=== PATIENT | female | born 1950 | race Caucasian/White ===

== ENCOUNTER → 2020-04-04 16:21 | Outpatient (CLI) | payer MEDICARE, SELFPAY | PROVIDERS: Visit Provider Physician Assistant | DX: R30.9 Painful micturition, unspecified (principal); R35.8 Other polyuria | CPT/HCPCS: 87086 ==

== ENCOUNTER → 2021-04-01 17:53 | Outpatient (CLI) | payer MEDICARE, SELFPAY ==
--- NOTE | 2021-04-01 17:55 | DI.MRI.S_ITS ---
PROCEDURE: MR THORACIC SPINE WO CON INDICATIONS: Thoracic myelopathy TECHNIQUE: Noncontrast sagittal T1 spine echo and T2 fast spin echo, sagittal STIR, axial T1 and T2 fast spin echo through the thoracic spine. COMPARISON: None. FINDINGS: Image quality: Excellent. Alignment and Curvature: There is normal bony alignment. No spondylolisthesis. Bone Marrow: Bony fusion at T1-2 level is seen. There is no marrow edema. Chronic appearing mild anterior wedge compression deformity at T12 level is seen with 10% loss of T12 vertebral body height anteriorly. No acute compression fracture . No suspicious intraosseous lesion. Degenerative endplate changes and loss of disc height are noted at T8-9, T9-10, T10-11 and T11-12 levels. Spinal Cord: Mild left paracentral disc bulge at T3-4 level is seen with mild central canal stenosis. Mild central disc bulge at T5-6, and T6-7 levels are seen with mild central canal stenosis. Mild broad-based disc bulge at T8-9 level is seen with mild effacement of thecal sac anteriorly. There is broad-based disc bulge at T9-10 level causing [id number] central canal stenosis and suggestion of mild bilateral neural foraminal narrowing. Left paracentral disc herniation and extrusion at T10-11 level is seen with extruded disc extending along left posterior aspect of T10 vertebral body causing moderate to severe central canal stenosis and left-sided neural foraminal narrowing. Significant compression of thoracic spinal cord at this level is also noted. Mild broad-based disc bulge is also seen at T11-12 and T12-L1 levels causing mild central canal stenosis. mild T2 hyperintense signal within thoracic spinal cord at T10-11 level is seen concerning for of myelomalacia. Paraspinous Soft Tissues: No paravertebral masses. Miscellaneous: On axial images, central canal and foramina appear widely patent at all scanned levels. IMPRESSION: 1. Large left paracentral disc herniation and extrusion at T10-11 level with extruded disc extending along left posterior aspect of T10 causing moderate to severe central canal stenosis and focal compression of thoracic spinal cord at this level. Mildly increased thoracic spinal cord signal at T10-11 level suggestive of myelomalacia. 2. Chronic appearing mild anterior wedge compression deformity at T12 level. No acute compression fracture or spondylolisthesis in thoracic spine. 3. Degenerative endplate changes are noted involving multiple thoracic spine vertebral bodies as described above causing mild central canal stenosis without additional area of cord compression or myelomalacia. Dictated by: Pedro Templeton M.D. on 04/01/2021 at 19:20 Approved by: Pedro Templeton M.D. on 04/01/2021 at 19:27
--- NOTE | 2021-04-01 17:55 | DI.CT.S_ITS ---
PROCEDURE: CT LUMBAR SPINE WO CON INDICATIONS: Thoracic myelopathy TECHNIQUE: Noncontrast 3 mm thick sections acquired from the T12 level to the sacrum. Sagittal and coronal reformats were constructed. For radiation dose reduction, the following was used: automated exposure control. COMPARISON: [facility], RG, XR L-SPINE 2-3V, 09/28/2020, 13:15. FINDINGS: Image quality: Excellent. Bones: Patient is status post extensive transpedicular fusion of lumbar spine from L1 through S1 levels. There is minimal retrolisthesis at L1-2 level and grade 1 anterolisthesis at L4-5 level. No acute vertebral body compression fractures. Degenerative endplate changes and loss of disc height throughout visualized lower thoracic and lumbar spine is seen. No suspicious lytic or blastic bony lesions. Chronic appearing mild anterior wedge compression deformity at T12 level is seen. T12-L1: Broad-based disc bulge and bilateral facet arthrosis is seen with mild central canal stenosis, no significant neural foraminal narrowing. L1-L2: There is prior right laminectomy. Bilateral facet arthrosis is seen. No significant canal stenosis or neural foraminal narrowing is seen. L2-L3: There is prior posterior decompression. Bilateral facet arthrosis is noted. Suggestion of broad-based disc bulge is seen. No significant central canal stenosis. Left-sided neural foraminal narrowing is likely present. L3-L4: There is prior posterior decompression. Bilateral facet arthrosis is noted. Mild broad-based disc bulge is seen. No significant central canal stenosis. Mild bilateral neural foraminal narrowing is noted. L4-L5: There is posterior decompression. Broad-based dorsal disc osteophyte complex formation is noted and bilateral facet arthrosis. There is no significant central canal stenosis. [id number] bilateral neural foraminal narrowing is seen. L5-S1: Mild diffuse disc bulge and bilateral facet arthrosis is seen with mild central canal stenosis and mild bilateral neural foraminal narrowing. Soft tissues: No retroperitoneal masses or hematomas. Visualized aorta is normal in caliber. IMPRESSION: 1. Post fusion changes in lumbar spine from L1 through S1 levels. Stable minimal spondylolisthesis at L1-2 and L4-5 levels as above. No acute compression fracture. No gross hardware loosening or failure. 2. Degenerative endplate changes, broad-based disc bulge and bilateral facet arthrosis throughout lumbar spine as described in detail above. 3. No gross paraspinous soft tissue abnormalities. Dictated by: Pedro Templeton M.D. on 04/01/2021 at 18:35 Approved by: Pedro Templeton M.D. on 04/01/2021 at 18:45
== END ==
PROVIDERS: PCP Internal Medicine; Referring Provider Physical Medicine & Rehabilitation; Visit Provider Physical Medicine & Rehabilitation
DX: S22.080A Wedge compression fracture of T11-T12 vertebra, initial encounter for closed fracture (principal); M47.14 Other spondylosis with myelopathy, thoracic region; M51.04 Intervertebral disc disorders with myelopathy, thoracic region; M48.04 Spinal stenosis, thoracic region; Z98.1 Arthrodesis status
CPT/HCPCS: 72131; 72146

== ENCOUNTER → 2021-04-12 10:59 | Outpatient (CLI) | payer MEDICARE, SELFPAY ==
[2021-04-12 14:04] LABS: COVID19 -Nasal RAPID Negative (Negative)
== END ==
PROVIDERS: PCP Internal Medicine; Referring Provider Physical Medicine & Rehabilitation; Visit Provider Physical Medicine & Rehabilitation
DX: Z20.822 Contact with and (suspected) exposure to COVID-19 (principal)
CPT/HCPCS: 87635; C9803

== ENCOUNTER 2021-04-13 08:33 | Outpatient (CLI) | payer MEDICARE, SELFPAY ==
[2021-04-13] VITALS (10 sets, daily range): BP systolic 124–201; BP diastolic 60–95; PULSE 74–95; RESP 10–20; TEMP 36.4; O2SAT 97–100
--- NOTE | 2021-04-13 08:36 | DI.RAD.S_ITS ---
PROCEDURE: PAIN C/T INTERLAMINAR INJECT INDICATIONS: SPINAL STENOSIS COMPARISON: None. FINDINGS: Fluoroscopic spot filming was performed to verify placement of spinal needles at the interlaminar space at the T10-T11 level(s), as labeled on the films. Appropriate location(s) of the needle tip(s) was confirmed by injection of iodinated contrast. IMPRESSION: Access needle in the T10-T11 interlaminar space for translaminar epidural steroid injection Dictated by: Alana Dougherty MD, PhD on 04/13/2021 at 11:55 Approved by: Alana Dougherty MD, PhD on 04/13/2021 at 11:55
[2021-04-13] MEDS: DEXAMETHASONE 10 MG/ML VIAL 30 MG INJ (09:45)
[2021-04-13] MEDS: BUPIVACAINE 0.25% (PF) VIAL 2 ML INJ (09:45)
[2021-04-13] MEDS: IOPAMIDOL 15 ML VIAL 3 ML INJ (09:45)
[2021-04-13] MEDS: fentaNYL 250 MCG/5 ML INJ (09:48)
[2021-04-13] MEDS: MIDAZOLAM 5 MG/5 ML VIAL IV (09:48)
--- NOTE | 2021-04-13 09:57 | PM.PROC.IR.1 ---
Date/Time/Diagnoses Date of procedure: 04/13/21 Time of procedure: 09:57 Pre-procedure diagnosis: Thoracic stenosis with HNP Post-procedure diagnosis: same Procedure Notes Procedure: Fluoroscopic guided, contrast controlled T10/11 translaminar epidural steroid injection with conscious sedation. Indications: Annabella is referred by Dr.s' Man and Delano for treatment of thoracic DDD/DJD with radiculopathy Physician: Kevin Garcia Total Fluoroscopy time (seconds): 14 Total sedation minutes: 16 Complications: none Procedure in detail & Post-procedure care: DESCRIPTION OF PROCEDURE Fluoroscopic guided, contrast controlled T10/11 translaminar epidural steroid injection with conscious sedation. Following review of allergy review potential side effects and complications, including, but not necessarily limited to, infection, allergic reaction, local tissue breakdown, temporary as well as permanent nerve injury, stroke, paralysis and possible , the patient indicated that they understood and agreed to proceed. An informed consent document was signed by the patient, witnessed by the nurse, and placed in the patient's chart. Additionally other treatment options including modalities, medications and physical therapy were reviewed with the patient. After review of previous anaesthesic history and IV conscious sedation the patient was deemed safe to proceed with today's procedure with IV conscious sedation as ASA class II designation. Safety time-out was performed to confirm patient ID, procedure to be performed and site of procedure. IV sedation was accomplished with a combination of 3mg of Versed and 100mcg of Fentanyl administered by the RN after DO order, titrated to patient comfort during the course of the procedure while the patient remained responsive to all verbal commands In the prone position, following sterile prep and drape of the thoracic region the T10/11 translaminar space was identified fluoroscopically. The skin was anesthetized via 25 gauge 1.5inch needle with 1% lidocaine solution. At this point a 22gauge epidural needle was atraumatically introduced and advanced under fluoroscopic guidance into the region of the T10/11 translaminar space depth was confirmed on lateral view. Radiographic data, including multiple fluoroscopic views of the thoracic spine, reveals spinal needle at the T10/11 translaminar space. Lateral views then showed the placement of the needle in the epidural space. Subsequent view show contrast material flowing superiorly and inferiorly in the epidural space. No vascular or intrathecal uptake is observed. At this point using loss of resistance technique with saline and the epidural space was entered. This was confirmed followed negative aspiration and injection of approximately 1.5cc of Isovue 200 showed excellent epidural flow without vascular or intrathecal uptake. At this point, 1cc of 1% lidocaine solution was admitted as a test dose and the patient was observed for an appropriate period of time without signs or symptoms of complications, including abdominal pain, shortness of breath, bilateral upper and lower extremity weakness, nausea and vomiting, prior to steroid injection. Subsequently, 3cc or 30mg of dexamethasone was then injected without incident. The patient tolerated the procedure well without signs of complications and subsequently was transferred to the recovery room for further monitoring. The patient was then transferred to the recovery area with their observed for an appropriate time after the injection. Patient reported a VAS score of 7 prior to the procedure and post-procedure VAS of 2.
== END 2021-04-13 10:25 | disposition home or self-care (01) ==
LOC: RAD 08:35
PROVIDERS: PCP Internal Medicine; Referring Provider Physical Medicine & Rehabilitation; Visit Provider Physical Medicine & Rehabilitation
DX: M51.14 Intervertebral disc disorders with radiculopathy, thoracic region (principal); M48.04 Spinal stenosis, thoracic region
CPT/HCPCS: 62321; 99152; J1100; J2250; J3010

== ENCOUNTER 2021-04-20 11:39 | Inpatient (IN) | payer MEDICARE, SELFPAY ==
[2021-04-20] VITALS (37 sets, daily range): BP systolic 131–213; BP diastolic 66–96; PULSE 75–102; RESP 12–28; TEMP 36.6–36.7; O2SAT 88–97; BMI 31.7
--- NOTE | 2021-04-20 12:10 | DI.MRI.S_ITS ---
PROCEDURE: MR THORACIC SPINE WO/W CON INDICATIONS: t10-T11 disc with recent injection, can't walk, urinary inco TECHNIQUE: Noncontrast sagittal T1 spin echo and T2 fast spin echo, sagittal STIR, axial T1 and T2 fast spin echo through the thoracic spine. After the administration of contrast, axial and sagittal T1 spin echo with fat saturation through the thoracic spine. COMPARISON: [facility], RG, XR T-SPINE 2-3V, 09/28/2020, 13:15. [facility], CT, CT LUMBAR SPINE WO CON, 04/01/2021, 18:06. FINDINGS: Partially visualized cervical thoracic fusion hardware. Partially visualized lumbosacral fusion hardware. Wedging of the T12 vertebral body again noted. At T10-T11, there is complete loss of intervertebral disc height with [id number] endplate contact and associated discogenic endplate edema and degenerative endplate osteophytic ridging. There is also diffuse disc bulge with a superimposed large disc extrusion which causes severe spinal canal stenosis. Extruded disc material extends approximately 1.6 centimeters above the level of the disc space. On series 13, image 17, the axial dimensions of the extruded disc material measure approximately 0.9 centimeters x 1.2 centimeters. Increased T2 signal of the cord at this level suggests compressive myelopathy. No significant spinal canal stenosis in the thoracic spine otherwise. N no thoracic cord signal abnormality otherwise. Thoracic prevertebral and paraspinous soft tissues are within normal limits. IMPRESSION: Severe spinal canal stenosis at T10-T11 due to a large disc extrusion. 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 Dictated by: Cresencio Talbot M.D. on 04/20/2021 at 16:08 Approved by: Cresencio Talbot M.D. on 04/20/2021 at 16:13
--- NOTE | 2021-04-20 12:10 | DI.MRI.S_ITS ---
PROCEDURE: MR LUMBAR SPINE WO/W CON INDICATIONS: post epidural with urinary incontinence and weakness TECHNIQUE: Noncontrast sagittal T1 spin echo and T2 fast echo, sagittal STIR, axial T1 and T2 fast spin echo through the lumbar spine. In cases with scoliosis, additional coronal T2 fast spin echo may be performed. COMPARISON: None. FINDINGS: There are postsurgical changes L1-S1 posterior fixation and wide laminectomies in the lower lumbar spine. There is a T2 hyperintense fluid collection in the laminectomy defects which likely represents a seroma and produces no mass effect on the subjacent thecal sac. Fatty atrophy of the paraspinous musculature. Otherwise unremarkable prevertebral and paraspinous soft tissues. No abnormal enhancement in the regional soft tissues or within the epidural space. Anterolisthesis of L5 on S1 measuring 5 millimeters. Wedging of the T12 vertebral body appears chronic. Otherwise normal vertebral body height. No suspicious focal marrow signal abnormality. T12-L1: No spinal canal or neural foraminal stenosis. L1-L2: No spinal canal stenosis. Mild bilateral neural foraminal narrowing. L2-L3: Wide decompression of the spinal canal. Mild bilateral neural foraminal narrowing. L3-L4: No spinal canal stenosis. Mild bilateral neural foraminal narrowing. L4-L5: Pseudo bulge related to the anterolisthesis of L4 on L5 flattens the ventral thecal sac without significant mass effect upon the traversing L5 nerve roots. Mild bilateral neural foraminal narrowing. L5-S1: No spinal canal stenosis. Moderate bilateral neural foraminal narrowing with mild flattening of the exiting L5 nerve roots. IMPRESSION: Postsurgical changes of L1-S1 posterior fixation and lower lumbar spine wide bilateral laminectomies. No spine significant spinal canal or neural foraminal stenosis except for moderate neural foraminal narrowing at L5-S1. Correlate for any corresponding L5 radicular symptoms. Dictated by: Cresencio Talbot M.D. on 04/20/2021 at 15:58 Approved by: Cresencio Talbot M.D. on 04/20/2021 at 16:08
[2021-04-20 13:14] LABS: Add Manual Diff / Slide Review NO; Basophils Absolute Auto 100 /uL (0-100); Basophils Percent Auto 0.8 % (0-2); Eosinophils Absolute Auto 0 /uL (0-450); Hematocrit 41.1 % (36-46); Hemoglobin 13.9 g/dL (12.0-16.0); Lymphocytes Absolute Auto 900 /uL (1100-4500); Lymphocytes Percent Auto 10.7 % (25-40); Mean Corpuscular HGB Conc 33.8 % (30-36); Mean Corpuscular Hemoglobin 31.9 PG (26-34); Mean Corpuscular Volume 94.3 fL (80-100); Monocytes Absolute Auto 100 /uL (0-900); Monocytes Percent Auto 0.9 % (3-14); Neutrophils Absolute Auto 7500 /uL (1500-7000); Neutrophils Percent Auto 87.6 % (50-75); Platelet Count 67 X10^3/uL (150-400); Red Blood Cell Count 4.35 X10^6/uL (4.0-5.2); White Blood Cell Count 8.5 X10^3/uL (4.5-11.0)
--- NOTE | 2021-04-20 13:15 | ED_ITS ---
HPI - Weakness <Christine Alarcon, DO - Last Filed: 04/21/21 06:59> General Chief complaint: Weakness Stated complaint: LEG WEAKNESS UNABLE TO HOLD PEEING AND BOWELS Time Seen by Provider: 04/20/21 11:52 Source: patient Mode of arrival: Wheelchair History of Present Illness HPI Narrative: 70-year-old female who has chronic ongoing back pain. She had an MRI April 01 upper thoracic spine found to have a T10-11 disc herniation for. She had an epidural injection for pain control on 04/13/2021. She said initially this feeling in her leg started coming back however is she has gotten actually weaker. She used to be able to lift her legs 6 in or so to get up the stairs however she is no longer able to do that. 3 times in the last 5 days she has had nocturnal incontinence. She says she has wheezed previously been able to get up and use the restroom however now she is unable to. She cannot tell when she has to go. She can not tell when she has to have a bowel movement but can not stop it or old. She has to wear depends which is new for her. She really has a bad neuropathy pain in the bottoms her feet which seems to be chronic. She denies any fever or chills. She has had multiple back surgeries in the past cervical fusion and lumbar fusion. Related Data Home Medications Medication Instructions Recorded Confirmed pravastatin 80 mg tablet 80 mg PO BEDTIME 04/04/20 04/21/21 ascorbic acid (vitamin C) 1,000 mg 1 g PO DAILY tab 03/31/21 04/21/21 tablet aspirin 81 mg tablet,delayed 81 mg PO DAILY 03/31/21 04/21/21 release (Adult Aspirin Regimen) baclofen 10 mg tablet 10 mg PO BEDTIME 03/31/21 04/21/21 baclofen 5 mg tablet 5 mg PO TID 03/31/21 04/21/21 calcitonin (salmon) 200 1 spray INTRANASAL (ALT) DAILY 03/31/21 04/21/21 unit/actuation nasal spray cholecalciferol (vitamin D3) 250 250 mcg PO DAILY 03/31/21 04/21/21 mcg (10,000 unit) capsule coenzyme Q10 200 mg/gram oral mg PO 03/31/21 03/31/21 powder (H2Q CoQ10) fexofenadine 180 mg tablet 180 mg PO DAILY 03/31/21 04/21/21 ([facility]) fluticasone propionate 50 1 spray INTRANASAL DAILY 03/31/21 04/21/21 mcg/actuation nasal spray,suspension glucosamine-chondroitin 250 mg-200 2 tab PO QPC 03/31/21 04/21/21 mg tablet (Osteo Bi-Flex) glutamic [id number]-[id number] tab PO 03/31/21 03/31/21 tablet glycosaminoglycans,mixed 80 cap PO 03/31/21 03/31/21 mg-ascorbic acid 15 mg capsule (SynovX Metabolic) multivitamin 1 tab PO DAILY 03/31/21 04/21/21 omega-3 fatty acids 1,250 mg 2,500 mg PO DAILY 03/31/21 04/21/21 capsule prednisone 20 mg tablet 40 mg PO DAILY 03/31/21 04/21/21 strontium gluconate-vitamins tab PO 03/31/21 03/31/21 [id number] acid 680 mg-30 mg tablet tramadol 50 mg tablet 50 mg PO BID PRN tab 03/31/21 04/21/21 Previous Rx's Medication Instructions Recorded diazepam 10 mg tablet (Valium) 10 mg PO ONCE #10 tab MDD 3 tabs 03/31/21 gabapentin 300 mg capsule 300 mg PO .COMPLEX #90 cap 03/31/21 Allergies Allergy/AdvReac Type Severity Reaction Status Date / Time cefazolin [From [facility]] Allergy Intermediate Hives Verified 04/20/21 11:53 Review of Systems <Christine Alarcon, - Last Filed: 04/21/21 06:59> Review of Systems Narrative: GENERAL: Denies chills, fatigue, malaise, fever, sweats, travel HEENT: Denies sinus pain, ear pain, sore throat, difficulty swallowing, neck pain RESPIRATORY: Denies dyspnea, cough, wheezing, hemoptysis, sputum. CARDIOVASCULAR: Denies chest pain, palpitations, orthopnea, edema GASTROINTESTINAL: Denies nausea, vomiting, abdominal pain, diarrhea, constipation, melena. :+ urinary incontinence, see HPI MUSCULOSKELETAL: Denies weakness, joint pain, or bony pain SKIN: No rash, no erythema, no pruritus NEUROLOGIC: See HPI PSYCHIATRIC: No concerning psychosocial issues. 12 point review of systems is negative except for those stated above and HPI Patient History <Christine Alarcon DO - Last Filed: 04/21/21 06:59> Medical History HNP (herniated nucleus pulposus), thoracic T12 compression fracture Thoracic myelopathy UTI (urinary tract infection) Surgical History H/O eye surgery H/O shoulder surgery H/O thumb surgery H/O: knee surgery History of back surgery History of fusion of cervical spine History of lumbar fusion Family History Father Congestive heart failure Osteoarthritis Mother Osteoarthritis Pneumonia Sister Heart disease Grandmother Cancer Congestive heart failure Social History household members: none Smoking Status: Never smoker Smoking Status: Never smoker alcohol intake frequency: holidays/special occasions only Substance Use Type: does not use Exam <Christine Alarcon DO - Last Filed: 04/21/21 06:59> Initial Vital Signs Initial Vital Signs: Vital Signs Temperature 98.0 F 04/20/21 11:48 Pulse Rate 99 H 04/20/21 11:48 Respiratory Rate 17 04/20/21 11:48 Blood Pressure 213/96 H 04/20/21 11:48 Pulse Oximetry 95 04/20/21 11:48 GENERAL: Well-appearing, well-nourished and in no acute distress. HEENT: Head atraumatic,EOMI, pupils reactive, face symmetric, moist mucous membranes CARDIOVASCULAR: Regular rate and rhythm without murmurs, rubs or gallops. RESPIRATORY: Breath sounds equal bilaterally, no wheezes rales or rhonchi. ABDOMEN: Soft, nontender. Normoactive bowel sounds all 4 quadrants. No guarding or rebound. BACK: No vertebral tenderness no steps RECTAL: Strong rectal tone EXTREMITIES: Normal range of motion, no clubbing or edema. Neurovascularly intact NEUROLOGICAL: Alert and oriented x4. Decreased sensation in saddle area bilat eral lower extremity weakness hyper reflexia from bottoms of feet. Hyper reflexive patella no clonus present SKIN: Warm, dry, no laceration, no petechiae, no rashes or lesions. <Otoniel [place], DO - Last Filed: 04/21/21 03:18> Initial Vital Signs Initial Vital Signs: Vital Signs Temperature 98.0 F 04/20/21 11:48 Pulse Rate 99 H 04/20/21 11:48 Respiratory Rate 17 04/20/21 11:48 Blood Pressure 213/96 H 04/20/21 11:48 Pulse Oximetry 95 04/20/21 11:48 Course <Christine Alarcon DO - Last Filed: 04/21/21 06:59> Orders Ordered: Acetaminophen (Acetaminophen 325 Mg Tablet) 650 mg PO Q6HR PRN PRN Reason: Fever/Mild Pain (1-3) Baclofen (Baclofen 10 Mg Tablet) 10 mg PO BEDTIME [facility] Last Admin: 04/20/21 23:41 Dose: 10 mg Documented by: [email or web address] Baclofen (Baclofen 10 Mg Tablet) 5 mg PO 1000,1400 [facility] Dexamethasone (Dexamethasone 10 Mg/Ml Vial) 6 mg IV Q6H [facility] Last Admin: 04/21/21 03:59 Dose: 6 mg Documented by: [email or web address] Docusate Sodium (Docusate 100 Mg Capsule) 100 mg PO BID [facility] Last Admin: 04/20/21 23:41 Dose: 100 mg Documented by: [email or web address] Gabapentin (Gabapentin 300 Mg Capsule) 300 mg PO TID [facility] Last Admin: 04/20/21 23:41 Dose: 300 mg Documented by: [email or web address] Sodium Chloride (Normal Saline 0.9%) 1,000 mls @ 100 mls/hr IV CONT CELE Stop: 04/21/21 08:00 Last Admin: 04/20/21 23:41 Dose: 100 mls/hr Documented by: [email or web address] Metoclopramide HCl (Metoclopramide 10 Mg/2 Ml Inj) 10 mg IV Q6HR PRN PRN Reason: Nausea And Vomiting Morphine Sulfate (Morphine 2 Mg/Ml Inj) 2 mg IV Q4H PRN PRN Reason: Breakthrough pain only (8-10) Naloxone HCl (Naloxone 0.4 Mg/Ml Vial) 0.1 mg IV Q2MIN PRN PRN Reason: Opiate Reversal Naloxone HCl (Naloxone 0.4 Mg/Ml Vial) 0.2 mg IV Q2MIN PRN PRN Reason: Opiate Reversal Ondansetron HCl (Ondansetron 4 Mg/2 Ml Inj) 4 mg IV Q4HR PRN PRN Reason: Nausea And Vomiting Pantoprazole Sodium (Pantoprazole Dr 20 Mg Tablet) 20 mg PO 0600 [facility] Last Admin: 04/21/21 05:52 Dose: 20 mg Documented by: CTR.IVET Pravastatin Sodium (Pravastatin 20 Mg Tablet) 80 mg PO BEDTIME [facility] Sennosides (Sennosides 8.6 Mg Tablet) 17.2 mg PO BEDTIME [facility] Last Admin: 04/20/21 23:42 Dose: 17.2 mg Documented by: [email or web address] Tramadol HCl (Tramadol 50 Mg Tablet) 100 mg PO Q4H PRN PRN Reason: Pain, Severe (7-10) Stop: 04/23/21 22:07 Tramadol HCl (Tramadol 50 Mg Tablet) 50 mg PO BID PRN PRN Reason: pain Discontinued Medications Acetaminophen (Acetaminophen 325 Mg Tablet) 975 mg PO NOW ONE Stop: 04/20/21 14:01 Last Admin: 04/20/21 14:16 Dose: 975 mg Documented by: JONATHAN Dexamethasone (Dexamethasone 4 Mg/Ml Vial) 4 mg IV NOW ONE Stop: 04/20/21 20:51 Last Admin: 04/20/21 21:17 Dose: 4 mg Documented by: CRISS Methylprednisolone 2,520 mg/ (Sodium Chloride) 270.16 mls @ 270.16 mls/hr IV NOW ONE Stop: 04/20/21 17:06 Last Admin: 04/20/21 21:17 Dose: Not Given Documented by: CRISS Lorazepam (Lorazepam 2 Mg/Ml Inj) 1 mg IV NOW ONE Stop: 04/20/21 13:12 Last Admin: 04/20/21 14:17 Dose: 1 mg Documented by: JONATHAN Morphine Sulfate (Morphine 2 Mg/Ml Inj) 2 mg IV NOW ONE Stop: 04/20/21 12:13 Last Admin: 04/20/21 13:25 Dose: 2 mg Documented by: KEZIA Morphine Sulfate (Morphine 2 Mg/Ml Inj) 2 mg IV NOW ONE Stop: 04/20/21 18:04 Last Admin: 04/20/21 18:17 Dose: 2 mg Documented by: JONATHAN Morphine Sulfate (Morphine 2 Mg/Ml Inj) 2 mg IV NOW ONE Stop: 04/20/21 21:46 Last Admin: 04/20/21 21:53 Dose: 2 mg Documented by: DAVID Ondansetron HCl (Ondansetron 4 Mg/2 Ml Inj) 4 mg IV NOW ONE Stop: 04/20/21 12:13 Last Admin: 04/20/21 13:25 Dose: 4 mg Documented by: KEZIA Vital Signs Vital signs: Vital Signs - 8 hr 04/20/21 19:30 04/20/21 20:00 04/20/21 20:30 Pulse Rate 80 78 78 Respiratory Rate 19 14 18 Blood Pressure 156/85 H 161/88 H Pulse Oximetry 94 92 94 04/20/21 20:31 04/20/21 21:00 Pulse Rate 80 76 Respiratory Rate 22 12 Blood Pressure 149/74 H 157/87 H Pulse Oximetry 95 94 <Otoniel Whittington DO - Last Filed: 04/21/21 03:18> Orders Ordered: Acetaminophen (Acetaminophen 325 Mg Tablet) 650 mg PO Q6HR PRN PRN Reason: Fever/Mild Pain (1-3) Baclofen (Baclofen 10 Mg Tablet) 10 mg PO BEDTIME [facility] Last Admin: 04/20/21 23:41 Dose: 10 mg Documented by: [email or web address] Baclofen (Baclofen 10 Mg Tablet) 5 mg PO 1000,1400 [facility] Dexamethasone (Dexamethasone 10 Mg/Ml Vial) 6 mg IV Q6H [facility] Last Admin: 04/21/21 03:59 Dose: 6 mg Documented by: [email or web address] Docusate Sodium (Docusate 100 Mg Capsule) 100 mg PO BID [facility] Last Admin: 04/20/21 23:41 Dose: 100 mg Documented by: [email or web address] Gabapentin (Gabapentin 300 Mg Capsule) 300 mg PO TID [facility] Last Admin: 04/20/21 23:41 Dose: 300 mg Documented by: [email or web address] Sodium Chloride (Normal Saline 0.9%) 1,000 mls @ 100 mls/hr IV CONT [facility] Stop: 04/21/21 08:00 Last Admin: 04/20/21 23:41 Dose: 100 mls/hr Documented by: [email or web address] Metoclopramide HCl (Metoclopramide 10 Mg/2 Ml Inj) 10 mg IV Q6HR PRN PRN Reason: Nausea And Vomiting Morphine Sulfate (Morphine 2 Mg/Ml Inj) 2 mg IV Q4H PRN PRN Reason: Breakthrough pain only (8-10) Naloxone HCl (Naloxone 0.4 Mg/Ml Vial) 0.1 mg IV Q2MIN PRN PRN Reason: Opiate Reversal Naloxone HCl (Naloxone 0.4 Mg/Ml Vial) 0.2 mg IV Q2MIN PRN PRN Reason: Opiate Reversal Ondansetron HCl (Ondansetron 4 Mg/2 Ml Inj) 4 mg IV Q4HR PRN PRN Reason: Nausea And Vomiting Pantoprazole Sodium (Pantoprazole Dr 20 Mg Tablet) 20 mg PO 0600 [facility] Last Admin: 04/21/21 05:52 Dose: 20 mg Documented by: CTR.IVET Pravastatin Sodium (Pravastatin 20 Mg Tablet) 80 mg PO BEDTIME [facility] Sennosides (Sennosides 8.6 Mg Tablet) 17.2 mg PO BEDTIME [facility] Last Admin: 04/20/21 23:42 Dose: 17.2 mg Documented by: [email or web address] Tramadol HCl (Tramadol 50 Mg Tablet) 100 mg PO Q4H PRN PRN Reason: Pain, Severe (7-10) Stop: 04/23/21 22:07 Tramadol HCl (Tramadol 50 Mg Tablet) 50 mg PO BID PRN PRN Reason: pain Discontinued Medications Acetaminophen (Acetaminophen 325 Mg Tablet) 975 mg PO NOW ONE Stop: 04/20/21 14:01 Last Admin: 04/20/21 14:16 Dose: 975 mg Documented by: JONATHAN Dexamethasone (Dexamethasone 4 Mg/Ml Vial) 4 mg IV NOW ONE Stop: 04/20/21 20:51 Last Admin: 04/20/21 21:17 Dose: 4 mg Documented by: CRISS Methylprednisolone 2,520 mg/ (Sodium Chloride) 270.16 mls @ 270.16 mls/hr IV NOW ONE Stop: 04/20/21 17:06 Last Admin: 04/20/21 21:17 Dose: Not Given Documented by: CRISS Lorazepam (Lorazepam 2 Mg/Ml Inj) 1 mg IV NOW ONE Stop: 04/20/21 13:12 Last Admin: 04/20/21 14:17 Dose: 1 mg Documented by: JONATHAN Morphine Sulfate (Morphine 2 Mg/Ml Inj) 2 mg IV NOW ONE Stop: 04/20/21 12:13 Last Admin: 04/20/21 13:25 Dose: 2 mg Documented by: KEZIA Morphine Sulfate (Morphine 2 Mg/Ml Inj) 2 mg IV NOW ONE Stop: 04/20/21 18:04 Last Admin: 04/20/21 18:17 Dose: 2 mg Documented by: JONATHAN Morphine Sulfate (Morphine 2 Mg/Ml Inj) 2 mg IV NOW ONE Stop: 04/20/21 21:46 Last Admin: 04/20/21 21:53 Dose: 2 mg Documented by: DAVID Ondansetron HCl (Ondansetron 4 Mg/2 Ml Inj) 4 mg IV NOW ONE Stop: 04/20/21 12:13 Last Admin: 04/20/21 13:25 Dose: 4 mg Documented by: KEZIA Consultations Consultation #1: [id number] - [facility] Spine Surgeon (Nahun) has called back. After reviewing the case he recommends Decadron 10mg q6 Vital Signs Vital signs: Vital Signs - 8 hr 04/20/21 19:30 04/20/21 20:00 04/20/21 20:30 Pulse Rate 80 78 78 Respiratory Rate 19 14 18 Blood Pressure 156/85 H 161/88 H Pulse Oximetry 94 92 94 04/20/21 20:31 04/20/21 21:00 Pulse Rate 80 76 Respiratory Rate 22 12 Blood Pressure 149/74 H 157/87 H Pulse Oximetry 95 94 MDM - Weakness <Christine Alarcon DO - Last Filed: 04/21/21 06:59> Lab Data Result diagrams: 04/21/21 04:16 04/21/21 04:16 Labs: Lab Results 04/20/21 04/20/21 04/20/21 Range/Units 12:48 13:05 13:05 WBC 8.5 (4.5-11.0) X10^3/uL RBC 4.35 (4.0-5.2) X10^6/uL Hgb 13.9 (12.0-16.0) g/dL Hct 41.1 (36-46) % MCV 94.3 (80-100) fL MCH 31.9 (26-34) PG MCHC 33.8 (30-36) % RDW 13.0 (11.6-14.8) % Plt Count 67 L (150-400) X10^3/uL Neut % (Auto) 87.6 H (50-75) % Lymph % (Auto) 10.7 L (25-40) % Kemper % (Auto) 0.9 L (3-14) % Eos % (Auto) 0.0 L (2-4) % Baso % (Auto) 0.8 (0-2) % Neut # (Auto) 7500 H (4055-9444) /uL Lymph # (Auto) 900 L (0778-1259) /uL Kemper # (Auto) 100 (0-900) /uL Eos # (Auto) 0 (0-450) /uL Baso # (Auto) 100 (0-100) /uL Sodium 134 L (137-145) mmol/L Potassium 4.2 (3.4-5.1) mmol/L Chloride 100 (98-107) mmol/L Carbon Dioxide 29 (22-32) mmol/L BUN 25 H (7-17) mg/dL Creatinine 0.74 (0.52-1.04) mg/dL Estimated GFR > 60.0 (>60) mL/min BUN/Creatinine Ratio 33.8 H (6-22) Glucose 358 H (80-110) mg/dL Calcium 9.6 (8.4-10.2) mg/dL Total Bilirubin 0.7 (0.2-1.3) mg/dL AST 27 (14-36) IU/L ALT 24 (<35) IU/L Alkaline Phosphatase 102 (38-126) U/L Total Protein 7.1 (6.3-8.2) g/dL Albumin 4.2 (3.5-5.0) g/dL Globulin 2.9 (1.7-4.1) g/dL Albumin/Globulin Ratio 1.4 (1.0-2.8) Urine Color Yellow Urine Appearance Clear Urine pH 7.0 (4.5-8.0) Ur Specific [place] 1.015 (1.000-1.035) Urine Protein Negative (Negative) Urine Glucose (UA) 2+ H (Negative) g/dL Urine Ketones 1+ H (NEGATIVE) Urine Occult Blood Trace-intact (Negative) Urine Nitrate Negative (Negative) Urine Bilirubin Negative (NEGATIVE) Urine Urobilinogen 0.2 (0.2) E.U./dL Ur Leukocyte Esterase Negative (NEGATIVE) Urine RBC 0-1/hpf (0-5/HPF) Urine WBC None seen (0-5/HPF) Ur Squamous Epith Cells 0-1 /hpf (0-5/HPF) Urine Bacteria None seen (None) Ur Culture Indicated? Cult not indicated Point of Care Testing Glucose POC 275 Urine Dip Bedside Urine Glucose 1000 mg/dl Bedside Urine Bilirubin - Negative Bedside Urine Ketone +/- 5 Urine Specific [place] 1.015 Bedside Urine Occult Blood +/- Bedside Urine pH 7.0 Bedside Urine Protein - Negative Bedside Urine Urobilinogen 0.2 Bedside Urine Nitrite - Negative Bedside Urine Leukocytes - Negative Esterase Imaging Data MR Thoracic: Radiologist Impression: PROCEDURE:? MR THORACIC SPINE WO/W CON ? INDICATIONS:? t10-T11 disc with recent injection, can't walk, urinary inco ? TECHNIQUE:? Noncontrast sagittal T1 spin echo and T2 fast spin echo, sagittal STIR, axial T1 and T2 fast spin echo through the thoracic spine.? After the administration of contrast, axial and sagittal T1 spin echo with fat saturation through the thoracic spine.? ? COMPARISON:? [facility], RG, XR T-SPINE 2-3V, 09/28/2020, 13:15.? [facility], CT, CT LUMBAR SPINE WO CON, 04/01/2021, 18:06. ? FINDINGS:? ? Partially visualized cervical thoracic fusion hardware.? Partially visualized lumbosacral fusion hardware. ? Wedging of the T12 vertebral body again noted. ? At T10-T11, there is complete loss of intervertebral disc height with bone-on- bone endplate contact and associated discogenic endplate edema and degenerative endplate osteophytic ridging.? There is also diffuse disc bulge with a superimposed large disc extrusion which causes severe spinal canal stenosis.? Extruded disc material extends approximately 1.6 centimeters above the level of the disc space.? On series 13, image 17, the axial dimensions of the extruded disc material measure approximately 0.9 centimeters x 1.2 centimeters.? Increased T2 signal of the cord at this level suggests compressive myelopathy. ? No significant spinal canal stenosis in the thoracic spine otherwise.? N no thoracic cord signal abnormality otherwise.? Thoracic prevertebral and paraspinous soft tissues are within normal limits. ? IMPRESSION:? ? Severe spinal canal stenosis at T10-T11 due to a large disc extrusion.? 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 ? ? Dictated by: Cresencio Talbot M.D. on 04/20/2021 at 16:08? MR Lumbar: Radiologist Impression: PROCEDURE:? MR LUMBAR SPINE WO/W CON ? INDICATIONS:? post epidural with urinary incontinence and weakness ? TECHNIQUE:? Noncontrast sagittal T1 spin echo and T2 fast echo, sagittal STIR, axial T1 and T2 fast spin echo through the lumbar spine.? In cases with scoliosis, additional coronal T2 fast spin echo may be performed.? ? COMPARISON:? None. ? FINDINGS:? There are postsurgical changes L1-S1 posterior fixation and wide laminectomies in the lower lumbar spine.? There is a T2 hyperintense fluid collection in the laminectomy defects which likely represents a seroma and produces no mass effect on the subjacent thecal sac.? Fatty atrophy of the paraspinous musculature.? Otherwise unremarkable prevertebral and paraspinous soft tissues.? No abnormal enhancement in the regional soft tissues or within the epidural space. ? Anterolisthesis of L5 on S1 measuring 5 millimeters.? Wedging of the T12 vertebral body appears chronic.? Otherwise normal vertebral body height.? No suspicious focal marrow signal abnormality.? ? T12-L1:? No spinal canal or neural foraminal stenosis. ? L1-L2:? No spinal canal stenosis.? Mild bilateral neural foraminal narrowing. ? L2-L3:? Wide decompression of the spinal canal.? Mild bilateral neural foraminal narrowing. ? L3-L4:? No spinal canal stenosis.? Mild bilateral neural foraminal narrowing. ? L4-L5:? Pseudo bulge related to the anterolisthesis of L4 on L5 flattens the ventral thecal sac without significant mass effect upon the traversing L5 nerve roots.? Mild bilateral neural foraminal narrowing. ? L5-S1:? No spinal canal stenosis.? Moderate bilateral neural foraminal narrowing with mild flattening of the exiting L5 nerve roots. ? ? IMPRESSION: ? ? Postsurgical changes of L1-S1 posterior fixation and lower lumbar spine wide bilateral laminectomies. ? No spine significant spinal canal or neural foraminal stenosis except for moderate neural foraminal narrowing at L5-S1.? Correlate for any corresponding L5 radicular symptoms. ? Dictated by: Cresencio Talbot M.D. on 04/20/2021 at 15:58 ? ? MDM Narrative Medical decision making narrative: Patient has new neurologic symptoms of urinary incontinence and lower extremity weakness with known T10-T11 disc protrusion. MRI confirms cord edema. 1649-Dr. Templeton spine has been updated on patient's symptoms test results at this time under mowing steroid protocol for traumatic spinal injury of Solu-Medrol 30 milligrams/kilogram over 15 minutes and then infusion of 5.4 milligrams/kilogram per hour for the next 23 hours Unfortunately we do not have enpugh Solu-Medrol to make this happen. Dr. Man made aware of this. Waiting for call from [facility] spinal surgeon for recom mendations. Decadron may be an alternative. hospitalist has been updated patient's symptoms test results does accept but waiting to hear about steroid recommendations from her review in [facility]. signed out to Dr. Whittington 2099 -patient received in sign-out from Dr. Alarcon. I have reviewed the clinical course up until this point. We still not heard back from [facility] spine. I have contacted Dr. Man who recommends Decadron 4 mg q.6 hours. <Otoniel Whittington, - Last Filed: 04/21/21 03:18> Lab Data Labs: Lab Results 04/20/21 04/20/21 04/20/21 Range/Units 12:48 13:05 13:05 WBC 8.5 (4.5-11.0) X10^3/uL RBC 4.35 (4.0-5.2) X10^6/uL Hgb 13.9 (12.0-16.0) g/dL Hct 41.1 (36-46) % MCV 94.3 (80-100) fL MCH 31.9 (26-34) PG MCHC 33.8 (30-36) % RDW 13.0 (11.6-14.8) % Plt Count 67 L (150-400) X10^3/uL Neut % (Auto) 87.6 H (50-75) % Lymph % (Auto) 10.7 L (25-40) % Kemper % (Auto) 0.9 L (3-14) % Eos % (Auto) 0.0 L (2-4) % Baso % (Auto) 0.8 (0-2) % Neut # (Auto) 7500 H (2681-5779) /uL Lymph # (Auto) 900 L (9152-4623) /uL Kemper # (Auto) 100 (0-900) /uL Eos # (Auto) 0 (0-450) /uL Baso # (Auto) 100 (0-100) /uL Sodium 134 L (137-145) mmol/L Potassium 4.2 (3.4-5.1) mmol/L Chloride 100 (98-107) mmol/L Carbon Dioxide 29 (22-32) mmol/L BUN 25 H (7-17) mg/dL Creatinine 0.74 (0.52-1.04) mg/dL Estimated GFR > 60.0 (>60) mL/min BUN/Creatinine Ratio 33.8 H (6-22) Glucose 358 H (80-110) mg/dL Calcium 9.6 (8.4-10.2) mg/dL Total Bilirubin 0.7 (0.2-1.3) mg/dL AST 27 (14-36) IU/L ALT 24 (<35) IU/L Alkaline Phosphatase 102 (38-126) U/L Total Protein 7.1 (6.3-8.2) g/dL Albumin 4.2 (3.5-5.0) g/dL Globulin 2.9 (1.7-4.1) g/dL Albumin/Globulin Ratio 1.4 (1.0-2.8) Urine Color Yellow Urine Appearance Clear Urine pH 7.0 (4.5-8.0) Ur Specific [place] 1.015 (1.000-1.035) Urine Protein Negative (Negative) Urine Glucose (UA) 2+ H (Negative) g/dL Urine Ketones 1+ H (NEGATIVE) Urine Occult Blood Trace-intact (Negative) Urine Nitrate Negative (Negative) Urine Bilirubin Negative (NEGATIVE) Urine Urobilinogen 0.2 (0.2) E.U./dL Ur Leukocyte Esterase Negative (NEGATIVE) Urine RBC 0-1/hpf (0-5/HPF) Urine WBC None seen (0-5/HPF) Ur Squamous Epith Cells 0-1 /hpf (0-5/HPF) Urine Bacteria None seen (None) Ur Culture Indicated? Cult not indicated Point of Care Testing Glucose POC 275 Urine Dip Bedside Urine Glucose 1000 mg/dl Bedside Urine Bilirubin - Negative Bedside Urine Ketone +/- 5 Urine Specific [place] 1.015 Bedside Urine Occult Blood +/- Bedside Urine pH 7.0 Bedside Urine Protein - Negative Bedside Urine Urobilinogen 0.2 Bedside Urine Nitrite - Negative Bedside Urine Leukocytes - Negative Esterase MDM Narrative Medical decision making narrative: Patient has new neurologic symptoms of urinary incontinence and lower extremity weakness with known T10-T11 disc protrusion. MRI confirms cord edema. 1649-Dr. Templeton spine has been updated on patient's symptoms test results at this time under mowing steroid protocol for traumatic spinal injury of Solu-Medrol 30 milligrams/kilogram over 15 minutes and then infusion of 5.4 milligrams/kilogram per hour for the next 23 hours Unfortunately we do not have and Solu-Medrol to make this happen. Dr. Vergara made aware of this. Waiting for call from [facility] spinal surgeon for recommendations. Decadron may be an alternative. 2100 -patient received in sign-out from Dr. Alarcon. I have reviewed the clinical course up until this point. We still not heard back from [facility] spine. I have contacted Dr. Man who recommends Decadron 4 mg q.6 hours. <Otoniel Whittington, DO - Last Filed: 04/21/21 03:18> Critical Care Time Critical Care Time: Yes Total Critical Care Time: 45 Attestation: The high probability of a clinically significant, sudden or life threatening deterioration of the [MSK/Neuro] system(s) required my full and direct attention, intervention and personal management. The aggregate critical care time was [45] minutes. This time is in addition to time spent performing reported procedures but includes the following: [x] Data Review and interpretation [x] Patient assessment and monitoring of vital signs [x] Documentation [x] Medication orders and management Discharge Plan Departure Patient Disposition: Admitted As Inpatient Clinical Impression: Intervertebral disc disorders with radiculopathy, thoracic region Admit Date/Time: 04/20/21 21:15 Admit Provider: Eun Bunch
[2021-04-20] MEDS: MORPHINE 2 MG/ML INJ IV ×3 (13:25→21:53)
[2021-04-20] MEDS: ONDANSETRON 4 MG/2 ML INJ IV (13:25)
[2021-04-20 13:52] LABS: Appearance Urine UA CLEAR; Bilirubin Urine UA NEGATIVE (NEGATIVE); Color Urine UA YELLOW; Glucose Urine UA 2+ g/dL (Negative); Ketones Urine UA 1+ (NEGATIVE); Leukocyte Esterase Urine UA NEGATIVE (NEGATIVE); Nitrite Urine UA NEGATIVE (Negative); Occult Blood Urine UA TRACE-INTACT (Negative); Protein Urine UA NEGATIVE (Negative); Specific Gravity Urine UA 1.015 (1.000-1.035); Urobilinogen Urine UA 0.2 E.U./dL (0.2)
[2021-04-20 14:00] LABS: Alanine Aminotransferase 24 IU/L (<35); Albumin 4.2 g/dL (3.5-5.0); Albumin Globulin Ratio 1.4 (1.0-2.8); Alkaline Phosphatase 102 U/L (38-126); Aspartate Aminotransferase 27 IU/L (14-36); BUN Creatinine Ratio 33.8 (6-22); Bilirubin Total 0.7 mg/dL (0.2-1.3); Blood Urea Nitrogen 25 mg/dL (7-17); Calcium 9.6 mg/dL (8.4-10.2); Carbon Dioxide 29 mmol/L (22-32); Chloride 100 mmol/L (98-107); Estimated Glomerular Filt Rate > 60.0 mL/min (>60); Globulin 2.9 g/dL (1.7-4.1); Glucose 358 mg/dL (80-110); HEMOLYSIS 20 (0-50); Potassium 4.2 mmol/L (3.4-5.1); Sodium 134 mmol/L (137-145); Total Protein 7.1 g/dL (6.3-8.2)
[2021-04-20] MEDS: ACETAMINOPHEN 325 MG TABLET 975 MG PO (14:16)
[2021-04-20] MEDS: LORazepam 2 MG/ML INJ 1 MG IV (14:17)
[2021-04-20 14:21] LABS: Bacteria Urine None Seen; Culture Indicated Urine Cult Not Indicated; RBC Urine 0-1/HPF (0-5/HPF); Squamous Epithelial Cell Urine 0-1 /HPF (0-5/HPF); WBC Urine None Seen (0-5/HPF)
[2021-04-20] MEDS: LORazepam 2 MG/ML INJ (14:54)
--- NOTE | 2021-04-20 15:55 | PC.NURSE ---
pt states her back is hurting again from laying during the MRI. pt wants to lie flat, she requested water, i told her i'd like for her to sit up a bit for water that she is slurring her words and i'm concerned about that, she stated its because her mouth is dry. i explained i'll let the dr know about her pain and maybe after she is more comfortable she can sit up to drink water. I did offer her an oral swab, she said she'd wait for water.
[2021-04-20] MEDS: DEXAMETHASONE 4 MG/ML VIAL IV (21:17)
[2021-04-20 22:51] LABS: Add Manual Diff / Slide Review NO; Basophils Absolute Auto 100 /uL (0-100); Basophils Percent Auto 1.3 % (0-2); Eosinophils Absolute Auto 0 /uL (0-450); Eosinophils Percent Auto 0.3 % (2-4); Hemoglobin 13.4 g/dL (12.0-16.0); Lymphocytes Absolute Auto 2300 /uL (1100-4500); Lymphocytes Percent Auto 21.5 % (25-40); Mean Corpuscular HGB Conc 33.4 % (30-36); Mean Corpuscular Hemoglobin 31.5 PG (26-34); Mean Corpuscular Volume 94.3 fL (80-100); Monocytes Absolute Auto 300 /uL (0-900); Monocytes Percent Auto 2.9 % (3-14); Neutrophils Absolute Auto 8100 /uL (1500-7000); Platelet Count 207 X10^3/uL (150-400); Red Blood Cell Count 4.24 X10^6/uL (4.0-5.2); White Blood Cell Count 10.9 X10^3/uL (4.5-11.0)
[2021-04-20 22:57] LABS: Magnesium 1.8 mg/dL (1.6-2.3)
[2021-04-20] MEDS: GABAPENTIN 300 MG CAPSULE PO (23:41)
[2021-04-20] MEDS: SODIUM CHLORIDE 0.9% 1,000 ML 100 ML IV (23:41)
[2021-04-20] MEDS: DOCUSATE 100 MG CAPSULE PO (23:41)
[2021-04-20] MEDS: BACLOFEN 10 MG TABLET PO (23:41)
[2021-04-20] MEDS: SENNOSIDES 8.6 MG TABLET 17.2 MG PO (23:42)
[2021-04-21] VITALS (14 sets, daily range): BP systolic 143–169; BP diastolic 74–86; PULSE 68–93; RESP 14–22; TEMP 36.1–37.3; O2SAT 91–96
--- NOTE | 2021-04-21 01:57 | P.TELICUCN_ITS ---
History of Present Illness Consult details Chief complaint: LEG WEAKNESS UNABLE TO HOLD PEEING AND BOWELS :: This patient was seen in the Intensive Care Unit via real time interactive two- way audiovisual telecommunication. Narrative: 70 y.o. admitted to ICU for neuro checks. She had T10/11 epidural steroid injection on 04/13. Today she presented with bilateral leg weakness and stool/fecal incontinence. MRI of spine showed severe spinal canal stenosis @ T10-11 with a cord signal suggestive of compression. She received Decadron 4 mg IV x 1 and has been started on 6 mg IV q6H. Of note SBPs have been in 180s-200s. [facility] Medical History HNP (herniated nucleus pulposus), thoracic T12 compression fracture Thoracic myelopathy UTI (urinary tract infection) Surgical History H/O eye surgery H/O shoulder surgery H/O thumb surgery H/O: knee surgery History of back surgery History of fusion of cervical spine History of lumbar fusion Family History Father Congestive heart failure Osteoarthritis Mother Osteoarthritis Pneumonia Sister Heart disease Grandmother Cancer Congestive heart failure Social History household members: none Smoking Status: Never smoker Current Medications Current Medications Medications: Home Medications pravastatin 80 mg tablet 80 mg PO BEDTIME 04/04/20 [History Confirmed 03/31/21] ascorbic acid (vitamin C) 1,000 mg tablet 1 g PO DAILY tab 03/31/21 [History Confirmed 03/31/21] aspirin 81 mg tablet,delayed release (Adult Aspirin Regimen) 81 mg PO DAILY 03/31/21 [History Confirmed 03/31/21] baclofen 10 mg tablet 10 mg PO BEDTIME 03/31/21 [History Confirmed 03/31/21] baclofen 5 mg tablet 5 mg PO TID 03/31/21 [History Confirmed 03/31/21] calcitonin (salmon) 200 unit/actuation nasal spray 1 spray INTRANASAL (ALT) DAILY 03/31/21 [History Confirmed 03/31/21] cholecalciferol (vitamin D3) 250 mcg (10,000 unit) capsule 250 mcg PO DAILY 03/31/21 [History Confirmed 03/31/21] coenzyme Q10 200 mg/gram oral powder (H2Q CoQ10) mg PO 03/31/21 [History Conf irmed 03/31/21] diazepam 10 mg tablet (Valium) 10 mg PO ONCE #10 tab MDD 3 tabs 03/31/21 [Rx Confirmed 03/31/21] fexofenadine 180 mg tablet (Tiara Allergy) 180 mg PO DAILY 03/31/21 [History Confirmed 03/31/21] fluticasone propionate 50 mcg/actuation nasal spray,suspension 1 spray INTRANASAL DAILY 03/31/21 [History Confirmed 03/31/21] gabapentin 300 mg capsule 300 mg PO .COMPLEX #90 cap 03/31/21 [Rx Confirmed 03/31/21] glucosamine-chondroitin 250 mg-200 mg tablet (Osteo Bi-Flex) 2 tab PO QPC [History Confirmed 03/31/21] glutamic lyuo-sfjfhx-lzcgyveic tablet tab PO 03/31/21 [History Confirmed 03/31/21] glycosaminoglycans,mixed 80 mg-ascorbic acid 15 mg capsule (SynovX Metabolic) cap PO 03/31/21 [History Confirmed 03/31/21] multivitamin 1 tab PO DAILY 03/31/21 [History Confirmed 03/31/21] omega-3 fatty acids 1,250 mg capsule 2,500 mg PO DAILY 03/31/21 [History Confirmed 03/31/21] prednisone 20 mg tablet 40 mg PO DAILY 03/31/21 [History Confirmed 03/31/21] strontium gluconate-vitamins P0-I40-zetle acid 680 mg-30 mg tablet tab PO 03/31/21 [History Confirmed 03/31/21] tramadol 50 mg tablet 50 mg PO BID PRN tab 03/31/21 [History Confirmed 03/31/21] Visit Medications (administered) Generic Name Dose Route Start Last Admin Trade Name Freq PRN Reason Stop Dose Admin Baclofen 10 mg 04/20/21 22:30 04/20/21 23:41 Baclofen 10 Mg Tablet PO 10 mg BEDTIME CELE Administration Docusate Sodium 100 mg 04/20/21 22:15 04/20/21 23:41 Docusate 100 Mg Capsule PO 100 mg BID CELE Administration Gabapentin 300 mg 04/20/21 22:30 04/20/21 23:41 Gabapentin 300 Mg Capsule PO 300 mg TID CELE Administration Sodium Chloride 1,000 mls @ 100 mls/hr 04/20/21 22:15 04/20/21 23:41 Normal Saline 0.9% IV 04/21/21 08:00 100 mls/hr CONT CELE Administration Sennosides 17.2 mg 04/20/21 22:15 04/20/21 23:42 Sennosides 8.6 Mg Tablet PO 17.2 mg BEDTIME CELE Administration Review of Systems Review of Systems Narrative: Not performed as sleeping on camera activation Exam Vital Signs (past 8 hours): - 04/20/21 18:00 04/20/21 18:30 04/20/21 19:00 Temperature Pulse Rate 85 87 86 Respiratory Rate 12 18 Blood Pressure 149/82 H 162/89 H 169/90 H Pulse Oximetry 95 96 97 04/20/21 19:30 04/20/21 20:00 04/20/21 20:30 Temperature Pulse Rate 80 78 78 Respiratory Rate 19 14 18 Blood Pressure 156/85 H 161/88 H Pulse Oximetry 94 92 94 04/20/21 20:31 04/20/21 21:00 04/20/21 21:30 Temperature Pulse Rate 80 76 81 Respiratory Rate 22 12 20 Blood Pressure 149/74 H 157/87 H 169/93 H Pulse Oximetry 95 94 96 04/20/21 22:08 04/20/21 22:17 04/20/21 22:34 Temperature 97.9 F Pulse Rate 96 H 86 Respiratory Rate 16 19 Blood Pressure 182/87 H Pulse Oximetry 96 96 04/20/21 23:00 04/20/21 23:30 04/21/21 00:00 Temperature Pulse Rate 96 H 97 H 82 Respiratory Rate 21 28 H 22 Blood Pressure Pulse Oximetry 04/21/21 00:30 04/21/21 01:00 04/21/21 01:30 Temperature Pulse Rate 91 H 77 78 Respiratory Rate 14 14 14 Blood Pressure Pulse Oximetry Oxygen Delivery Method Room Air Oxygen Flow Rate 0 Const General: comfortable Resp Effort & Inspection: normal respiratory effort Objective Labs Result Diagrams: 04/20/21 22:35 04/20/21 13:05 Labs: Laboratory Results - last 24 hr 04/20/21 04/20/21 04/20/21 12:48 13:05 13:05 WBC 8.5 RBC 4.35 Hgb 13.9 Hct 41.1 MCV 94.3 MCH 31.9 MCHC 33.8 RDW 13.0 Plt Count 67 L Neut % (Auto) 87.6 H Lymph % (Auto) 10.7 L [place] % (Auto) 0.9 L Eos % (Auto) 0.0 L Baso % (Auto) 0.8 Neut # (Auto) 7500 H Lymph # (Auto) 900 L [place] # (Auto) 100 Eos # (Auto) 0 Baso # (Auto) 100 Sodium 134 L Potassium 4.2 Chloride 100 Carbon Dioxide 29 BUN 25 H Creatinine 0.74 Estimated GFR > 60.0 BUN/Creatinine Ratio 33.8 H Glucose 358 H Calcium 9.6 Magnesium Total Bilirubin 0.7 AST 27 ALT 24 Alkaline Phosphatase 102 Total Protein 7.1 Albumin 4.2 Globulin 2.9 Albumin/Globulin Ratio 1.4 Urine Color Yellow Urine Appearance Clear Urine pH 7.0 Ur Specific [place] 1.015 Urine Protein Negative Urine Glucose (UA) 2+ H Urine Ketones 1+ H Urine Occult Blood Trace-intact Urine Nitrate Negative Urine Bilirubin Negative Urine Urobilinogen 0.2 Ur Leukocyte Esterase Negative Urine RBC 0-1/hpf Urine WBC None seen Ur Squamous Epith Cells 0-1 /hpf Urine Bacteria None seen Ur Culture Indicated? Cult not indicated 04/20/21 04/20/21 22:35 22:35 WBC 10.9 RBC 4.24 Hgb 13.4 Hct 40.0 MCV 94.3 MCH 31.5 MCHC 33.4 RDW 13.0 Plt Count 207 Neut % (Auto) 74.0 Lymph % (Auto) 21.5 L [place] % (Auto) 2.9 L Eos % (Auto) 0.3 L Baso % (Auto) 1.3 Neut # (Auto) 8100 H Lymph # (Auto) 2300 [place] # (Auto) 300 Eos # (Auto) 0 Baso # (Auto) 100 Sodium Potassium Chloride Carbon Dioxide BUN Creatinine Estimated GFR BUN/Creatinine Ratio Glucose Calcium Magnesium 1.8 Total Bilirubin AST ALT Alkaline Phosphatase Total Protein Albumin Globulin Albumin/Globulin Ratio Urine Color Urine Appearance Urine pH Ur Specific [place] Urine Protein Urine Glucose (UA) Urine Ketones Urine Occult Blood Urine Nitrate Urine Bilirubin Urine Urobilinogen Ur Leukocyte Esterase Urine RBC Urine WBC Ur Squamous Epith Cells Urine Bacteria Ur Culture Indicated? Assessment & Plan Assessment and plan (1) Myelopathy concurrent with and due to spinal stenosis of thoracic region: Status: Acute Plan: -Continue neuro checks, dexamethasone as per bedside team. Neurosurgery is involved. (2) Hypertension: Status: Acute Plan: -Would not aggressively treat in order to preserve spinal perfusion
[2021-04-21] MEDS: DEXAMETHASONE 10 MG/ML VIAL 6 MG IV (03:59)
[2021-04-21 04:46] LABS: INR 1.1 (0.9-1.3); Prothrombin Time 12.1 SECONDS (10.1-12.7)
--- NOTE | 2021-04-21 04:46 | PC.NURSE ---
BLOOD GLUCOSE: 291. NOTIFIED JYOTI DELGADO WHO ORDERED TO MONITOR FOR NOW GIVEN THAT THE PATIENT IS NPO AND HAS A POSSIBLE PENDING SURGERY. WILL RECHECK BLOOD GLUCOSE ON DAY SHIFT.
[2021-04-21 04:47] LABS: Add Manual Diff / Slide Review NO; Basophils Absolute Auto 0 /uL (0-100); Basophils Percent Auto 0.2 % (0-2); Eosinophils Absolute Auto 0 /uL (0-450); Eosinophils Percent Auto 0.1 % (2-4); Hematocrit 40.1 % (36-46); Hemoglobin 13.5 g/dL (12.0-16.0); Lymphocytes Absolute Auto 1300 /uL (1100-4500); Mean Corpuscular HGB Conc 33.7 % (30-36); Mean Corpuscular Hemoglobin 31.7 PG (26-34); Mean Corpuscular Volume 94.1 fL (80-100); Monocytes Absolute Auto 300 /uL (0-900); Monocytes Percent Auto 3.3 % (3-14); Neutrophils Absolute Auto 7400 /uL (1500-7000); Neutrophils Percent Auto 82.4 % (50-75); Platelet Count 208 X10^3/uL (150-400); Red Blood Cell Count 4.26 X10^6/uL (4.0-5.2); White Blood Cell Count 8.9 X10^3/uL (4.5-11.0)
[2021-04-21 04:49] LABS: PTT Partial Thromboplastin Tim 27 SECONDS (26.4-36.2)
[2021-04-21 04:55] LABS: Alanine Aminotransferase 21 IU/L (<35); Albumin 3.8 g/dL (3.5-5.0); Albumin Globulin Ratio 1.3 (1.0-2.8); Alkaline Phosphatase 87 U/L (38-126); Aspartate Aminotransferase 20 IU/L (14-36); BUN Creatinine Ratio 28.6 (6-22); Bilirubin Total 0.5 mg/dL (0.2-1.3); Blood Urea Nitrogen 22 mg/dL (7-17); Calcium 9.3 mg/dL (8.4-10.2); Carbon Dioxide 30 mmol/L (22-32); Chloride 103 mmol/L (98-107); Estimated Glomerular Filt Rate > 60.0 mL/min (>60); Globulin 2.9 g/dL (1.7-4.1); Glucose 292 mg/dL (80-110); HEMOLYSIS < 15 (0-50); Potassium 4.5 mmol/L (3.4-5.1); Sodium 134 mmol/L (137-145); Total Protein 6.7 g/dL (6.3-8.2)
[2021-04-21] MEDS: PANTOPRAZOLE DR 20 MG TABLET PO (05:52)
--- NOTE | 2021-04-21 06:45 | PM.HP.1 ---
History of Present Illness History of Present Illness Date Patient Seen: 04/20/21 Time Patient Seen: 22:25 Chief complaint: LEG WEAKNESS UNABLE TO HOLD PEEING AND BOWELS Narrative: Annabella Alvarez is a 68-year-old female with a medical history of severe spinal canal stenosis L4 -S1 and thoracic stenosis, history of lumbar fusion, thoracic myelopathy, T12 compression fracture, thrombocytopenia moderate, chronic ongoing back pain, hyperlipidemia, hyponatremia mild, and obesity who presented to the ED following increasing symptoms bowel and bladder incontinence. She had an MRI April 01 upper thoracic spine found to have a T10-11 disc herniation for.? She had an epidural injection for pain control on 04/13/2021.? She said initially this feeling in her leg started coming back however is she has gotten actually weaker.? She used to be able to lift her legs 6 in or so to get up the stairs however she is no longer able to do that.? 3 times in the last 5 days she has had nocturnal incontinence.? She says she has wheezed previously been able to get up and use the restroom however now she is unable to.? She cannot tell when she has to go.? She can not tell when she has to have a bowel movement but can not stop it or old.? She has to wear depends which is new for her.? She really has a bad neuropathy pain in the bottoms her feet which seems to be chronic.? She denies any fever, chills, chest pain, shortness of breath, body aches, changes in vision, headache, abdominal pain, nausea. She is having some mild tingling and tightness in her low back. Patient was asked to come to the hospital by Dr. Templeton orthopedics he then requested that the patient be placed on 6 mg of Decadron q.6 hours with repeat CBC an A1c and a BUN in the a.m.. Patient's vitals upon admit are stable temp 98?, be he was slightly elevated at 160 9/90, HR 86, RR 18, O2 saturation 97% on room air. Initial platelet count of 67, repeated the lab to confirm and patient's repeat platelets 208. Patient's sodium 134, BUN 25, glucose through the, UA is negative no culture is completed. Patient admitted for severe spinal canal stenosis of the thoracic region specifically noting L5-S1, with thoracic myelopathy. Patient History Medical History HNP (herniated nucleus pulposus), thoracic T12 compression fracture Thoracic myelopathy UTI (urinary tract infection) Surgical History H/O eye surgery H/O shoulder surgery H/O thumb surgery H/O: knee surgery History of back surgery History of fusion of cervical spine History of lumbar fusion Family & Social History Family History Father Congestive heart failure Osteoarthritis Mother Osteoarthritis Pneumonia Sister Heart disease Grandmother Cancer Congestive heart failure Social History: household members none Prior Living Arrangements Apartment/Condo Safety & Behavioral: Feels Safe in Current Yes Environment Been Physically Hurt or No Threatened By a Person Suicidal Ideation Description None Suicide Plan Description No Plan Tobacco & Substance use: Smoking Status Never smoker alcohol intake frequency holiday/special occasion Substance Use Type does not use Meds Home Medications and Allergies Home Medications Medication Instructions Recorded Confirmed Type pravastatin 80 mg tablet 80 mg PO BEDTIME 04/04/20 04/21/21 History ascorbic acid (vitamin C) 1,000 mg 1 g PO DAILY tab 03/31/21 04/21/21 History tablet aspirin 81 mg tablet,delayed 81 mg PO DAILY 03/31/21 04/21/21 History release (Adult Aspirin Regimen) baclofen 10 mg tablet 10 mg PO BEDTIME 03/31/21 04/21/21 History baclofen 5 mg tablet 5 mg PO TID 03/31/21 04/21/21 History calcitonin (salmon) 200 1 spray INTRANASAL (ALT) DAILY 03/31/21 04/21/21 History unit/actuation nasal spray cholecalciferol (vitamin D3) 250 250 mcg PO DAILY 03/31/21 04/21/21 History mcg (10,000 unit) capsule coenzyme Q10 200 mg/gram oral mg PO 03/31/21 03/31/21 History powder (H2Q CoQ10) diazepam 10 mg tablet (Valium) 10 mg PO ONCE #10 tab MDD 3 tabs 03/31/21 04/21/21 Rx fexofenadine 180 mg tablet 180 mg PO DAILY 03/31/21 04/21/21 History (Tiara Allergy) fluticasone propionate 50 1 spray INTRANASAL DAILY 03/31/21 04/21/21 History mcg/actuation nasal spray,suspension gabapentin 300 mg capsule 300 mg PO .COMPLEX #90 cap 03/31/21 04/21/21 Rx glucosamine-chondroitin 250 mg-200 2 tab PO QPC 03/31/21 04/21/21 History mg tablet (Osteo Bi-Flex) glutamic auak-mpqeyn-escnadfhe tab PO 03/31/21 03/31/21 History tablet glycosaminoglycans,mixed 80 cap PO 03/31/21 03/31/21 History mg-ascorbic acid 15 mg capsule (SynovX Metabolic) multivitamin 1 tab PO DAILY 03/31/21 04/21/21 History omega-3 fatty acids 1,250 mg 2,500 mg PO DAILY 03/31/21 04/21/21 History capsule prednisone 20 mg tablet 40 mg PO DAILY 03/31/21 04/21/21 History strontium gluconate-vitamins tab PO 03/31/21 03/31/21 History B1-E87-uszat acid 680 mg-30 mg tablet tramadol 50 mg tablet 50 mg PO BID PRN tab 03/31/21 04/21/21 History Allergies Allergy/AdvReac Type Severity Reaction Status Date / Time cefazolin [From Anc] Allergy Intermediate Hives Verified 04/20/21 11:53 Review of Systems Review of Systems Narrative: All 12 point systems reviewed with the patient and are negative except otherwise documented. Exam Vital Signs (past 8 hours): - 04/20/21 23:00 04/20/21 23:30 04/21/21 00:00 Temperature Pulse Rate 96 H 97 H 82 Respiratory Rate 21 28 H 22 Blood Pressure Pulse Oximetry 04/21/21 00:30 04/21/21 01:00 04/21/21 01:30 Temperature Pulse Rate 91 H 77 78 Respiratory Rate 14 14 14 Blood Pressure Pulse Oximetry 04/21/21 04:33 04/21/21 06:00 Temperature 97.3 F L Pulse Rate 93 H Respiratory Rate 18 Blood Pressure 152/74 H Pulse Oximetry 95 96 Oxygen Delivery Method Room Air Oxygen Flow Rate 0 Narrative Exam Narrative: GENERAL: Well-appearing, well-nourished and in no acute distress. HEENT: Head atraumatic,EOMI, pupils reactive, face symmetric, moist mucous membranes CARDIOVASCULAR: Regular rate and rhythm without murmurs, rubs or gallops. RESPIRATORY: Breath sounds equal bilaterally, no wheezes rales or rhonchi. ABDOMEN: Soft, nontender.? Normoactive bowel sounds all 4 quadrants.? No guarding or rebound. BACK:? No vertebral tenderness no steps RECTAL:? Strong rectal tone EXTREMITIES: Normal range of motion, no clubbing or edema.? Neurovascularly intact NEUROLOGICAL: Alert and oriented x4.? Decreased sensation in saddle area bilateral lower extremity weakness hyper reflexia from bottoms of feet.? Hyper reflexive patella no clonus present SKIN: Warm, dry, no laceration, no petechiae, no rashes or lesions. Objective Labs Result Diagrams: 04/21/21 04:16 04/21/21 04:16 Labs: Laboratory Results - last 24 hr 04/20/21 04/20/21 04/20/21 12:48 13:05 13:05 WBC 8.5 RBC 4.35 Hgb 13.9 Hct 41.1 MCV 94.3 MCH 31.9 MCHC 33.8 RDW 13.0 Plt Count 67 L Neut % (Auto) 87.6 H Lymph % (Auto) 10.7 L [place] % (Auto) 0.9 L Eos % (Auto) 0.0 L Baso % (Auto) 0.8 Neut # (Auto) 7500 H Lymph # (Auto) 900 L [place] # (Auto) 100 Eos # (Auto) 0 Baso # (Auto) 100 PT INR APTT Sodium 134 L Potassium 4.2 Chloride 100 Carbon Dioxide 29 BUN 25 H Creatinine 0.74 Estimated GFR > 60.0 BUN/Creatinine Ratio 33.8 H Glucose 358 H Calcium 9.6 Magnesium Total Bilirubin 0.7 AST 27 ALT 24 Alkaline Phosphatase 102 Total Protein 7.1 Albumin 4.2 Globulin 2.9 Albumin/Globulin Ratio 1.4 Urine Color Yellow Urine Appearance Clear Urine pH 7.0 Ur Specific [place] 1.015 Urine Protein Negative Urine Glucose (UA) 2+ H Urine Ketones 1+ H Urine Occult Blood Trace-intact Urine Nitrate Negative Urine Bilirubin Negative Urine Urobilinogen 0.2 Ur Leukocyte Esterase Negative Urine RBC 0-1/hpf Urine WBC None seen Ur Squamous Epith Cells 0-1 /hpf Urine Bacteria None seen Ur Culture Indicated? Cult not indicated 04/20/21 04/20/21 04/21/21 22:35 22:35 04:16 WBC 10.9 8.9 RBC 4.24 4.26 Hgb 13.4 13.5 Hct 40.0 40.1 MCV 94.3 94.1 MCH 31.5 31.7 MCHC 33.4 33.7 RDW 13.0 13.0 Plt Count 207 208 Neut % (Auto) 74.0 82.4 H Lymph % (Auto) 21.5 L 14.0 L [place] % (Auto) 2.9 L 3.3 Eos % (Auto) 0.3 L 0.1 L Baso % (Auto) 1.3 0.2 Neut # (Auto) 8100 H 7400 H Lymph # (Auto) 2300 1300 [place] # (Auto) 300 300 Eos # (Auto) 0 0 Baso # (Auto) 100 0 PT INR APTT Sodium Potassium Chloride Carbon Dioxide BUN Creatinine Estimated GFR BUN/Creatinine Ratio Glucose Calcium Magnesium 1.8 Total Bilirubin AST ALT Alkaline Phosphatase Total Protein Albumin Globulin Albumin/Globulin Ratio Urine Color Urine Appearance Urine pH Ur Specific [place] Urine Protein Urine Glucose (UA) Urine Ketones Urine Occult Blood Urine Nitrate Urine Bilirubin Urine Urobilinogen Ur Leukocyte Esterase Urine RBC Urine WBC Ur Squamous Epith Cells Urine Bacteria Ur Culture Indicated? 04/21/21 04/21/21 04:16 04:16 WBC RBC Hgb Hct MCV MCH MCHC RDW Plt Count Neut % (Auto) Lymph % (Auto) [place] % (Auto) Eos % (Auto) Baso % (Auto) Neut # (Auto) Lymph # (Auto) [place] # (Auto) Eos # (Auto) Baso # (Auto) PT 12.1 INR 1.1 APTT 27 Sodium 134 L Potassium 4.5 Chloride 103 Carbon Dioxide 30 BUN 22 H Creatinine 0.77 Estimated GFR > 60.0 BUN/Creatinine Ratio 28.6 H Glucose 292 H Calcium 9.3 Magnesium Total Bilirubin 0.5 AST 20 ALT 21 Alkaline Phosphatase 87 Total Protein 6.7 Albumin 3.8 Globulin 2.9 Albumin/Globulin Ratio 1.3 Urine Color Urine Appearance Urine pH Ur Specific [place] Urine Protein Urine Glucose (UA) Urine Ketones Urine Occult Blood Urine Nitrate Urine Bilirubin Urine Urobilinogen Ur Leukocyte Esterase Urine RBC Urine WBC Ur Squamous Epith Cells Urine Bacteria Ur Culture Indicated? Assessment & Plan Assessment & Plan narrative: Annabella Alvarez is a 70-year-old female who has been having progressive lower extremity weakness and decreased loss in sensation who developed worsening bowel and bladder weakness within the last 24 hours she was advised to come in by Dr. Templeton orthopedics. Patient admitted for severe spinal canal stenosis specifically in the thoracic region from L5-S1, thoracic myelopathy, T12 fracture. 1. Severe spinal canal stenosis of the thoracic L5-S1, with corresponding thoracic myelopathy and T12 compression fracture, acute, present on admission -patient to take q.6 mg Decadron q.6 hours -repeat CBC in a.m., A1c, fall precautions, up with assist only -NS at 100 overnight -antiemetics and pain control -Consult for Dr. Templeton orthopedics place -NPO at midnight, may continue patient's baclofen tramadol and gabapentin after evaluation by Dr. Templeton 2. Hyperlipidemia, chronic, present on admission -continue pravastatin 3.Obesity as evidence by BMI of 31.8, acute on chronic, present on admission -referral for dietary evaluation 4. Mild hyponatremia, acute, present on admission -patient to receive NS at 100 overnight -reassess electrolytes in the a.m. Code status: Limited code do not intubate Surrogate decision maker: David Alvarez NANETTE PCR: Negative DVT/VTE prophylaxis: Lovenox held at this time due to possible pending surgery, SCDs only Disposition: Patient admitted to the ICU may be downgraded in the morning, expected length of stay greater than 2 midnights I have utilized all available immediate resources to obtain, update, or review the patient's current medications. I confirmed that the patient's advanced care plan is present, Code status is documented and/or surrogate decision maker is listed in the patient's medical record. Time Spent With Patient Critical Care time: I spent a total of [] minutes of critical care time on this patient's care today; this time is exclusive of procedural time. Scores GCS Nemo coma scale eye opening: Spontaneous Nemo coma scale verbal response: Orientated Nemo coma scale motor response: Obey commands Nemo coma scale total score: 15 Quality VTE Deep Vein Thrombosis/Pulmonary Embolism Present on Admission: No
--- NOTE | 2021-04-21 07:57 | P.CONS_ITS ---
History of Present Illness Consult details Date Patient Seen: 04/21/21 Time Patient Seen: 07:57 Chief complaint: LEG WEAKNESS, urinary and fecal incontinence Requesting provider: Christine Alarcon Narrative: Pt known to Dr Man. She has a history of lumbar and cervical fusions and revisions starting in 2008 with surgeons in [place], with the most recent surgery being a revision cervical fusion in 2018. She has chronic back and lower extremity pain. On the evening of 2020, she fell and had weakness in her legs; she was treated with steroids, and the weakness resolved, but she had persistent neuropathic pain in her lower legs and feet, about 3- 6/10. She was still able to lift her legs to get up the 3 steps into her house. She has been seen by Dr Man and Dr Kevin Garcia for her back and leg pain, and states that between them they ordered extensive imaging of her cervical, lumbar, and thoracic spine. This culminated with Dr Garcia's recommendation to try a TLESI at T10-11, performed on 04/13/2021. She reports that for the first 24 hours following the injection, she felt fine. However, since that time, she has had progressive pain and weakness in her legs. Her pain increased to 6-7/10 and remained at that level constantly. She is unable to pick her legs up more than about 2 inches and can no longer navigate her stairs. She has had 3 episodes of urinary incontinence and started wearing adult diapers at night. She states she has no sensation of her urinary or anal sphincters when she voids. Meds Home Medications and Allergies Home Medications Medication Instructions Recorded Confirmed Type pravastatin 80 mg tablet 80 mg PO BEDTIME 04/04/20 04/21/21 History ascorbic acid (vitamin C) 1,000 mg 1 g PO DAILY tab 03/31/21 04/21/21 History tablet aspirin 81 mg tablet,delayed 81 mg PO DAILY 03/31/21 04/21/21 History release (Adult Aspirin Regimen) baclofen 10 mg tablet 10 mg PO BEDTIME 03/31/21 04/21/21 History baclofen 5 mg tablet 5 mg PO TID 03/31/21 04/21/21 History calcitonin (salmon) 200 1 spray INTRANASAL (ALT) DAILY 03/31/21 04/21/21 History unit/actuation nasal spray cholecalciferol (vitamin D3) 250 250 mcg PO DAILY 03/31/21 04/21/21 History mcg (10,000 unit) capsule coenzyme Q10 200 mg/gram oral mg PO 03/31/21 03/31/21 History powder (H2Q CoQ10) diazepam 10 mg tablet (Valium) 10 mg PO ONCE #10 tab MDD 3 tabs 03/31/21 04/21/21 Rx fexofenadine 180 mg tablet 180 mg PO DAILY 03/31/21 04/21/21 History ([place]ara Allergy) fluticasone propionate 50 1 spray INTRANASAL DAILY 03/31/21 04/21/21 History mcg/actuation nasal spray,suspension gabapentin 300 mg capsule 300 mg PO .COMPLEX #90 cap 03/31/21 04/21/21 Rx glucosamine-chondroitin 250 mg-200 2 tab PO QPC 03/31/21 04/21/21 History mg tablet (Osteo Bi-Flex) glutamic ifax-bdktmi-csrvmlbsu tab PO 03/31/21 03/31/21 History tablet glycosaminoglycans,mixed 80 cap PO 03/31/21 03/31/21 History mg-ascorbic acid 15 mg capsule (SynovX Metabolic) multivitamin 1 tab PO DAILY 03/31/21 04/21/21 History omega-3 fatty acids 1,250 mg 2,500 mg PO DAILY 03/31/21 04/21/21 History capsule prednisone 20 mg tablet 40 mg PO DAILY 03/31/21 04/21/21 History strontium gluconate-vitamins tab PO 03/31/21 03/31/21 History [id number]-spjyy acid 680 mg-30 mg tablet tramadol 50 mg tablet 50 mg PO BID PRN tab 03/31/21 04/21/21 History Allergies Allergy/AdvReac Type Severity Reaction Status Date / Time cefazolin [From [facility]] Allergy Intermediate Hives Verified 04/20/21 11:53 Review of Systems Review of Systems ROS: Yes All systems reviewed with the patient and are negative except as otherwise documented Exam Vital Signs (past 8 hours): - 04/21/21 00:00 04/21/21 00:30 04/21/21 01:00 Temperature Pulse Rate 82 91 H 77 Respiratory Rate 22 14 14 Blood Pressure Pulse Oximetry 04/21/21 01:30 04/21/21 04:33 04/21/21 06:00 Temperature 97.3 F L Pulse Rate 78 93 H Respiratory Rate 14 18 Blood Pressure 152/74 H Pulse Oximetry 95 96 Oxygen Delivery Method Room Air Oxygen Flow Rate 0 Narrative Exam Narrative: Sleepy, but easilty arousable. 5/5 strength in DF, PF, EHL. 4/5 in hip flexors, quadriceps, and hamstrings. Sensation to light touch intact throughout BLE, but she states feeling is cold and tingling. Objective Labs Result Diagrams: 04/21/21 04:16 04/21/21 04:16 Labs: Laboratory Results - last 24 hr 04/20/21 04/20/21 04/20/21 12:48 13:05 13:05 WBC 8.5 RBC 4.35 Hgb 13.9 Hct 41.1 MCV 94.3 MCH 31.9 MCHC 33.8 RDW 13.0 Plt Count 67 L Neut % (Auto) 87.6 H Lymph % (Auto) 10.7 L [place] % (Auto) 0.9 L Eos % (Auto) 0.0 L Baso % (Auto) 0.8 Neut # (Auto) 7500 H Lymph # (Auto) 900 L [place] # (Auto) 100 Eos # (Auto) 0 Baso # (Auto) 100 PT INR APTT Sodium 134 L Potassium 4.2 Chloride 100 Carbon Dioxide 29 BUN 25 H Creatinine 0.74 Estimated GFR > 60.0 BUN/Creatinine Ratio 33.8 H Glucose 358 H Calcium 9.6 Magnesium Total Bilirubin 0.7 AST 27 ALT 24 Alkaline Phosphatase 102 Total Protein 7.1 Albumin 4.2 Globulin 2.9 Albumin/Globulin Ratio 1.4 Urine Color Yellow Urine Appearance Clear Urine pH 7.0 Ur Specific [place] 1.015 Urine Protein Negative Urine Glucose (UA) 2+ H Urine Ketones 1+ H Urine Occult Blood Trace-intact Urine Nitrate Negative Urine Bilirubin Negative Urine Urobilinogen 0.2 Ur Leukocyte Esterase Negative Urine RBC 0-1/hpf Urine WBC None seen Ur Squamous Epith Cells 0-1 /hpf Urine Bacteria None seen Ur Culture Indicated? Cult not indicated 04/20/21 04/20/21 04/21/21 22:35 22:35 04:16 WBC 10.9 8.9 RBC 4.24 4.26 Hgb 13.4 13.5 Hct 40.0 40.1 MCV 94.3 94.1 MCH 31.5 31.7 MCHC 33.4 33.7 RDW 13.0 13.0 Plt Count 207 208 Neut % (Auto) 74.0 82.4 H Lymph % (Auto) 21.5 L 14.0 L [place] % (Auto) 2.9 L 3.3 Eos % (Auto) 0.3 L 0.1 L Baso % (Auto) 1.3 0.2 Neut # (Auto) 8100 H 7400 H Lymph # (Auto) 2300 1300 [place] # (Auto) 300 300 Eos # (Auto) 0 0 Baso # (Auto) 100 0 PT INR APTT Sodium Potassium Chloride Carbon Dioxide BUN Creatinine Estimated GFR BUN/Creatinine Ratio Glucose Calcium Magnesium 1.8 Total Bilirubin AST ALT Alkaline Phosphatase Total Protein Albumin Globulin Albumin/Globulin Ratio Urine Color Urine Appearance Urine pH Ur Specific [place] Urine Protein Urine Glucose (UA) Urine Ketones Urine Occult Blood Urine Nitrate Urine Bilirubin Urine Urobilinogen Ur Leukocyte Esterase Urine RBC Urine WBC Ur Squamous Epith Cells Urine Bacteria Ur Culture Indicated? 04/21/21 04/21/21 04:16 04:16 WBC RBC Hgb Hct MCV MCH MCHC RDW Plt Count Neut % (Auto) Lymph % (Auto) [place] % (Auto) Eos % (Auto) Baso % (Auto) Neut # (Auto) Lymph # (Auto) [place] # (Auto) Eos # (Auto) Baso # (Auto) PT 12.1 INR 1.1 APTT 27 Sodium 134 L Potassium 4.5 Chloride 103 Carbon Dioxide 30 BUN 22 H Creatinine 0.77 Estimated GFR > 60.0 BUN/Creatinine Ratio 28.6 H Glucose 292 H Calcium 9.3 Magnesium Total Bilirubin 0.5 AST 20 ALT 21 Alkaline Phosphatase 87 Total Protein 6.7 Albumin 3.8 Globulin 2.9 Albumin/Globulin Ratio 1.3 Urine Color Urine Appearance Urine pH Ur Specific [place] Urine Protein Urine Glucose (UA) Urine Ketones Urine Occult Blood Urine Nitrate Urine Bilirubin Urine Urobilinogen Ur Leukocyte Esterase Urine RBC Urine WBC Ur Squamous Epith Cells Urine Bacteria Ur Culture Indicated? ON LICENSE OF [facility] Medical History HNP (herniated nucleus pulposus), thoracic T12 compression fracture Thoracic myelopathy UTI (urinary tract infection) Surgical History H/O eye surgery H/O shoulder surgery H/O thumb surgery H/O: knee surgery History of back surgery History of fusion of cervical spine History of lumbar fusion Family History Father Congestive heart failure Osteoarthritis Mother Osteoarthritis Pneumonia Sister Heart disease Grandmother Cancer Congestive heart failure Social History household members: none Tobacco & Substance Use Smoking Status: Never smoker Assessment & Plan Assessment and plan (1) HNP (herniated nucleus pulposus), thoracic: Status: Acute (2) Myelopathy concurrent with and due to spinal stenosis of thoracic region: Status: Acute (3) Thoracic myelopathy: Status: Acute (4) Intervertebral disc disorders with radiculopathy, thoracic region: Status: Acute Plan 1) T10-T11 laminectomy and fusion on 04/23/2021. Can eat today, NPO beginning at midnight on morning of surgery. 2) Multimodal pain control. 3) Decadron 10 mg q 6 hrs. Time Spent With Patient Critical Care time: I spent a total of [] minutes of critical care time on this patient's care today; this time is exclusive of procedural time.
[2021-04-21] MEDS: DEXAMETHASONE 10 MG/ML VIAL IV ×3 (08:43→20:05)
[2021-04-21] MEDS: DOCUSATE 100 MG CAPSULE PO (08:43)
[2021-04-21] MEDS: GABAPENTIN 300 MG CAPSULE PO ×3 (08:43→20:05)
[2021-04-21] MEDS: ACETAMINOPHEN 325 MG TABLET 650 MG PO ×3 (08:43→23:48)
[2021-04-21] MEDS: TRAMADOL 50 MG TABLET PO ×3 (08:48→23:49)
[2021-04-21] MEDS: BACLOFEN 10 MG TABLET 5 MG PO (10:02)
[2021-04-21 10:14] LABS: COVID19 - ADMIT (NP swab/PCR) Negative (Negative)
--- NOTE | 2021-04-21 12:11 | P.PN_ITS ---
Subjective Subjective Date Patient Seen: 04/21/21 Time Patient Seen: 12:11 Interval history: 70 y/o female with known spinal canal stenosis and a new Herniated Thoracic t- 10, 11 HNP, admitted for urinary/fecal incontinence and progressive back pain following a TSESI. The patient reports her pain is well controlled currently. She is scheduled for definitive surgery on April 23, 2021 Exam Vital Signs (past 8 hours): - 04/21/21 04:33 04/21/21 06:00 04/21/21 08:00 Temperature 97.3 F L 97.5 F L Pulse Rate 93 H 83 Respiratory Rate 18 22 Blood Pressure 152/74 H 162/81 H Pulse Oximetry 95 96 94 04/21/21 11:21 Temperature Pulse Rate Respiratory Rate Blood Pressure Pulse Oximetry 95 Oxygen Delivery Method Room Air Oxygen Flow Rate 0 Narrative Exam Narrative: Pleasant female lying in bed in no acute distress Resp Other: Lungs: clear to auscultation Cardio Other: RRR nl Sl S2 GI Other: Abd; soft/ non tender/ non distended Extrem Other: no edema Objective Labs Result Diagrams: 04/21/21 04:16 04/21/21 04:16 Labs: Laboratory Results - last 24 hr 04/20/21 04/20/21 04/20/21 12:48 13:05 13:05 WBC 8.5 RBC 4.35 Hgb 13.9 Hct 41.1 MCV 94.3 MCH 31.9 MCHC 33.8 RDW 13.0 Plt Count 67 L Neut % (Auto) 87.6 H Lymph % (Auto) 10.7 L [place] % (Auto) 0.9 L Eos % (Auto) 0.0 L Baso % (Auto) 0.8 Neut # (Auto) 7500 H Lymph # (Auto) 900 L [place] # (Auto) 100 Eos # (Auto) 0 Baso # (Auto) 100 PT INR APTT Sodium 134 L Potassium 4.2 Chloride 100 Carbon Dioxide 29 BUN 25 H Creatinine 0.74 Estimated GFR > 60.0 BUN/Creatinine Ratio 33.8 H Glucose 358 H Calcium 9.6 Magnesium Total Bilirubin 0.7 AST 27 ALT 24 Alkaline Phosphatase 102 Total Protein 7.1 Albumin 4.2 Globulin 2.9 Albumin/Globulin Ratio 1.4 Urine Color Yellow Urine Appearance Clear Urine pH 7.0 Ur Specific [place] 1.015 Urine Protein Negative Urine Glucose (UA) 2+ H Urine Ketones 1+ H Urine Occult Blood Trace-intact Urine Nitrate Negative Urine Bilirubin Negative Urine Urobilinogen 0.2 Ur Leukocyte Esterase Negative Urine RBC 0-1/hpf Urine WBC None seen Ur Squamous Epith Cells 0-1 /hpf Urine Bacteria None seen Ur Culture Indicated? Cult not indicated SARS-CoV-2 (PCR) 04/20/21 04/20/21 04/21/21 22:35 22:35 04:16 WBC 10.9 8.9 RBC 4.24 4.26 Hgb 13.4 13.5 Hct 40.0 40.1 MCV 94.3 94.1 MCH 31.5 31.7 MCHC 33.4 33.7 RDW 13.0 13.0 Plt Count 207 208 Neut % (Auto) 74.0 82.4 H Lymph % (Auto) 21.5 L 14.0 L [place] % (Auto) 2.9 L 3.3 Eos % (Auto) 0.3 L 0.1 L Baso % (Auto) 1.3 0.2 Neut # (Auto) 8100 H 7400 H Lymph # (Auto) 2300 1300 [place] # (Auto) 300 300 Eos # (Auto) 0 0 Baso # (Auto) 100 0 PT INR APTT Sodium Potassium Chloride Carbon Dioxide BUN Creatinine Estimated GFR BUN/Creatinine Ratio Glucose Calcium Magnesium 1.8 Total Bilirubin AST ALT Alkaline Phosphatase Total Protein Albumin Globulin Albumin/Globulin Ratio Urine Color Urine Appearance Urine pH Ur Specific [place] Urine Protein Urine Glucose (UA) Urine Ketones Urine Occult Blood Urine Nitrate Urine Bilirubin Urine Urobilinogen Ur Leukocyte Esterase Urine RBC Urine WBC Ur Squamous Epith Cells Urine Bacteria Ur Culture Indicated? SARS-CoV-2 (PCR) 04/21/21 04/21/21 04/21/21 04:16 04:16 07:18 WBC RBC Hgb Hct MCV MCH MCHC RDW Plt Count Neut % (Auto) Lymph % (Auto) [place] % (Auto) Eos % (Auto) Baso % (Auto) Neut # (Auto) Lymph # (Auto) [place] # (Auto) Eos # (Auto) Baso # (Auto) PT 12.1 INR 1.1 APTT 27 Sodium 134 L Potassium 4.5 Chloride 103 Carbon Dioxide 30 BUN 22 H Creatinine 0.77 Estimated GFR > 60.0 BUN/Creatinine Ratio 28.6 H Glucose 292 H Calcium 9.3 Magnesium Total Bilirubin 0.5 AST 20 ALT 21 Alkaline Phosphatase 87 Total Protein 6.7 Albumin 3.8 Globulin 2.9 Albumin/Globulin Ratio 1.3 Urine Color Urine Appearance Urine pH Ur Specific [place] Urine Protein Urine Glucose (UA) Urine Ketones Urine Occult Blood Urine Nitrate Urine Bilirubin Urine Urobilinogen Ur Leukocyte Esterase Urine RBC Urine WBC Ur Squamous Epith Cells Urine Bacteria Ur Culture Indicated? SARS-CoV-2 (PCR) Negative [facility] Medical History HNP (herniated nucleus pulposus), thoracic T12 compression fracture Thoracic myelopathy UTI (urinary tract infection) Surgical History H/O eye surgery H/O shoulder surgery H/O thumb surgery H/O: knee surgery History of back surgery History of fusion of cervical spine History of lumbar fusion Family History Father Congestive heart failure Osteoarthritis Mother Osteoarthritis Pneumonia Sister Heart disease Grandmother Cancer Congestive heart failure Social History household members: none Smoking Status: Never smoker Assessment & Plan Assessment & Plan narrative: Annabella Alvarez is a 70-year-old female who has been having progressive lower extremity weakness and decreased loss in sensation who developed worsening bowel and bladder weakness within the last 24 hours she was advised to come in by Dr. Templeton orthopedics.? Patient admitted for severe spinal canal stenosis specifically in the thoracic region from L5-S1, thoracic myelopathy, T12 fracture. 1. Severe spinal canal stenosis of the thoracic L5-S1, with corresponding thoracic myelopathy and T12 compression fracture, acute, present on admission -patient to take q.6 mg Decadron q.6 hours -repeat CBC in a.m., A1c, fall precautions, up with assist only -NS at 100 overnight -antiemetics and pain control -Consult for Dr. Templeton orthopedics place -decadron increased to 10 mg q6 per surgery -Surgery planned for April 23 -Patient can have regular diet, needs to be NPO after midnight tomorrow. - may continue patient's baclofen tramadol and gabapentin after evaluation by Dr. Templeton 2. Hyperlipidemia, chronic, present on admission -continue pravastatin 3.Obesity as evidence by BMI of 31.8, acute on chronic, present on admission -referral for dietary evaluation 4. Mild hyponatremia, acute, present on admission -patient to receive NS at 100 overnight -reassess electrolytes in the a.m. Code status:? Limited code do not intubate Surrogate decision maker:? David Alvarez Time Spent With Patient Critical Care time: I spent a total of [] minutes of critical care time on this patient's care today; this time is exclusive of procedural time. Quality VTE Deep Vein Thrombosis/Pulmonary Embolism Present on Admission: No
[2021-04-21] MEDS: INSULIN LISPRO 100 UNIT/ML 3ML VIAL SUBCUT ×3 (12:24→20:06)
--- NOTE | 2021-04-21 14:01 | PM.CN ---
History of Present Illness Consult details Chief complaint: LEG WEAKNESS, urinary and fecal incontinence Narrative: Ms. Alvarez is here for acute onset severe back pain, urinary incontinence, bilateral leg progressive weakness and burning pain s/p lumbar epidural injection on 04/13. Prior to injection patient had bilateral leg pain and weakness after standing for prolonged period of time. Patient since then saw Dr. Garcia and was instructed by Dr. Garcia to undergo lumbar steroid injection. After patient received her injection on 04/13, patient's became severe on 04/16, she lost control of her bladder and bowel and started wearing Depends due to combination of severe pain and incontinence. She presented to ER on 04/20 due to her incontinence, worsening leg weakness, bilaterl feet burning pain and was admitted to inpatient hospital. Meds Home Medications and Allergies Home Medications Medication Instructions Recorded Confirmed Type pravastatin 80 mg tablet 80 mg PO BEDTIME 04/04/20 04/21/21 History ascorbic acid (vitamin C) 1,000 mg 1 g PO DAILY tab 03/31/21 04/21/21 History tablet aspirin 81 mg tablet,delayed 81 mg PO DAILY 03/31/21 04/21/21 History release (Adult Aspirin Regimen) baclofen 10 mg tablet 10 mg PO BEDTIME 03/31/21 04/21/21 History baclofen 5 mg tablet 5 mg PO TID 03/31/21 04/21/21 History calcitonin (salmon) 200 1 spray INTRANASAL (ALT) DAILY 03/31/21 04/21/21 History unit/actuation nasal spray cholecalciferol (vitamin D3) 250 250 mcg PO DAILY 03/31/21 04/21/21 History mcg (10,000 unit) capsule coenzyme Q10 200 mg/gram oral mg PO 03/31/21 03/31/21 History powder (H2Q CoQ10) diazepam 10 mg tablet (Valium) 10 mg PO ONCE #10 tab MDD 3 tabs 03/31/21 04/21/21 Rx fexofenadine 180 mg tablet 180 mg PO DAILY 03/31/21 04/21/21 History ([place] Allergy) fluticasone propionate 50 1 spray INTRANASAL DAILY 03/31/21 04/21/21 History mcg/actuation nasal spray,suspension gabapentin 300 mg capsule 300 mg PO .COMPLEX #90 cap 03/31/21 04/21/21 Rx glucosamine-chondroitin 250 mg-200 2 tab PO QPC 03/31/21 04/21/21 History mg tablet (Osteo Bi-Flex) glutamic bepz-deiesd-hncdlzhpn tab PO 03/31/21 03/31/21 History tablet glycosaminoglycans,mixed 80 cap PO 03/31/21 03/31/21 History mg-ascorbic acid 15 mg capsule (SynovX Metabolic) multivitamin 1 tab PO DAILY 03/31/21 04/21/21 History omega-3 fatty acids 1,250 mg 2,500 mg PO DAILY 03/31/21 04/21/21 History capsule prednisone 20 mg tablet 40 mg PO DAILY 03/31/21 04/21/21 History strontium gluconate-vitamins tab PO 03/31/21 03/31/21 History E0-W48-soolk acid 680 mg-30 mg tablet tramadol 50 mg tablet 50 mg PO BID PRN tab 03/31/21 04/21/21 History Allergies Allergy/AdvReac Type Severity Reaction Status Date / Time cefazolin [From [facility]] Allergy Intermediate Hives Verified 04/20/21 11:53 Exam Vital Signs (past 8 hours): - 04/21/21 08:00 04/21/21 11:21 04/21/21 12:00 Temperature 97.5 F L 98.8 F Pulse Rate 83 80 Respiratory Rate 22 21 Blood Pressure 162/81 H 163/74 H Pulse Oximetry 94 95 96 Oxygen Delivery Method Room Air Oxygen Flow Rate 0 Neuro Other: Bilateral 4 beat clous in BLE, 3+ DTR in bilateral patella, 4+/5 motor strength in gastroc and TA, 4/5 in quadriceps, decreased sensibility BLE in multiple dermatome, hypersensate in BLE. Objective Labs Result Diagrams: 04/21/21 04:16 04/21/21 04:16 Labs: Laboratory Results - last 24 hr 04/20/21 04/20/21 04/20/21 12:48 22:35 22:35 WBC 10.9 RBC 4.24 Hgb 13.4 Hct 40.0 MCV 94.3 MCH 31.5 MCHC 33.4 RDW 13.0 Plt Count 207 Neut % (Auto) 74.0 Lymph % (Auto) 21.5 L [place] % (Auto) 2.9 L Eos % (Auto) 0.3 L Baso % (Auto) 1.3 Neut # (Auto) 8100 H Lymph # (Auto) 2300 [place] # (Auto) 300 Eos # (Auto) 0 Baso # (Auto) 100 PT INR APTT Sodium Potassium Chloride Carbon Dioxide BUN Creatinine Estimated GFR BUN/Creatinine Ratio Glucose Calcium Magnesium 1.8 Total Bilirubin AST ALT Alkaline Phosphatase Total Protein Albumin Globulin Albumin/Globulin Ratio Urine RBC 0-1/hpf Urine WBC None seen Ur Squamous Epith Cells 0-1 /hpf Urine Bacteria None seen Ur Culture Indicated? Cult not indicated SARS-CoV-2 (PCR) 04/21/21 04/21/21 04/21/21 04:16 04:16 04:16 WBC 8.9 RBC 4.26 Hgb 13.5 Hct 40.1 MCV 94.1 MCH 31.7 MCHC 33.7 RDW 13.0 Plt Count 208 Neut % (Auto) 82.4 H Lymph % (Auto) 14.0 L [place] % (Auto) 3.3 Eos % (Auto) 0.1 L Baso % (Auto) 0.2 Neut # (Auto) 7400 H Lymph # (Auto) 1300 [place] # (Auto) 300 Eos # (Auto) 0 Baso # (Auto) 0 PT 12.1 INR 1.1 APTT 27 Sodium 134 L Potassium 4.5 Chloride 103 Carbon Dioxide 30 BUN 22 H Creatinine 0.77 Estimated GFR > 60.0 BUN/Creatinine Ratio 28.6 H Glucose 292 H Calcium 9.3 Magnesium Total Bilirubin 0.5 AST 20 ALT 21 Alkaline Phosphatase 87 Total Protein 6.7 Albumin 3.8 Globulin 2.9 Albumin/Globulin Ratio 1.3 Urine RBC Urine WBC Ur Squamous Epith Cells Urine Bacteria Ur Culture Indicated? SARS-CoV-2 (PCR) 04/21/21 07:18 WBC RBC Hgb Hct MCV MCH MCHC RDW Plt Count Neut % (Auto) Lymph % (Auto) [place] % (Auto) Eos % (Auto) Baso % (Auto) Neut # (Auto) Lymph # (Auto) [place] # (Auto) Eos # (Auto) Baso # (Auto) PT INR APTT Sodium Potassium Chloride Carbon Dioxide BUN Creatinine Estimated GFR BUN/Creatinine Ratio Glucose Calcium Magnesium Total Bilirubin AST ALT Alkaline Phosphatase Total Protein Albumin Globulin Albumin/Globulin Ratio Urine RBC Urine WBC Ur Squamous Epith Cells Urine Bacteria Ur Culture Indicated? SARS-CoV-2 (PCR) Negative [facility] Medical History HNP (herniated nucleus pulposus), thoracic T12 compression fracture Thoracic myelopathy UTI (urinary tract infection) Surgical History H/O eye surgery H/O shoulder surgery H/O thumb surgery H/O: knee surgery History of back surgery History of fusion of cervical spine History of lumbar fusion Family History Father Congestive heart failure Osteoarthritis Mother Osteoarthritis Pneumonia Sister Heart disease Grandmother Cancer Congestive heart failure Social History household members: none Tobacco & Substance Use Smoking Status: Never smoker Assessment & Plan Assessment & Plan narrative: Patient has T10-11 disc herniation and severe spinal stenosis with spinal cord compromise. Patient had moderate pain and leg weakness after standing for prolonged period of time until 04/13 after receiving epidural steroid injection. Patient had acute worsening of her symptoms and developed urinary and partial bowel incontinence 3 days post injection. She has spinal cord edema and myelopathy. Patient is receiving steroids for her myelopathy and close monitoring of her neurologic status. I discussed with patient surgical plan detail again. I discussed with her the timing of her planned surgery. Since patient is stable since admission and is ambulatory and is able to void (unable to stop her stream per patient report), I will plan her surgery timing as urgent on this Monday. I would like her spinal cord edema have a chance to subside from steroids being administered since admission. It has been shown to improve surgical outcome after decompression surgery in the presence of cord edema. Risks for surgery was discussed, which includes but limited to bleeding, infection, nerve/dura/lung/blood vessel injury, need for additional procedure, paralysis, worsening/permanent bowel/bladder incontinence, even . Pt understands and would like to proceed with surgery. I scheduled her for T10-11 laminectomy and fusion with interbody cage placement for this Sunday 04/23. Time Spent With Patient Critical Care time: I spent a total of [] minutes of critical care time on this patient's care today; this time is exclusive of procedural time.
--- NOTE | 2021-04-21 15:26 | CM.DANOTE ---
Patient is a 70 yo female who was admitted on 04/20/21 for Leg Swelling, unable to hold bowels. Pt has [facility] and [employer] for insurance and her PCP is Marianna Wick. EMR was reviewed. Per , pt with hx of severe spinal stenosis and hx of lumbar surg and had planned Ortho Surg with Dr. Man for this Monday. Per Ortho , pt to start on steroids today to increase her success with surgery and to continue with plan of surgery Monday this week 04/23/21. SW met bedside with pt and explained role and she confirms she lives in [place] alone but has local supportive son/DPOA Mauro and his family nearby. Pt states she moved from [place] about 2 years ago to be closer to family but remains fiercely independent and drives and takes care of her own ADL's. Pt denies any hx of SNF but used HH in [place]. 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 Pt states that she plans to establish outpt PT with [facility] which is about 5 min from her house but she is not sure how quickly she could get her first appointment and therefore would be open to HH in the interim. Plan: SW to follow closely after surgery on Monday and then PT/OT eval to determine if home plan with family assist is safe and r/o HH vs outpt PT. BERNICE Funes Discharge Planning/Care Management CM Discharge Assessment Start: 04/21/21 15:24 Freq: Status: Active Protocol: Document 04/21/21 15:24 BF (Rec: 04/21/21 15:26 [id number]) Discharge Planning Assessment Assigned Band Reamer Machine Operator BERNICE Engle DPOA/Assigned Designee Name son Mauro Contact Information [phone] Advance Directives? No Advance Directives on File No History Provided By Patient,Medical Record Has Patient been admitted in last 30 No days? Prior Living Arrangements Apartment/Condo Household Members none Type of transporation used prior to Drives own vehicle admit Independent with ADL's Yes Is patient alert and oriented? Yes Caregiver for Another No Patient/Family Preference Home with Home Health,OP PT Therapy Comment HH vs outpt PT Barriers to Discharge No Discharge Plan Home Community Services Physical Therapy Transportation Arrangement Son likely to transport home at d/c if safe for home Additional Comment Pending PT eval after surg Fri to determine HH vs outpt PT Whiteboard Updated in Patient Room with Yes name and ext. # of Band Reamer Machine Operator Review Status In Process Please Provide Date Initial DC 04/21/21 Assessment Was Performed Next Review Type Continued Stay Review
[2021-04-21] MEDS: BACLOFEN 10 MG TABLET PO (20:05)
[2021-04-21] MEDS: PRAVASTATIN 20 MG TABLET 80 MG PO (20:06)
[2021-04-21] MEDS: DOCUSATE 100 MG CAPSULE 200 MG PO (20:08)
[2021-04-22] VITALS (14 sets, daily range): BP systolic 130–154; BP diastolic 67–81; PULSE 69–77; RESP 16–20; TEMP 36.1–36.6; O2SAT 93–97
--- NOTE | 2021-04-22 | PC.NURSE ---
2300: assumed care of patient. a/o x 4, voices needs. SBA/1pa ADL and transfer assistance. uses FWW for mobility. ambulated into bathroom w/ slow steady gait. reports neuropathy and sciatic pain on R side, 6/10 w/ movement, 2-3 at rest. PRN apap and tramadol given whole w/ sips of water; w/ good effect. prefers not to use MS or oxycodone. skin sweaty and pale. new gown applied, linens refreshed. ice water given. offered ice pack for BTP, she declined at this time. VS are stable, call light w/in reach.
[2021-04-22] MEDS: DEXAMETHASONE 10 MG/ML VIAL IV ×4 (03:37→20:50)
[2021-04-22 05:25] LABS: Add Manual Diff / Slide Review NO; Basophils Absolute Auto 0 /uL (0-100); Basophils Percent Auto 0.1 % (0-2); Eosinophils Absolute Auto 0 /uL (0-450); Hematocrit 40.8 % (36-46); Hemoglobin 13.6 g/dL (12.0-16.0); Lymphocytes Absolute Auto 1100 /uL (1100-4500); Lymphocytes Percent Auto 8.3 % (25-40); Mean Corpuscular HGB Conc 33.2 % (30-36); Mean Corpuscular Hemoglobin 31.3 PG (26-34); Mean Corpuscular Volume 94.2 fL (80-100); Monocytes Absolute Auto 300 /uL (0-900); Monocytes Percent Auto 2.6 % (3-14); Neutrophils Absolute Auto 11500 /uL (1500-7000); Platelet Count 221 X10^3/uL (150-400); Red Blood Cell Count 4.33 X10^6/uL (4.0-5.2); Red Cell Distribution Width 12.8 % (11.6-14.8); White Blood Cell Count 12.9 X10^3/uL (4.5-11.0)
[2021-04-22 05:38] LABS: BUN Creatinine Ratio 39.7 (6-22); Blood Urea Nitrogen 27 mg/dL (7-17); Calcium 9.8 mg/dL (8.4-10.2); Carbon Dioxide 26 mmol/L (22-32); Chloride 103 mmol/L (98-107); Estimated Glomerular Filt Rate > 60.0 mL/min (>60); Glucose 297 mg/dL (80-110); HEMOLYSIS < 15 (0-50); Potassium 4.1 mmol/L (3.4-5.1); Sodium 134 mmol/L (137-145)
[2021-04-22] MEDS: PANTOPRAZOLE DR 20 MG TABLET PO (06:21)
[2021-04-22] MEDS: INSULIN LISPRO 100 UNIT/ML 3ML VIAL SUBCUT ×4 (08:31→20:51)
[2021-04-22] MEDS: GABAPENTIN 300 MG CAPSULE PO ×3 (08:34→20:50)
[2021-04-22] MEDS: DOCUSATE 100 MG CAPSULE 200 MG PO ×2 (08:34→20:50)
--- NOTE | 2021-04-22 09:09 | P.PN_ITS ---
Subjective Subjective Date Patient Seen: 04/22/21 Time Patient Seen: 09:09 Interval history: Sitting up in bed comfortably, eating breakfast. Reports no change in pain in lower extremities since admission and starting steroids, but does feel that she is ambulating with less difficulty. No questions regarding planned surgery. Exam Vital Signs (past 8 hours): - 04/22/21 02:00 04/22/21 03:47 04/22/21 06:00 Temperature 97.6 F Pulse Rate 69 Respiratory Rate 18 Blood Pressure 154/81 H Pulse Oximetry 96 93 95 04/22/21 08:00 Temperature 96.9 F L Pulse Rate 73 Respiratory Rate 16 Blood Pressure 139/77 Pulse Oximetry 94 Oxygen Delivery Method Room Air Oxygen Flow Rate 0 Narrative Exam Narrative: 5/5 strength in hip flexors, quadriceps, hamstrings, DF, PF, EHL. Sensation to light touch intact but altered throughout BLE. Calves soft, compressible, nontender and without palpable cords or masses. Const General: cooperative, healthy appearing and comfortable Orientation: alert, awake and oriented x3 Objective Labs Result Diagrams: 04/22/21 04:46 04/22/21 04:46 Labs: Laboratory Results - last 24 hr 04/21/21 04/22/21 04/22/21 07:18 04:46 04:46 WBC 12.9 H RBC 4.33 Hgb 13.6 Hct 40.8 MCV 94.2 MCH 31.3 MCHC 33.2 RDW 12.8 Plt Count 221 Neut % (Auto) 89.0 H Lymph % (Auto) 8.3 L Lumpkin % (Auto) 2.6 L Eos % (Auto) 0.0 L Baso % (Auto) 0.1 Neut # (Auto) 18320 H Lymph # (Auto) 1100 [place]kin # (Auto) 300 Eos # (Auto) 0 Baso # (Auto) 0 Sodium 134 L Potassium 4.1 Chloride 103 Carbon Dioxide 26 BUN 27 H Creatinine 0.68 Estimated GFR > 60.0 BUN/Creatinine Ratio 39.7 H Glucose 297 H Calcium 9.8 SARS-CoV-2 (PCR) Negative [facility] Medical History HNP (herniated nucleus pulposus), thoracic T12 compression fracture Thoracic myelopathy UTI (urinary tract infection) Surgical History H/O eye surgery H/O shoulder surgery H/O thumb surgery H/O: knee surgery History of back surgery History of fusion of cervical spine History of lumbar fusion Family History Father Congestive heart failure Osteoarthritis Mother Osteoarthritis Pneumonia Sister Heart disease Grandmother Cancer Congestive heart failure Social History household members: none Smoking Status: Never smoker Assessment & Plan Assessment and plan (1) Myelopathy concurrent with and due to spinal stenosis of thoracic region: Status: Acute (2) Intervertebral disc disorders with radiculopathy, thoracic region: Status: Acute (3) Thoracic myelopathy: Status: Acute (4) HNP (herniated nucleus pulposus), thoracic: Status: Acute Plan T10-T11 laminectomy with posterior fusion and possible interbody fusion tomorrow. NPO after midnight tomorrow morning. Time Spent With Patient Critical Care time: I spent a total of [] minutes of critical care time on this patient's care today; this time is exclusive of procedural time. Quality VTE Deep Vein Thrombosis/Pulmonary Embolism Present on Admission: No
[2021-04-22] MEDS: BACLOFEN 10 MG TABLET 5 MG PO (10:10)
[2021-04-22 12:22] LABS: Glucose 460 mg/dL (80-110)
--- NOTE | 2021-04-22 15:53 | P.PN_ITS ---
Subjective Subjective Date Patient Seen: 04/22/21 Time Patient Seen: 12:30 Interval history: 70 y/o female with known spinal canal stenosis and a new Herniated Thoracic t- 10, 11 HNP, admitted for urinary/fecal incontinence and progressive back pain.? The patient reports her pain is well controlled currently. She is scheduled for definitive surgery on April 23, 2021. Her symptoms are improving with decadron and her legs are moving a bit more today. Blood sugars are high today, working on control with insulin today. Likely due to steroid therapy. Exam Vital Signs (past 8 hours): - 04/22/21 08:00 04/22/21 10:00 04/22/21 11:28 Temperature 96.9 F L Pulse Rate 73 Respiratory Rate 16 Blood Pressure 139/77 Pulse Oximetry 94 95 97 04/22/21 12:00 04/22/21 14:00 Temperature 97.8 F Pulse Rate 77 Respiratory Rate 20 Blood Pressure 147/67 H Pulse Oximetry 95 95 Oxygen Delivery Method Room Air Oxygen Flow Rate 0 Narrative Exam Narrative: Exam Narrative: Pleasant female lying in bed in no acute distress Resp clear to auscultation bilaterally. Cardio RRR nl Sl S2 GI Abd; soft/ non tender/ non distended Extrem no edema, able to lift legs slightly off the bed today. remains weak. Objective Labs Result Diagrams: 04/22/21 04:46 04/22/21 12:00 Labs: Laboratory Results - last 24 hr 04/22/21 04/22/21 04/22/21 04:46 04:46 12:00 WBC 12.9 H RBC 4.33 Hgb 13.6 Hct 40.8 MCV 94.2 MCH 31.3 MCHC 33.2 RDW 12.8 Plt Count 221 Neut % (Auto) 89.0 H Lymph % (Auto) 8.3 L Manati % (Auto) 2.6 L Eos % (Auto) 0.0 L Baso % (Auto) 0.1 Neut # (Auto) 49945 H Lymph # (Auto) 1100 [place] # (Auto) 300 Eos # (Auto) 0 Baso # (Auto) 0 Sodium 134 L Potassium 4.1 Chloride 103 Carbon Dioxide 26 BUN 27 H Creatinine 0.68 Estimated GFR > 60.0 BUN/Creatinine Ratio 39.7 H Glucose 297 H 460 H D Calcium 9.8 PFSH Medical History HNP (herniated nucleus pulposus), thoracic T12 compression fracture Thoracic myelopathy UTI (urinary tract infection) Surgical History H/O eye surgery H/O shoulder surgery H/O thumb surgery H/O: knee surgery History of back surgery History of fusion of cervical spine History of lumbar fusion Family History Father Congestive heart failure Osteoarthritis Mother Osteoarthritis Pneumonia Sister Heart disease Grandmother Cancer Congestive heart failure Social History household members: none Smoking Status: Never smoker Assessment & Plan Assessment & Plan narrative: Annabella Alvarez is a 70-year-old female who has been having progressive lower extremity weakness and decreased loss in sensation who developed worsening bowel and bladder weakness within the last 24 hours she was advised to come in by Dr. Templeton orthopedics.? Patient admitted for severe spinal canal stenosis specifically in the thoracic region from L5-S1, thoracic myelopathy, T12 fracture. 1. Severe spinal canal stenosis of the thoracic L5-S1, with corresponding thora cic myelopathy and T12 compression fracture, acute, present on admission -patient to take 10 mg Decadron q.6 hours -NPO tonight for definitive surgery tomorrow. -Consult for Dr. Templeton orthopedics place - may continue patient's baclofen tramadol and gabapentin after evaluation by Dr. Templeton 2. Hyperlipidemia, chronic, present on admission -continue pravastatin 3.Obesity as evidence by BMI of 31.8, acute on chronic, present on admission -referral for dietary evaluation 4. Mild hyponatremia, acute, present on admission -improved with NS infusion overnight. Code status:? Limited code do not intubate Surrogate decision maker:? Son Oneil Alvarez Time Spent With Patient Critical Care time: I spent a total of [] minutes of critical care time on this patient's care today; this time is exclusive of procedural time. Quality VTE Deep Vein Thrombosis/Pulmonary Embolism Present on Admission: No
[2021-04-22] MEDS: SODIUM CHLORIDE 0.9% FLUSH 10 ML IV (20:51)
[2021-04-22] MEDS: PRAVASTATIN 20 MG TABLET 80 MG PO (20:51)
[2021-04-22] MEDS: INSULIN GLARGINE 100 UNIT/ML 3ML PEN 10 UNIT SUBCUT (20:51)
[2021-04-22] MEDS: diazePAM 5 MG TABLET PO (21:58)
[2021-04-23] VITALS (26 sets, daily range): BP systolic 128–173; BP diastolic 70–96; PULSE 65–124; RESP 12–22; TEMP 36.1–36.8; O2SAT 93–99; BMI 31.8
[2021-04-23] MEDS: DEXAMETHASONE 10 MG/ML VIAL IV ×3 (01:57→20:47)
[2021-04-23] MEDS: TRAMADOL 50 MG TABLET PO (02:33)
[2021-04-23 05:21] LABS: Add Manual Diff / Slide Review NO; Basophils Absolute Auto 0 /uL (0-100); Basophils Percent Auto 0.1 % (0-2); Eosinophils Absolute Auto 0 /uL (0-450); Hematocrit 38.9 % (36-46); Lymphocytes Absolute Auto 1200 /uL (1100-4500); Lymphocytes Percent Auto 8.5 % (25-40); Mean Corpuscular HGB Conc 33.5 % (30-36); Mean Corpuscular Hemoglobin 31.5 PG (26-34); Mean Corpuscular Volume 94.2 fL (80-100); Monocytes Absolute Auto 400 /uL (0-900); Monocytes Percent Auto 2.5 % (3-14); Neutrophils Absolute Auto 12500 /uL (1500-7000); Neutrophils Percent Auto 88.9 % (50-75); Platelet Count 200 X10^3/uL (150-400); Red Blood Cell Count 4.13 X10^6/uL (4.0-5.2); Red Cell Distribution Width 13.1 % (11.6-14.8); White Blood Cell Count 14.1 X10^3/uL (4.5-11.0)
[2021-04-23 05:27] LABS: BUN Creatinine Ratio 40.6 (6-22); Blood Urea Nitrogen 28 mg/dL (7-17); Calcium 9.7 mg/dL (8.4-10.2); Carbon Dioxide 29 mmol/L (22-32); Chloride 105 mmol/L (98-107); Estimated Glomerular Filt Rate > 60.0 mL/min (>60); Glucose 253 mg/dL (80-110); HEMOLYSIS < 15 (0-50); Potassium 4.1 mmol/L (3.4-5.1); Sodium 135 mmol/L (137-145)
--- NOTE | 2021-04-23 07:22 | PM.PN.1 ---
Subjective Subjective Date Patient Seen: 04/23/21 Time Patient Seen: 07:25 Interval history: 70 y/o female with known spinal canal stenosis and a new Herniated Thoracic t-10, 11 HNP, admitted for urinary/fecal incontinence and progressive back pain.? The patient reports her pain is well controlled currently. She is scheduled for definitive surgery today. Her symptoms are improving with decadron and her legs are moving a bit more today again today. Still having difficulty with control of bowel movements but can feel now when they come. Finally had a bowel movement yesterday. Blood sugars are high again but better than yesterday, working on control with insulin today. Likely due to steroid therapy. Exam Vital Signs (past 8 hours): - 04/23/21 02:00 04/23/21 02:18 04/23/21 06:00 Temperature 98.1 F Pulse Rate 65 Respiratory Rate 14 Blood Pressure 145/78 H Pulse Oximetry 96 96 96 Oxygen Delivery Method Room Air Oxygen Flow Rate 0 Narrative Exam Narrative: Pleasant female lying in bed in no acute distress Resp clear to auscultation bilaterally. Cardio RRR nl Sl S2 GI Abd; soft/ non tender/ non distended Extrem no edema, able to lift legs slightly off the bed today. remains weak. Objective Labs Result Diagrams: 04/23/21 04:40 04/23/21 04:40 Labs: Laboratory Results - last 24 hr 04/22/21 04/23/21 04/23/21 12:00 04:40 04:40 WBC 14.1 H RBC 4.13 Hgb 13.0 Hct 38.9 MCV 94.2 MCH 31.5 MCHC 33.5 RDW 13.1 Plt Count 200 Neut % (Auto) 88.9 H Lymph % (Auto) 8.5 L Parker % (Auto) 2.5 L Eos % (Auto) 0.0 L Baso % (Auto) 0.1 Neut # (Auto) 85048 H Lymph # (Auto) 1200 Parker # (Auto) 400 Eos # (Auto) 0 Baso # (Auto) 0 Sodium 135 L Potassium 4.1 Chloride 105 Carbon Dioxide 29 BUN 28 H Creatinine 0.69 Estimated GFR > 60.0 BUN/Creatinine Ratio 40.6 H Glucose 460 H D 253 H D Calcium 9.7 PFSH Medical History HNP (herniated nucleus pulposus), thoracic T12 compression fracture Thoracic myelopathy UTI (urinary tract infection) Surgical History H/O eye surgery H/O shoulder surgery H/O thumb surgery H/O: knee surgery History of back surgery History of fusion of cervical spine History of lumbar fusion Family History Father Congestive heart failure Osteoarthritis Mother Osteoarthritis Pneumonia Sister Heart disease Grandmother Cancer Congestive heart failure Social History household members: none Smoking Status: Never smoker Assessment & Plan Assessment & Plan narrative: Annabella Alvarez is a 70-year-old female who has been having progressive lower extremity weakness and decreased loss in sensation who developed worsening bowel and bladder weakness within the last 24 hours she was advised to come in by Dr. Templeton orthopedics.? Patient admitted for severe spinal canal stenosis specifically in the thoracic region from L5-S1, thoracic myelopathy, T12 fracture. 1. Severe spinal canal stenosis of the thoracic L5-S1, with corresponding thoracic myelopathy and T12 compression fracture, acute, present on admission -patient to take 10 mg Decadron q.6 hours -Surgery planned for today. Patient appears medically optimized. -orthopedic surgery following. - may continue patient's baclofen tramadol and gabapentin after evaluation by Dr. Templeton 2. Hyperlipidemia, chronic, present on admission -continue pravastatin 3.Obesity as evidence by BMI of 31.8, acute on chronic, present on admission -referral for dietary evaluation 4. Mild hyponatremia, acute, present on admission -improved with NS infusion overnight. 5. Steroid induced hyperglycemia - started lantus 10 units 3/10 evening only given NPO status today. Continue sliding scale. Increase to 20 units tonight if patient needs continued steroids or consider cessation to avoid hypoglycemia if no need for steroids after surgery. - A1c ordered 6. Leukocytosis - no evidence of infection, likely related to steroid therapy. Continue to follow. Code status:? Limited code do not intubate Surrogate decision maker:? David Alvarez Time Spent With Patient Critical Care time: I spent a total of [] minutes of critical care time on this patient's care today; this time is exclusive of procedural time. Quality VTE Deep Vein Thrombosis/Pulmonary Embolism Present on Admission: No
[2021-04-23 07:59] LABS: Hemoglobin A1C% w Est Avg Glu 9.5 % (4.0-6.0)
[2021-04-23] MEDS: GABAPENTIN 300 MG CAPSULE PO ×2 (08:31→20:48)
[2021-04-23] MEDS: DOCUSATE 100 MG CAPSULE 200 MG PO (08:31)
[2021-04-23] MEDS: INSULIN LISPRO 100 UNIT/ML 3ML VIAL SUBCUT ×2 (08:32→20:48)
[2021-04-23] MEDS: SODIUM CHLORIDE 0.9% FLUSH 10 ML IV (08:33)
[2021-04-23] MEDS: LACTATED RINGERS 1,000 ML 42 ML IV (11:43)
--- NOTE | 2021-04-23 12:35 | PM.PREOP ---
Pre-operative Note COVID-19 COVID-19 status: Negative Result date/Date tested (Pos, Neg/Pending): 04/21/21 Criteria for continued procedure: Expected advancement of disease process, Possibility delay results in more complex future surgery or treatment, Increased loss of function, Continuing or worsening of significant or severe pain, Deterioration of the patient's condition or overall health and Delay expected to result in less-positive ultimate med/surg outcome Interval Note History & Physical reviewed/Exam performed by Physician: Yes Changes to H&P: No
--- NOTE | 2021-04-23 13:18 | SUR.OPER ---
Prone on spine table, head in foam head support, padded chest and pelvic supports, gel pad at knees, lower legs supported by pillows; nipples, genitalia and toes free of pressure, arms secured on foam padded arm boards at <90 degrees abduction. Tape over blanket at thigh secured to table.
[2021-04-23] MEDS: CLINDAMYCIN 900 MG/50 ML PIGGYBACK 50 MG IV ×2 (13:35→21:49)
[2021-04-23] MEDS: BUPIVACAINE LIPOSOME 266 MG/20 ML VIAL INJ (14:12)
[2021-04-23] MEDS: BUPIVACAINE 0.25% (PF) 30 ML, EPINEPHrine 0.15 MG INJ (14:13)
--- NOTE | 2021-04-23 15:24 | DIET.CONS ---
Dietary Consultation Note Admission Date: 04/20/2021 21:15 Assessment: 70 y/o F c known spinal canal stenosis and new herniated thoracic, admitted for incontinence and progressive back pain. Consulted for BMI of 31.8. Pt currently out of her room for surgery and not available for assessment. Would certainly benefit from OP MNT. Elevated hgA1c of 9.5%. Elevated BG in the 200-300s today. Receiving glargine 10 u HS and SSI lispro 5-8u. Might benefit from higher glargine dose if FBG continue above 180 mg/dL for better BG mgmgnt and healing. No home DM meds. Seems to be new diagnosis. Per EMR has been on prednisone. Per staff description she may be in precontemplation about her Dm diagnosis. Ht: 162.56 cm Wt: 84.3 kg BMI: 31.7 Last BM: 04/22/21 (04/23/21 11:37) MNA: 13 Juanjo Score: 20 Diet: 04/23/21 00:01 NPO Diet Diet Modifications: NPO Type: NPO after Midnight Nutrition Percent Meal Consumed 100% 04/22/21 08:45 Percent Meal Consumed 100% 04/21/21 18:33 Labs: RBC 4.13 X10^6/uL (4.0-5.2) 04/23/21 04:40 Hgb 13.0 g/dL (12.0-16.0) 04/23/21 04:40 Hct 38.9 % (36-46) 04/23/21 04:40 Creatinine 0.69 mg/dL (0.52-1.04) 04/23/21 04:40 Hemoglobin A1c 9.5 % (4.0-6.0) H 04/23/21 04:40 Nutrition Diagnosis: Altered nutrition related lab likely r/t prednisone and other contributing factors TBD at assessment aeb home med list and HgA1c of 9.5% Interventions: Rec BG values of 140-180 mg/dL Monitoring/Evaluations: RD will try again later today if appropriate given post-op Electronically Signed by: Magaly Anderson 04/23/21 15:24 Clinical Dietitian [address] [id number]
--- NOTE | 2021-04-23 16:19 | DI.RAD.S_ITS ---
PROCEDURE: XR THORACIC SPINE 2V INDICATIONS: T10-T11 LAMINECTOMY WITH FUSION TECHNIQUE: 2 fluoroscopic images of the thoracic spine. COMPARISON: [facility], RG, XR T-SPINE 2-3V, 09/28/2020, 13:15. FINDINGS: Two fluoroscopic images of the thoracic spine demonstrate posterior element hardware at T10-11. IMPRESSION: Fluoroscopic images demonstrating posterior element hardware as detailed above. Dictated by: Reynaldo Dowd M.D. on 04/23/2021 at 16:37 Approved by: Reynaldo Dowd M.D. on 04/23/2021 at 16:39
--- NOTE | 2021-04-23 16:24 | PM.OP.1 ---
Operative Date/Time/Diagnoses Date of procedure: 04/23/21 Time of procedure: 13:15 Pre-op diagnosis: 1. T10-11 spinal stenosis with myelopathy 2. T10-11 disc herniation with spinal cord impingement. Post-op diagnosis: same Procedure & Clinicians Procedure: 1. T10-11 decompressive laminectomy with total facetecomy 2. T10-11 posterolateral fusion 3. T10-11 posterior non-segemental instrumentation 4. Utilization of microsurgical technique and operating microscope Same procedure as scheduled: Yes Indications: Ms. Alvarez is here for scheduled thoracic decompression due to acute worsening of her myelopathy after a recent epidural injection. She lost control of her bowel and bladder as well as partial control of her legs 2 days after a thoracic spine injection. Patient was admitted through the emergency room and placed on steroids while closely monitored for her neurologic status. After informed consent was obtained, patient was scheduled urgently for T10-11 decompression and fusion. Surgeon: Vince Man Plant Operations Vice President: Ninoska Rose Click Yes if Unassisted: No Operative Notes Closure Type: primary Specimen(s): none sent Prosthetic devices, grafts, tissues, transplants, or devices: Globus revolve screws Applied: catheter Estimated Blood Loss (mL): 5 Blood products transfused: none Procedure in detail: Patient was seen in the preoperative area. Risks and benefits of the surgery was discussed with the patient. Informed consent was obtained from the patient and placed in the chart. Surgical site was marked. Patient was taken to the operative room. General anesthesia was administered. Prophylactic antibiotic was given to the patient less than 30 min before the incision was made. Patient was placed into a prone position on the Juan Carlos table. Patient's back was then prepped and draped in the sterile fashion. Time-out was performed at this time. Using AP and lateral C-arm imaging the interval between T10 to T11 was identified and marked on patient's back. A 2 inch incision 2 in from midline was made on the left side first. The fascia was incised in line with skin incision. Globus MARS retractors was placed inside the incision and docked onto the T10 lamina. Using microsurgical technique and operating microscope, a T10 laminectomy and T10-11 facetectomy was performed using a Kerrison rongeur. The disc space at T10-11 was identified. Patient was found to have severe spinal cord compression from extruded disc material along with hypertrophy ligamentum flavum. Total facetectomy and laminectomy was performed in order to properly decompress the epidural space and also exposed the large disc herniation anterior to the spinal cord. A partial diskectomy was performed while protecting the spinal cord using micro curette pituitary. Many small fragments of bone along with endplate and disc material was found to be inset epidural space from the ruptured disc at T10-11 level. All loose disc fragment bone and other material that is compromising the epidural space was removed carefully using a micropituitary. The local bone from the laminectomy and facetectomy was saved for local bone grafting. At this time a mirror image incision was made on the right side. The fascia was incised in line with the skin incision. Globus MARS retractor was inserted and docked onto the T10-11 posterolateral gutter. Using the power drill, posterior-lateral decortication was performed at T10-11 level until bleeding cortical bone was identified. The local bone from the laminectomy and facetectomy was saved for local bone grafting.The bone grafting material was placed into the T10-11 posterior lateral gutter he order to accomplish posterolateral fusion at the T10-11 level. Using the double C-arm technique, pedicle screws were placed into the T10 and T11 pedicles bilaterally. This was done by placing the Jamshidi needle into the pedicles, then placing the guidewires over the Jamshidi needle, and finally placing the cannulated screws over the guidewires bilaterally. After the pedicle screws were placed, 2 titanium rods was locked into the heads of the pedicle screws using locking caps and torque limiting screwdriver. After all the hardware was placed, and confirmed with AP and lateral C-arm imaging, the wound was then irrigated with sterile normal saline and packed with Ray-Naveed gauze for 3 min to accomplish hemostasis. After the gauze was removed the deep fascia was closed with #1 Vicryl suture. The subcutaneous layer was closed with 2-0 Vicryl. The skin was closed with skin shabbir. Patient tolerated the procedure well. There were no complications. 40 mg Depo-Medrol was placed into the epidural space after the instrumentation was completed. Neuro monitoring was used throughout the entire procedure. Patient's neurological status improved visibly arm monitoring equipment by the end of the procedure after decompression and stabilization was completed. Complications: none Post-operative Condition: stable Disposition: PACU Plan for aftercare: Admit to inpatient hospital
--- NOTE | 2021-04-23 16:35 | SUR.PHASEI ---
Received to PACU after general anesthesia. Airway patent, self maintained. Report from NASH Haider and Dr Cabezas.
[2021-04-23] MEDS: HYDROMORPHONE 2 MG INJ IV ×6 (16:42→17:36)
[2021-04-23] MEDS: fentaNYL 250 MCG/5 ML INJ IV ×5 (16:43→17:10)
[2021-04-23] MEDS: OXYCODONE IR 5 MG TABLET PO (16:52)
[2021-04-23] MEDS: INSULIN REGULAR 100 UNIT/ML 3 ML VIAL 8 UNIT SUBCUT (17:04)
--- NOTE | 2021-04-23 17:39 | SUR.PHASEI ---
Pt handed off to Niya CAO
--- NOTE | 2021-04-23 18:16 | SUR.PHASEI ---
1800 - Patient taken back to 226 in bed by nursing staff. Report given to receiving Angelika Sousa, including recent blood glucose of 320.
[2021-04-23] MEDS: SODIUM CHLORIDE 0.9% 1,000 ML 100 ML IV (18:27)
--- NOTE | 2021-04-23 18:39 | PC.NURSE ---
Rec'd pt from PACU to rm 226 ~ 1800. VSS. Back dsg is CDI. Pt reports improvement in ble neuropathy but reports pain 9/10 to back, mainly right lower back. Provided ice pack. Pt is tolerating ice chips, water, and crackers. Offered dinner to which she declines at this time. Henderson draining to gravity. VSS. BG 320 per HOUSEKEEPING ATTENDANT report. Called to Dr. Balbuena. Reported BG 320 and that pt rec'd 8 units regular insulin in PACU. Dr. Balbuena instructs to hold any add'l correctional at this time and recheck HS.
[2021-04-23] MEDS: DOCUSATE 100 MG CAPSULE PO (20:47)
[2021-04-23] MEDS: OXYCODONE IR 10 MG TABLET PO (20:48)
[2021-04-23] MEDS: SENNOSIDES 8.6 MG TABLET 17.2 MG PO (20:48)
[2021-04-23] MEDS: INSULIN GLARGINE 100 UNIT/ML 3ML PEN 20 UNIT SUBCUT (20:49)
[2021-04-23] MEDS: hydrOXYzine pamoate 25 MG CAPSULE PO (22:55)
[2021-04-24] VITALS (9 sets, daily range): BP systolic 125–151; BP diastolic 60–74; PULSE 76–88; RESP 16–19; TEMP 36.6–36.8; O2SAT 95–98
[2021-04-24] MEDS: OXYCODONE IR 10 MG TABLET PO ×6 (01:18→21:53)
[2021-04-24] MEDS: SODIUM CHLORIDE 0.9% 1,000 ML 100 ML IV (03:58)
[2021-04-24] MEDS: CLINDAMYCIN 900 MG/50 ML PIGGYBACK 50 MG IV (05:46)
[2021-04-24] MEDS: INSULIN LISPRO 100 UNIT/ML 3ML VIAL SUBCUT ×4 (08:40→23:07)
[2021-04-24] MEDS: ASCORBIC ACID 500 MG TABLET 1000 MG PO (08:42)
[2021-04-24] MEDS: FISH OIL 1,000 MG CAPSULE 2000 MG PO (08:42)
[2021-04-24] MEDS: MULTIVITAMIN 1 TABLET 1 TAB PO (08:42)
[2021-04-24] MEDS: DEXAMETHASONE 10 MG/ML VIAL IV ×2 (08:42→21:51)
[2021-04-24] MEDS: GABAPENTIN 300 MG CAPSULE PO ×3 (08:42→21:51)
--- NOTE | 2021-04-24 09:14 | P.PN_ITS ---
Subjective Subjective Date Patient Seen: 04/24/21 Time Patient Seen: 09:14 Interval history: I feel much better than I thought I would! Numb, tingling pain in BLE has decreased to mild cramping. Has not been OOB since surgery, would like to have Henderson removed. C/o new numb, tingling pain across groin area. Exam Vital Signs (past 8 hours): - 04/24/21 04:26 04/24/21 08:00 Temperature 98.1 F 98 F Pulse Rate 80 88 Respiratory Rate 18 16 Blood Pressure 151/74 H 131/60 Pulse Oximetry 98 96 Oxygen Delivery Method Room Air Oxygen Flow Rate 0 Narrative Exam Narrative: 5/5 strength and sensation to touch intact throughout BLE. Dressing to midback CDI. Calves soft, compressible, nontender and without palpable cords or masses. Const General: cooperative and healthy appearing Orientation: alert, awake and oriented x3 Objective Labs Result Diagrams: 04/23/21 04:40 04/23/21 04:40 [facility] Medical History HNP (herniated nucleus pulposus), thoracic T12 compression fracture Thoracic myelopathy UTI (urinary tract infection) Surgical History H/O eye surgery H/O shoulder surgery H/O thumb surgery H/O: knee surgery History of back surgery History of fusion of cervical spine History of lumbar fusion Family History Father Congestive heart failure Osteoarthritis Mother Osteoarthritis Pneumonia Sister Heart disease Grandmother Cancer Congestive heart failure Social History household members: none Smoking Status: Never smoker Assessment & Plan Post-op Postoperative Procedures: Procedures Operation Date: 04/23/21 12:15 Actual Procedure Side Surgeon p T10-11 Laminectomy Vince Man MD Postoperative day: 1 Postoperative status narrative: Doing well. Postoperative plan narrative: 1) Decadron 10 mg decreased to BID postoperatively; will discuss further tapering w/ Dr Man. 2) Takes gabapentin 100 mg TID at home, on 300 mg TID now. Will decrease if good pain control continues through today. 3) Mobilize w/ PT. 4) Hopeful d/c home within next 1-2 days. Quality VTE Deep Vein Thrombosis/Pulmonary Embolism Present on Admission: No
--- NOTE | 2021-04-24 10:05 | OT.IP.EVAL ---
Current Diagnoses Myelopathy in diseases classified elsewhere (04/20/21) Essential (primary) hypertension (04/20/21) Other spondylosis with myelopathy, thoracic region (04/20/21) Spinal stenosis, thoracic region (04/20/21) Intervertebral disc disorders with radiculopathy, thoracic region (04/20/21) Other intervertebral disc displacement, thoracic region (04/20/21) Surgery Performed Operation Date: 04/23/21 12:15 Actual Procedures p T10-11 Laminectomy - Vince Man MD Past Medical History (Last Reviewed 04/21/21 @ 14:03 by Vince Man MD) H/O eye surgery H/O shoulder surgery H/O thumb surgery H/O: knee surgery History of back surgery History of fusion of cervical spine History of lumbar fusion HNP (herniated nucleus pulposus), thoracic T12 compression fracture Thoracic myelopathy UTI (urinary tract infection) Surgical History (Last Reviewed 04/21/21 @ 14:03 by Vince Man MD) H/O eye surgery H/O shoulder surgery H/O thumb surgery H/O: knee surgery History of back surgery History of fusion of cervical spine History of lumbar fusion Occupational Therapy Inpatient Evaluation/Re-Eval M1 PT/OT-IP Prior Functional Status Start: 04/24/21 09:48 Freq: NEEDED Status: Active Protocol: Document 04/24/21 09:48 [facility] (Rec: 04/24/21 10:02 [facility] [id number]) Medical Review Prior Functional Status Medical History Reviewed Yes Communication Independent Mobility and Gait Pt states since her fall has been using the FWW to walk and only able to stand for a minute at a time due to her pain. Activities of Daily Living and IADL's Increased time for all ADL needs Prior Functional Level (Other details) Pt's family lives close by and a friend, Yasmin to stay with her 1-2 weeks to assist with her needs. Social History Household Members none Living Arrangements Apartment/Condo Number of Floors (Floors) One Floor Number of Stairs To Enter/Railing? 2 steps and right rail to enter Home Environment High Toilet,Walk in Shower Home Equipment Front Wheel Walker,Four Wheel Walker,Quad Cane,Shower Seat without Backrest,Hand Held Shower,Lot Porter Additional Social History Comment Pt has a hurry cane, adjustable bed and usually gets out of bed with the head of the bed up. 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 M2 OT-IP Current Condition Start: 04/24/21 09:48 Freq: Status: Active Protocol: Document 04/24/21 09:48 [facility] (Rec: 04/24/21 10:02 [facility] [id number]) Occupational Therapy Current Condition Current Condition Evaluation Date 04/24/21 Treatment Diagnosis S/p T10-11 Laminectomy and fusion Diagnosis Onset Date 04/20/21 Post Operative Precautions Lumbar Precautions Log Roll,No Twisting,Limit Bending,Lifting Restriction of 10 lbs,Gait Belt above Incisional Area M3 OT- IP Subjective and Pain Start: 04/24/21 09:48 Freq: Status: Active Protocol: Document 04/24/21 09:48 [facility] (Rec: 04/24/21 10:02 [facility] [id number]) OT- Subjective Occupational Therapy Visit Type Type Initial Evaluation Visit Start Time 09:10 Visit Stop Time 09:48 Total Visit Minutes 38 Occupational Therapy Visit Comments Patient Comments Pt agreed to get up. Patient/Caregiver Goals To go home. OT Pain Assessment Pain When Pain Assessed At Rest Pain Present Pain Present Pain Reported Location Back Intensity 7 Scale Used Numeric (0 - 10) M4 OT- IP ADL's Start: 04/24/21 09:48 Freq: Status: Active Protocol: Document 04/24/21 09:48 [facility] (Rec: 04/24/21 10:02 [facility] [id number]) OT VEU-Difu-Diwvjms Comments OT Self-Feeding Comments NOt at meal time. OT ADL-Grooming Comments OT Grooming Comments Not performed as pt too tired. OT ADL-Dressing General Eval Lower Body Dressing Ability Maximum Assistance Areas Needing Assistance Shoes Comments OT Dressing Comments Assist to help get slipper on her feet and over her heels. OT ADL-Toileting Comments OT Toileting Comments Henderson in place. Pt states uses Depends at home. Spoke of use of wet wipes and toilet paper aid to assist with hygiene needs. OT ADL-Bathing Comments OT Bathing Comments Not performed M5 OT- IP IADL's Start: 04/24/21 09:48 Freq: Status: Active Protocol: Document 04/24/21 09:48 [facility] (Rec: 04/24/21 10:02 [facility] [id number]) OT-Instrumental Activities of Daily Living Home Safety Awareness Awareness of Need for Assistance at Home Good Awareness Home Safety Comments Pt a bit drowsy and states has not slept well for the past 5 days. At this time would be beneficial for pt to have assist with all needs. M6 OT- IP Functional Cognition Start: 04/24/21 09:48 Freq: Status: Active Protocol: Document 04/24/21 09:48 [facility] (Rec: 04/24/21 10:02 [facility] [id number]) Cognitive Factors Limiting Selfcare Function Cognitive Ability Level of Alertness Alert,Drowsy Patient Orientation Name,Age,Birthday,Month,Date, Year,Day of Week,Place, Situation Attention Span Ability Capable of Focused Attention, Capable of Sustained Attention Ability to Follow Commands Able to Follow One Step Commands with Increased Time, Able to Follow One Step Commands with Repetition Safety Awareness Decreased Recall of Precautions Cognitive Comments Cognitive Assessment Comments Pt initially not wanting to do log rolling to get out of bed and wanting to just get up with the HOB up as she does at home. Pt needing reminders to state her back precautions, vc to push up on the bed to stand to FWW. OT- Vision and Hearing OT- Hearing Assessment OT- Hearing Assessment WFL OT- Vision Assessment Visual Acuity Glasses All The Time M7 OT- IP Mobility and Balance Start: 04/24/21 09:48 Freq: Status: Active Protocol: Document 04/24/21 09:48 [facility] (Rec: 04/24/21 10:02 [facility] [id number]) OT- Bed Mobility Assessment Supine to Sit Supine to Sit Assist Maximum Assistance,Head of Bed Elevated,Bedrails Sit to Supine Sit to Supine Assist Moderate Assistance,1 Person Assistance Scooting Scooting to Edge of Bed Maximum Assistance OT-Transfer Assessment Sit to and From Stand Sit to and from Stand Maximum Assistance Comments Mobility Comments Pt with HOB up MAXA to get her legs and trunk to the edge of the bed and also heavy use of green pad to assist. Pt MAX X 1 for log rolling back to bed. MAX X 1 to stand. Pt needing MAX A to help for balance as left leg silvio and vc to strong use of arms on the FWW when taking a few side steps to the head of the bed. Pt too tired and wanting to get back to into the bed. No issues with BP during transitions. OT- Balance Assessment Sitting Balance and Reactions Static Sitting Balance Ability Good Dynamic Sitting Balance Ability Fair Standing Balance and Reactions Static Standing Balance Ability Poor Dynamic Standing Balance Ability Poor M8 OT- IP Objective Assessments Start: 04/24/21 09:48 Freq: Status: Active Protocol: Document 04/24/21 09:48 [facility] (Rec: 04/24/21 10:02 [facility] [id number]) OT-Muscle Tone Assessment Muscle Tone WNL Yes M9 OT- IP Assessment and Plan Start: 04/24/21 09:48 Freq: Status: Active Protocol: Document 04/24/21 09:48 [facility] (Rec: 04/24/21 10:02 [facility] [id number]) OT Summary Assessment and Plan Potential Rehabilitation Potential Good Analytic Complexity at Evaluation Low Summary OT Impairments Pain,Balance,Functional Cognition,Functional Mobility, Grooming,Dressing,Toileting, Bathing,Toilet Transfers, Shower Transfers,Activity Tolerance Progress Towards Goals Slow Progress due to Pain,Slow Progress due to Activity Tolerance Assessment Summary Pt low complexity and main barriers are pain, steps , and now needing extensive assist for all needs. Pending progress and caregiver training, pt hopes to go home versus at this time would need SNF. Goals Grooming Goal Independent Dressing Goal Independent Toileting Goal Independent Bathing Goal Independent Toilet Transfer Goal Independent Shower Transfer Goal Independent Patient/Caregiver Education Goal Demonstrate Post-Op Precautions,Caregiver Independent Assisting Patient Days to Meet Goals 20 Frequency of Treatment Frequency Of Treatment Once a Day Treatment Plan OT Treatment Plan ADL Training,Functional Cognition Training,Functional Mobility,Patient/Family Education,Discharge Planning Discharge Recommendations OT Discharge Recommendations SNF rehab, Home with 24/ Assist Available,Home Health, ,Home vs SNF Transportation Needs at Discharge Private Vehicle,Wheelchair/ Cabulance
[2021-04-24] MEDS: DOCUSATE 100 MG CAPSULE 200 MG PO ×2 (10:07→21:51)
[2021-04-24] MEDS: TRAMADOL 50 MG TABLET PO ×2 (10:11→22:38)
--- NOTE | 2021-04-24 13:51 | PT.IIE ---
Current Diagnoses Myelopathy in diseases classified elsewhere (04/20/21) Essential (primary) hypertension (04/20/21) Other spondylosis with myelopathy, thoracic region (04/20/21) Spinal stenosis, thoracic region (04/20/21) Intervertebral disc disorders with radiculopathy, thoracic region (04/20/21) Other intervertebral disc displacement, thoracic region (04/20/21) Surgery Performed Operation Date: 04/23/21 12:15 Actual Procedures p T10-11 Laminectomy - Vince Man MD Medical History (Last Reviewed 04/21/21 @ 14:03 by Vince Man MD) HNP (herniated nucleus pulposus), thoracic T12 compression fracture Thoracic myelopathy UTI (urinary tract infection) Physical Therapy Inpatient Evaluation/Re-Eval M1 PT/OT-IP Prior Functional Status Start: 04/24/21 09:48 Freq: NEEDED Status: Active Protocol: Document 04/24/21 13:03 [facility] (Rec: 04/24/21 13:50 [facility] [id number]) Medical Review Prior Functional Status Medical History Reviewed Yes Communication Independent Mobility and Gait Pt states since her fall has been using the FWW to walk and only able to stand for a minute at a time due to her pain. Activities of Daily Living and IADL's Increased time for all ADL needs Prior Functional Level (Other details) Pt's family lives close by and a friend, Yasmin to stay with her 1-2 weeks to assist with her needs. Social History Household Members none Living Arrangements Apartment/Condo Number of Floors (Floors) One Floor Number of Stairs To Enter/Railing? 2 steps and right rail to enter Home Environment High Toilet,Walk in Shower Home Equipment Front Wheel Walker,Four Wheel Walker,Quad Cane,Shower Seat without Backrest,Hand Held Shower,Feather Maker Additional Social History Comment Pt has a hurry cane, adjustable bed and usually gets out of bed with the head of the bed up. 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 M2 PT-IP Current Condition Start: 04/24/21 12:48 Freq: NEEDED Status: Active Protocol: Document 04/24/21 13:03 [facility] (Rec: 04/24/21 13:50 [facility] [id number]) Physical Therapy Current Condition Current Condition Evaluation Date 04/24/21 Treatment Diagnosis s/p T10-11 lami w/total facectomy, PL fusion & nonsegmental instrumentation Onset Date 04/23/21 M3 PT-IP Subjective Start: 04/24/21 12:48 Freq: NEEDED Status: Active Protocol: Document 04/24/21 13:03 [facility] (Rec: 04/24/21 13:50 [facility] [id number]) Subjective Physical Therapy Visit Type Type Initial Evaluation Visit Start Time 13:05 Visit Stop Time 13:35 Total Visit Minutes 30 Number of SOLID WASTE DISPOSAL MANAGER Visits 0 Physical Therapy Visit Comments Patient Comments Pt agreeable to get up Therapy Pain Assessment Pain When Pain Assessed During Mobility M4 PT-IP Mobility and Gait Start: 04/24/21 12:48 Freq: NEEDED Status: Active Protocol: Document 04/24/21 13:03 [facility] (Rec: 04/24/21 13:50 [facility] [id number]) PT-Bed Mobility Assessment Rolling Type of Rolling Log Rolling,Roll to Right Level of Assist Minimal Assistance Supine to Sit Supine to Sit Moderate Assistance,Bedrails Scooting Scooting to Edge of Bed Contact Guard Assistance PT-Transfer Assessment Sit to and From Stand Sit to and from Stand Minimal Assistance,Use of Upper Extremities Equipment Transfer Assistive Device Bed Rail,Front Wheeled Walker Orthotic/Prosthetic Devices or Brace: No Comments Mobility Comments supine to sit with log roll technique with pt using rail and cueing and min A for roll and mod A to get to seated. CGA to scoot to EOB and sit tostand min A to FWW. Pt felt more stable on her knees this PM than w/OT this AM. She was able to able w/CGA and FWW and slow gait around bed 10ft. Pt sat in chair w/mIn A and cues . Pt left with call light in reach. Gait Assessment Gait Gait Assistance Required: Contact Guard Assist Distance (Feet) 10 Able to Maintain Weight Bearing Status Yes During Gait Assistive Devices Assistive Device Gait Belt,Front Wheeled Walker Orthotic/Prosthetic Devices or Brace: No Gait Deviations General Gait Pattern Antalgic,Decreased Stride Length,Decreased Feet Clearance Factors Limiting Gait Function Factors Limiting Gait Function Decreased Activity Tolerance, Decreased Strength,Poor Balance Stair Climbing Assessment Comments Stair Climbing Comments n/t PT-Balance Assessment Sitting Balance and Reactions Static Sitting Balance Ability Fair Dynamic Sitting Balance Ability Fair Standing Balance and Reactions Static Standing Balance Ability Fair Dynamic Standing Balance Ability Poor Device Used FWW M5 PT-IP Objective Assessments Start: 04/24/21 12:48 Freq: NEEDED Status: Active Protocol: Document 04/24/21 13:03 [facility] (Rec: 04/24/21 13:50 [facility] [id number]) Orientation Orientation/Cognition Level of Alertness Alert Language Function Ability No Deficits Noted Safety Awareness Understands Safety Issues Memory Description No Deficits Noted Strength Lower Extremity Strength Assessment Bilaterally Impaired Hip 3/5 Knee 3/5 M6 PT-IP Treatment Start: 04/24/21 12:48 Freq: NEEDED Status: Active Protocol: Document 04/24/21 13:03 [facility] (Rec: 04/24/21 13:50 [facility] [id number]) Physical Therapy Treatment Education Education Provided Precautions,Post-Op Packet, Safety M7 PT-IP Assessment and Plan Start: 04/24/21 12:48 Freq: NEEDED Status: Active Protocol: Document 04/24/21 13:03 [facility] (Rec: 04/24/21 13:50 [facility] [id number]) PT Summary Assessment and Plan Potential Rehabilitation Potential Good Status of Condition at Evaluation Evolving Summary Impairments Pain,ROM,Strength,Balance,Bed Mobility,Transfers,Gait, Activity Tolerance Assessment Summary Pt presents 1 day s/p T10-11 laminectomy and fusion with BLE weakness likley d/t inflammation noted in spinal canal in MRI prior to surgery. She had better mobility this PM w/PT eval vs OT eval this AM and was able to bear weight well in LEs w/o leaning to side and did not have any LE buckling. She was able to walk around bed this afternoon with very slow gait. She was encouraged to have her friend that is going to stay with her plan for 2 weeks to make sure she has enough assist. Pt would bneeift form cont PT for balance, gait, LE and core stability and improving functional mobility to be able to return home. Goals Bed Mobility Goal Standby Assistance Transfer Goal Standby Assistance Gait Goal Standby Assistance,Front Wheel Walker Gait Distance 150ft Other Goals up/down 2stairs w/R rail SBA Days to Meet Goals 6 Frequency of Treatment Frequency Of Treatment Twice a Day Treatment Plan Physical Therapy Treatment Plan Bed Mobility Training,Transfer Training,Gait Training, Therapeutic Exercise,Balance Retraining,Post Op Education, Discharge Planning,Hot or Cold Pack,Neuromuscular Re-ed, Manual Therapy Precautions Lumbar Precautions Log Roll,No Twisting,Limit Bending,Lifting Restriction of 10 lbs,Gait Belt above Incisional Area Weight Bearing Status Weight Bearing Status Weight Bear as Tolerated Recommendations To Nursing Amount of Assist Needed 1 Person Assist Discharge Recommendations PT Discharge Recommendations Home with 24/7 Assist Available,Home Health, Outpatient PT Other Discharge Recommendations determine OP vs HH Transportation Needs at Discharge Private Vehicle
--- NOTE | 2021-04-24 14:36 | PC.NURSE ---
kaur removed. pt ambulated to bs. 1pa-fww. cms+. pp++. drsng intact. +
--- NOTE | 2021-04-24 17:17 | PM.PN.1 ---
Subjective Subjective Date Patient Seen: 04/24/21 Interval history: She is seen today to follow-up her thoracic spine surgery and her chemical diabetes. 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 She has been treating her pre diabetes with a vegan diet for many years, reporting normal A1cs below 6, but the A1c is now 9.6 which she attributes, probably correctly, to high-dose steroids to treat her spinal condition for the last 3 months. She says she has been on 40 mg of prednisone daily. Her blood sugars were in the 200s and 300s recently. She has just had a T10-12 fusion. Her blood pressure is 151/74. She also has a Henderson catheter. She is in too much pain and says she is too weak to sit up for my exam. Exam Vital Signs (past 8 hours): - 04/24/21 09:39 04/24/21 12:00 Temperature 97.8 F Pulse Rate 78 Respiratory Rate 17 Blood Pressure 130/61 Pulse Oximetry 96 98 Oxygen Delivery Method Room Air Oxygen Flow Rate 0 Narrative Exam Narrative: Alert and oriented. No apparent distress. Well spoken. Heart is regular rate and rhythm without murmur Lungs are clear to auscultation bilaterally Henderson catheter present Extremities have no ankle edema Neurologic exam: She says she has intact sensation on my testing of her feet. The bilateral lower extremity strength is 3/5. The deep tendon reflexes are symmetrically suppressed in the lower extremities. Objective Labs Result Diagrams: 04/23/21 04:40 04/23/21 04:40 [facility] Medical History HNP (herniated nucleus pulposus), thoracic T12 compression fracture Thoracic myelopathy UTI (urinary tract infection) Surgical History H/O eye surgery H/O shoulder surgery H/O thumb surgery H/O: knee surgery History of back surgery History of fusion of cervical spine History of lumbar fusion Family History Father Congestive heart failure Osteoarthritis Mother Osteoarthritis Pneumonia Sister Heart disease Grandmother Cancer Congestive heart failure Social History household members: none Smoking Status: Never smoker Assessment & Plan Assessment & Plan narrative: Annabella Alvarez is a 70-year-old female who has been having progressive lower extremity weakness and decreased loss in sensation who developed worsening bowel and bladder weakness within the last 24 hours and so she was advised to come in by Dr. Templeton orthopedics.? Patient admitted for severe spinal canal stenosis specifically in the thoracic region from L5-S1, thoracic myelopathy, T12 fracture. 1. Severe spinal canal stenosis of the thoracic L5-S1, with corresponding thoracic myelopathy and T12 compression fracture, acute, present on admission -Decadron 10 mg b.i.d. -spinal fusion/decompression lower thoracic spine T10, T11 on 04/23 Dr. Man -orthopedic surgery following and discharge expected in 1-2 days -continue baclofen, tramadol and gabapentin. 2. Hyperlipidemia, chronic, present on admission -continue pravastatin 3.Obesity as evidence by BMI of 31.8, acute on chronic, present on admission -referral for dietary evaluation 4. Mild hyponatremia, acute, present on admission -improved with NS infusion overnight. 5. Steroid induced hyperglycemia ?- started lantus 10 units 04/22 evening only given NPO status today. Continue sliding scale. Increased to 20 units and then 40 units due to continued lack of control with high dose Decadron. ?- A1c 9.5 6. Leukocytosis ?- no evidence of infection, likely related to steroid therapy. Continue to follow. ? Code status:? Limited code do not intubate Surrogate decision maker:? David Alvarez Time Spent With Patient Critical Care time: I spent a total of [] minutes of critical care time on this patient's care today; this time is exclusive of procedural time. Quality VTE Deep Vein Thrombosis/Pulmonary Embolism Present on Admission: No
[2021-04-24] MEDS: INSULIN GLARGINE 100 UNIT/ML 3ML PEN 40 UNIT SUBCUT (17:42)
[2021-04-24] MEDS: SENNOSIDES 8.6 MG TABLET 17.2 MG PO (21:51)
[2021-04-24] MEDS: hydrOXYzine pamoate 25 MG CAPSULE PO (22:38)
[2021-04-25] MEDS: HYDROMORPHONE 0.5 MG INJ IV (01:22)
[2021-04-25 04:36] VITALS: BP 147/83; PULSE 76; RESP 16; TEMP 36.1; O2SAT 96
[2021-04-25] MEDS: OXYCODONE IR 10 MG TABLET PO (06:02)
[2021-04-25 07:30] VITALS: BP 143/75; PULSE 71; RESP 20; TEMP 36.2; O2SAT 97
[2021-04-25] MEDS: TRAMADOL 50 MG TABLET PO ×4 (08:14→21:07)
[2021-04-25] MEDS: FISH OIL 1,000 MG CAPSULE 2000 MG PO (08:14)
[2021-04-25] MEDS: ASCORBIC ACID 500 MG TABLET 1000 MG PO (08:14)
[2021-04-25] MEDS: DOCUSATE 100 MG CAPSULE 200 MG PO ×2 (08:15→21:07)
[2021-04-25] MEDS: MULTIVITAMIN 1 TABLET 1 TAB PO (08:15)
[2021-04-25] MEDS: CHOLECALCIFEROL (VITAMIN D3) 5,000 UNIT TABLET 10000 UNIT PO (08:15)
[2021-04-25] MEDS: DEXAMETHASONE 10 MG/ML VIAL IV ×2 (08:15→21:07)
[2021-04-25] MEDS: INSULIN LISPRO 100 UNIT/ML 3ML VIAL SUBCUT ×4 (08:17→21:40)
[2021-04-25] MEDS: GABAPENTIN 300 MG CAPSULE PO ×3 (09:17→21:07)
[2021-04-25 11:00] VITALS: BP 141/75; PULSE 76; RESP 19; TEMP 36.8; O2SAT 96
--- NOTE | 2021-04-25 11:19 | PM.PN.1 ---
Exam Vital Signs (past 8 hours): - 04/25/21 04:36 04/25/21 07:30 Temperature 97.0 F L 97.2 F L Pulse Rate 76 71 Respiratory Rate 16 20 Blood Pressure 147/83 H 143/75 H Pulse Oximetry 96 97 Oxygen Delivery Method Room Air Oxygen Flow Rate 0 Objective Labs Result Diagrams: 04/23/21 04:40 04/23/21 04:40 [facility] Medical History HNP (herniated nucleus pulposus), thoracic T12 compression fracture Thoracic myelopathy UTI (urinary tract infection) Surgical History H/O eye surgery H/O shoulder surgery H/O thumb surgery H/O: knee surgery History of back surgery History of fusion of cervical spine History of lumbar fusion Family History Father Congestive heart failure Osteoarthritis Mother Osteoarthritis Pneumonia Sister Heart disease Grandmother Cancer Congestive heart failure Social History household members: none Smoking Status: Never smoker Assessment & Plan Assessment & Plan narrative: POD#2 s/p T10-11 laminectomy and posterior instrumentation and fusion. Patient is doing well. Ambulatory with walker and assistance. 4/5 hip flexion bilaterally improved since pre surgery. Quadriceps 4+/5 bilaterally improved since pre surgery. No S/S of DVT on exam. Patient states she still cannot stop urine mid-stream but is able to control her bladder to make it to the bathroom. She has not had a bowel movement since surgery. Will give patient medication to help moving her bowel. Patient will likely need home health for discharge. Will continue working with PT. Re-assess tomorrow and possible d/c with home health if continue to improve mobility with PT. Time Spent With Patient Critical Care time: I spent a total of [] minutes of critical care time on this patient's care today; this time is exclusive of procedural time. Quality VTE Deep Vein Thrombosis/Pulmonary Embolism Present on Admission: No
--- NOTE | 2021-04-25 11:36 | PT.IPTN ---
Current Diagnoses Myelopathy in diseases classified elsewhere (04/20/21) Essential (primary) hypertension (04/20/21) Other spondylosis with myelopathy, thoracic region (04/20/21) Spinal stenosis, thoracic region (04/20/21) Intervertebral disc disorders with radiculopathy, thoracic region (04/20/21) Other intervertebral disc displacement, thoracic region (04/20/21) Surgery Performed Operation Date: 04/23/21 12:15 Actual Procedures p T10-11 Laminectomy - Vince Man MD Physical Therapy Treatment Note M2 PT-IP Current Condition Start: 04/24/21 12:48 Freq: NEEDED Status: Active Protocol: Document 04/24/21 13:03 [facility] (Rec: 04/24/21 13:50 [facility] [id number]) Physical Therapy Current Condition Current Condition Evaluation Date 04/24/21 Treatment Diagnosis s/p T10-11 lami w/total facectomy, PL fusion & nonsegmental instrumentation Onset Date 04/23/21 M3 PT-IP Subjective Start: 04/24/21 12:48 Freq: NEEDED Status: Active Protocol: Document 04/25/21 11:24 [facility] (Rec: 04/25/21 11:34 [id number]) Subjective Physical Therapy Visit Type Type Treatment Note Visit Start Time 10:55 Visit Stop Time 11:24 Total Visit Minutes 28 Physical Therapy Visit Comments Patient Comments Pt states her sensation feels improved somewhat in lower legs. Patient Goals To discharge home vs SNF Therapy Pain Assessment Pain When Pain Assessed At Rest Pain Present Pain Present Pain Reported Location Back Scale Used Numeric (0 - 10) Description Aching Pain Management Techniques Timing of Activity with Medications M4 PT-IP Mobility and Gait Start: 04/24/21 12:48 Freq: NEEDED Status: Active Protocol: Document 04/25/21 11:24 [facility] (Rec: 04/25/21 11:34 [id number]) PT-Transfer Assessment Sit to and From Stand Sit to and from Stand Contact Guard Assistance, Minimal Assistance Equipment Transfer Assistive Device Gait Belt,Front Wheeled Walker Transfers Transfer Destination Chair Transfer Technique Stand Step Pivot Transfer Ability Level of Assist Standby Assistance Comments Mobility Comments Pt sitting in chair and returned to chair at end of PT so bed mobility not addressed this AM. She is requiring CGA to min A (from lower surface) for STS. STS x4 reps (EOB, chair, BSC). She demonstrates good technique with hand placement and reduction of twisting. Gait Assessment Gait Gait Assistance Required: Standby Assistance Distance (Feet) 30 Assistive Devices Assistive Device Gait Belt,Front Wheeled Walker Gait Deviations General Gait Pattern Decreased Stride Length, Decreased Feet Clearance Comments Gait Comments 30' x2 and 5' x1. Slow fatemeh , step through pattern emerging. Slightly reduced RLE foot clearance but intact Ant Tib when testing in sitting. Pt reports pain is her limitation with ambulation vs feeling weak in legs. PT-Balance Assessment Sitting Balance and Reactions Static Sitting Balance Ability Normal Dynamic Sitting Balance Ability Normal Standing Balance and Reactions Static Standing Balance Ability Good Dynamic Standing Balance Ability Good Device Used FWW Comments Other Balance Tests/Deviations/Treatment Stood at counter for light ADL : /hand washing. Needed BSC to sit and rest doing this after 30' of gait. M5 PT-IP Objective Assessments Start: 04/24/21 12:48 Freq: NEEDED Status: Active Protocol: Document 04/24/21 13:03 [facility] (Rec: 04/24/21 13:50 [facility] [id number]) Orientation Orientation/Cognition Level of Alertness Alert Language Function Ability No Deficits Noted Safety Awareness Understands Safety Issues Memory Description No Deficits Noted Strength Lower Extremity Strength Assessment Bilaterally Impaired Hip 3/5 Knee 3/5 M6 PT-IP Treatment Start: 04/24/21 12:48 Freq: NEEDED Status: Active Protocol: Document 04/25/21 11:34 [facility] (Rec: 04/25/21 11:35 [id number]) Physical Therapy Treatment Education Education Provided Precautions,Safety Brace Education Patient Other Treatments Other Treatment Performed We discussed options for home mgmt in small bathroom. She does not have grab bars but does have raised commode. May benefit from BSC for toileting needs at night. M7 PT-IP Assessment and Plan Start: 04/24/21 12:48 Freq: NEEDED Status: Active Protocol: Document 04/25/21 11:24 [facility] (Rec: 04/25/21 11:34 [id number]) PT Summary Assessment and Plan Potential Rehabilitation Potential Excellent Status of Condition at Evaluation Stable Summary Impairments Pain,ROM,Strength,Balance,Bed Mobility,Transfers,Gait, Activity Tolerance Progress Towards Goals Progressing Toward Goals Assessment Summary Pt agreeable to PT. She reports less assist at home than originally discussed. She may have 24/hr support for 1 week vs 2 weeks but states her family will be able to come in intermittently to assist. She is tolerating increased gait distance today. She is requiring less assist for transfer from seated position. Overall she is making progress. Surgeon present for second gait session this AM. He is anticipating d/c home with HH services at earliest tomorrow. She discussed with him the prior PT recommendation of sleeping in her recliner and he agreed. She did this last night at 1am and felt more supported. Recommend continued IPPT to address ongoing needs of bed mobility, stair training, and progress of gait. Goals Bed Mobility Goal Standby Assistance Transfer Goal Standby Assistance Gait Goal Standby Assistance,Front Wheel Walker Gait Distance 150ft Other Goals up/down 2stairs w/R rail SBA Days to Meet Goals 5 Frequency of Treatment Frequency Of Treatment Twice a Day Treatment Plan Physical Therapy Treatment Plan Bed Mobility Training,Transfer Training,Gait Training, Therapeutic Exercise,Balance Retraining,Post Op Education, Discharge Planning,Hot or Cold Pack,Neuromuscular Re-ed, Manual Therapy Other Recommendations and Next Treatment Bed mobility (review log roll Focus or discuss Pt report of chosing to sleep in recliner when first home) progress gait and stairs. Precautions Lumbar Precautions Log Roll,No Twisting,Limit Bending,Lifting Restriction of 10 lbs,Gait Belt above Incisional Area Weight Bearing Status Weight Bearing Status Weight Bear as Tolerated Recommendations To Nursing Amount of Assist Needed 1 Person Assist Discharge Recommendations PT Discharge Recommendations Home with 24/7 Assist Available,Home Health, Outpatient PT Other Discharge Recommendations HHPT services recommended Transportation Needs at Discharge Private Vehicle
--- NOTE | 2021-04-25 13:06 | PT.IPTN ---
Current Diagnoses Myelopathy in diseases classified elsewhere (04/20/21) Essential (primary) hypertension (04/20/21) Other spondylosis with myelopathy, thoracic region (04/20/21) Spinal stenosis, thoracic region (04/20/21) Intervertebral disc disorders with radiculopathy, thoracic region (04/20/21) Other intervertebral disc displacement, thoracic region (04/20/21) Surgery Performed Operation Date: 04/23/21 12:15 Actual Procedures p T10-11 Laminectomy - Vince Man MD Physical Therapy Treatment Note M2 PT-IP Current Condition Start: 04/24/21 12:48 Freq: NEEDED Status: Active Protocol: Document 04/24/21 13:03 [facility] (Rec: 04/24/21 13:50 [facility] [id number]) Physical Therapy Current Condition Current Condition Evaluation Date 04/24/21 Treatment Diagnosis s/p T10-11 lami w/total facectomy, PL fusion & nonsegmental instrumentation Onset Date 04/23/21 M3 PT-IP Subjective Start: 04/24/21 12:48 Freq: NEEDED Status: Active Protocol: Document 04/25/21 12:48 RBD (Rec: 04/25/21 15:01 RBD [id number]) Subjective Physical Therapy Visit Type Type Treatment Note Visit Start Time 12:48 Visit Stop Time 13:06 Total Visit Minutes 18 Number of FORENSIC TOXICOLOGIST Visits 1 Physical Therapy Visit Comments Patient Comments Pt agrreable to pt. States she feels she is improveing, however, slowly. Patient Goals To discharge home vs SNF Therapy Pain Assessment Pain When Pain Assessed During Mobility Pain Present Pain Present Pain Reported Location Back Scale Used no number given Description Aching,Tingling,With Movement Pain Management Techniques Distraction M4 PT-IP Mobility and Gait Start: 04/24/21 12:48 Freq: NEEDED Status: Active Protocol: Document 04/25/21 12:48 RBD (Rec: 04/25/21 15:01 RBD [id number]) PT-Bed Mobility Assessment Scooting Scooting to Edge of Bed Minimal Assistance PT-Transfer Assessment Sit to and From Stand Sit to and from Stand Contact Guard Assistance, Minimal Assistance Equipment Transfer Assistive Device Gait Belt,Front Wheeled Walker Transfers Transfer Destination Chair Transfer Technique Stand Step Pivot Transfer Ability Level of Assist Standby Assistance Comments Mobility Comments Pt in edd upon arrival and returned to chair post ambulation. Pt required Mod A to scoot to edge of the chair prior to performing a sit <> stand. Following ambulation she rewuired min A scooting back in to the chair. Left in chair with call light and all needs with in reach. Gait Assessment Gait Gait Assistance Required: Standby Assistance Distance (Feet) 40 Assistive Devices Assistive Device Gait Belt,Front Wheeled Walker Gait Deviations General Gait Pattern Decreased Stride Length, Decreased Feet Clearance Factors Limiting Gait Function Factors Limiting Gait Function Decreased Activity Tolerance, Decreased Strength,Poor Balance Comments Gait Comments Pt ambulated 2x 20' in room w/ a breif seated break inbetween. She demostraited minimal ground clearnace and slow cadance. Repoted pain continueing to be her primary limiting factor. PT-Balance Assessment Sitting Balance and Reactions Static Sitting Balance Ability Normal Dynamic Sitting Balance Ability Normal Standing Balance and Reactions Static Standing Balance Ability Good Dynamic Standing Balance Ability Good Device Used FWW M5 PT-IP Objective Assessments Start: 04/24/21 12:48 Freq: NEEDED Status: Active Protocol: Document 04/24/21 13:03 [facility] (Rec: 04/24/21 13:50 [facility] [id number]) Orientation Orientation/Cognition Level of Alertness Alert Language Function Ability No Deficits Noted Safety Awareness Understands Safety Issues Memory Description No Deficits Noted Strength Lower Extremity Strength Assessment Bilaterally Impaired Hip 3/5 Knee 3/5 M6 PT-IP Treatment Start: 04/24/21 12:48 Freq: NEEDED Status: Active Protocol: Document 04/25/21 12:48 RBD (Rec: 04/25/21 15:01 RBD [id number]) Physical Therapy Treatment Education Education Provided Precautions,Safety M7 PT-IP Assessment and Plan Start: 04/24/21 12:48 Freq: NEEDED Status: Active Protocol: Document 04/25/21 12:48 RBD (Rec: 04/25/21 15:01 RBD [id number]) PT Summary Assessment and Plan Potential Rehabilitation Potential Excellent Status of Condition at Evaluation Stable Summary Impairments Pain,ROM,Strength,Balance,Bed Mobility,Transfers,Gait, Activity Tolerance Progress Towards Goals Progressing Toward Goals Assessment Summary Pt agreeable to PT. Is ambulating in her room w/ CGA, however, required min A she scooting. She has 2 steps at home and will need to perform stair managemnt. States she plans to go home with assitance from her daughter in law, may need caregiver training but was unable to set up a time. Goals Bed Mobility Goal Standby Assistance Transfer Goal Standby Assistance Gait Goal Standby Assistance,Front Wheel Walker Gait Distance 150ft Other Goals up/down 2stairs w/R rail SBA Days to Meet Goals 5 Frequency of Treatment Frequency Of Treatment Twice a Day Treatment Plan Physical Therapy Treatment Plan Bed Mobility Training,Transfer Training,Gait Training, Therapeutic Exercise,Balance Retraining,Post Op Education, Discharge Planning,Hot or Cold Pack,Neuromuscular Re-ed, Manual Therapy Precautions Lumbar Precautions Log Roll,No Twisting,Limit Bending,Lifting Restriction of 10 lbs,Gait Belt above Incisional Area Weight Bearing Status Weight Bearing Status Weight Bear as Tolerated Recommendations To Nursing Amount of Assist Needed 1 Person Assist Discharge Recommendations PT Discharge Recommendations Home with 05/09 Assist Available,Home Health, Outpatient PT Other Discharge Recommendations HHPT services recommended Transportation Needs at Discharge Private Vehicle
[2021-04-25 15:03] VITALS: BP 139/72; PULSE 78; RESP 20; TEMP 36.8; O2SAT 97
--- NOTE | 2021-04-25 15:26 | CM.DANOTE ---
DCP/continued: Received written referral from Dr. Man to arrange home health. [employer] met with patient explained role. Patient would like home health for PT and [employer]. Patient has no preference in agencies. Therefore, placed call to [facility]. [facility] reports that they can see patient in the residence this upcoming week. In addition, they do service [place]. Obtained order, completed f2f and faxed orders to [facility]. Patient provided with brochure for agency. No additional needs identified. P: Home with HH through [facility]. CALEB
--- NOTE | 2021-04-25 15:33 | PM.PN.1 ---
Subjective Subjective Date Patient Seen: 04/25/21 Time Patient Seen: 08:00 Interval history: She is feeling improved since the surgery. Exam Vital Signs (past 8 hours): - 04/25/21 11:00 04/25/21 15:03 Temperature 98.3 F 98.3 F Pulse Rate 76 78 Respiratory Rate 19 20 Blood Pressure 141/75 H 139/72 Pulse Oximetry 96 97 Oxygen Delivery Method Room Air Oxygen Flow Rate 0 Narrative Exam Narrative: GEN: Alert and oriented.? No apparent distress CV: regular rate and rhythm without murmur PULM: clear to auscultation bilaterally Objective Labs Result Diagrams: 04/23/21 04:40 04/23/21 04:40 [facility] Medical History HNP (herniated nucleus pulposus), thoracic T12 compression fracture Thoracic myelopathy UTI (urinary tract infection) Surgical History H/O eye surgery H/O shoulder surgery H/O thumb surgery H/O: knee surgery History of back surgery History of fusion of cervical spine History of lumbar fusion Family History Father Congestive heart failure Osteoarthritis Mother Osteoarthritis Pneumonia Sister Heart disease Grandmother Cancer Congestive heart failure Social History household members: none Smoking Status: Never smoker Assessment & Plan Assessment & Plan narrative: Ms. Alvarez is a 70W with progressive lower extremity weakness and decreased loss in sensation who developed worsening bowel and bladder weakness and admitted for severe spinal canal stenosis specifically in the thoracic region from L5-S1, thoracic myelopathy, T12 fracture now s/p surgery. 1. Severe spinal canal stenosis of the thoracic L5-S1, with corresponding thoracic myelopathy and T12 compression fracture, acute, present on admission -Decadron 10 mg b.i.d. -spinal fusion/decompression lower thoracic spine T10, T11 on 04/23 Dr. Man -orthopedic surgery following and discharge expected in 1-2 days -continue baclofen, tramadol and gabapentin. 2. Hyperlipidemia, chronic, present on admission -continue pravastatin 3.Obesity as evidence by BMI of 31.8, acute on chronic, present on admission -referral for dietary evaluation 4. Mild hyponatremia, acute, present on admission -improved with NS infusion 5. Steroid induced hyperglycemia ?- started lantus 10 units 3/10 evening only given NPO status today. Continue sliding scale.? Increased to 20 units and then 40 units due to continued lack of control with high dose Decadron. ?- A1c 9.5 6. Leukocytosis ?- no evidence of infection, likely related to steroid therapy. Continue to follow. ? Code status:? Limited code do not intubate Surrogate decision maker:? David Alvarez Time Spent With Patient Critical Care time: I spent a total of [] minutes of critical care time on this patient's care today; this time is exclusive of procedural time. Quality VTE Deep Vein Thrombosis/Pulmonary Embolism Present on Admission: No
[2021-04-25 19:30] VITALS: BP 132/71; PULSE 82; RESP 14; TEMP 36.7; O2SAT 98
[2021-04-25] MEDS: hydrOXYzine pamoate 25 MG CAPSULE PO (21:07)
[2021-04-25] MEDS: SENNOSIDES 8.6 MG TABLET 17.2 MG PO (21:07)
[2021-04-25] MEDS: INSULIN GLARGINE 100 UNIT/ML 3ML PEN 40 UNIT SUBCUT (21:40)
[2021-04-25 23:31] VITALS: BP 154/84; PULSE 66; RESP 16; TEMP 36.6; O2SAT 98
[2021-04-26] VITALS (7 sets, daily range): BP systolic 117–148; BP diastolic 55–77; PULSE 60–85; RESP 16–18; TEMP 35.9–36.7; O2SAT 95–100
[2021-04-26] MEDS: TRAMADOL 50 MG TABLET PO ×5 (04:11→23:35)
[2021-04-26] MEDS: hydrOXYzine pamoate 25 MG CAPSULE PO ×5 (04:36→23:35)
--- NOTE | 2021-04-26 07:56 | P.PN_ITS ---
Subjective Subjective Date Patient Seen: 04/26/21 Time Patient Seen: 07:56 Interval history: Just woke up, 'Not sure how I'm doing yet.' Reports that she was able to stop her stream of urine when she got up last night to urinate. No further episodes of urinary incontinence since surgery. Has not moved her bowels since surgery. Per PT, needs HH at discharge; she would like to discharge tomorrow as she has no help at home today or tonight. Exam Vital Signs (past 8 hours): - 04/26/21 03:22 Temperature 98.0 F Pulse Rate 61 Respiratory Rate 16 Blood Pressure 132/77 Pulse Oximetry 95 Oxygen Delivery Method Room Air Oxygen Flow Rate 0 Narrative Exam Narrative: 5/5 strength in hip flexors, quadriceps, hamstrings, DF, PF, EHL bilaterally. Sensation to light touch intact throughout BLE. Calves soft, compressible, n ontender and without palpable cords or masses. Const General: cooperative and healthy appearing Orientation: alert, awake and oriented x3 Objective Labs Result Diagrams: 04/23/21 04:40 04/23/21 04:40 PFSH Medical History HNP (herniated nucleus pulposus), thoracic T12 compression fracture Thoracic myelopathy UTI (urinary tract infection) Surgical History H/O eye surgery H/O shoulder surgery H/O thumb surgery H/O: knee surgery History of back surgery History of fusion of cervical spine History of lumbar fusion Family History Father Congestive heart failure Osteoarthritis Mother Osteoarthritis Pneumonia Sister Heart disease Grandmother Cancer Congestive heart failure Social History household members: none Smoking Status: Never smoker Assessment & Plan Post-op Assessment and plan (1) S/P fusion of thoracic spine: Assessment and Plan narrative: 1) Would prefer tramadol to oxycodone for pain control; can continue oxycodone PRN. 2) Requests Miralax today; ordered. 3) D/c IV steroids; will change to PO and begin taper. 4) Plan to d/c w/ HH tomorrow. Postoperative Procedures: Procedures Operation Date: 04/23/21 12:15 Actual Procedure Side Surgeon p T10-11 Laminectomy Vince Man MD Postoperative day: 3 Quality VTE Deep Vein Thrombosis/Pulmonary Embolism Present on Admission: No
[2021-04-26] MEDS: INSULIN LISPRO 100 UNIT/ML 3ML VIAL SUBCUT ×4 (09:39→21:35)
[2021-04-26] MEDS: polyethylene glycoL 3350 17 GM POWD.PACK PO (09:40)
[2021-04-26] MEDS: MULTIVITAMIN 1 TABLET 1 TAB PO (09:41)
[2021-04-26] MEDS: ASCORBIC ACID 500 MG TABLET 1000 MG PO (09:42)
[2021-04-26] MEDS: FISH OIL 1,000 MG CAPSULE 2000 MG PO (09:42)
[2021-04-26] MEDS: methylPREDNISolone 4 MG TABLET PO ×4 (09:43→21:36)
[2021-04-26] MEDS: GABAPENTIN 300 MG CAPSULE PO ×3 (09:43→21:36)
[2021-04-26] MEDS: DOCUSATE 100 MG CAPSULE 200 MG PO ×2 (09:43→21:36)
--- NOTE | 2021-04-26 10:12 | P.PN_ITS ---
Subjective Subjective Date Patient Seen: 04/26/21 Time Patient Seen: 10:12 Interval history: Patient feels like she is okay today. She still feels weak. Numbness is improving but still having tingling bilaterally and feels wobbly. Denies chest pain, shortness of breath, nausea, vomiting, or abdominal pain . Exam Vital Signs (past 8 hours): - 04/26/21 03:22 04/26/21 08:22 04/26/21 08:45 Temperature 98.0 F 97.5 F L Pulse Rate 61 64 Respiratory Rate 16 16 Blood Pressure 132/77 148/71 H Pulse Oximetry 95 98 97 Oxygen Delivery Method Room Air Oxygen Flow Rate 0 Narrative Exam Narrative: GEN: Alert and oriented.? No apparent distress CV: regular rate and rhythm without murmur PULM: clear to auscultation bilaterally Abd: S NT ND Ext: no edema or joint effusions Neuro: alert and oriented, +5/5 strength in UE bilaterally. LE plantar and dorsiflexion of feet +5/5. Reported equally diminished sensation to light touch bilaterally improving more proximally. Objective Labs Result Diagrams: 04/23/21 04:40 04/23/21 04:40 [facility] Medical History HNP (herniated nucleus pulposus), thoracic T12 compression fracture Thoracic myelopathy UTI (urinary tract infection) Surgical History H/O eye surgery H/O shoulder surgery H/O thumb surgery H/O: knee surgery History of back surgery History of fusion of cervical spine History of lumbar fusion Family History Father Congestive heart failure Osteoarthritis Mother Osteoarthritis Pneumonia Sister Heart disease Grandmother Cancer Congestive heart failure Social History household members: none Smoking Status: Never smoker Assessment & Plan Assessment & Plan narrative: Ms. Alvarez is a 70W with progressive lower extremity weakness and decreased loss in sensation who developed worsening bowel and bladder weakness and admitted for severe spinal canal stenosis specifically in the thoracic region from L5-S1, thoracic myelopathy, T12 fracture now s/p surgery. 1. Severe spinal canal stenosis of the thoracic L5-S1, with corresponding tho racic myelopathy and T12 compression fracture, acute, present on admission -now on methylpred 4 mg QID per ortho. -spinal fusion/decompression lower thoracic spine T10, T11 on 04/23 Dr. Man -orthopedic surgery following and discharge expected in 1-2 days -continue baclofen, tramadol and gabapentin. 2. Hyperlipidemia, chronic, present on admission -continue pravastatin 3.Obesity as evidence by BMI of 31.8, acute on chronic, present on admission -referral for dietary evaluation 4. Mild hyponatremia, acute, present on admission -improved with NS infusion 5. Steroid induced hyperglycemia, diabetes ?- started lantus 10 units 04/22 evening only given NPO status. Continued sliding scale.? Increased to 20 units and then 40 units due to continued lack of control with high dose Decadron. Sugars improved today, though still near 200. ?- A1c 9.5. Patient agreeable to discharge on lantus and sliding scale therapy, at least short term. - recommend PCP follow up as an outpatient. 6. Leukocytosis ?- no evidence of infection, likely related to steroid therapy. Continue to follow. ? Code status:? Limited code do not intubate Surrogate decision maker:? David Tellezsharif Villarealkarina Time Spent With Patient Critical Care time: I spent a total of [] minutes of critical care time on this patient's care today; this time is exclusive of procedural time. Quality VTE Deep Vein Thrombosis/Pulmonary Embolism Present on Admission: No
--- NOTE | 2021-04-26 11:29 | PT.IPTN ---
Current Diagnoses Myelopathy in diseases classified elsewhere (04/20/21) Essential (primary) hypertension (04/20/21) Other spondylosis with myelopathy, thoracic region (04/20/21) Spinal stenosis, thoracic region (04/20/21) Intervertebral disc disorders with radiculopathy, thoracic region (04/20/21) Other intervertebral disc displacement, thoracic region (04/20/21) Arthrodesis status (04/20/21) Surgery Performed Operation Date: 04/23/21 12:15 Actual Procedures p T10-11 Laminectomy - Vince Man MD Physical Therapy Treatment Note M2 PT-IP Current Condition Start: 04/24/21 12:48 Freq: NEEDED Status: Active Protocol: Document 04/24/21 13:03 [facility] (Rec: 04/24/21 13:50 [facility] [id number]) Physical Therapy Current Condition Current Condition Evaluation Date 04/24/21 Treatment Diagnosis s/p T10-11 lami w/total facectomy, PL fusion & nonsegmental instrumentation Onset Date 04/23/21 M3 PT-IP Subjective Start: 04/24/21 12:48 Freq: NEEDED Status: Active Protocol: Document 04/26/21 11:06 [facility] (Rec: 04/26/21 13:13 [facility] [id number]) Subjective Physical Therapy Visit Type Type Treatment Note Visit Start Time 11:06 Visit Stop Time 11:29 Total Visit Minutes 23 Number of MERCHANDISER RETAIL REPRESENTATIVE Visits 2 Physical Therapy Visit Comments Patient Comments Pt agreeable to working w/ therapy. M4 PT-IP Mobility and Gait Start: 04/24/21 12:48 Freq: NEEDED Status: Active Protocol: Document 04/26/21 11:06 [facility] (Rec: 04/26/21 13:13 [facility] [id number]) PT-Bed Mobility Assessment Scooting Scooting to Edge of Bed Contact Guard Assistance PT-Transfer Assessment Sit to and From Stand Sit to and from Stand Minimal Assistance,1 Person Assistance,Use of Upper Extremities Equipment Transfer Assistive Device Gait Belt,Front Wheeled Walker Transfers Transfer Destination Chair Transfer Technique Pt ambulated w/ FWW Transfer Ability Level of Assist Minimal Assistance,1 Person Assistance,Use of Upper Extremities Comments Mobility Comments Pt in chair upon arrival and reporting fatigue but agreeable to ambulation. Min A for sit<>stand w/ FWW and pt ambulated ~60 ft around room CGA. Good use of FWW w/ flexed posture but pt states unable to correct. Pt returned to chair and performed 1x10 ankle pumps, LAQs, glute sets, and seated marches. Gait Assessment Gait Gait Assistance Required: Contact Guard Assist,1 Person Assist Distance (Feet) 60 Assistive Devices Assistive Device Gait Belt,Front Wheeled Walker Gait Deviations General Gait Pattern Decreased Stride Length, Decreased Feet Clearance Comments Gait Comments Please refer to mobility section for details. Stair Climbing Assessment Comments Stair Climbing Comments Will assess in PM if able. PT-Balance Assessment Sitting Balance and Reactions Static Sitting Balance Ability Normal Dynamic Sitting Balance Ability Normal Standing Balance and Reactions Static Standing Balance Ability Good Dynamic Standing Balance Ability Good Device Used FWW M5 PT-IP Objective Assessments Start: 04/24/21 12:48 Freq: NEEDED Status: Active Protocol: Document 04/24/21 13:03 [facility] (Rec: 04/24/21 13:50 [facility] [id number]) Orientation Orientation/Cognition Level of Alertness Alert Language Function Ability No Deficits Noted Safety Awareness Understands Safety Issues Memory Description No Deficits Noted Strength Lower Extremity Strength Assessment Bilaterally Impaired Hip 3/5 Knee 3/5 M6 PT-IP Treatment Start: 04/24/21 12:48 Freq: NEEDED Status: Active Protocol: Document 04/26/21 11:06 [facility] (Rec: 04/26/21 13:13 [facility] [id number]) Physical Therapy Treatment Exercises Exercises Ankle Pumps,Gluteal Sets,Quad Sets,Seated Knee Flexion/ Extension Education Education Provided Precautions,Safety M7 PT-IP Assessment and Plan Start: 04/24/21 12:48 Freq: NEEDED Status: Active Protocol: Document 04/26/21 11:06 [facility] (Rec: 04/26/21 13:13 [facility] [id number]) PT Summary Assessment and Plan Potential Rehabilitation Potential Excellent Status of Condition at Evaluation Stable Summary Impairments Pain,ROM,Strength,Balance,Bed Mobility,Transfers,Gait, Activity Tolerance Progress Towards Goals Progressing Toward Goals Assessment Summary Pt showing improvement with activity tolerance and able to ambulate 60 ft w/ FWW as well as perform LE exercises to improve strength. She has two steps to enter home that we plan on assessing this PM if pt able. She will benefit from HHPT to improve strength and stability. Goals Bed Mobility Goal Standby Assistance Transfer Goal Standby Assistance Gait Goal Standby Assistance,Front Wheel Walker Gait Distance 150ft Other Goals up/down 2stairs w/R rail SBA Days to Meet Goals 5 Frequency of Treatment Frequency Of Treatment Twice a Day Treatment Plan Physical Therapy Treatment Plan Bed Mobility Training,Transfer Training,Gait Training, Therapeutic Exercise,Balance Retraining,Post Op Education, Discharge Planning,Hot or Cold Pack,Neuromuscular Re-ed, Manual Therapy Precautions Lumbar Precautions Log Roll,No Twisting,Limit Bending,Lifting Restriction of 10 lbs,Gait Belt above Incisional Area Weight Bearing Status Weight Bearing Status Weight Bear as Tolerated Recommendations To Nursing Amount of Assist Needed 1 Person Assist Discharge Recommendations PT Discharge Recommendations Home with 05/09 Assist Available,Home Health, Outpatient PT Other Discharge Recommendations HHPT services recommended Transportation Needs at Discharge Private Vehicle
--- NOTE | 2021-04-26 11:39 | DIET.PN1 ---
Dietary Progress Note RD Note: Pt screened by RD for LOS d5. Pt with excellent POs whole of hospital stay. Pt with continued hyperglycemia (200-300) secondary to steroid use. Per ortho, pt tapering off steroids starting today. Recc continued work on optimizing glucose control, with consideration for effects of tapering on BG with insulin use. Recc rechecking A1c 3mo after stopping steroid tx to identify if remains elevated. If so, recc outpatient DM education consultation. Pt without BM since surgery, transitioning to non-narcotic pain control and starting miralax. Ht: 162.56 cm Wt: 84.3 kg BMI: 31.7 Last BM: 04/26/21 (04/26/21 04:00) MNA: 13 Juanjo Score: 19 Diet: 04/23/21 Dinner General (Regular) Diet Diet Modifications: Nutrition Percent Meal Consumed 75% 04/25/21 17:36 Percent Meal Consumed 25% 04/25/21 12:44 Percent Meal Consumed 75% 04/25/21 10:07 Percent Meal Consumed 100% 04/24/21 15:00 Percent Meal Consumed 100% 04/24/21 14:29 Labs: RBC 4.13 X10^6/uL (4.0-5.2) 04/23/21 04:40 Hgb 13.0 g/dL (12.0-16.0) 04/23/21 04:40 Hct 38.9 % (36-46) 04/23/21 04:40 Creatinine 0.69 mg/dL (0.52-1.04) 04/23/21 04:40 Hemoglobin A1c 9.5 % (4.0-6.0) H 04/23/21 04:40 Nutrition Diagnosis: none identified at this time. Electronically Signed by: Renae Cline 04/26/21 11:39 Clinical Dietitian [address] [id number]
--- NOTE | 2021-04-26 12:24 | OT.IP.TRT ---
Current Diagnoses Myelopathy in diseases classified elsewhere (04/20/21) Essential (primary) hypertension (04/20/21) Other spondylosis with myelopathy, thoracic region (04/20/21) Spinal stenosis, thoracic region (04/20/21) Intervertebral disc disorders with radiculopathy, thoracic region (04/20/21) Other intervertebral disc displacement, thoracic region (04/20/21) Arthrodesis status (04/20/21) Surgery Performed Operation Date: 04/23/21 12:15 Actual Procedures p T10-11 Laminectomy - Vince Man MD Occupational Therapy Treatment Note M2 OT-IP Current Condition Start: 04/24/21 09:48 Freq: Status: Active Protocol: Document 04/24/21 09:48 [facility] (Rec: 04/24/21 10:02 [facility] [id number]) Occupational Therapy Current Condition Current Condition Evaluation Date 04/24/21 Treatment Diagnosis S/p T10-11 Laminectomy and fusion Diagnosis Onset Date 04/20/21 Post Operative Precautions Lumbar Precautions Log Roll,No Twisting,Limit Bending,Lifting Restriction of 10 lbs,Gait Belt above Incisional Area M3 OT- IP Subjective and Pain Start: 04/24/21 09:48 Freq: Status: Active Protocol: Document 04/26/21 12:34 [facility] (Rec: 04/26/21 12:41 [facility] [id number]) OT- Subjective Occupational Therapy Visit Type Type Progress Note Visit Start Time 11:45 Visit Stop Time 12:24 Total Visit Minutes 39 Occupational Therapy Visit Comments Patient Comments I really want to take a shower . OT Pain Assessment Pain When Pain Assessed At Rest Pain Present Pain Present Denied Pain M4 OT- IP ADL's Start: 04/24/21 09:48 Freq: Status: Active Protocol: Document 04/26/21 12:34 [facility] (Rec: 04/26/21 12:41 [facility] [id number]) OT [id number] General Evaluation Self-Feeding Ability Independent Comments OT Self-Feeding Comments lunch delivered at end of session. OT ADL-Grooming General Evaluation Grooming Ability Standby Assistance Areas Needing Assistance Face Washing Comments OT Grooming Comments seated in shower. OT ADL-Oral Care Comments Oral Care Comments not performed OT ADL-Dressing General Eval Upper Body Dressing Ability Independent Lower Body Dressing Ability Minimal Assistance Areas Needing Assistance Pull-Over Shirt,Underpants/ Brief,Pants/Shorts,Shoes Assistive Devices Dressing Assistive Devices Driver Material Handler Comments OT Dressing Comments Pt needed min a with the use of a flight technician to don underwear and pants. OT ADL-Toileting Comments OT Toileting Comments not performed OT ADL-Bathing Bathing Type Bathing Type Shower General Evaluation Bathing Ability Minimal Assistance,Moderate Assistance Areas Needing Assistance Wash/Dry Perineal Area,Wash/ Dry Lower Extremities Devices Bathing Equipment Hand Held Shower Sprayer, Shower Chair with Arms Comments OT Bathing Comments Pt performed shower seated but needed assist for LB cleaning and pericare. M5 OT- IP IADL's Start: 04/24/21 09:48 Freq: Status: Active Protocol: Document 04/24/21 09:48 [facility] (Rec: 04/24/21 10:02 [facility] [id number]) OT-Instrumental Activities of Daily Living Home Safety Awareness Awareness of Need for Assistance at Home Good Awareness Home Safety Comments Pt a buit drowsy and staets has not slept well for the past 5 days. At this time woudl be beneficial for pt to have assist with all needs. M6 OT- IP Functional Cognition Start: 04/24/21 09:48 Freq: Status: Active Protocol: Document 04/24/21 09:48 [facility] (Rec: 04/24/21 10:02 [facility] [id number]) Cognitive Factors Limiting Selfcare Function Cognitive Ability Level of Alertness Alert,Drowsy Patient Orientation Name,Age,Birthday,Month,Date, Year,Day of Week,Place, Situation Attention Span Ability Capable of Focused Attention, Capable of Sustained Attention Ability to Follow Commands Able to Follow One Step Commands with Increased Time, Able to Follow One Step Commands with Repetition Safety Awareness Decreased Recall of Precautions Cognitive Comments Cognitive Assessment Comments Pt initially not wanting to do log rolling to get out of bed and wanting to just get up with the HOB up as she does at home. Pt needing reminders to state her back precautions, vc to push up on the bed to stand to FWW. OT- Vision and Hearing OT- Hearing Assessment OT- Hearing Assessment WFL OT- Vision Assessment Visual Acuity Glasses All The Time M7 OT- IP Mobility and Balance Start: 04/24/21 09:48 Freq: Status: Active Protocol: Document 04/26/21 12:34 [facility] (Rec: 04/26/21 12:41 [facility] [id number]) OT-Transfer Assessment Sit to and From Stand Sit to and from Stand Standby Assistance Transfers Transfer Ability Standby Assistance Technique Transfer Destination Bedside Commode,Chair,Shower Stall Transfer Technique Stand Step Pivot Devices Transfer Assistive Devices Gait Belt,Front Wheeled Walker OT- Balance Assessment Sitting Balance and Reactions Static Sitting Balance Ability Normal Dynamic Sitting Balance Ability Good M8 OT- IP Objective Assessments Start: 04/24/21 09:48 Freq: Status: Active Protocol: Document 04/24/21 09:48 [facility] (Rec: 04/24/21 10:02 [facility] [id number]) OT-Muscle Tone Assessment Muscle Tone WNL Yes M9 OT- IP Assessment and Plan Start: 04/24/21 09:48 Freq: Status: Active Protocol: Document 04/26/21 12:34 [facility] (Rec: 04/26/21 12:41 [facility] [id number]) OT Summary Assessment and Plan Potential Rehabilitation Potential Good Analytic Complexity at Evaluation Low Summary OT Impairments Pain,Balance,Functional Cognition,Functional Mobility, Grooming,Dressing,Toileting, Bathing,Toilet Transfers, Shower Transfers,Activity Tolerance Progress Towards Goals Slow Progress due to Pain,Slow Progress due to Activity Tolerance Assessment Summary Pt is progressing with therapy . Pt appears in good spirits and requested shower and to don her own PJs. Pt will continue to benefit from therapy services. Recommend home with home health. Goals Grooming Goal Independent Dressing Goal Independent Toileting Goal Independent Bathing Goal Independent Toilet Transfer Goal Independent Shower Transfer Goal Independent Patient/Caregiver Education Goal Demonstrate Post-Op Precautions,Caregiver Independent Assisting Patient Days to Meet Goals 20 Frequency of Treatment Frequency Of Treatment Once a Day Treatment Plan OT Treatment Plan ADL Training,Functional Cognition Training,Functional Mobility,Patient/Family Education,Discharge Planning Other Treatment Recommendations and Next LB dressing again. Treatment Focus Discharge Recommendations OT Discharge Recommendations Home with / Assist Available,Home Health,SNF Rehab,Home vs SNF Transportation Needs at Discharge Private Vehicle,Wheelchair/ Cabulance
[2021-04-26] MEDS: CHOLECALCIFEROL (VITAMIN D3) 5,000 UNIT TABLET 10000 UNIT PO (12:34)
[2021-04-26] MEDS: BISACODYL 10 MG SUPP PR (15:05)
--- NOTE | 2021-04-26 15:39 | PT-IP ANOTE ---
Pt refusing PT this PM d/t abdominal discomfort/inability to have bowel movement, waiting on suppository to take effect.
[2021-04-26] MEDS: FLEETS ENEMA 1 EACH PR (15:56)
[2021-04-26] MEDS: MAGNESIUM HYDROXIDE 30 ML UDC PO (16:35)
[2021-04-26] MEDS: INSULIN GLARGINE 100 UNIT/ML 3ML PEN 45 UNIT SUBCUT (21:34)
[2021-04-26] MEDS: ACETAMINOPHEN 325 MG TABLET 650 MG PO (21:44)
[2021-04-26] MEDS: SODIUM CHLORIDE 0.9% FLUSH 10 ML IV (23:35)
[2021-04-27 04:15] VITALS: BP 130/68; PULSE 62; RESP 16; TEMP 35.9; O2SAT 97
[2021-04-27 07:30] VITALS: BP 138/64; PULSE 78; RESP 21; TEMP 36.4; O2SAT 98
--- NOTE | 2021-04-27 07:30 | P.PN_ITS ---
Subjective Subjective Date Patient Seen: 04/27/21 Time Patient Seen: 07:31 Interval history: The patient just woke up but is overall feeling good. She is had no bowel or bladder incontinence since surgery. She had a bowel movement yesterday and reports that she has been able to stop her stream of urine.? No further episodes of urinary incontinence since surgery.? She still has saddle anesthesia, but this is slowly improving. Per PT, needs HH at discharge. Exam Vital Signs (past 8 hours): - 04/26/21 23:42 04/27/21 04:15 Temperature 96.7 F L 96.6 F L Pulse Rate 60 62 Respiratory Rate 16 16 Blood Pressure 135/71 130/68 Pulse Oximetry 99 97 Oxygen Delivery Method Room Air Oxygen Flow Rate 0 Narrative Exam Narrative: Pleasant 70-year-old female, resting comfortably in bed, no acute distress. Dressing demonstrates her left lateral incision dressing is saturated with blood, no surrounding erythema or induration. Bilateral lower extremity: Motor functions are grossly intact, sensation is symmetrical but decreased bilaterally, calves are soft and nontender palpation. Objective Labs Result Diagrams: 04/23/21 04:40 04/23/21 04:40 [facility] Medical History HNP (herniated nucleus pulposus), thoracic T12 compression fracture Thoracic myelopathy UTI (urinary tract infection) Surgical History H/O eye surgery H/O shoulder surgery H/O thumb surgery H/O: knee surgery History of back surgery History of fusion of cervical spine History of lumbar fusion Family History Father Congestive heart failure Osteoarthritis Mother Osteoarthritis Pneumonia Sister Heart disease Grandmother Cancer Congestive heart failure Social History household members: none Smoking Status: Never smoker Assessment & Plan Post-op Postoperative Procedures: Procedures Operation Date: 04/23/21 12:15 Actual Procedure Side Surgeon p T10-11 Laminectomy Vince Man MD Postoperative day: 4 Postoperative status narrative: Stable status post T10-T11 laminectomy and fusion Postoperative plan: routine post-op care Postoperative plan narrative: -mobilize with PT. weight-bearing as tolerated with front wheel walker. Limit bending, lifting, twisting times 6 weeks -Would prefer tramadol to oxycodone for pain control; can continue oxycodone PRN. -continue PO steroids and begin taper. -Plan to d/c w/ HH today based on Hospitalist recommendation. -follow-up with Dr. Man for postoperative visit in 10-14 days Quality VTE Deep Vein Thrombosis/Pulmonary Embolism Present on Admission: No
[2021-04-27 07:36] VITALS: O2SAT 97
[2021-04-27] MEDS: CHOLECALCIFEROL (VITAMIN D3) 5,000 UNIT TABLET 10000 UNIT PO (09:04)
[2021-04-27] MEDS: methylPREDNISolone 4 MG TABLET PO (09:04)
[2021-04-27] MEDS: ASCORBIC ACID 500 MG TABLET 1000 MG PO (09:05)
[2021-04-27] MEDS: DOCUSATE 100 MG CAPSULE 200 MG PO (09:05)
[2021-04-27] MEDS: FISH OIL 1,000 MG CAPSULE 2000 MG PO (09:06)
[2021-04-27] MEDS: hydrOXYzine pamoate 25 MG CAPSULE PO ×2 (09:06→13:10)
[2021-04-27] MEDS: MULTIVITAMIN 1 TABLET 1 TAB PO (09:06)
[2021-04-27] MEDS: GABAPENTIN 300 MG CAPSULE PO (09:06)
[2021-04-27] MEDS: TRAMADOL 50 MG TABLET PO ×2 (09:06→13:10)
[2021-04-27] MEDS: SODIUM CHLORIDE 0.9% FLUSH 10 ML IV (09:08)
[2021-04-27 11:00] VITALS: BP 126/56; PULSE 73; RESP 20; TEMP 36.5; O2SAT 100
--- NOTE | 2021-04-27 11:00 | PT.IPTN ---
Current Diagnoses Myelopathy in diseases classified elsewhere (04/20/21) Essential (primary) hypertension (04/20/21) Other spondylosis with myelopathy, thoracic region (04/20/21) Spinal stenosis, thoracic region (04/20/21) Intervertebral disc disorders with radiculopathy, thoracic region (04/20/21) Other intervertebral disc displacement, thoracic region (04/20/21) Arthrodesis status (04/20/21) Surgery Performed Operation Date: 04/23/21 12:15 Actual Procedures p T10-11 Laminectomy - Vince Man MD Physical Therapy Treatment Note M2 PT-IP Current Condition Start: 04/24/21 12:48 Freq: NEEDED Status: Active Protocol: Document 04/24/21 13:03 [facility] (Rec: 04/24/21 13:50 [facility] [id number]) Physical Therapy Current Condition Current Condition Evaluation Date 04/24/21 Treatment Diagnosis s/p T10-11 lami w/total facectomy, PL fusion & nonsegmental instrumentation Onset Date 04/23/21 M3 PT-IP Subjective Start: 04/24/21 12:48 Freq: NEEDED Status: Active Protocol: Document 04/27/21 10:29 [facility] (Rec: 04/27/21 13:27 [facility] [id number]) Subjective Physical Therapy Visit Type Type Treatment Note Visit Start Time 10:29 Visit Stop Time 11:00 Total Visit Minutes 31 Number of HORSE STUD MANAGER Visits 3 Physical Therapy Visit Comments Patient Comments Pt agreeable to working w/ therapy. DIL present for caregiver training. M4 PT-IP Mobility and Gait Start: 04/24/21 12:48 Freq: NEEDED Status: Active Protocol: Document 04/27/21 10:29 [facility] (Rec: 04/27/21 13:27 [facility] [id number]) PT-Transfer Assessment Sit to and From Stand Sit to and from Stand Contact Guard Assistance,1 Person Assistance,Use of Upper Extremities Equipment Transfer Assistive Device Gait Belt,Front Wheeled Walker Transfers Transfer Destination Chair Transfer Technique Pt ambulated w/ FWW Transfer Ability Level of Assist Minimal Assistance,1 Person Assistance,Use of Upper Extremities Comments Mobility Comments Pt in chair upon arrival and DIL present. Demonstrated gait belt application and how to assist pt w/ sit<>stand to DIL and she was able to assist pt CGA. Pt ambulated ~20 ft to w /c for transportation to practice stairs. Pt ascended/ descended 2 steps sidewyas w/ BUE using R hand rail as she plans to do at home. Pts DIL was able to provide pt w/ min A for elevating LLE slightly up step and w/ ascending. Pt amulated additional 30 ft w/ FWW and CGA and then took w/c back to room to save energy. Pt left in chair w/ all needs in reach. Gait Assessment Gait Gait Assistance Required: Contact Guard Assist,1 Person Assist Distance (Feet) 50 Assistive Devices Assistive Device Gait Belt,Front Wheeled Walker Gait Deviations General Gait Pattern Decreased Stride Length, Decreased Feet Clearance Factors Limiting Gait Function Factors Limiting Gait Function Decreased Activity Tolerance, Decreased Strength,Poor Balance Comments Gait Comments Pt low tolerance for activity limited ambulation but able to walk ~50 ft w/ FWW CGA and cues for heel toe walking. Stair Climbing Assessment Evaluation Level of Assist On Stairs Minimal Assistance,1 Person Assistance Devices Stair Climbing Assistive Devices Right Railing Technique/Endurance Stair Climbing Direction Ascend and Descend Stair Climbing Technique Step to Step Number of Steps Climbed 2 Stair Climbing Set # Repetitions (reps) 1 Comments Stair Climbing Comments Pt ascended/descended 2 steps w/ R rail and Min A provided by DIL to lift LLE to clear step. Pt and DIL state they feel safe to complete 2 steps going into home and will have neighbor for extra assist. PT-Balance Assessment Sitting Balance and Reactions Static Sitting Balance Ability Normal Dynamic Sitting Balance Ability Normal Standing Balance and Reactions Static Standing Balance Ability Good Dynamic Standing Balance Ability Good Device Used FWW M5 PT-IP Objective Assessments Start: 04/24/21 12:48 Freq: NEEDED Status: Active Protocol: Document 04/24/21 13:03 [facility] (Rec: 04/24/21 13:50 [facility] [id number]) Orientation Orientation/Cognition Level of Alertness Alert Language Function Ability No Deficits Noted Safety Awareness Understands Safety Issues Memory Description No Deficits Noted Strength Lower Extremity Strength Assessment Bilaterally Impaired Hip 3/5 Knee 3/5 M6 PT-IP Treatment Start: 04/24/21 12:48 Freq: NEEDED Status: Active Protocol: Document 04/27/21 10:29 [facility] (Rec: 04/27/21 13:27 [facility] [id number]) Physical Therapy Treatment Exercises Exercises Ankle Pumps,Gluteal Sets,Quad Sets,Seated Knee Flexion/ Extension Education Education Provided Precautions,Safety Other Treatments Other Treatment Performed Completed caregiver training w / patients DIL who was able to provide appropriate cues and assist and feels safe and capable of assisting pt at home. M7 PT-IP Assessment and Plan Start: 04/24/21 12:48 Freq: NEEDED Status: Active Protocol: Document 04/27/21 10:29 [facility] (Rec: 04/27/21 13:27 [facility] [id number]) PT Summary Assessment and Plan Potential Rehabilitation Potential Excellent Status of Condition at Evaluation Stable Summary Impairments Pain,ROM,Strength,Balance,Bed Mobility,Transfers,Gait, Activity Tolerance Progress Towards Goals Progressing Toward Goals Assessment Summary Pt CGA for transfers and ambulation and Min A for stairs today. Her DIL was able to safely provide all cues and assist throughout treatment. Pt has necessary equipment at home, clear pathways, is aware of spinal pracautions and will be receiving HHPT. Goals Bed Mobility Goal Standby Assistance Transfer Goal Standby Assistance Gait Goal Standby Assistance,Front Wheel Walker Gait Distance 150ft Other Goals up/down 2stairs w/R rail SBA Days to Meet Goals 5 Frequency of Treatment Frequency Of Treatment Twice a Day Treatment Plan Physical Therapy Treatment Plan Bed Mobility Training,Transfer Training,Gait Training, Therapeutic Exercise,Balance Retraining,Post Op Education, Discharge Planning,Hot or Cold Pack,Neuromuscular Re-ed, Manual Therapy Precautions Lumbar Precautions Log Roll,No Twisting,Limit Bending,Lifting Restriction of 10 lbs,Gait Belt above Incisional Area Weight Bearing Status Weight Bearing Status Weight Bear as Tolerated Recommendations To Nursing Amount of Assist Needed 1 Person Assist Discharge Recommendations PT Discharge Recommendations Home with 05/09 Assist Available,Home Health, Outpatient PT Other Discharge Recommendations HHPT services recommended Transportation Needs at Discharge Private Vehicle
--- NOTE | 2021-04-27 11:21 | OT.IPNOTE ---
Pt going home today and pt and caregiver had no questions for OT needs.
[2021-04-27] MEDS: INSULIN LISPRO 100 UNIT/ML 3ML VIAL SUBCUT (12:21)
--- NOTE | 2021-04-27 14:01 | PC.NURSE ---
Confirmed with Dr. Cool that patient is ready for discharge, she states she reviewed discharge and meds by ortho and has no changes. IV dc'd intact. Discharge handouts and home care reviewed with patient, she states understanding and has no further questions or concerns. Dressing to back intact. Patient states she will call to ensure follow up is scheduled with Dr. Man's office to be seen in 2 weeks. Instructed to call MD with questions or concerns. Escorted out via wheelchair by PIECE CUTTER with all her belongings, to discharge to home with family, and home health referral.
--- NOTE | 2021-04-30 18:09 | PM.PN.1 ---
Subjective Subjective Interval history: Patient has no specific complaints. She feels like the numbness and tingling is improving. She feels ready for discharge Exam Vital Signs (past 8 hours): Oxygen Delivery Method Room Air Oxygen Flow Rate 0 Narrative Exam Narrative: Pleasant female sitting in a chair in no obvious distress Resp Other: Lungs: Clear to auscultate Cardio Other: Cardiac exam: Regular rate and rhythm normal S1-S2 GI Other: Soft nontender nondistended Other: No catheter in place Objective Labs Result Diagrams: 04/23/21 04:40 04/23/21 04:40 [facility] Medical History HNP (herniated nucleus pulposus), thoracic T12 compression fracture Thoracic myelopathy UTI (urinary tract infection) Surgical History H/O eye surgery H/O shoulder surgery H/O thumb surgery H/O: knee surgery History of back surgery History of fusion of cervical spine History of lumbar fusion Family History Father Congestive heart failure Osteoarthritis Mother Osteoarthritis Pneumonia Sister Heart disease Grandmother Cancer Congestive heart failure Social History household members: none Smoking Status: Never smoker Assessment & Plan Assessment & Plan narrative: Ms. Alvarez is a 70W with progressive lower extremity weakness and decreased loss in sensation who developed worsening bowel and bladder weakness and admitted for severe spinal canal stenosis specifically in the thoracic region from L5-S1, thoracic myelopathy, T12 fracture now s/p surgery. 1. Severe spinal canal stenosis of the thoracic L5-S1, with corresponding thoracic myelopathy and T12 compression fracture, acute, present on admission -now on methylpred 4 mg QID per ortho. -spinal fusion/decompression lower thoracic spine T10, T11 on 04/23 Dr. Man -orthopedic surgery following and discharge expected in 1-2 days -continue baclofen, tramadol and gabapentin. -per Ortho patient is stable for discharge today -discharge orders written 2. Hyperlipidemia, chronic, present on admission -continue pravastatin 3.Obesity as evidence by BMI of 31.8, acute on chronic, present on admission -referral for dietary evaluation 4. Mild hyponatremia, acute, present on admission -improved with NS infusion 5. Steroid induced hyperglycemia, diabetes ?- started lantus 10 units 3/10 evening only given NPO status. Continued sliding scale.? Increased to 20 units and then 40 units due to continued lack of control with high dose Decadron. Sugars improved today, though still near 200. ?- A1c 9.5. Patient agreeable to discharge on lantus and sliding scale therapy, at least short term. - recommend PCP follow up as an outpatient. -patient reports she has managed her insulin with a vegan diet, she will resume this as an outpatient and follow-up with her PCP as well. 6. Leukocytosis ?- no evidence of infection, likely related to steroid therapy. Continue to follow. ? Time Spent With Patient Critical Care time: I spent a total of [] minutes of critical care time on this patient's care today; this time is exclusive of procedural time. Quality VTE Deep Vein Thrombosis/Pulmonary Embolism Present on Admission: No
== END 2021-04-27 14:00 | disposition home or self-care (01) | DRG 460 ==
LOC: ED 20:50 → AC 21:30 → ICU 04-21 07:55 → AC 04-23 13:32 → ICU 04-23 13:32 → AC 04-24 19:00
PROVIDERS: Emergency Medicine; Internal Medicine; Orthopaedic Surgery Orthopaedic Surgery of the Spine; Admitting Provider Nurse Practitioner Family; Emergency Provider Emergency Medicine; PCP Internal Medicine; Referring Provider Emergency Medicine; Visit Provider Nurse Practitioner Family
PROC: 0RG60K1 Fusion of Thoracic Vertebral Joint with Nonautologous Tissue Substitute, Posterior Approach, Posterior Column, Open Approach (ICD-10-PCS; principal; 2021-04-23 12:15)
DX: M51.04 Intervertebral disc disorders with myelopathy, thoracic region (principal); E87.1 Hypo-osmolality and hyponatremia; M48.54XA Collapsed vertebra, not elsewhere classified, thoracic region, initial encounter for fracture; N31.8 Other neuromuscular dysfunction of bladder; N39.498 Other specified urinary incontinence; M48.04 Spinal stenosis, thoracic region; M48.07 Spinal stenosis, lumbosacral region; R15.9 Full incontinence of feces; R73.9 Hyperglycemia, unspecified; E78.5 Hyperlipidemia, unspecified; M46.04 Spinal enthesopathy, thoracic region; T38.0X5A Adverse effect of glucocorticoids and synthetic analogues, initial encounter; Z20.822 Contact with and (suspected) exposure to COVID-19; Z98.1 Arthrodesis status
CPT/HCPCS: 36415; 72070; 72157; 72158; 76000; 80048; 80053; 81001; 81003; 82947; 82962; 83036; 83735; 85025; 85610; 85730; 87635; 94760; 96374; 96375; 96376; 97110; 97116; 97162; 97165; 97530; 97535; 99284; 99291; C9803; A9270; A9579; C9290; J0171; J0330; J1100; J1170; J1815; J2060; J2270; J2405; J2704; J2920; J3010

== ENCOUNTER 2021-05-04 09:51 | Observation (INO) | payer MEDICARE, SELFPAY ==
[2021-04-20 21:29] VITALS: BMI 31.7
[2021-05-04 10:00] VITALS: BP 161/78; PULSE 108; RESP 16; TEMP 36.8; O2SAT 95; BMI 31.6
--- NOTE | 2021-05-04 10:24 | ED.EXTPRO ---
HPI - Extremity Problem General Chief complaint: Extremity Problem,Nontraumatic Stated complaint: Fall-Recent back surgery Time Seen by Provider: 05/04/21 10:12 Source: patient Mode of arrival: EMS Limitations: no limitations History of Present Illness HPI Narrative: 70-year-old female. One week ago had a T10/T11 back fusion. Is was discharged home afterwards. Has been doing well. Has followed up with her primary doctor. Yesterday had her baclofen increased because of right-sided back spasms. Her last dose of this was last evening. This morning she states she went to get out of bed. She states that her lower extremities were weak. She states that the walker that she was using was angled awkward the. She was having problems standing up. She slumped down in between her walker. She did not hit her head. There was no loss of consciousness. Given the weakness in her legs and also the her position she could stand. EMS was called. Initially this is just a lift assist however she you was unable to stand on her leg secondary to weakness. Here in the emergency department she reports some knee discomfort but is able to flex and extend. Does have back discomfort but this is not new compared to her postoperative pain. No headache. No neck pain. No upper extremity weakness. She feels that it is because she had an increase in her baclofen yesterday and that caused her to be very weak this morning. Related Data Home Medications Medication Instructions Recorded Confirmed pravastatin 80 mg tablet 80 mg PO BEDTIME 04/04/20 05/04/21 ascorbic acid (vitamin C) 1,000 mg 1 g PO DAILY tab 03/31/21 05/04/21 tablet aspirin 81 mg tablet,delayed 81 mg PO DAILY 03/31/21 05/04/21 release (Adult Aspirin Regimen) baclofen 10 mg tablet 10 mg PO TID 03/31/21 05/04/21 cholecalciferol (vitamin D3) 250 250 mcg PO DAILY 03/31/21 05/04/21 mcg (10,000 unit) capsule coenzyme Q10 200 mg/gram oral 200 mg PO DAILY 03/31/21 05/04/21 powder (H2Q CoQ10) multivitamin 1 tab PO DAILY 03/31/21 05/04/21 omega-3 fatty acids 1,250 mg 2,500 mg PO DAILY 03/31/21 05/04/21 capsule strontium gluconate-vitamins 1 tab PO DAILY 03/31/21 05/04/21 W2-Y27-izbtc acid 680 mg-30 mg tablet tramadol 50 mg tablet 50 mg PO BID PRN tab 03/31/21 05/04/21 gabapentin 300 mg capsule 300 mg PO TID 05/04/21 Previous Rx's Medication Instructions Recorded oxycodone 10 mg tablet 10 mg PO Q6HR #20 tab 04/26/21 Allergies Allergy/AdvReac Type Severity Reaction Status Date / Time cefazolin [From [facility]] Allergy Intermediate Hives Verified 04/20/21 11:53 Review of Systems Review of Systems ROS Unobtainable: All systems reviewed & are unremarkable except as noted in HPI and below Patient History Medical History HNP (herniated nucleus pulposus), thoracic T12 compression fracture Thoracic myelopathy UTI (urinary tract infection) Surgical History H/O eye surgery H/O shoulder surgery H/O thumb surgery H/O: knee surgery History of back surgery History of fusion of cervical spine History of lumbar fusion Family History Father Congestive heart failure Osteoarthritis Mother Osteoarthritis Pneumonia Sister Heart disease Grandmother Cancer Congestive heart failure Social History household members: none Smoking Status: Never smoker Smoking Status: Never smoker alcohol intake frequency: holidays/special occasions only Substance Use Type: does not use Exam Initial Vital Signs Initial Vital Signs: Vital Signs Temperature 98.3 F 05/04/21 10:00 Pulse Rate 108 H 05/04/21 10:00 Respiratory Rate 16 05/04/21 10:00 Blood Pressure 161/78 H 05/04/21 10:00 Pulse Oximetry 95 05/04/21 10:00 Const General: cooperative and comfortable HENMT Head: normal to inspection and normocephalic Eyes General: appearance normal, both eyes and all related structures Resp Effort & Inspection: normal respiratory effort Auscultation: clear to auscultation bilaterally Cardio Rate: regular rate Rhythm: regular rhythm GI Inspection: normal to inspection Back/Spine/Pelvis Other: Mild discomfort right paraspinal region lumbar Skin Other: Well-healed surgical scars bilateral anterior knees consistent with prior total knee replacements. Neuro General: patient alert, patient awake, patient oriented x3 and moves all extremities Cognition: normal cognition Speech: speech normal Motor: muscle tone normal throughout Extrem Other: Patient is able to flex and extends had hips and knees bilateral. Psych Appearance: grossly normal and well kempt Scores GCS [place] coma scale eye opening: Spontaneous [place] coma scale verbal response: Orientated [place] coma scale motor response: Obey commands [place] coma scale total score: 15 Course Orders Ordered: ED Orders 05/04/21 10:25 XR thoracic spine 3V Stat 05/04/21 12:45 XR ankle LT min 3V Stat 05/04/21 13:50 Basic Metabolic Panel Stat Complete Blood Count AUTO DIFF Stat 05/04/21 13:56 COVID19 -Nasal swab/Pre-Proc Stat Acetaminophen (Acetaminophen 325 Mg Tablet) 975 mg PO Q8HR PRN PRN Reason: pain Dextrose (Dextrose 50 % In Water 25 Gm/50 Ml Syringe) 25 gm IV PRN PRN PRN Reason: Hypoglycemia Enoxaparin Sodium (Enoxaparin 40 Mg/0.4 Ml Syringe) 40 mg SUBCUT DAILY CELE Insulin Human Lispro (Insulin Lispro 100 Unit/Ml 3ml Vial) 0 unit SUBCUT ACHS CELE; Protocol Naloxone HCl (Naloxone 0.4 Mg/Ml Vial) 0.2 mg IV Q2MIN PRN PRN Reason: Opiate Reversal Ondansetron HCl (Ondansetron 4 Mg/2 Ml Inj) 4 mg IV Q8HR PRN PRN Reason: Nausea And Vomiting Sodium Chloride (Sodium Chloride 0.9% Flush) 10 ml IV PRN PRN PRN Reason: Flush Sodium Chloride (Sodium Chloride 0.9% Flush) 10 ml IV BID CELE Vital Signs Vital signs: Vital Signs - 8 hr 05/04/21 10:00 Temperature 98.3 F Pulse Rate 108 H Respiratory Rate 16 Blood Pressure 161/78 H Pulse Oximetry 95 MDM - Extremity (Nontraumatic) Lab Data Result diagrams: 05/04/21 13:50 05/04/21 13:50 Labs: Point of Care Testing Glucose POC 179 Imaging Data Thoracic spine x-ray: Radiologist's Impression: [address] [address] XRay Report Signed Patient: Annabella Alvarez MR#: [id number] : 1950 Acct:[id number] Age/Sex: 70 / F Date of Service: 05/04/21 Loc: ED Accession Number: [id number] ?? Procedure: XR thoracic spine 3V Ordering Provider: Marvin Bradshaw D.O. PROCEDURE:? XR THORACIC SPINE 3V ? INDICATIONS:? T10/T11 fusion now with fall ? TECHNIQUE:? 3 views of the thoracic spine were acquired.? ? COMPARISON:? [facility], MR, MR THORACIC SPINE WO/W CON, 04/20/2021, 14:48.? [facility], RG, XR T-SPINE 2-3V, 09/28/2020, 13:15.? [facility], RG, XR L-SPINE 2-3V, 09/28/2020, 13:15.? [facility], CT, CT LUMBAR SPINE WO CON, 04/01/2021, 18:06.? [facility], MR, MR LUMBAR SPINE WO/W CON, 04/20/2021, 14:48.? [facility], CR, XR THORACIC SPINE 2V, 04/23/2021, 15:10. ? FINDINGS:? ? Bones:? There is mild anterior wedge deformity seen involving the T12 level, without acute features.? No acute fractures or dislocations.? No suspicious bony lesions.? 12 pairs of ribs are noted, and appear intact where visualized.? ? Lower cervical spine fixation hardware is seen.? There is lower thoracic spine fixation hardware seen at T10-T11. ? and upper lumbar spine postoperative hardware also seen.? No findings of hardware failure or hardware loosening are seen. ? Moderate disc space narrowing is seen at T9-T10, with associated endplate irregularity and sclerosis.? ? Soft tissues:? No paravertebral stripe thickening.? Postoperative scan shabbir are seen involving the posterior inferior spine. ? ? IMPRESSION:? No acute fractures are seen. ? Remote, stable T12 anterior wedge deformity. ? Postoperative changes are seen, without an acute abnormality identified. ? ? Dictated by: Beltran Love M.D. on 05/04/2021 at 10:11 ? ? Approved by: Beltran Love M.D. on 05/04/2021 at 10:14? Extremity x-ray #1: Radiologist's Impression: [address] [address] XRay Report Signed Patient: Annabella Alvarez MR#: [id number] : 1950 Acct:[id number] Age/Sex: 70 / F Date of Service: 05/04/21 Loc: ED Accession Number: [id number] ?? Procedure: XR ankle LT min 3V Ordering Provider: Marvin Bradshaw D.O. PROCEDURE:? XR ANKLE LT MIN 3V ? INDICATIONS:? fall with pain ? TECHNIQUE:? 3 views of the ankle were acquired.? ? COMPARISON:? None. ? FINDINGS:? ? Bones:? There is a possible nondisplaced oblique fracture of the distal fibula seen on oblique view only.? Ankle mortise is normally aligned.? No suspicious bony lesions.? Degenerative changes are seen in the midfoot involving the navicular cuneiform and tarsometatarsal joints as well as at the mortise joint.? There is a prominent plantar calcaneal spur. ? Soft tissues:? Soft tissue edema is seen surrounding the ankle that is more prominent over the lateral malleolus. ? IMPRESSION:? Possible nondisplaced oblique fracture of the distal fibular metaphysis.? Recommend correlation with point tenderness.? Repeat radiographs may be obtained in 7-10 days for confirmation. ? ? Dictated by: Rah Burns M.D. on 05/04/2021 at 12:14 ? ? Approved by: Rah Burns M.D. on 05/04/2021 at 12:19?? [facility] Narrative Medical decision making narrative: Patient's back discomfort is unchanged. She did not hit her head. No loss of consciousness. No cervical spine tenderness. X-rays of her back show no acute pathology. I have low suspicion of fracture of her knees she is able to flex and extend. Patient did have to urinate although she was on success with using the bedpan. She was given a bedside commode and at that point had quite a bit of discomfort in her left ankle. An x-ray was obtained which showed a fibula fracture. Had a long discussion with the patient and family at bedside. Patient does live by herself. I do suspect that her weakness is related to an increase in her baclofen from yesterday. I have low suspicion for CVA/TIA. She now has a left fibula fracture which is complicating issues despite the fact that this is a weight-bearing as tolerated injury. Had a discussion with them regarding her symptoms. We discussed her being discharged home however I do feel that it is unsafe for her to go home given her presentation today. The patient agrees with this. Discussed the case with Dr. Balbuena on-call for Internal Medicine who will admit for further evaluation and treatment. Discharge Plan Departure Patient Disposition: Admitted as Observation Clinical Impression: Fracture, fibula, Back pain, Weakness Admit Date/Time: 05/04/21 13:48 Admit Provider: Daniel Balbuena
--- NOTE | 2021-05-04 10:25 | DI.RAD.S_ITS ---
PROCEDURE: XR THORACIC SPINE 3V INDICATIONS: T10/T11 fusion now with fall TECHNIQUE: 3 views of the thoracic spine were acquired. COMPARISON: [facility], MR, MR THORACIC SPINE WO/W CON, 04/20/2021, 14:48. [facility], RG, XR T-SPINE 2-3V, 09/28/2020, 13:15. [facility], RG, XR L-SPINE 2-3V, 09/28/2020, 13:15. [facility], CT, CT LUMBAR SPINE WO CON, 04/01/2021, 18:06. [facility], MR, MR LUMBAR SPINE WO/W CON, 04/20/2021, 14:48. [facility], CR, XR THORACIC SPINE 2V, 04/23/2021, 15:10. FINDINGS: Bones: There is mild anterior wedge deformity seen involving the T12 level, without acute features. No acute fractures or dislocations. No suspicious bony lesions. 12 pairs of ribs are noted, and appear intact where visualized. Lower cervical spine fixation hardware is seen. There is lower thoracic spine fixation hardware seen at T10-T11. and upper lumbar spine postoperative hardware also seen. No findings of hardware failure or hardware loosening are seen. Moderate disc space narrowing is seen at T9-T10, with associated endplate irregularity and sclerosis. Soft tissues: No paravertebral stripe thickening. Postoperative scan shabbir are seen involving the posterior inferior spine. IMPRESSION: No acute fractures are seen. Remote, stable T12 anterior wedge deformity. Postoperative changes are seen, without an acute abnormality identified. Dictated by: Beltran Love M.D. on 05/04/2021 at 10:11 Approved by: Beltran Love M.D. on 05/04/2021 at 10:14
--- NOTE | 2021-05-04 12:45 | DI.RAD.S_ITS ---
PROCEDURE: XR ANKLE LT MIN 3V INDICATIONS: fall with pain TECHNIQUE: 3 views of the ankle were acquired. COMPARISON: None. FINDINGS: Bones: There is a possible nondisplaced oblique fracture of the distal fibula seen on oblique view only. Ankle mortise is normally aligned. No suspicious bony lesions. Degenerative changes are seen in the midfoot involving the navicular cuneiform and tarsometatarsal joints as well as at the mortise joint. There is a prominent plantar calcaneal spur. Soft tissues: Soft tissue edema is seen surrounding the ankle that is more prominent over the lateral malleolus. IMPRESSION: Possible nondisplaced oblique fracture of the distal fibular metaphysis. Recommend correlation with point tenderness. Repeat radiographs may be obtained in 7-10 days for confirmation. Dictated by: Rah Burns M.D. on 05/04/2021 at 12:14 Approved by: Rah Burns M.D. on 05/04/2021 at 12:19
[2021-05-04 13:57] LABS: Add Manual Diff / Slide Review NO; Basophils Absolute Auto 100 /uL (0-100); Basophils Percent Auto 0.8 % (0-2); Eosinophils Absolute Auto 100 /uL (0-450); Eosinophils Percent Auto 0.4 % (2-4); Hematocrit 36.5 % (36-46); Hemoglobin 12.6 g/dL (12.0-16.0); Lymphocytes Absolute Auto 2600 /uL (1100-4500); Lymphocytes Percent Auto 16.3 % (25-40); Mean Corpuscular HGB Conc 34.6 % (30-36); Mean Corpuscular Hemoglobin 32.1 PG (26-34); Mean Corpuscular Volume 92.8 fL (80-100); Monocytes Absolute Auto 800 /uL (0-900); Monocytes Percent Auto 4.8 % (3-14); Neutrophils Absolute Auto 12300 /uL (1500-7000); Neutrophils Percent Auto 77.7 % (50-75); Platelet Count 248 X10^3/uL (150-400); Red Blood Cell Count 3.94 X10^6/uL (4.0-5.2); Red Cell Distribution Width 13.1 % (11.6-14.8); White Blood Cell Count 15.8 X10^3/uL (4.5-11.0)
[2021-05-04 14:07] LABS: BUN Creatinine Ratio 27.7 (6-22); Blood Urea Nitrogen 18 mg/dL (7-17); Calcium 9.4 mg/dL (8.4-10.2); Carbon Dioxide 30 mmol/L (22-32); Chloride 100 mmol/L (98-107); Estimated Glomerular Filt Rate > 60.0 mL/min (>60); Glucose 185 mg/dL (80-110); HEMOLYSIS 18 (0-50); Potassium 3.6 mmol/L (3.4-5.1); Sodium 135 mmol/L (137-145)
[2021-05-04 14:26] LABS: COVID19 -Nasal RAPID Negative (Negative)
[2021-05-04 14:35] VITALS: BP 162/88; PULSE 96; RESP 20; TEMP 36.5; O2SAT 98
[2021-05-04 15:36] VITALS: BMI 31.6
--- NOTE | 2021-05-04 15:45 | PT.IPTN ---
Physical Therapy Treatment Note M3 PT-IP Subjective Start: 05/04/21 16:27 Freq: NEEDED Status: Active Protocol: Document 05/04/21 15:45 AB (Rec: 05/04/21 16:34 AB [id number]) Subjective Physical Therapy Visit Type Type Patient Refusal Notes pt s/p fall and with L fibular fx. Talked with Dr. Balbuena for clarification and stated that pt with WBAT on LLE and no surgery is needed per ortho MD. pt initially agreeable to do PT. obtained home set up and PLOF as well as ROM and MMT. attempted to do sit up but pt c/o back pain and stated that she does not think she will be able to get up. attempted with bed adjustment and PT assist but pt refused. will f /u tomorrow.
--- NOTE | 2021-05-04 16:11 | OT.IPNOTE ---
OT eval and treat order received. Chart reviewed and discussed with nursing. Will hold today for further clarity on pt's injures and precautions and follow up tomorrow.
--- NOTE | 2021-05-04 17:25 | P.HP_ITS ---
History of Present Illness History of Present Illness Date Patient Seen: 05/04/21 Time Patient Seen: 17:25 Chief complaint: Fall-Recent back surgery Narrative: Annabella Alvarez is a 68-year-old female with a medical history of severe spinal canal stenosis L4 -S1 and thoracic stenosis, history of lumbar fusion, thoracic myelopathy, T12 compression fracture, recent T10-11 decompressive laminectomy with total facetecomy and posterolateral fusion (with admission for steroids prior to surgery) thrombocytopenia, hyperlipidemia, chronic hyponatremia, diabetes, and obesity who presented to the emergency room today after a fall at home. She was unable to get up from her fall and decided to call EMS. She saw her PCP yesterday for follow-up after her recent hospitalization and complained of back spasms. She received a prescription for baclofen, at 20 mg 3 times a day. She took 3 doses of 20 mg yesterday, most recently around midnight, and woke up this morning and her left leg gave out when trying to get up. She got stuck in between her walker and the floor, she may have hit her right hip on the bedside stand but she is not sure. She did not hit her head. She tried to get up but could not due to pain in her left ankle and this is when she called EMS. In the emergency room, the patient was mildly hypertensive, mildly tachycardic. The remainder of her vital signs are unremarkable. Initial laboratory evaluation showed a mild leukocytosis with WBC of 15.8, the remainder of his CBC was unremarkable. Chemistries revealed a mildly elevated glucose at 185 but no significant abnormalities. COVID-19 testing was negative. Patient History Medical History HNP (herniated nucleus pulposus), thoracic T12 compression fracture Thoracic myelopathy UTI (urinary tract infection) Surgical History H/O eye surgery H/O shoulder surgery H/O thumb surgery H/O: knee surgery History of back surgery History of fusion of cervical spine History of lumbar fusion Family & Social History Family History Father Congestive heart failure Osteoarthritis Mother Osteoarthritis Pneumonia Sister Heart disease Grandmother Cancer Congestive heart failure Social History: household members none Prior Living Arrangements Apartment/Condo Safety & Behavioral: Feels Safe in Current Yes Environment Been Physically Hurt or No Threatened By a Person Suicidal Ideation Description None Suicide Plan Description No Plan Tobacco & Substance use: Smoking Status Never smoker alcohol intake frequency holiday/special occasion Substance Use Type does not use Meds Home Medications and Allergies Home Medications Medication Instructions Recorded Confirmed Type pravastatin 80 mg tablet 80 mg PO BEDTIME 04/04/20 05/04/21 History ascorbic acid (vitamin C) 1,000 mg 1 g PO DAILY tab 03/31/21 05/04/21 History tablet aspirin 81 mg tablet,delayed 81 mg PO DAILY 03/31/21 05/04/21 History release (Adult Aspirin Regimen) baclofen 10 mg tablet 10 mg PO TID 03/31/21 05/04/21 History cholecalciferol (vitamin D3) 250 250 mcg PO DAILY 03/31/21 05/04/21 History mcg (10,000 unit) capsule coenzyme Q10 200 mg/gram oral 200 mg PO DAILY 03/31/21 05/04/21 History powder (H2Q CoQ10) multivitamin 1 tab PO DAILY 03/31/21 05/04/21 History omega-3 fatty acids 1,250 mg 2,500 mg PO DAILY 03/31/21 05/04/21 History capsule strontium gluconate-vitamins 1 tab PO DAILY 03/31/21 05/04/21 History A9-D54-vnazx acid 680 mg-30 mg tablet tramadol 50 mg tablet 50 mg PO BID PRN tab 03/31/21 05/04/21 History oxycodone 10 mg tablet 10 mg PO Q6HR #20 tab 04/26/21 05/04/21 Rx gabapentin 300 mg capsule 300 mg PO TID 05/04/21 History Allergies Allergy/AdvReac Type Severity Reaction Status Date / Time cefazolin [From [facility]] Allergy Intermediate Hives Verified 04/20/21 11:53 Review of Systems Review of Systems Narrative: All other systems reviewed with the patient and are negative unless otherwise stated. Exam Vital Signs (past 8 hours): - 05/04/21 10:00 05/04/21 14:35 Temperature 98.3 F 97.7 F Pulse Rate 108 H 96 H Respiratory Rate 16 20 Blood Pressure 161/78 H 162/88 H Pulse Oximetry 95 98 Oxygen Delivery Method Room Air Oxygen Flow Rate 0 Narrative Exam Narrative: General:? Patient is well developed and well nourished, in no distress at this time. HEENT:? Normocephalic, atraumatic, extraocular muscles intact, oral pharynx is clear and mucous membranes are moist. Neck: supple and symmetric, trachea is midline, no cervical adenopathy. Chest:? Normal AP diameter and contour without kyphoscoliosis, no tachypnea, equal chest rise bilaterally. Lungs:? CTA b/l no wheezing rhonchi or rales. Cardio:?RRR no m/r/g. Abdomen: S NT ND. No CVA tenderness. Musculoskeletal:? Muscle strength and tone are equal within normal limits, no deformity. tenderness to R hip and left hip. L ankle tender posteriorly. Extremities:bilateral LE edema with R > L, 1+ pitting on the right. no joint effusions. Skin:? Pale,? Warm to touch,dry and intact without rashes, ulcerations or petechiae.? Neuro:? Alert and orientated x3,?but mild confusion. sensation to touch intact in all extremities, no gross deficits noted of cranial nerves. 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 Psych:? Patient has a well-kept appearance, appropriate affect, mental status attitude thought context and judgment are appropriate for age. Objective Imaging ankle XR: Radiologist's impression: IMPRESSION:? Possible nondisplaced oblique fracture of the distal fibular metaphysis.? Recommend correlation with point tenderness.? Repeat radiographs may be obtained in 7-10 days for confirmation. ? Labs Result Diagrams: 05/04/21 13:50 05/04/21 13:50 Labs: Laboratory Results - last 24 hr 05/04/21 05/04/21 05/04/21 13:50 13:50 13:56 WBC 15.8 H RBC 3.94 L Hgb 12.6 Hct 36.5 MCV 92.8 MCH 32.1 MCHC 34.6 RDW 13.1 Plt Count 248 Neut % (Auto) 77.7 H Lymph % (Auto) 16.3 L [place] % (Auto) 4.8 Eos % (Auto) 0.4 L Baso % (Auto) 0.8 Neut # (Auto) 27698 H Lymph # (Auto) 2600 [place] # (Auto) 800 Eos # (Auto) 100 Baso # (Auto) 100 Sodium 135 L Potassium 3.6 Chloride 100 Carbon Dioxide 30 BUN 18 H Creatinine 0.65 Estimated GFR > 60.0 BUN/Creatinine Ratio 27.7 H Glucose 185 H Calcium 9.4 SARS-CoV-2 (PCR) Negative Assessment & Plan Assessment & Plan narrative: 1. Likely toxic encephalopathy, improving - suspect related to baclofen at home - for spasms can have 5 mg TID - see infectious workup noted below. 2. distal fibular fracture, left, acute - WBAT per orthopedic consultation in the ER. - non - operative management. - PT/OT consultations 3. type 2 diabetes - a1c 9% last admission - now off steroids so will monitor with sliding scale only. 4. ground level fall - likely in setting of baclofen. Check UA and basic infectious workup given leukocytosis, but no current concern for infection - evaluate for possible DVT given LE edema bilaterlaly. 5. HLD chronic - continue home medications 6. Obesity with BMI 31 - contributes to possible post operative infection, risk of complications after recent surgery, DVT risk. 7. Leukocytosis - likely related to steroids, check infectious workup as noted above. 8.bilateral hip pain after ground level fall - check pelvis XR, suspect IT band pain. Code status: Full Surrogate decision maker:? David Alvarez DVT/VTE prophylaxis:? Lovenox Disposition: admitted under observation status. Pending PT/OT I have utilized all available immediate resources to obtain, update, or review the patient's current medications. Time Spent With Patient Critical Care time: I spent a total of [] minutes of critical care time on this patient's care today; this time is exclusive of procedural time.
--- NOTE | 2021-05-04 17:28 | DI.US.S_ITS ---
PROCEDURE: US PERIPH VENOUS LOW EXTREM BI INDICATIONS: r/o DVT, b/l edema with recent spinal surgery TECHNIQUE: Real-time imaging, as well as color and pulse Doppler interrogation, were performed of the deep veins of both legs from the inguinal ligament to the popliteal fossa. COMPARISON: None. FINDINGS: Right: Noncompressible right common femoral, profunda femoral, superficial femoral, and popliteal veins, compatible with predominantly occlusive DVT. Left: Partially compressible popliteal vein with maintained flow, compatible with nonocclusive thrombus. The common femoral, greater saphenous, profunda femoral, and superficial femoral veins are normally compressible. IMPRESSION: Bilateral DVT as detailed above. Dictated by: Reynaldo Dowd M.D. on 05/04/2021 at 18:34 Approved by: Reynaldo Dowd M.D. on 05/04/2021 at 18:36
--- NOTE | 2021-05-04 17:29 | DI.RAD.S_ITS ---
PROCEDURE: XR PELVIS 1-2V INDICATIONS: bilateral hip pain after fall TECHNIQUE: AP view(s) of the pelvis acquired. COMPARISON: None. FINDINGS: Bones: No fractures or dislocations. Moderate right and mild left hip arthrosis with joint space loss and osteophytosis. The sacroiliac joints are patent. Bilateral lumbosacral fixation, partially imaged. Soft tissues: Visualized bowel gas pattern is normal. No suspicious soft tissue calcifications. IMPRESSION: No acute osseous abnormality. Dictated by: Reynaldo Dowd M.D. on 05/04/2021 at 18:20 Approved by: Reynaldo Dowd M.D. on 05/04/2021 at 18:22
[2021-05-04] MEDS: APIXABAN 5 MG TABLET 10 MG PO (18:24)
[2021-05-04] MEDS: ACETAMINOPHEN 325 MG TABLET 975 MG PO (18:27)
[2021-05-04 19:56] LABS: Appearance Urine UA CLEAR; Bilirubin Urine UA NEGATIVE (NEGATIVE); Color Urine UA YELLOW; Glucose Urine UA 1+ g/dL (Negative); Ketones Urine UA NEGATIVE (NEGATIVE); Leukocyte Esterase Urine UA NEGATIVE (NEGATIVE); Nitrite Urine UA NEGATIVE (Negative); Occult Blood Urine UA NEGATIVE (Negative); Protein Urine UA NEGATIVE (Negative); Urobilinogen Urine UA 0.2 E.U./dL (0.2)
[2021-05-04 20:08] LABS: RBC Urine 0-1/HPF (0-5/HPF); WBC Urine 0-1/HPF (0-5/HPF)
[2021-05-04 20:09] LABS: Bacteria Urine None Seen; Culture Indicated Urine Specimen Cultured; Squamous Epithelial Cell Urine 0-1 /HPF (0-5/HPF)
[2021-05-04 20:47] VITALS: BP 112/68; PULSE 93; RESP 16; TEMP 36.8; O2SAT 94
[2021-05-04 20:55] VITALS: PULSE 92; RESP 20; O2SAT 96
[2021-05-04 21:00] VITALS: O2SAT 95
[2021-05-04] MEDS: INSULIN LISPRO 100 UNIT/ML 3ML VIAL SUBCUT (21:09)
[2021-05-04] MEDS: PRAVASTATIN 20 MG TABLET 80 MG PO (21:09)
[2021-05-04] MEDS: SODIUM CHLORIDE 0.9% FLUSH 10 ML IV (21:10)
[2021-05-05] VITALS (12 sets, daily range): BP systolic 104–152; BP diastolic 57–78; PULSE 57–107; RESP 16–19; TEMP 36.5–37.2; O2SAT 92–96
[2021-05-05] MEDS: TRAMADOL 50 MG TABLET PO ×2 (02:14→20:39)
[2021-05-05 04:49] LABS: Add Manual Diff / Slide Review NO; Basophils Absolute Auto 100 /uL (0-100); Basophils Percent Auto 0.5 % (0-2); Eosinophils Absolute Auto 100 /uL (0-450); Hematocrit 35.3 % (36-46); Lymphocytes Absolute Auto 2800 /uL (1100-4500); Lymphocytes Percent Auto 23.7 % (25-40); Mean Corpuscular HGB Conc 33.9 % (30-36); Mean Corpuscular Hemoglobin 31.7 PG (26-34); Mean Corpuscular Volume 93.6 fL (80-100); Monocytes Absolute Auto 700 /uL (0-900); Monocytes Percent Auto 5.8 % (3-14); Neutrophils Absolute Auto 8100 /uL (1500-7000); Platelet Count 242 X10^3/uL (150-400); Red Blood Cell Count 3.77 X10^6/uL (4.0-5.2); Red Cell Distribution Width 13.3 % (11.6-14.8); White Blood Cell Count 11.7 X10^3/uL (4.5-11.0)
[2021-05-05 04:58] LABS: BUN Creatinine Ratio 16.7 (6-22); Blood Urea Nitrogen 11 mg/dL (7-17); Calcium 9.3 mg/dL (8.4-10.2); Carbon Dioxide 30 mmol/L (22-32); Chloride 104 mmol/L (98-107); Estimated Glomerular Filt Rate > 60.0 mL/min (>60); Glucose 176 mg/dL (80-110); HEMOLYSIS < 15 (0-50); Magnesium 1.8 mg/dL (1.6-2.3); Potassium 3.5 mmol/L (3.4-5.1); Sodium 137 mmol/L (137-145)
[2021-05-05] MEDS: ACETAMINOPHEN 325 MG TABLET 650 MG PO ×3 (05:00→17:14)
--- NOTE | 2021-05-05 06:24 | PC.NURSE ---
Shift report: Patient was alert and orientedx4, at room air, no signs of cardiorespiratory distress, afebrile and vital signs are stable. Patient has complained leg pain and lower back pain, due pain meds given. At some point, patient has experienced sudden leg pain and declined to take pain meds and appears anxious that the clot in her legs might be circulation and requested to be seen by provider, REGIS Crook notified and reassurance was provided, patient finally took ordered pain meds. Patient uses bedside commode with adequate urine output. Safety precautions maintained all the time.
[2021-05-05] MEDS: ASPIRIN EC 81 MG TABLET PO (08:41)
[2021-05-05] MEDS: APIXABAN 5 MG TABLET 10 MG PO ×2 (08:41→20:40)
[2021-05-05] MEDS: SODIUM CHLORIDE 0.9% FLUSH 10 ML IV ×2 (08:43→20:41)
--- NOTE | 2021-05-05 11:18 | CM.DANOTE ---
Addendum entered by Lynda Mane R.N. 05/05/21 15:25: Spoke to Kavita at [facility] about referral, she will review. Left messages with Quin at [facility] and Joy at [facility] as well. Addendum entered by Lynda Mane R.N. 05/05/21 14:51: Went back to meet with patient to discuss facilities. Let her know that [facility] can accept her. She stated, she would also like to talk it over with her son to look into these facilities. She stated to go ahead and send referral to [facility] in [place] as well. Provided her with Rocio's phone number at [facility] if she has questions, and Kavita at [facility]. Having Alejandra, assistant passenger locomotive engineer, go ahead and fax referral over to [facility] and [facility] as back up. Addendum entered by Lynda Mane R.N. 05/05/21 11:52: Patient has been getting [facility] services. Frannie from [facility], is aware that patient is here in the hospital. Original Note: DCP: Case received, EMR reviewed and met with patient. Introduced self and role. Was able to obtain information regarding patient's baseline activity level at home prior to her last surgery, and her current living situation. DCP assessment completed with information currently available. Patient is a 70 year old female who admitted yesterday afternoon to the care of the hospitalist team. PCP: Dr. Wick. Payer: confirmed: Medicare/[employer]. Patient came to the hospital via ambulance secondary to having increased weakness when attempting to get out of bed. Patient had undergone a T10/T11 back fusion a week ago, and went home. According to notes, she had been doing well. She just had her Baclofen increased by her provider, and developed this weakness. She did fall, slumped down in between her walker. ER deemed her unsafe to return home due to weakness, as patient resides alone. Patient was also noted to have distal fibular fracture, acute, and ultrasound just noted bilateral DVT. Met with patient in her room. 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 She had a friend staying with her after surgery, just left Monday, and she was ok on the weekend. She has a walker at home, and lives in [place] in a condo. She has a so, Mauro, who also lives in [place]. She is open to rehab. She wanted to know which ones are the best. Let her know that care management can't give recommendations, but did give her a Medicare Choice List. She is ok having referral sent. She could potentially use her inpatient status from her recent hospitalization. Sent referral to July at [facility]. She will review and look at her last hospitalization. Have her vaccine information. Patient is supposed to work with therapy today. She stated, they tried to get me up yesterday, and I wasn't ready, and told them to leave the room. 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 P: DCP to continue to follow, will complete PASSR. [facility] has referral, and are reviewing. Will attempt to follow up with patient. 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 No Advance Directives on File No History Provided By Patient,Medical Record Prior Living Arrangements Apartment/Condo Household Members none Type of transporation used prior to Relies on Others admit Comment She had recent back surgery Independent with ADL's Yes Is patient alert and oriented? Yes Needs Assistance With Home Chores / Shopping DME Already Rented / Owned FWW / Walker Patient/Family Preference Custodial Facility Discharge Plan Home Community Services Home Health Nurse Referrals Initiated Custodial Additional Comment Started with [employer] Whiteboard Updated in Patient Room with Yes name and ext. # of [employer]orter Review Status In Process Next Review Type Continued Stay Review
--- NOTE | 2021-05-05 11:45 | PT.IIE ---
Medical History (Last Reviewed 05/04/21 @ 17:32 by Marvin Bradshaw DO) HNP (herniated nucleus pulposus), thoracic T12 compression fracture Thoracic myelopathy UTI (urinary tract infection) Physical Therapy Inpatient Evaluation/Re-Eval M1 PT/OT-IP Prior Functional Status Start: 05/04/21 16:27 Freq: NEEDED Status: Active Protocol: Document 05/05/21 13:09 CGR (Rec: 05/05/21 13:28 CGR [id number]) Medical Review Prior Functional Status Medical History Reviewed Yes Communication able to make needs known Mobility and Gait pt stated that she is modified independent with all mobilities and ambulation using FWW Activities of Daily Living and IADL's Pt states she needed increased time for all ADLs needs. Prior Functional Level (Other details) pt with h/o recent back surgery 04/24/21 and went home . pt had a recent fall with L fibular fx. pt stated that she had a recent change in her baclofen to 20 instead of 10 and thinks that it is because of the baclofen that her legs gave out when she stood up. Social History Household Members none Living Arrangements Apartment/Condo Number of Floors (Floors) One Floor Number of Stairs To Enter/Railing? 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 Prior Functional Level (Other details) pt with h/o recent back surgery 04/24/21 and went home . pt had a recent fall with L fibular fx. pt stated that she had a recent change in her baclofen to 20 instead of 10 and thinks that it is because of the baclofen that her legs gave out when she stood up. Social History Household Members none Living Arrangements Apartment/Condo Number of Floors (Floors) One Floor Number of Stairs To Enter/Railing? 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 M2 PT-IP Current Condition Start: 05/04/21 16:27 Freq: NEEDED Status: Active Protocol: Document 05/05/21 11:45 AB (Rec: 05/05/21 13:39 AB [id number]) Physical Therapy Current Condition Current Condition Evaluation Date 05/05/21 Treatment Diagnosis s/p fall s/o L fibular fx; difficulty in walking Onset Date 05/04/21 M3 PT-IP Subjective Start: 05/04/21 16:27 Freq: NEEDED Status: Active Protocol: Document 05/05/21 11:45 AB (Rec: 05/05/21 13:39 AB [id number]) Subjective Physical Therapy Visit Type Type Initial Evaluation Visit Start Time 11:45 Visit Stop Time 12:11 Total Visit Minutes 26 Number of SEA SHELL GATHERER Visits 0 Physical Therapy Visit Comments Patient Comments hesitant with moviing and stated that it takes 2 person to assist her and that if she falls, she will karissa the facility; eventually agreed to mobilize with PT/OT Therapy Pain Assessment Pain When Pain Assessed At Rest Pain Present Pain Present Pain Reported Location Bilateral Hip Scale Used pain scale not stated Left Ankle Scale Used pain scale not stated Back Scale Used pain scale not stated; R>L spasm Description Spasm M4 PT-IP Mobility and Gait Start: 05/04/21 16:27 Freq: NEEDED Status: Active Protocol: Document 05/05/21 11:45 AB (Rec: 05/05/21 13:39 AB [id number]) PT-Bed Mobility Assessment Rolling Level of Assist Maximal Assistance,2 Person Assistance Supine to Sit Supine to Sit Maximum Assistance,2 Person Assistance,Head of Bed Elevated,Bedrails Scooting Scooting to Edge of Bed Maximum Assistance PT-Transfer Assessment Sit to and From Stand Sit to and from Stand Maximum Assistance,2 Person Assistance,Use of Upper Extremities Equipment Transfer Assistive Device Gait Belt,Front Wheeled Walker Orthotic/Prosthetic Devices or Brace: No Transfers Transfer Destination Chair Transfer Technique Stand Step Pivot Transfer Ability Level of Assist Maximum Assistance,2 Person Assistance,Use of Upper Extremities Comments Mobility Comments checked on pt and stated that there is no way that PT will get her up today and that she will need 2 person. also c/o pain on L ankle and stated that she is waiting for a boot and that she has not talked with the ortho MD yet. informed pt that OT will also come in to do her eval with pt . informed pt that the ortho doctor has talked to the hospitalist Dr. Balbuena and that pt is WBAT on LLE and there is not boot order for LLE. 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 PT and OT talked to pt regarding doctor's order and ER ortho doctor's recommendation per hospitalist and that that only thing we can try to do is move and if it too much or too painful then we can go back to bed. pt agreed to move but directs her own care. stated that she needs to have HOB up and will do the log roll but midway, she needs somebody to assist her. completed log roll supine to sit max A x 2 and max cues with HOB elevated and use of bed rail. pt able to sit on EOB CGA initially and then just SBA. max A x 2 for scooting to EOB. pt preferred pulling on PT and OT's hands to slide to EOB. completed sit to stand max A x 2 and completed step transfer to chair max A x 2 and max cues using FWW. stated that she feels her R knee is going to give out. agreed to attempt ambulation but with much encouargement needed. completed sit to stand max A x 2 and max cues. pt took 1 steps using FWW max A x 1-2 and max cues with chair follow and stated that she needs to sit down. assisted to sit. positioned on chair. Left pt with OT. Gait Assessment Gait Gait Assistance Required: Maximum Assistance,2 Person Assist Distance (Feet) 1 Able to Maintain Weight Bearing Status No During Gait Assistive Devices Assistive Device Gait Belt,Front Wheeled Walker Orthotic/Prosthetic Devices or Brace: No Gait Deviations General Gait Pattern Decreased Stride Length, Decreased Feet Clearance,Step- to Gait Factors Limiting Gait Function Factors Limiting Gait Function Decreased Activity Tolerance, Decreased Strength,Limited Range of Motion,Pain,Poor Balance,Poor Safety Awareness PT-Balance Assessment Sitting Balance and Reactions Static Sitting Balance Ability Good Dynamic Sitting Balance Ability Good Standing Balance and Reactions Static Standing Balance Ability Poor Dynamic Standing Balance Ability Poor Device Used FWW M5 PT-IP Objective Assessments Start: 05/04/21 16:27 Freq: NEEDED Status: Active Protocol: Document 05/05/21 11:45 AB (Rec: 05/05/21 13:39 AB [id number]) Orientation Orientation/Cognition Level of Alertness Alert Orientation Name,Place,Situation Language Function Ability No Deficits Noted Safety Awareness Decreased Safety Awareness Memory Description Short Term Impaired Gross Range of Motion Lower Extremity ROM Assessment Within Functional Limits Strength Lower Extremity Strength Assessment Bilaterally Impaired Hip 3+/5 Knee 3+/5 Ankle 3+/5 Coordination Assessment Gross Coordination Gross Coordination WNL Sensation Assessment Sensation Gross Sensation WNL Muscle Tone Muscle Tone WNL Yes M6 PT-IP Treatment Start: 05/04/21 16:27 Freq: NEEDED Status: Active Protocol: Document 05/05/21 11:45 AB (Rec: 05/05/21 13:39 AB [id number]) Physical Therapy Treatment Education Education Provided Weight Bearing Status,Safety M7 PT-IP Assessment and Plan Start: 05/04/21 16:27 Freq: NEEDED Status: Active Protocol: Document 05/05/21 11:45 AB (Rec: 05/05/21 13:39 AB [email or web address]) PT Summary Assessment and Plan Potential Rehabilitation Potential Fair Status of Condition at Evaluation Evolving Summary Impairments Pain,ROM,Strength,Balance, Coordination,Sensation,Tone, Cognition,Bed Mobility, Transfers,Gait,Activity Tolerance Assessment Summary pt requiring max A x 2 with mobility with c/o increase pain and unable to ambulate much. pt will require SNF rehab to improve strength and mobility independence. pt lives alone and will not have any assistance at home. will continue to assess progress. Goals Bed Mobility Goal Standby Assistance Transfer Goal Standby Assistance,Front Wheeled Walker Gait Goal Standby Assistance,Front Wheel Walker Gait Distance 100 Other Goals 2 steps R rail SBA Days to Meet Goals 10 Frequency of Treatment Frequency Of Treatment Once a Day Treatment Plan Physical Therapy Treatment Plan Bed Mobility Training,Transfer Training,Gait Training, Therapeutic Exercise,Balance Retraining,Discharge Planning, Hot or Cold Pack,Neuromuscular Re-ed,Coordination Retraining ,Manual Therapy Precautions Lumbar Precautions Log Roll,No Twisting,Limit Bending,Lifting Restriction of 10 lbs,Gait Belt above Incisional Area Weight Bearing Status Weight Bearing Status Weight Bear as Tolerated Allowed Weight Bearing Amount (enter % LLE WBAT or #) (%) Recommendations To Nursing Amount of Assist Needed 2 Person Assist Discharge Recommendations PT Discharge Recommendations SNF Rehab Transportation Needs at Discharge Wheelchair/Cabulance
--- NOTE | 2021-05-05 12:29 | OT.IP.EVAL ---
Past Medical History (Last Reviewed 05/04/21 @ 17:32 by Marvin Bradshaw DO) H/O eye surgery H/O shoulder surgery H/O thumb surgery H/O: knee surgery History of back surgery History of fusion of cervical spine History of lumbar fusion HNP (herniated nucleus pulposus), thoracic T12 compression fracture Thoracic myelopathy UTI (urinary tract infection) Surgical History (Last Reviewed 05/04/21 @ 17:28 by Daniel Balbuena DO) H/O eye surgery H/O shoulder surgery H/O thumb surgery H/O: knee surgery History of back surgery History of fusion of cervical spine History of lumbar fusion Occupational Therapy Inpatient Evaluation/Re-Eval M1 PT/OT-IP Prior Functional Status Start: 05/04/21 16:27 Freq: NEEDED Status: Active Protocol: Document 05/05/21 13:09 CGR (Rec: 05/05/21 13:28 CGR [id number]) Medical Review Prior Functional Status Medical History Reviewed Yes Communication able to make needs known Mobility and Gait pt stated that she is modified independent with all mobilities and ambulation using FWW Activities of Daily Living and IADL's Pt states she needed increased time for all ADLs needs. Prior Functional Level (Other details) pt with h/o recent back surgery 04/24/21 and went home . pt had a recent fall with L fibular fx. pt stated that she had a recent change in her baclofen to 20 instead of 10 and thinks that it is because of the baclofen that her legs gave out when she stood up. Social History Household Members none Living Arrangements Apartment/Condo Number of Floors (Floors) One Floor Number of Stairs To Enter/Railing? 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 Prior Functional Level (Other details) pt with h/o recent back surgery 04/24/21 and went home . pt had a recent fall with L fibular fx. pt stated that she had a recent change in her baclofen to 20 instead of 10 and thinks that it is because of the baclofen that her legs gave out when she stood up. Social History Household Members none Living Arrangements Apartment/Condo Number of Floors (Floors) One Floor Number of Stairs To Enter/Railing? 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 M2 OT-IP Current Condition Start: 05/05/21 13:09 Freq: Status: Active Protocol: Document 05/05/21 13:09 CGR (Rec: 05/05/21 13:28 CGR [id number]) Occupational Therapy Current Condition Current Condition Evaluation Date 05/05/21 Treatment Diagnosis Fall, medication toxicity, B DVT, Recent 04/20/21 T10-11 sx Diagnosis Onset Date 05/04/21 M3 OT- IP Subjective and Pain Start: 05/05/21 13:09 Freq: Status: Active Protocol: Document 05/05/21 13:09 CGR (Rec: 05/05/21 13:28 CGR [id number]) OT- Subjective Occupational Therapy Visit Type Type Initial Evaluation Visit Start Time 11:45 Visit Stop Time 12:29 Total Visit Minutes 44 Notes Partial co-treat with P.T. Occupational Therapy Visit Comments Patient Comments I can't walk but I will try whatever you want me to. OT Pain Assessment Pain When Pain Assessed During Mobility Pain Present Pain Present Pain Reported Location Back Intensity 10 Scale Used Numeric (0 - 10) Management Techniques Distraction,Modification of Treatment,Re-positioning, Timing of Activity with Medications M4 OT- IP ADL's Start: 05/05/21 13:09 Freq: Status: Active Protocol: Document 05/05/21 13:09 CGR (Rec: 05/05/21 13:28 CGR [id number]) OT [id number] Comments OT Self-Feeding Comments Not meal time OT ADL-Grooming General Evaluation Grooming Ability Standby Assistance Areas Needing Assistance Combing/Brushing Hair,Face Washing Comments OT Grooming Comments seated in chair at sink OT ADL-Oral Care General Eval Oral Care Ability Standby Assistance Areas of Assistance Brushing Teeth,Retrieving/Set- Up of Items Comments Oral Care Comments seated in chair at sink OT ADL-Dressing General Eval Lower Body Dressing Ability Total Assistance Areas Needing Assistance Socks OT ADL-Toileting Comments OT Toileting Comments pt declined need OT ADL-Bathing Comments OT Bathing Comments not performed M5 OT- IP IADL's Start: 05/05/21 13:09 Freq: Status: Active Protocol: Document 05/05/21 13:09 CGR (Rec: 05/05/21 13:28 CGR [id number]) OT-Instrumental Activities of Daily Living Deficits IADL Deficits Identified Deficits Home Safety Awareness Awareness of Need for Assistance at Home Decreased Awareness Ability to Problem Solve Emergency Unable to Problem Solve Situations Home Safety Comments Pt at this time appears to still be not at her baseline cognitively after possible over medication Medication Management Medication Management Comments Concerns regarding pts ability to perform Money Management Money Management Comments Concerns regarding pts ability to perform Meal Preparation Meal Preparation Comments Concerns regarding pts ability to perform Food Service Helper Food Service Helper Comments Concerns regarding pts ability to perform Driving Driving Comments Pt understands that she can not drive at this time. M6 OT- IP Functional Cognition Start: 05/05/21 13:09 Freq: Status: Active Protocol: Document 05/05/21 13:09 CGR (Rec: 05/05/21 13:28 CGR [id number]) Cognitive Factors Limiting Selfcare Function Cognitive Ability Level of Alertness Alert Patient Orientation Name,Age,Birthday,Month,Date, Year,Day of Week,Place, Situation Attention Span Ability Capable of Focused Attention, Capable of Sustained Attention Ability to Follow Commands Able to Follow One Step Commands with Increased Time, Able to Follow One Step Commands with Repetition Cognitive Comments Cognitive Assessment Comments PT's cognition at this time does not apear at her typical baseline. This pt is known to this journalists and other writers from her recent previous admit. OT- Vision and Hearing OT- Hearing Assessment OT- Hearing Assessment WFL OT- Vision Assessment Visual Acuity Glasses All The Time M7 OT- IP Mobility and Balance Start: 05/05/21 13:09 Freq: Status: Active Protocol: Document 05/05/21 13:09 CGR (Rec: 05/05/21 13:28 CGR [id number]) OT- Bed Mobility Assessment Rolling Type of Rolling Roll to Right Level of Assistance Maximum Assistance,2 Person Assistance,Head of Bed Elevated Supine to Sit Supine to Sit Assist Maximum Assistance,2 Person Assistance,Head of Bed Elevated Scooting Scooting to Edge of Bed Maximum Assistance,2 Person Assistance OT-Transfer Assessment Sit to and From Stand Sit to and from Stand Maximum Assistance,2 Person Assistance Transfers Transfer Ability Maximum Assistance,2 Person Assistance Technique Transfer Destination Bed,Chair Transfer Technique Stand Step Pivot Devices Transfer Assistive Devices Gait Belt,Front Wheeled Walker Comments Mobility Comments Pt was able to stand and take ~3 steps to chair. Pt was then able to stand from chair and take 2 steps all with max x 2. OT- Gait Assessment Comments Gait Ability Comments pt is unable to perform at this time OT- Balance Assessment Sitting Balance and Reactions Static Sitting Balance Ability Good M8 OT- IP Objective Assessments Start: 05/05/21 13:09 Freq: Status: Active Protocol: Document 05/05/21 13:09 CGR (Rec: 05/05/21 13:28 CGR [id number]) OT Gross Range of Motion Upper Extremity Range of Motion Assessment Within Functional Limits OT Strength Upper Extremity Strength Assessment Within Functional Limits Comments Strength Comments Pt unable to tolerate shld testing but arms and hands 4/5 OT- Coordination Assessment Upper Extremity Finger to Nose Test Within Functional Limits Finger Tapping Test Within Functional Limits OT-Muscle Tone Assessment Muscle Tone WNL Yes OT Sensation Assessment Edema Edema Absent M9 OT- IP Assessment and Plan Start: 05/05/21 13:09 Freq: Status: Active Protocol: Document 05/05/21 13:09 CGR (Rec: 05/05/21 13:28 CGR [id number]) OT Summary Assessment and Plan Potential Rehabilitation Potential Excellent Analytic Complexity at Evaluation Moderate Summary OT Impairments Pain,Strength,Balance, Functional Cognition, Functional Mobility,Grooming, Dressing,Toileting,Bathing, Toilet Transfers,Shower Transfers,Activity Tolerance Progress Towards Goals Slow Progress due to Pain,Slow Progress due to Medical Issues,Slow Progress due to Cognition Assessment Summary Pt presents as a moderate complexity evaluation s/p admit for fall after recent 04/20/21 T10-11 sx. Pt presents with a nondisplaced oblique fx of the distal fibular metaphysis. Pt is WBAT to the LLE. Pt needed extra time to be agreeable to activities today. Pt was able to stand and transfer to chair then to stand and take 2 steps. Pt performed ADLs seated in chair at sink and left sitting up in the chair at the end of session. Pt is known to this journalists and other writers from previous admit and pt appears to be impacted cognitively from possible over medicating at home. Pt will benefit from OT services and will likely be safest for discharge to SNF given failed discharge to home. Goals Grooming Goal Independent Dressing Goal Independent Toileting Goal Independent Bathing Goal Independent Toilet Transfer Goal Independent Shower Transfer Goal Independent Days to Meet Goals 25 Frequency of Treatment Frequency Of Treatment Once a Day Treatment Plan OT Treatment Plan ADL Training,Functional Cognition Training,Functional Mobility,Patient/Family Education,Discharge Planning Other Treatment Recommendations and Next cog assessment if pt hasn't Treatment Focus cleared, ADLs seated. Transfers. Discharge Recommendations OT Discharge Recommendations SNF Rehab Transportation Needs at Discharge Wheelchair/Cabulance
[2021-05-05] MEDS: INSULIN LISPRO 100 UNIT/ML 3ML VIAL SUBCUT ×3 (12:38→20:41)
--- NOTE | 2021-05-05 15:12 | CM.DPNOTE ---
Faxed referral packet per Elvira to [facility] and [facility]. Received fax conf. Alejandra Ragsdale CM Assist.
--- NOTE | 2021-05-05 15:44 | CM.DPC ---
DCP Cont: Joy at [facility] can accept tomorrow, if needed. She already has vaccination information. Rocio at [facility] can accept tomorrow, and Kavita at [facility] is reviewing. Have not yet heard back from Ani Beck. Patient will discuss with son this pm regarding facilities. Patient did not think that she would be medically ready tomorrow, but let her know that this is up to the hospitalist. P: DCP to continue to follow. Patient could possibly be medically ready for discharge tomorrow. Lynda Mane RN/Project Intern
--- NOTE | 2021-05-05 16:19 | P.PN_ITS ---
Subjective Subjective Date Patient Seen: 05/05/21 Time Patient Seen: 16:20 Interval history: Overnight she complained of a sharp pain in her left leg which is improved this morning. She continues to have right-sided back spasms but is hesitant to take any baclofen. She still complains of significant pain in her left ankle when any weight is put on it. She is requesting a boot to see if there may be some help. Exam Vital Signs (past 8 hours): - 05/05/21 11:58 05/05/21 12:00 05/05/21 12:28 Temperature 98.1 F 99.0 F 97.9 F Pulse Rate 57 L 90 100 H Respiratory Rate 18 19 17 Blood Pressure 122/68 104/60 142/62 H Pulse Oximetry 92 94 94 05/05/21 12:58 Temperature 97.7 F Pulse Rate 107 H Respiratory Rate 16 Blood Pressure 120/58 L Pulse Oximetry 92 Oxygen Delivery Method Room Air Oxygen Flow Rate 2 Narrative Exam Narrative: General:? Patient is well developed and well nourished, in no distress at this time. HEENT:? Normocephalic, atraumatic, extraocular muscles intact, oral pharynx is clear and mucous membranes are moist. Neck: supple and symmetric, trachea is midline, no cervical adenopathy. Chest:? Normal AP diameter and contour without kyphoscoliosis, no tachypnea, equal chest rise bilaterally. Lungs:? CTA b/l no wheezing rhonchi or rales. Cardio:?RRR no m/r/g. Abdomen: S NT ND. No CVA tenderness. Musculoskeletal:? Muscle strength and tone are equal within normal limits, no deformity. tenderness to R hip and left hip. L ankle tender posteriorly. Extremities:bilateral LE edema with R > L, 1+ pitting on the right. no joint effusions. Skin:? Pale,? Warm to touch,dry and intact without rashes, ulcerations or petechiae.? Neuro:? Alert and orientated x3,?but mild confusion. sensation to touch intact in all extremities, no gross deficits noted of cranial nerves. 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 Psych:? Patient has a well-kept appearance, appropriate affect, mental status attitude thought context and judgment are appropriate for age. Objective Labs Result Diagrams: 05/05/21 04:19 05/05/21 04:19 Labs: Laboratory Results - last 24 hr 05/04/21 05/05/21 05/05/21 17:40 04:19 04:19 WBC 11.7 H RBC 3.77 L Hgb 12.0 Hct 35.3 L MCV 93.6 MCH 31.7 MCHC 33.9 RDW 13.3 Plt Count 242 Neut % (Auto) 69.0 Lymph % (Auto) 23.7 L [place] % (Auto) 5.8 Eos % (Auto) 1.0 L Baso % (Auto) 0.5 Neut # (Auto) 8100 H Lymph # (Auto) 2800 [place] # (Auto) 700 Eos # (Auto) 100 Baso # (Auto) 100 Sodium 137 Potassium 3.5 Chloride 104 Carbon Dioxide 30 BUN 11 Creatinine 0.66 Estimated GFR > 60.0 BUN/Creatinine Ratio 16.7 Glucose 176 H Calcium 9.3 Magnesium 1.8 Urine Color Yellow Urine Appearance Clear Urine pH 7.0 Ur Specific [place] 1.010 Urine Protein Negative Urine Glucose (UA) 1+ H Urine Ketones Negative Urine Occult Blood Negative Urine Nitrate Negative Urine Bilirubin Negative Urine Urobilinogen 0.2 Ur Leukocyte Esterase Negative Urine RBC 0-1/hpf Urine WBC 0-1/hpf Ur Squamous Epith Cells 0-1 /hpf Urine Bacteria None seen Urine Yeast 10-30/hpf H Ur Culture Indicated? Specimen cultured [facility] Medical History HNP (herniated nucleus pulposus), thoracic T12 compression fracture Thoracic myelopathy UTI (urinary tract infection) Surgical History H/O eye surgery H/O shoulder surgery H/O thumb surgery H/O: knee surgery History of back surgery History of fusion of cervical spine History of lumbar fusion Family History Father Congestive heart failure Osteoarthritis Mother Osteoarthritis Pneumonia Sister Heart disease Grandmother Cancer Congestive heart failure Social History household members: none Smoking Status: Never smoker Assessment & Plan Assessment & Plan narrative: 1. Likely toxic encephalopathy, improving ?- suspect related to baclofen at home ?- for spasms can have 5 mg TID ?- see infectious workup noted below. 2. distal fibular fracture, left, acute ?- WBAT per orthopedic consultation in the ER. ?- non - operative management. ?- PT/OT consultations - can trail foot boot per patient request 3. Bilateral DVT - started on apixaban, 10 mg BID x 7 days, followed by 5 mg BID for 3-6 months in setting of provoked DVT. 3. type 2 diabetes ?- a1c 9% last admission ?- now off steroids so will monitor with sliding scale only. 4. ground level fall ?- likely in setting of baclofen. Checked UA and basic infectious workup given leukocytosis, but no current concern for infection - likely in setting of bilateral DVT and baclofen use. 5. HLD chronic ?- continue home medications ? 6. Obesity with BMI 31 ?- contributes to possible post operative infection, risk of complications after recent surgery, DVT risk. 7. Leukocytosis ?- likely related to steroids, check infectious workup as noted above. Improved today. 8.bilateral hip pain after ground level fall ?- hip XR unremarkable, suspect IT band pain. Trial diclofenac to area. ?Code status: Full Surrogate decision maker:? David Alvarez DVT/VTE prophylaxis:? Lovenox Disposition: admitted under observation status this admission, plan for probable SNF. I have utilized all available immediate resources to obtain, update, or review the patient's current medications. Time Spent With Patient Critical Care time: I spent a total of [] minutes of critical care time on this patient's care today; this time is exclusive of procedural time.
[2021-05-05] MEDS: GABAPENTIN 400 MG CAPSULE PO ×2 (17:13→21:13)
[2021-05-05] MEDS: DICLOFENAC 1% GEL 100 GM 1 APPLIC TOP (17:14)
[2021-05-05] MEDS: PRAVASTATIN 20 MG TABLET 80 MG PO (20:40)
[2021-05-06] VITALS (14 sets, daily range): BP systolic 123–136; BP diastolic 64–73; PULSE 77–87; RESP 16–18; TEMP 36.1–36.8; O2SAT 95–98
[2021-05-06] MEDS: ACETAMINOPHEN 325 MG TABLET 650 MG PO ×4 (00:11→17:30)
[2021-05-06 06:00] LABS: Add Manual Diff / Slide Review NO; Basophils Absolute Auto 100 /uL (0-100); Basophils Percent Auto 0.8 % (0-2); Eosinophils Absolute Auto 200 /uL (0-450); Eosinophils Percent Auto 1.9 % (2-4); Hematocrit 35.6 % (36-46); Hemoglobin 12.1 g/dL (12.0-16.0); Lymphocytes Absolute Auto 2900 /uL (1100-4500); Lymphocytes Percent Auto 34.9 % (25-40); Mean Corpuscular HGB Conc 33.9 % (30-36); Mean Corpuscular Hemoglobin 31.7 PG (26-34); Mean Corpuscular Volume 93.5 fL (80-100); Monocytes Absolute Auto 500 /uL (0-900); Monocytes Percent Auto 6.2 % (3-14); Neutrophils Absolute Auto 4700 /uL (1500-7000); Neutrophils Percent Auto 56.2 % (50-75); Platelet Count 237 X10^3/uL (150-400); Red Blood Cell Count 3.81 X10^6/uL (4.0-5.2); Red Cell Distribution Width 13.5 % (11.6-14.8); White Blood Cell Count 8.4 X10^3/uL (4.5-11.0)
[2021-05-06 06:09] LABS: BUN Creatinine Ratio 22.2 (6-22); Blood Urea Nitrogen 14 mg/dL (7-17); Calcium 9.1 mg/dL (8.4-10.2); Carbon Dioxide 30 mmol/L (22-32); Chloride 105 mmol/L (98-107); Estimated Glomerular Filt Rate > 60.0 mL/min (>60); Glucose 171 mg/dL (80-110); HEMOLYSIS < 15 (0-50); Magnesium 1.9 mg/dL (1.6-2.3); Potassium 3.6 mmol/L (3.4-5.1); Sodium 137 mmol/L (137-145)
[2021-05-06] MEDS: INSULIN LISPRO 100 UNIT/ML 3ML VIAL SUBCUT ×4 (08:32→20:49)
[2021-05-06] MEDS: TRAMADOL 50 MG TABLET PO ×3 (08:33→20:47)
[2021-05-06] MEDS: APIXABAN 5 MG TABLET 10 MG PO ×2 (08:33→20:48)
[2021-05-06] MEDS: GABAPENTIN 400 MG CAPSULE PO ×3 (08:34→20:48)
[2021-05-06] MEDS: ASPIRIN EC 81 MG TABLET PO (08:34)
[2021-05-06] MEDS: SODIUM CHLORIDE 0.9% FLUSH 10 ML IV ×2 (08:38→20:49)
[2021-05-06] MEDS: DOCUSATE 100 MG CAPSULE 200 MG PO ×2 (09:03→20:48)
[2021-05-06] MEDS: BACLOFEN 10 MG TABLET 5 MG PO (10:04)
--- NOTE | 2021-05-06 10:18 | P.PN_ITS ---
Subjective Subjective Date Patient Seen: 05/06/21 Time Patient Seen: 10:18 Interval history: I was stopped in the [place] by the patient's nurse this morning, alerting me of her admission and stating 'I was told ortho would take out her shabbir.' Annabella is a 70 year old female who underwent thoracic steroid injection earlier this month. In the days immediately following this, she began to have an increase in LE weakness and developed incontinence of bowel and bladder. She was admitted to the hospital and underwent T10-11 decompressive laminectomy and posterolateral fusion by Dr Man on 04/23/2021. Her hospital course following this was without incident and she was discharged on POD# 4. From review of notes of her current admission, she had an increase in her baclofen dose that may have contributed to a fall on 05/04/2021. Workup in the ED here demonstrated a possible distal fibula fracture. Orthopedic surgery was not consulted; per ED provider note, this is a nonoperative injury. Pt was admitted to the hospitalist service as it was felt she was unsafe to discharge to home alone. Dr Balbuena obtained an US due to LE edema and she was found to morrow ve BLE DVT and was started on apixaban. Exam Vital Signs (past 8 hours): - 05/06/21 06:00 05/06/21 07:45 05/06/21 09:54 Temperature 97.1 F L 98.0 F Pulse Rate 78 77 Respiratory Rate 16 16 Blood Pressure 123/69 128/64 Pulse Oximetry 96 97 97 05/06/21 10:00 Temperature Pulse Rate Respiratory Rate Blood Pressure Pulse Oximetry 97 Oxygen Delivery Method Room Air Oxygen Flow Rate 0 Narrative Exam Narrative: 5/5 strength in hip flexors, quadriceps, hamstrings, DF, PF, EHL. Sensation to light touch intact throughout BLE. BLE edema seems to have resolved, and calves are soft and compressible. Mid back dressing removed, shabbir removed from incisions. Incisions were cleaned with chlorhexadine and steri strips were p laced. Objective Labs Result Diagrams: 05/06/21 05:19 05/06/21 05:19 Labs: Laboratory Results - last 24 hr 05/06/21 05/06/21 05:19 05:19 WBC 8.4 RBC 3.81 L Hgb 12.1 Hct 35.6 L MCV 93.5 MCH 31.7 MCHC 33.9 RDW 13.5 Plt Count 237 Neut % (Auto) 56.2 Lymph % (Auto) 34.9 [place] % (Auto) 6.2 Eos % (Auto) 1.9 L Baso % (Auto) 0.8 Neut # (Auto) 4700 Lymph # (Auto) 2900 [place] # (Auto) 500 Eos # (Auto) 200 Baso # (Auto) 100 Sodium 137 Potassium 3.6 Chloride 105 Carbon Dioxide 30 BUN 14 Creatinine 0.63 Estimated GFR > 60.0 BUN/Creatinine Ratio 22.2 H Glucose 171 H Calcium 9.1 Magnesium 1.9 PFSH Medical History HNP (herniated nucleus pulposus), thoracic T12 compression fracture Thoracic myelopathy UTI (urinary tract infection) Surgical History H/O eye surgery H/O shoulder surgery H/O thumb surgery H/O: knee surgery History of back surgery History of fusion of cervical spine History of lumbar fusion Family History Father Congestive heart failure Osteoarthritis Mother Osteoarthritis Pneumonia Sister Heart disease Grandmother Cancer Congestive heart failure Social History household members: none Smoking Status: Never smoker Assessment & Plan Assessment and plan (1) S/P fusion of thoracic spine: Status: Acute Plan: I will alert Dr Man of patient's admission; she was supposed to have a routine follow up appointment with him today. Her next appointment with him should be in 4 weeks with xrays. (2) Fracture, fibula: Status: Acute Plan: Orthopedic surgery was not consulted by ED. We would be happy to evaluate and follow this patient with you; please consult if desired. Time Spent With Patient Critical Care time: I spent a total of [] minutes of critical care time on this patient's care today; this time is exclusive of procedural time.
--- NOTE | 2021-05-06 11:10 | CM.DPNOTE ---
Addendum entered by Alejandra Ragsdale 05/06/21 13:43: Called Joy at [facility] to disregard the referral. It needed to be sent to [facility]. I faxed this and received fax conf. Alejandra Ragsdale CM Assist. Addendum entered by Alejandra Ragsdale 05/06/21 13:39: Also emailed to Joy at [facility]. Alejandra Ragsdale CM Assist. Original Note: Faxed referral packet to [facility], per [place], and received fax conf. Alejandra Ragsdale CM Assist.
--- NOTE | 2021-05-06 11:50 | PT.IPTN ---
Current Diagnoses Unspecified fracture of shaft of unspecified fibula, initial encounter for closed fracture (05/04/21) Arthrodesis status (05/04/21) Physical Therapy Treatment Note M2 PT-IP Current Condition Start: 05/04/21 16:27 Freq: NEEDED Status: Active Protocol: Document 05/05/21 11:45 AB (Rec: 05/05/21 13:39 AB [id number]) Physical Therapy Current Condition Current Condition Evaluation Date 05/05/21 Treatment Diagnosis s/p fall s/o L fibular fx; difficulty in walking Onset Date 05/04/21 M3 PT-IP Subjective Start: 05/04/21 16:27 Freq: NEEDED Status: Active Protocol: Document 05/06/21 11:50 AB (Rec: 05/06/21 13:19 AB [email or web address]) Subjective Physical Therapy Visit Type Type Treatment Note Visit Start Time 11:50 Visit Stop Time 12:15 Total Visit Minutes 25 Number of TRAIN ENGINEER Visits 0 Physical Therapy Visit Comments Patient Comments agreeable to do PT Therapy Pain Assessment Pain When Pain Assessed At Rest Pain Present Pain Present Pain Reported Location Left Ankle Intensity 8 Pain Management Techniques Distraction,Modification of Treatment,Re-positioning, Timing of Activity with Medications Back Intensity 7 Scale Used Numeric (0 - 10) Pain Management Techniques Distraction,Modification of Treatment,Re-positioning, Timing of Activity with Medications M4 PT-IP Mobility and Gait Start: 05/04/21 16:27 Freq: NEEDED Status: Active Protocol: Document 05/06/21 11:50 AB (Rec: 05/06/21 13:19 AB [id number]) PT-Bed Mobility Assessment Rolling Type of Rolling Log Rolling Level of Assist Standby Assistance Supine to Sit Supine to Sit Standby Assistance,Head of Bed Elevated,Bedrails Scooting Scooting to Edge of Bed Standby Assistance PT-Transfer Assessment Sit to and From Stand Sit to and from Stand Minimal Assistance,1 Person Assistance,Use of Upper Extremities Equipment Transfer Assistive Device Gait Belt,Front Wheeled Walker Orthotic/Prosthetic Devices or Brace: No Transfers Transfer Destination Chair Transfer Technique ambulated Transfer Ability Level of Assist Minimal Assistance,1 Person Assistance,Use of Upper Extremities Comments Mobility Comments reviewed EMR and per doctor's note: trial for L ankle boot. talked to pt regarding boot for L ankle and informed regarding pros and cons. pt stated that she will try her house slippers to see if that will work for her. At the ends of the session, pt decided to hold off on the boot as slipper and helping at this time. pt completed bed mobility supine to sit HOB elevated and pt used bed rail SBA. completed sit to stand min A and cues and ambulated in room ~ 15 ft using FWW min A. decrease step length and with antalgic gait. pt sat back on chair and rested. completed sit to stand min A and ambulated towards the sink using FWW min A and was able to maintain standing balance CGA while completing grooming. pt ambulated back to the chair using FWW min A. positioned on chair. call light and table placed within reach. Gait Assessment Gait Gait Assistance Required: Minimum Assistance,1 Person Assist Distance (Feet) 15 Able to Maintain Weight Bearing Status Yes During Gait Assistive Devices Assistive Device Gait Belt,Front Wheeled Walker Orthotic/Prosthetic Devices or Brace: No Gait Deviations General Gait Pattern Antalgic,Decreased Stride Length,Decreased Feet Clearance,Step-to Gait Factors Limiting Gait Function Factors Limiting Gait Function Decreased Activity Tolerance, Decreased Strength,Limited Range of Motion,Pain,Poor Balance,Poor Safety Awareness M5 PT-IP Objective Assessments Start: 05/04/21 16:27 Freq: NEEDED Status: Active Protocol: Document 05/05/21 11:45 AB (Rec: 05/05/21 13:39 AB [id number]) Orientation Orientation/Cognition Level of Alertness Alert Orientation Name,Place,Situation Language Function Ability No Deficits Noted Safety Awareness Decreased Safety Awareness Memory Description Short Term Impaired Gross Range of Motion Lower Extremity ROM Assessment Within Functional Limits Strength Lower Extremity Strength Assessment Bilaterally Impaired Hip 3+/5 Knee 3+/5 Ankle 3+/5 Coordination Assessment Gross Coordination Gross Coordination WNL Sensation Assessment Sensation Gross Sensation WNL Muscle Tone Muscle Tone WNL Yes M6 PT-IP Treatment Start: 05/04/21 16:27 Freq: NEEDED Status: Active Protocol: Document 05/06/21 11:50 AB (Rec: 05/06/21 13:19 AB [email or web address]) Physical Therapy Treatment Education Education Provided Safety M7 PT-IP Assessment and Plan Start: 05/04/21 16:27 Freq: NEEDED Status: Active Protocol: Document 05/06/21 11:50 AB (Rec: 05/06/21 13:19 AB [email or web address]) PT Summary Assessment and Plan Potential Rehabilitation Potential Good Summary Impairments Pain,ROM,Strength,Balance, Coordination,Sensation,Tone, Cognition,Bed Mobility, Transfers,Gait,Activity Tolerance Progress Towards Goals Slow Progress due to Pain Assessment Summary pt slowly progressing with mobility. requires min A using FWW but continues to not tolerate much activity with c/o pain and LE weakness. pt will require SNF rehab to improve strength and mobility . Goals Bed Mobility Goal Standby Assistance Transfer Goal Standby Assistance,Front Wheeled Walker Gait Goal Standby Assistance,Front Wheel Walker Gait Distance 100 Other Goals 2 steps R rail SBA Days to Meet Goals 10 Frequency of Treatment Frequency Of Treatment Once a Day Treatment Plan Physical Therapy Treatment Plan Bed Mobility Training,Transfer Training,Gait Training, Therapeutic Exercise,Balance Retraining,Discharge Planning, Hot or Cold Pack,Neuromuscular Re-ed,Coordination Retraining ,Manual Therapy Precautions Lumbar Precautions Log Roll,No Twisting,Limit Bending,Lifting Restriction of 10 lbs,Gait Belt above Incisional Area Weight Bearing Status Weight Bearing Status Weight Bear as Tolerated Allowed Weight Bearing Amount (enter % LLE WBAT or #) (%) Recommendations To Nursing Amount of Assist Needed 1 Person Assist Discharge Recommendations PT Discharge Recommendations SNF Rehab Transportation Needs at Discharge Wheelchair/Cabulance
--- NOTE | 2021-05-06 12:14 | OT.IP.TRT ---
Current Diagnoses Unspecified fracture of shaft of unspecified fibula, initial encounter for closed fracture (05/04/21) Arthrodesis status (05/04/21) Occupational Therapy Treatment Note M2 OT-IP Current Condition Start: 05/05/21 13:09 Freq: Status: Active Protocol: Document 05/05/21 13:09 CGR (Rec: 05/05/21 13:28 CGR [id number]) Occupational Therapy Current Condition Current Condition Evaluation Date 05/05/21 Treatment Diagnosis Fall, medication toxicity, B DVT, Recent 04/20/21 T10-11 sx Diagnosis Onset Date 05/04/21 M3 OT- IP Subjective and Pain Start: 05/05/21 13:09 Freq: Status: Active Protocol: Document 05/06/21 15:33 CGR (Rec: 05/06/21 15:40 CGR [id number]) OT- Subjective Occupational Therapy Visit Type Type Progress Note Visit Start Time 11:51 Visit Stop Time 12:14 Total Visit Minutes 23 Notes Partial co-treat with P.T. OT Pain Assessment Pain When Pain Assessed At Rest Pain Present Pain Present Pain Reported Location Back Intensity 7 Scale Used Numeric (0 - 10) Management Techniques Distraction,Modification of Treatment,Re-positioning, Timing of Activity with Medications M4 OT- IP ADL's Start: 05/05/21 13:09 Freq: Status: Active Protocol: Document 05/06/21 15:33 CGR (Rec: 05/06/21 15:40 CGR [id number]) OT [id number] Comments OT Self-Feeding Comments not meal time OT ADL-Grooming General Evaluation Grooming Ability Standby Assistance Areas Needing Assistance Combing/Brushing Hair,Face Washing Comments OT Grooming Comments standing at sink OT ADL-Oral Care General Eval Oral Care Ability Standby Assistance Comments Oral Care Comments standing at sink OT ADL-Dressing General Eval Lower Body Dressing Ability Total Assistance Areas Needing Assistance Shoes OT ADL-Toileting Comments OT Toileting Comments not performed, pt declined need OT ADL-Bathing Comments OT Bathing Comments not performed M5 OT- IP IADL's Start: 05/05/21 13:09 Freq: Status: Active Protocol: Document 05/05/21 13:09 CGR (Rec: 05/05/21 13:28 CGR [id number]) OT-Instrumental Activities of Daily Living Deficits IADL Deficits Identified Deficits Home Safety Awareness Awareness of Need for Assistance at Home Decreased Awareness Ability to Problem Solve Emergency Unable to Problem Solve Situations Home Safety Comments Pt at this time appears to still be not at her baseline cognitively after possible over medication Medication Management Medication Management Comments Concerns regarding pts ability to perform Money Management Money Management Comments Concerns regarding pts ability to perform Meal Preparation Meal Preparation Comments Concerns regarding pts ability to perform Pillar Worker Pillar Worker Comments Concerns regarding pts ability to perform Driving Driving Comments Pt understands that she can not drive at this time. M6 OT- IP Functional Cognition Start: 05/05/21 13:09 Freq: Status: Active Protocol: Document 05/05/21 13:09 CGR (Rec: 05/05/21 13:28 CGR [id number]) Cognitive Factors Limiting Selfcare Function Cognitive Ability Level of Alertness Alert Patient Orientation Name,Age,Birthday,Month,Date, Year,Day of Week,Place, Situation Attention Span Ability Capable of Focused Attention, Capable of Sustained Attention Ability to Follow Commands Able to Follow One Step Commands with Increased Time, Able to Follow One Step Commands with Repetition Cognitive Comments Cognitive Assessment Comments PT's cognition at this time does not apear at her typical baseline. This pt is known to this group underwriter from her recent previous admit. OT- Vision and Hearing OT- Hearing Assessment OT- Hearing Assessment WFL OT- Vision Assessment Visual Acuity Glasses All The Time M7 OT- IP Mobility and Balance Start: 05/05/21 13:09 Freq: Status: Active Protocol: Document 05/06/21 15:33 CGR (Rec: 05/06/21 15:40 CGR [id number]) OT- Bed Mobility Assessment Supine to Sit Supine to Sit Assist Standby Assistance,Head of Bed Elevated,Bedrails Scooting Scooting to Edge of Bed Standby Assistance,Head of Bed Elevated,Bedrails OT-Transfer Assessment Sit to and From Stand Sit to and from Stand Minimal Assistance,1 Person Assistance Transfers Transfer Ability Minimal Assistance,1 Person Assistance Technique Transfer Destination Bed,Chair Transfer Technique Stand Step Pivot Devices Transfer Assistive Devices Gait Belt,Front Wheeled Walker Comments Mobility Comments Pt stood and ambulated a few feet forward and turned around to head to the chair. Upon sitting pt agreeable to ambulating to the sink. Chair set up behind pt at sink incase she needed to sit but pt was able to stand at sink for simple ADLs. OT- Balance Assessment Sitting Balance and Reactions Static Sitting Balance Ability Normal Dynamic Sitting Balance Ability Good M8 OT- IP Objective Assessments Start: 05/05/21 13:09 Freq: Status: Active Protocol: Document 05/05/21 13:09 CGR (Rec: 05/05/21 13:28 CGR [id number]) OT Gross Range of Motion Upper Extremity Range of Motion Assessment Within Functional Limits OT Strength Upper Extremity Strength Assessment Within Functional Limits Comments Strength Comments Pt unable to tolerate shld testing but arms and hands 4/5 OT- Coordination Assessment Upper Extremity Finger to Nose Test Within Functional Limits Finger Tapping Test Within Functional Limits OT-Muscle Tone Assessment Muscle Tone WNL Yes OT Sensation Assessment Edema Edema Absent M9 OT- IP Assessment and Plan Start: 05/05/21 13:09 Freq: Status: Active Protocol: Document 05/06/21 15:33 CGR (Rec: 05/06/21 15:40 CGR [id number]) OT Summary Assessment and Plan Potential Rehabilitation Potential Excellent Analytic Complexity at Evaluation Moderate Summary OT Impairments Pain,Strength,Balance, Functional Cognition, Functional Mobility,Grooming, Dressing,Toileting,Bathing, Toilet Transfers,Shower Transfers,Activity Tolerance Progress Towards Goals Slow Progress due to Pain,Slow Progress due to Medical Issues,Slow Progress due to Cognition Assessment Summary Pt presents as a moderate complexity evaluation s/p admit for fall after recent 04/20/21 T10-11 sx. Pt presents with a nondisplaced oblique fx of the distal fibular metaphysis. Pt is WBAT to the LLE. Pt agreeable to out of bed activities and discussed use of a boot vs her own shoes . Pt states that she wants to try her own shoes first. Pt then ambulated around the room with min a but limited endurance and distance. Pt returned to chair at end of session, call button within reach and all needs at time met. Goals Grooming Goal Independent Dressing Goal Independent Toileting Goal Independent Bathing Goal Independent Toilet Transfer Goal Independent Shower Transfer Goal Independent Days to Meet Goals 25 Frequency of Treatment Frequency Of Treatment Once a Day Treatment Plan OT Treatment Plan ADL Training,Functional Cognition Training,Functional Mobility,Patient/Family Education,Discharge Planning Other Treatment Recommendations and Next shower Treatment Focus Discharge Recommendations OT Discharge Recommendations SNF Rehab Transportation Needs at Discharge Private Vehicle,Wheelchair/ Cabulance
--- NOTE | 2021-05-06 13:26 | CM.DPC ---
Discharge Plan Cont: CHIEF PROCUREMENT OFFICER spoke with patient today who reported she is not interested in [facility], she prefers [facility] based on online reviews. Patient agreeable to [facility] if accepted there. Patient is agreeable to meeting with Quin Beck who will be coming to eval pt at 1500. Patient also requesting plcmt at [facility]. CHIEF PROCUREMENT OFFICER spoke to [facility] who will review clinicals. CHIEF PROCUREMENT OFFICER spoke to [facility] who will review clinicals. CHIEF PROCUREMENT OFFICER informed [facility] that patient is declining admission to facility, please remove from list. Patient is ready for discharge and is pending admission acceptance by SNF. Terry FAN
--- NOTE | 2021-05-06 15:13 | PM.PN.1 ---
Subjective Subjective Date Patient Seen: 05/06/21 Time Patient Seen: 15:13 Interval history: She continues to have right-sided back spasms but is hesitant to take any baclofen.? She still complains of significant pain in her left ankle when any weight is put on it.?She reported improvement in left leg when ambulating with a slipper today, boot not needed. Exam Vital Signs (past 8 hours): - 05/06/21 07:45 05/06/21 09:54 05/06/21 10:00 Temperature 98.0 F Pulse Rate 77 Respiratory Rate 16 Blood Pressure 128/64 Pulse Oximetry 97 97 97 05/06/21 12:00 05/06/21 14:49 Temperature 98.3 F Pulse Rate 81 Respiratory Rate 16 Blood Pressure 124/73 Pulse Oximetry 95 96 Oxygen Delivery Method Room Air Oxygen Flow Rate 0 Narrative Exam Narrative: General:? Patient is well developed and well nourished, in no distress at this time. HEENT:? Normocephalic, atraumatic, extraocular muscles intact, oral pharynx is clear and mucous membranes are moist. Neck: supple and symmetric, trachea is midline, no cervical adenopathy. Chest:? Normal AP diameter and contour without kyphoscoliosis, no tachypnea, equal chest rise bilaterally. Lungs:? CTA b/l no wheezing rhonchi or rales. Cardio:?RRR no m/r/g. Abdomen: S NT ND. No CVA tenderness. Musculoskeletal:? Muscle strength and tone are equal within normal limits, no deformity. tenderness to R hip and left hip. L ankle tender posteriorly. Extremities:bilateral LE edema with R > L, 1+ pitting on the right. no joint effusions. Skin:? Pale,? Warm to touch,dry and intact without rashes, ulcerations or petechiae.? Neuro:? Alert and orientated x3,?but mild confusion. sensation to touch intact in all extremities, no gross deficits noted of cranial nerves. 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 Psych:? Patient has a well-kept appearance, appropriate affect, mental status attitude thought context and judgment are appropriate for age. Objective Labs Result Diagrams: 05/06/21 05:19 05/06/21 05:19 Labs: Laboratory Results - last 24 hr 05/06/21 05/06/21 05:19 05:19 WBC 8.4 RBC 3.81 L Hgb 12.1 Hct 35.6 L MCV 93.5 MCH 31.7 MCHC 33.9 RDW 13.5 Plt Count 237 Neut % (Auto) 56.2 Lymph % (Auto) 34.9 [place] % (Auto) 6.2 Eos % (Auto) 1.9 L Baso % (Auto) 0.8 Neut # (Auto) 4700 Lymph # (Auto) 2900 [place] # (Auto) 500 Eos # (Auto) 200 Baso # (Auto) 100 Sodium 137 Potassium 3.6 Chloride 105 Carbon Dioxide 30 BUN 14 Creatinine 0.63 Estimated GFR > 60.0 BUN/Creatinine Ratio 22.2 H Glucose 171 H Calcium 9.1 Magnesium 1.9 PFSH Medical History HNP (herniated nucleus pulposus), thoracic T12 compression fracture Thoracic myelopathy UTI (urinary tract infection) Surgical History H/O eye surgery H/O shoulder surgery H/O thumb surgery H/O: knee surgery History of back surgery History of fusion of cervical spine History of lumbar fusion Family History Father Congestive heart failure Osteoarthritis Mother Osteoarthritis Pneumonia Sister Heart disease Grandmother Cancer Congestive heart failure Social History household members: none Smoking Status: Never smoker Assessment & Plan Assessment & Plan narrative: 1. Likely toxic encephalopathy, improving ?- suspect related to baclofen at home ?- for spasms can have 5 mg TID ?- see infectious workup noted below. 2. distal fibular fracture, left, acute ?- WBAT per orthopedic consultation in the ER. ?- non - operative management. ?- PT/OT consultations 3. Bilateral DVT ?- started on apixaban, 10 mg BID x 7 days, followed by 5 mg BID for 3-6 months in setting of provoked DVT. 3. type 2 diabetes ?- a1c 9% last admission ?- now off steroids so will monitor with sliding scale only. Sugar appears to be highly variable with diet, varies from 70 to >200. Avoid lantus given high probability of hypoglycemia. 4. ground level fall ?- likely in setting of baclofen. Checked UA and basic infectious workup given leukocytosis, but no current concern for infection ?- likely in setting of bilateral DVT and baclofen use. 5. HLD chronic ?- continue home medications ? 6. Obesity with BMI 31 ?- contributes to possible post operative infection, risk of complications after recent surgery, DVT risk. 7. Leukocytosis, resolved ?- likely related to steroids, check infectious workup as noted above. Now resolved. 8.bilateral hip pain after ground level fall ?- hip XR unremarkable, suspect IT band pain. Trial diclofenac to area. ?Code status: Full Surrogate decision maker:? Son Oneil Alvarez DVT/VTE prophylaxis:? Lovenox Disposition: pending SNF at this time, hopefully tomorrow. I have utilized all available immediate resources to obtain, update, or review the patient's current medications. Time Spent With Patient Critical Care time: I spent a total of [] minutes of critical care time on this patient's care today; this time is exclusive of procedural time.
[2021-05-06] MEDS: DICLOFENAC 1% GEL 100 GM 1 APPLIC TOP (15:14)
[2021-05-06] MEDS: PRAVASTATIN 20 MG TABLET 80 MG PO (20:47)
[2021-05-07] MEDS: ACETAMINOPHEN 325 MG TABLET 650 MG PO ×2 (03:50→12:18)
[2021-05-07 03:51] VITALS: BP 134/66; PULSE 62; RESP 16; TEMP 36; O2SAT 97
[2021-05-07 03:54] VITALS: O2SAT 97
[2021-05-07 08:00] VITALS: BP 128/78; PULSE 92; RESP 17; TEMP 36.2; O2SAT 99
[2021-05-07] MEDS: INSULIN LISPRO 100 UNIT/ML 3ML VIAL SUBCUT ×2 (08:55→12:19)
[2021-05-07] MEDS: DICLOFENAC 1% GEL 100 GM 1 APPLIC TOP (08:55)
[2021-05-07] MEDS: APIXABAN 5 MG TABLET 10 MG PO (08:55)
[2021-05-07] MEDS: GABAPENTIN 400 MG CAPSULE PO (08:56)
[2021-05-07] MEDS: DOCUSATE 100 MG CAPSULE 200 MG PO (08:56)
[2021-05-07] MEDS: ASPIRIN EC 81 MG TABLET PO (08:56)
[2021-05-07] MEDS: TRAMADOL 50 MG TABLET PO ×2 (08:56→12:51)
[2021-05-07] MEDS: BACLOFEN 10 MG TABLET 5 MG PO ×2 (08:57→12:52)
--- NOTE | 2021-05-07 10:27 | CM.DPC ---
Addendum entered by BERNICE Funes 05/07/21 12:55: ADD: BARTOLO and CC Alejandra faxed d/c summ, PASRR, signed med rec, scripts, COVID vax, COVID neg swab, d/c note from last recent admit to [facility] for review. BF Original Note: DCP Discharge SNF Per MD, pt remains medically stable to d/c to SNF today and no identified barriers to discharge. SW called [facility] and confirmed they can accept pt and will have their admission RN arriving around 1300 so they will work to set up cabulance for around that time and will call back with confirmation. BARTOLO confirmed updated COVID swab needed and SW placed order and left msg requesting RN get soon. BARTOLO updated METAL ENGRAVER and product picker and will begin faxing d/c packet to [facility] to review once available. BARTOLO met bedside with pt and explained role and updated on above and she remains agreeable with d/c to [facility] today. Plan: Patient to [facility] today likely around 1300 (awaiting confirmation of transport time) prior to safe return home. BERNICE Funes
--- NOTE | 2021-05-07 11:03 | P.DS_ITS ---
History of Present Illness History of Present Illness Date Patient Seen: 05/07/21 Time Patient Seen: 11:03 Chief complaint: Fall-Recent back surgery Narrative: Annabella Alvarez is a 68-year-old female with a medical history of severe spinal canal stenosis L4 -S1 and thoracic stenosis, history of lumbar fusion, thoracic myelopathy, T12 compression fracture, recent T10-11 decompressive laminectomy with total facetecomy and posterolateral fusion (with admission for steroids prior to surgery) thrombocytopenia, hyperlipidemia, chronic hyponatremia, diabetes, and obesity who presented to the emergency room today after a fall at home. She was unable to get up from her fall and decided to call EMS. She saw her PCP yesterday for follow-up after her recent hospitalization and complained of back spasms. She received a prescription for baclofen, at 20 mg 3 times a day. She took 3 doses of 20 mg yesterday, most recently around midnight, and woke up this morning and her left leg gave out when trying to get up. She got stuck in between her walker and the floor, she may have hit her right hip on the bedside stand but she is not sure. She did not hit her head. She tried to get up but could not due to pain in her left ankle and this is when she called EMS. In the emergency room, the patient was mildly hypertensive, mildly tachycardic. The remainder of her vital signs are unremarkable. Initial laboratory evaluation showed a mild leukocytosis with WBC of 15.8, the remainder of his CBC was unremarkable. Chemistries revealed a mildly elevated glucose at 185 but no significant abnormalities. COVID-19 testing was negative. Discharge Providers Provider Date of admission: 05/04/21 13:48 Discharge Date: 05/07/21 Primary care physician: Marianna Wick MD Consults: 05/04/21 13:58 Consult to Occupational Therapy Evaluate & Treat Comment: Physician Instructions: Evaluate and treat Consult to Physical Therapy Evaluate & Treat Comment: Physician Instructions: Evaluate and Treat Discharge provider: Daniel Balbuena DO Summary Hospital Course Discharge Diagnosis: Please see hospital course by problem list noted below Hospital Course: This is a 70-year-old female who was recently discharged home after a prolonged stay for spinal surgery due to neurological impingement. While at home, the patient had a fall resulting in a distal fibular fracture on the left. She was slightly confused due to an increased dose of baclofen at home for back spasms. She had also complained of bilateral lower extremity swelling, ultrasound was performed and she had bilateral DVTs and was started on apixaban. After physical and occupational therapies, the patient decided against returning home and [facility] prior to eventual return home. 1. Likely toxic encephalopathy, improving ?- suspect initial encephalopathy was related to baclofen at home, reportedly taking 20 mg TID. ?- for spasms can have 5 mg TID, can increase to 10 mg TID if needed as outpatient. ?- see infectious workup noted below. 2. distal fibular fracture, left, acute ?- WBAT per ER provider whom discussed with orthopedics on the phone and also stated Non-operative management. ?- PT/OT consultations were performed and patient to discharge to SNF. - pain control adequate with current medications - Patient has planned follow up with Dr. Man. 3. Bilateral DVT ?- started on apixaban, 10 mg BID x 7 days, followed by 5 mg BID for 3-6 months in setting of provoked DVT. 3. type 2 diabetes ?- a1c 9% last admission ?- now off steroids so will monitor with sliding scale only. Sugar appears to be highly variable with diet, varies from 70 to >200. Avoid lantus given high probability of hypoglycemia. 4. ground level fall ?- likely in setting of baclofen. Checked UA and basic infectious workup given leukocytosis, but no current concern for infection ?- likely in setting of bilateral DVT and baclofen use. 5. HLD chronic ?- continue home medications ? 6. Obesity with BMI 31 ?- contributes to possible post operative infection, risk of complications after recent surgery, DVT risk. 7. Leukocytosis, resolved ?- likely related to steroids, check infectious workup as noted above. Now resolved. 8.bilateral hip pain after ground level fall ?- hip XR unremarkable, suspect IT band pain. Trial diclofenac to area. Time Spent with Patient Time spent: Greater than 30 minutes Exam Vital Signs (past 8 hours): - 05/07/21 03:51 05/07/21 03:54 05/07/21 08:00 Temperature 96.8 F L 97.2 F L Pulse Rate 62 92 H Respiratory Rate 16 17 Blood Pressure 134/66 128/78 Pulse Oximetry 97 97 99 Oxygen Delivery Method Room Air Oxygen Flow Rate 0 Narrative Exam Narrative: General:? Patient is well developed and well nourished, in no distress at this time. HEENT:? Normocephalic, atraumatic, extraocular muscles intact, oral pharynx is clear and mucous membranes are moist. Neck: supple and symmetric, trachea is midline, no cervical adenopathy. Chest:? Normal AP diameter and contour without kyphoscoliosis, no tachypnea, equal chest rise bilaterally. Lungs:? CTA b/l no wheezing rhonchi or rales. Cardio:?RRR no m/r/g. Abdomen: S NT ND. No CVA tenderness. Musculoskeletal:? Muscle strength and tone are equal within normal limits, no deformity. tenderness to R hip and left hip. L ankle tender posteriorly. Extremities:bilateral LE edema with R > L, 1+ pitting on the right. no joint effusions. Skin:? Pale,? Warm to touch,dry and intact without rashes, ulcerations or petechiae.? Neuro:? Alert and orientated x3,?but mild confusion. sensation to touch intact in all extremities, no gross deficits noted of cranial nerves. 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 Psych:? Patient has a well-kept appearance, appropriate affect, mental status attitude thought context and judgment are appropriate for age. Objective Labs Result Diagrams: 05/06/21 05:19 05/06/21 05:19 [facility] Medical History HNP (herniated nucleus pulposus), thoracic T12 compression fracture Thoracic myelopathy UTI (urinary tract infection) Surgical History H/O eye surgery H/O shoulder surgery H/O thumb surgery H/O: knee surgery History of back surgery History of fusion of cervical spine History of lumbar fusion Family History Father Congestive heart failure Osteoarthritis Mother Osteoarthritis Pneumonia Sister Heart disease Grandmother Cancer Congestive heart failure Social History household members: none Smoking Status: Never smoker Discharge Plan Discharge Plan Patient Disposition: SNF Transfer to: [facility] Transportation: Cabulance Provider Discharge Comment: 70 F with recent spinal surgery admitted with weakness and leg swelling after a fall. Found to have a bilateral DVT and left distal tibia fracture. Follow up scheduled with Dr. Man (orthopedics) in 4 weeks. recommendation was for WBAT for the LLE. I certify the postop hospital [facility] care is medically necessary on a continuing basis for any conditions for which he/ she received care during this hospitalization.: Yes The receiving facility has agreed to accept transfer and provide medical treatment.: Yes Discharge orders & Medications Prescriptions: New acetaminophen 325 mg Tablet 650 mg PO Q6HR 14 Days Qty: 90 0RF tramadol 50 mg Tablet 50 mg PO TID 7 Days Qty: 21 0RF gabapentin [Neurontin] 400 mg Capsule 400 mg PO TID 30 Days Qty: 90 0RF docusate sodium 100 mg Capsule 200 mg PO BID 30 Days Qty: 120 0RF oxycodone 5 mg Tablet 5 - 10 mg PO Q4HR PRN (Reason: Pain, Moderate (4-6)) 7 Days Qty: 40 0RF diclofenac sodium 3 % Gel 1 applic topical TID PRN (Reason: hip pain) 7 Days Qty: 2 0RF Eliquis 5 mg Tablet See Rx Instructions .ROUTE .COMPLEX 30 Days Qty: 40 0RF Rx Instructions: 10 mg twice daily for 5 days, followed by 5 mg twice daily Continued pravastatin 80 mg tablet 80 mg PO BEDTIME 0RF multivitamin Tablet 1 tab PO DAILY 0RF ascorbic acid (vitamin C) 1,000 mg tablet 1 g PO DAILY 0RF cholecalciferol (vitamin D3) 250 mcg (10,000 unit) capsule 250 mcg PO DAILY 0RF H2Q CoQ10 200 mg/gram powder 200 mg PO DAILY 0RF omega-3 fatty acids 1,250 mg capsule 2,500 mg PO DAILY 0RF strontium [id number] 680-30 mg tablet 1 tab PO DAILY 0RF aspirin [Adult Aspirin Regimen] 81 mg tablet,delayed release (DR/EC) 81 mg PO DAILY 0RF Discontinued oxycodone 10 mg Tablet 10 mg PO Q6HR Qty: 20 0RF gabapentin 300 mg capsule 300 mg PO TID 0RF Rx Instructions: 1-2 PO Tid to begin at HS and titrate to pain relief baclofen 10 mg tablet 10 mg PO TID 0RF tramadol 50 mg tablet 50 mg PO BID PRN (Reason: pain) 0RF Follow up/Referrals: Marianna Wick MD [Primary Care Provider] - Discharge Health Status Precautions: [place] Diet/Activity/Treatments Diet: Diet as Tolerated Liquid consistency: Normal/Thin Food texture: Regular Activity: WBAT L ankle with distal fracture [facility] Reason for rehabilitation: Post-operative therapy and Recovery r/t decondition Rehab type: Physical therapy and Occupational therapy Visit Report/Discharge Packet Instructions: DI for Deep Vein Thrombosis, Apixaban Discharge Data Primary Care Provider: Marianna Wick Attending Provider: Daniel Balbuena
[2021-05-07 11:14] LABS: COVID19 -Nasal RAPID Negative (Negative)
[2021-05-07 12:00] VITALS: BP 117/77; PULSE 93; RESP 17; TEMP 36.7; O2SAT 98
--- NOTE | 2021-05-07 13:23 | PC.NURSE ---
Dr. Balbuena rounded at 1245 and reviewed medications with pt. Pt declines to start on anti diabetic medications. Pt is requesting tramadol and baclofen before leaving. Dr. Balbuena gave verbal order- ok to administer these medications now. IV has been removed and pt was assisted to dress. All belongings gathered. Pt transferred from chair to w/c with 1pa and fww. Pt left via w/c van in no distress with all belongings. Time of dc is 1315. Report called to [facility] RN at 1320.
--- NOTE | 2021-05-07 13:41 | PT-IP ANOTE ---
Attempted to see pt at 13:41, pt had already d/c to SNF.
== END 2021-05-07 13:15 ==
LOC: ED 13:52 → AC 13:57
PROVIDERS: Admitting Provider Internal Medicine; Emergency Provider Emergency Medicine; PCP Internal Medicine; Referring Provider Emergency Medicine; Visit Provider Internal Medicine
DX: S82.832A Other fracture of upper and lower end of left fibula, initial encounter for closed fracture (principal); I82.413 Acute embolism and thrombosis of femoral vein, bilateral; I82.433 Acute embolism and thrombosis of popliteal vein, bilateral; W18.30XA Fall on same level, unspecified, initial encounter; Y92.003 Bedroom of unspecified non-institutional (private) residence as the place of occurrence of the external cause; E11.9 Type 2 diabetes mellitus without complications; Z98.1 Arthrodesis status; E66.9 Obesity, unspecified; E78.5 Hyperlipidemia, unspecified; Z68.31 Body mass index [BMI] 31.0-31.9, adult; D72.829 Elevated white blood cell count, unspecified; M25.552 Pain in left hip; M25.551 Pain in right hip; Z20.822 Contact with and (suspected) exposure to COVID-19
CPT/HCPCS: 36415; 72072; 72170; 73610; 80048; 81001; 82962; 83735; 85025; 87086; 87635; 93970; 94760; 96372; 97116; 97162; 97166; 97530; 97535; 99283; C9803; G0378; J1815

== ENCOUNTER → 2021-07-19 11:27 | Outpatient (CLI) | payer MEDICARE, SELFPAY ==
[2021-07-13 11:10] VITALS: BMI 31.6
[2021-07-19 13:07] LABS: COVID19 -Nasal RAPID Negative (Negative)
== END ==
PROVIDERS: PCP Internal Medicine; Visit Provider Physical Medicine & Rehabilitation
DX: Z20.822 Contact with and (suspected) exposure to COVID-19 (principal)
CPT/HCPCS: 87635; C9803

== ENCOUNTER 2021-07-20 14:20 | Outpatient (CLI) | payer MEDICARE, SELFPAY ==
[2021-07-13 11:10] VITALS: BMI 31.6
[2021-07-20] VITALS (8 sets, daily range): BP systolic 137–157; BP diastolic 64–83; PULSE 75–85; RESP 12–23; TEMP 36.8; O2SAT 97–100
--- NOTE | 2021-07-20 14:32 | DI.RAD.S_ITS ---
PROCEDURE: PAIN SI JOINT INJECTION INDICATIONS: SACROILIAC DISORDER COMPARISON: [facility], CR, XR PELVIS 1-2V, 05/04/2021, 17:33. FINDINGS: On these intraprocedural images, there is a spinal needle seen overlying the inferior aspect of the right sacroiliac joint. Appropriate position of the tip of the needle was confirmed by injection of a small amount of iodinated contrast. IMPRESSION: Successful sacroiliac joint injection. Dictated by: Beltran Love M.D. on 07/20/2021 at 15:53 Approved by: Beltran Love M.D. on 07/20/2021 at 15:54
[2021-07-20] MEDS: MIDAZOLAM 2 MG/2 ML VIAL (15:25)
[2021-07-20] MEDS: IOPAMIDOL 15 ML VIAL 3 ML INJ (15:28)
[2021-07-20] MEDS: BUPIVACAINE 0.5% (PF) VIAL 2 ML INJ (15:28)
[2021-07-20] MEDS: BETAMETHASONE 30 MG/5 ML MDV 12 MG INJ (15:28)
--- NOTE | 2021-07-20 15:44 | PM.PROC.IR.1 ---
Date/Time/Diagnoses Date of procedure: 07/20/21 Time of procedure: 15:44 Pre-procedure diagnosis: 1. Sacral Dysfunction Post-procedure diagnosis: same Procedure Notes Procedure: 1. FLUOROSCOPICALLY GUIDED CONTRAST CONTROLLED RIGHT SACROILIAC JOINT INJECTION Indications: Annabella is referred by Dr. Wick for treatment of Right Sacroiliac Joint Pain. Physician: Kevin Garcia Total Fluoroscopy time (seconds): 10 Total sedation minutes: 10 Complications: none Procedure in detail & Post-procedure care: DESCRIPTION OF PROCEDURE Fluoroscopically guided, contrast controlled right sacroiliac joint injection Following review of allergies and review of potential side effects and complications, including, but not necessarily limited to, infection, allergic reaction, local tissue breakdown, temporary as well as permanent nerve injury, paralysis, stroke and possible , the patient indicated that they understood and agreed to proceed. An informed consent was signed by the patient, witnessed by a nurse, and placed in the patient's chart. Additionally, other treatment options including modalities, medications, and physical therapy were reviewed with the patient. After review of previous anaesthesic history and IV conscious sedation the patient was deemed safe to proceed with today?s procedure with IV conscious sedation as ASA class II designation. Safety time-out was performed to confirm patient ID, procedure to be performed and site of procedure. IV sedation was accomplished with a combination of 2mg of Versed was administered by the RN after DO order, titrated to patient comfort during the course of the procedure while the patient remained responsive to all verbal commands In the prone position following sterile prep and drape of the pelvic region, the hyper lucency on in the inferior aspect of the sacroiliac joint was identified fluoroscopically the skin was anesthetized be a 25 gauge 1 eventual with approximately 2 cc of 1% lidocaine solution. At this point, a 22 gauge 3 in spinal needle was atraumatically introduced and advanced under fluoroscopic guidance into the inferior aspect of the right sacroiliac joint. Following negative aspiration, approximately 0.3cc of Isovue-300 was injected confirming intra-articular placement without vascular uptake. Radiographic data, including multiple fluoroscopic views of the pelvis, reveals a spinal needle in the sacroiliac joint hyper lucent zone. Subsequent view show flow contrast tear superiorly and inferiorly within the joint capsule without vascular intrathecal uptake. At this point a total of 1cc of 0.5% Marcaine was combined with 1cc of 6 mg of betamethasone was injected without incident. The procedure tolerated the procedure well without signs or symptoms of complications prior to transfer to the recovery area continued monitoring without incident. The patient was then transferred to the recovery area with a bur observed for an appropriate time after the injection. The patient reported a vas score of 7 prior to the procedure and post-procedure vas of 1. POSTOP INSTRUCTIONS The patient was provided with a pain like to continue to record the patient's response to the target specific procedure prior to the patient's follow-up visit with the referring physician. Additionally, specific post injection care instructions and a contact number to our office were provided if concerns arise regarding the possible complications associated with procedure are suspected.
== END 2021-07-20 16:00 | disposition home or self-care (01) ==
LOC: RAD 14:22
PROVIDERS: PCP Internal Medicine; Referring Provider Physical Medicine & Rehabilitation; Visit Provider Physical Medicine & Rehabilitation
DX: M53.3 Sacrococcygeal disorders, not elsewhere classified
CPT/HCPCS: 27096; 99152; J0702; J2250

== ENCOUNTER 2022-03-24 10:50 | Observation (INO) | payer MEDICARE, SELFPAY ==
[2021-07-13 11:10] VITALS: BMI 31.6
[2022-03-24] VITALS (23 sets, daily range): BP systolic 115–195; BP diastolic 58–89; PULSE 65–91; RESP 12–25; TEMP 36.3–36.7; O2SAT 96–99; BMI 32.2; BMI 32.7
--- NOTE | 2022-03-24 11:10 | PC.NURSE ---
Dr Alvarez given report,no verbal orders given. he said he would go see the patient.
--- NOTE | 2022-03-24 12:04 | DI.CT.S_ITS ---
PROCEDURE: CT ANGIO HEAD AND NECK INDICATIONS: left hand weak TECHNIQUE: Pre-contrast 4.5 mm thick sections acquired from the foramen magnum to the vertex. After the administration of intravenous contrast, 1 mm thick sections acquired from the aortic arch through the [place]. Post-contrast 4.5 mm thick sections then re-acquired from the foramen magnum to the vertex. 3-dimensional mkeonzn-gscsrvfuz-oktgxvztpa (MIP) and/or volume rendering reformats were acquired of the central intracranial vasculature and neck separately. For radiation dose reduction, the following was used: automated exposure control, adjustment of mA and/or kV according to patient size. COMPARISON: None. FINDINGS: Image quality: Mild streak artifact can be seen through the skull base. BRAIN: CSF spaces: Ventricles are normal in size and shape. Basal cisterns are patent. No extra-axial fluid collections. Brain: No midline shift. No intracranial bleeds or masses. [place]-white matter interface appears intact. Note is made of age-appropriate brain parenchymal volume loss and chronic small vessel ischemic changes. Skull and face: Calvarium and facial bones appear intact, without suspicious lesions. Orbits appear normal. Incidental note is made of hyperostosis frontalis. This is not considered to be pathologic in a woman of this age. Sinuses: Sinuses and mastoids are clear. HEAD CT ANGIOGRAPHY: Anterior circulation: Intracranial internal carotid arteries demonstrate generalized atherosclerotic irregularity and calcification, with up to 40% narrowing on the right side and up to 20% narrowing on left. There is a diminutive right A1 segment, with a corresponding robust left A1 segment. This is considered to be a normal developmental variant of the [place], of typically no clinical consequence. The flow within the paired anterior cerebral arteries is other normal and symmetric. The flow within the middle cerebral arteries is normal and symmetric. The anterior communicating artery is seen. No aneurysms are seen. Posterior circulation: The right V4 segment is within normal limits. The left V4 segment largely terminates in the left posterior inferior cerebellar artery. There is a normal appearing basilar artery. Flow within the posterior cerebral arteries is normal and symmetric. No aneurysms are seen. NECK CT ANGIOGRAPHY: Carotid system: The great vessels demonstrate a conventional anatomy as they arise from the aortic arch. The origins of the common carotid arteries appear patent. The common carotid arteries demonstrate normal caliber and courses. The bifurcation regions are both widely patent. The internal carotid arteries demonstrate normal calibers and courses. Posterior circulation: The origins of the vertebral arteries both appear widely patent. The more superior extracranial portions of both vertebral arteries also demonstrate normal courses and calibers. The right vertebral artery is dominant to the left. Soft tissues: Visualized neck soft tissues demonstrate no suspicious abnormalities. Bones: No suspicious bony lesions. Visualized cervical spine appears normally aligned. Cervical fixation hardware is seen, with a fusion plate extending from C4 through C6. Additional anterior fixation devices can be seen at C6-C7 and at C7-T1. There is focal moderate disc space narrowing seen at C3-C4. IMPRESSION: No acute intracranial process is seen. No acute intracranial hemorrhage is seen. No significant intracranial arterial abnormality is seen. Within the arteries of the neck, no hemodynamically significant stenosis can be seen. If there is strong clinical suspicion for an acute stroke, please consider a brain MRI for further evaluation, as it is more sensitive (assuming that there is no contraindication to MRI). Additional findings: Xzwlnx-xe-Jlevct developmental anomalies. Cervical spine postoperative hardware Right vertebral artery dominant to the left Any quantitative measurements of stenosis were performed using NASCET criteria. Dictated by: Beltran Love M.D. on 03/24/2022 at 12:33 Approved by: Beltran Love M.D. on 03/24/2022 at 12:37
--- NOTE | 2022-03-24 12:05 | ED.FALL ---
HPI - Fall <Marvin Alvarez MD - Last Filed: 04/05/22 01:55> General Chief Complaint: Fall Stated Complaint: Back pain, weakness both arms Time Seen by Provider: 03/24/22 11:43 Source: patient Mode of arrival: Wheelchair History of Present Illness HPI Narrative: Patient brought in by son for complaints of left hand weakness. Patient has history of cervical spine thoracic spine and lumbar spine surgery with Dr. Templeton, surgeon here. Patient recently had bilateral carpal tunnel surgery in the last month by Dr. Shankar here as well. Patient states followed by Dr. Garcia's for sacroiliac joint pain that she gets injections for. Patient states her SI joint pain was intense this morning. At 8:30 a.m. 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 She has numbness and tingling before and after the carpal tunnel surgery however never had weakness before. No slurred speech or facial droop or headache. No left leg weakness. 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 Patient states her actuarial technician strength test with nurse was much weaker, she is now at near resolution with strength. Has baseline left worse than right tingling to the fingers and hand due to carpal tunnel. Related Data Home Medications Medication Instructions Recorded Confirmed ascorbic acid (vitamin C) 1,000 mg 1 g PO DAILY 03/31/21 03/24/22 tablet cholecalciferol (vitamin D3) 250 250 mcg PO DAILY 03/31/21 03/24/22 mcg (10,000 unit) capsule coenzyme Q10 200 mg/gram oral 200 mg PO DAILY 03/31/21 03/24/22 powder (H2Q CoQ10) multivitamin 1 tab PO DAILY 03/31/21 03/24/22 omega-3 fatty acids 1,250 mg 2,500 mg PO DAILY 03/31/21 03/24/22 capsule strontium gluconate-vitamins 1 tab PO DAILY 03/31/21 03/24/22 [id number] acid 680 mg-30 mg tablet pravastatin 20 mg tablet 20 mg PO DAILY 07/09/21 03/24/22 Saccharomyces boulardii 250 mg 5,000 mmu cells PO BID 11/17/21 03/24/22 capsule (Daily Probiotic (S. boulardii)) Previous Rx's Medication Instructions Recorded meloxicam 15 mg tablet See Rx Instructions .Route 03/14/22 .COMPLEX #90 tabs tramadol 50 mg tablet 50 mg PO BEDTIME #30 tabs 03/14/22 gabapentin 300 mg capsule 300 mg PO .COMPLEX #90 caps 03/17/22 methylprednisolone 4 mg tablet See Rx Instructions .Route 03/25/22 .COMPLEX #21 tabs Allergies Allergy/AdvReac Type Severity Reaction Status Date / Time cefazolin [From Ancef] Allergy Intermediate Hives Verified 03/24/22 10:57 pregabalin [From Lyrica] AdvReac Intermediate Agitated Verified 03/24/22 10:57 CATS Allergy Intermediate ITCHING Uncoded 03/14/22 11:30 Review of Systems <Marvin Alvarez MD - Last Filed: 04/05/22 01:55> Review of Systems Narrative: GENERAL: negative chills, fatigue, malaise, fever, sweats. HEENT: negative sinus pain, ear pain, sore throat RESPIRATORY: negative dyspnea, cough CARDIOVASCULAR: negative chest pain, palpitations GASTROINTESTINAL: negative nausea, vomiting, abdominal pain : negative dysuria, frequency, hematuria MUSCULOSKELETAL: negative muscle or bony pain SKIN: negative rash, skin lesions NEUROLOGIC: Negative slurred speech negative headache positive weakness, numbness ROS Unobtainable: All systems reviewed & are unremarkable except as noted in HPI and below Patient History <Marvin Alvarez MD - Last Filed: 04/05/22 01:55> Medical History HNP (herniated nucleus pulposus), thoracic Sacral dysfunction T12 compression fracture Thoracic myelopathy UTI (urinary tract infection) Surgical History H/O eye surgery H/O shoulder surgery H/O thumb surgery H/O: knee surgery History of back surgery History of fusion of cervical spine History of lumbar fusion Family History Father Congestive heart failure Osteoarthritis Mother Osteoarthritis Pneumonia Sister Heart disease Grandmother Cancer Congestive heart failure Social History household members: none Smoking Status: Never smoker alcohol intake: current Smoking Status: Never smoker alcohol intake frequency: holidays/special occasions only Substance Use Type: does not use Exam <Marvin Alvarez MD - Last Filed: 04/05/22 01:55> Narrative Exam Narrative: GENERAL: in no distress, not toxic not dyspneic HEAD: Normocephalic. EYES: Pupils equal round ENT: Mucous membranes moist. NECK: Trachea midline. CARDIOVASCULAR: Regular rate and rhythm without murmurs RESPIRATORY: Clear to auscultation. Breath sounds equal bilaterally. No wheezes, rales, or rhonchi. GASTROINTESTINAL: Abdomen soft, non-tender EXTREMITIES: No gross deformities. BACK: No flank tenderness. NEURO: AOx4. Clear speech no facial droop light touch intact to bilateral face hands and legs, fingers and hand are at baseline with neuropathy, negxof-hs-htiw intact bilaterally. Fast exam otherwise negative SKIN: Warm and dry PSYCH: Not anxious, is cooperative Initial Vital Signs Initial Vital Signs: Vital Signs Temperature 98.0 F 03/24/22 10:57 Pulse Rate 91 H 03/24/22 10:57 Respiratory Rate 16 03/24/22 10:57 Blood Pressure 183/85 H 03/24/22 10:57 Pulse Oximetry 98 03/24/22 10:57 Oxygen Delivery Method 03/24/22 10:57 <Christine Alarcon DO - Last Filed: 03/24/22 20:52> Initial Vital Signs Initial Vital Signs: Vital Signs Temperature 98.0 F 03/24/22 10:57 Pulse Rate 91 H 03/24/22 10:57 Respiratory Rate 16 03/24/22 10:57 Blood Pressure 183/85 H 03/24/22 10:57 Pulse Oximetry 98 03/24/22 10:57 Oxygen Delivery Method 03/24/22 10:57 Scores <Marvin Alvarez MD - Last Filed: 04/05/22 01:55> NIH Stroke Scale Level of Conciousness: Alert, keenly responsive Ask month/age: Answers both questions correctly. Open/close eyes, close hand: Performs both tasks correctly Best gaze horizontal: Normal Visual hess: No visual loss Facial palsy: Normal symetrical movement Left arm drift: No drift for full 10 sec Right arm drift: No drift for full 10 sec Left leg drift: No drift for full 5 sec Right leg drift: No drift for full 5 sec Limb ataxia: Absent Sensory on face/arms/legs: Normal, no sensory loss Best language: No aphasia, normal Dysarthria: Normal Extinction or inattention: No abnormality Total NIH Stroke scale score: 0 <Christine Alarcon DO - Last Filed: 03/24/22 20:52> NIH Stroke Scale Total NIH Stroke scale score: 0 Course <Marvin Alvarez MD - Last Filed: 04/05/22 01:55> Orders Ordered: Discontinued Medications Acetaminophen (Acetaminophen 325 Mg Tablet) 650 mg PO Q6H PRN PRN Reason: Fever/Mild Pain (1-3) Last Admin: 03/24/22 23:41 Dose: 650 mg Documented By: SUNITA Aspirin (Aspirin Ec 81 Mg Tablet) 81 mg PO DAILY [facility] Last Admin: 03/25/22 08:57 Dose: 81 mg Documented By: VANESSA Atorvastatin Calcium (Atorvastatin 20 Mg Tablet) 40 mg PO BEDTIME [facility] Last Admin: 03/24/22 22:06 Dose: 40 mg Documented By: SUNITA Baclofen (Baclofen 10 Mg Tablet) 10 mg PO TID PRN PRN Reason: Muscle Spasm Clonazepam (Clonazepam 0.5 Mg Tablet) 0.5 mg PO NOW ONE Stop: 03/25/22 02:08 Last Admin: 03/25/22 02:15 Dose: 0.5 mg Documented By: SUNITA Clonazepam (Clonazepam 0.5 Mg Tablet) 0.5 mg PO BID PRN PRN Reason: Pain, 1-10 Last Admin: 03/25/22 16:37 Dose: 0.5 mg Documented By: VANESSA Dextrose (Dextrose 50 % In Water 25 Gm/50 Ml Syringe) 25 gm IV PRN PRN PRN Reason: Hypoglycemia Diazepam (Diazepam 5 Mg Tablet) 5 mg PO Q6HR PRN PRN Reason: prior to MRI Last Admin: 03/25/22 08:57 Dose: 5 mg Documented By: VANESSA Gabapentin (Gabapentin 300 Mg Capsule) 300 mg PO TID [facility] Last Admin: 03/25/22 16:33 Dose: 300 mg Documented By: Admin: 03/25/22 08:57 Dose: 300 mg Documented By: Admin: 03/24/22 22:08 Dose: 300 mg Documented By: SUNITA Heparin Sodium (Porcine) (Heparin 5,000 Unit/Ml Vial) 5,000 unit SUBCUT BID [facility] Last Admin: 03/25/22 08:57 Dose: 5,000 unit Documented By: Admin: 03/24/22 22:08 Dose: 5,000 unit Documented By: VH Sodium Chloride (Normal Saline 0.9%) 500 mls @ 1,000 mls/hr IV BOLUS ONE Stop: 03/24/22 12:41 Last Infusion: 03/24/22 14:22 Dose: 0 mls/hr Documented By: Admin: 03/24/22 13:33 Dose: 1,000 mls/hr Documented By: AT Insulin Human Lispro (Insulin Lispro 100 Unit/Ml 3ml Vial) 0 unit SUBCUT ACHS [facility]; Protocol Last Admin: 03/25/22 16:55 Dose: Not Given Documented By: Admin: 03/25/22 13:08 Dose: Not Given Documented By: Admin: 03/25/22 08:52 Dose: Not Given Documented By: VANESSA Meloxicam (Meloxicam 7.5 Mg Tablet) 15 mg PO 0800 [facility] Meloxicam (Meloxicam 7.5 Mg Tablet) 15 mg PO NOW ONE Stop: 03/24/22 20:49 Last Admin: 03/24/22 22:07 Dose: 15 mg Documented By: SUNITA Ondansetron HCl (Ondansetron 4 Mg/2 Ml Inj) 4 mg IV Q8HR PRN PRN Reason: Nausea And Vomiting Oxycodone HCl (Oxycodone Ir 5 Mg Tablet) 5 mg PO NOW ONE Stop: 03/24/22 20:52 Last Admin: 03/24/22 22:07 Dose: 5 mg Documented By: SUNITA Tramadol HCl (Tramadol 50 Mg Tablet) 50 mg PO NOW ONE Stop: 03/24/22 23:34 Last Admin: 03/24/22 23:40 Dose: 50 mg Documented By: Vital Signs Vital signs: Vital Signs - 8 hr 03/24/22 13:48 03/24/22 14:00 03/24/22 14:00 Pulse Rate 69 69 Respiratory Rate 13 14 Blood Pressure 170/77 H Pulse Oximetry 99 99 Oxygen Delivery Method 03/24/22 14:30 03/24/22 14:31 03/24/22 14:31 Pulse Rate 67 65 Respiratory Rate 14 13 Blood Pressure 158/75 H Pulse Oximetry 98 99 Oxygen Delivery Method 03/24/22 15:00 03/24/22 15:00 03/24/22 15:30 Pulse Rate 69 Respiratory Rate 15 Blood Pressure 171/74 H 195/87 H Pulse Oximetry 98 Oxygen Delivery Method 03/24/22 15:30 03/24/22 16:00 03/24/22 16:01 Pulse Rate 72 69 Respiratory Rate 17 14 Blood Pressure 163/72 H Pulse Oximetry 98 99 Oxygen Delivery Method Room Air Room Air 03/24/22 16:01 03/24/22 16:30 03/24/22 16:30 Pulse Rate 69 72 Respiratory Rate 12 16 Blood Pressure 171/74 H Pulse Oximetry 98 98 Oxygen Delivery Method Room Air 03/24/22 17:00 03/24/22 17:30 03/24/22 18:00 Pulse Rate 66 71 82 Respiratory Rate 14 15 21 Blood Pressure Pulse Oximetry 98 97 Oxygen Delivery Method Room Air 03/24/22 18:30 03/24/22 18:50 03/24/22 18:50 Pulse Rate 83 76 Respiratory Rate 19 20 Blood Pressure 115/59 L Pulse Oximetry 98 Oxygen Delivery Method Room Air 03/24/22 18:52 03/24/22 18:52 03/24/22 19:00 Pulse Rate 80 Respiratory Rate 25 H Blood Pressure 143/70 H 154/73 H Pulse Oximetry 98 Oxygen Delivery Method 03/24/22 19:00 03/24/22 19:30 Pulse Rate 79 78 Respiratory Rate 20 22 Blood Pressure Pulse Oximetry 99 97 Oxygen Delivery Method Room Air <Christine Alarcon, - Last Filed: 03/24/22 20:52> Orders Ordered: Discontinued Medications Acetaminophen (Acetaminophen 325 Mg Tablet) 650 mg PO Q6H PRN PRN Reason: Fever/Mild Pain (1-3) Last Admin: 03/24/22 23:41 Dose: 650 mg Documented By: SUNITA Aspirin (Aspirin Ec 81 Mg Tablet) 81 mg PO DAILY [facility] Last Admin: 03/25/22 08:57 Dose: 81 mg Documented By: VANESSA Atorvastatin Calcium (Atorvastatin 20 Mg Tablet) 40 mg PO BEDTIME [facility] Last Admin: 03/24/22 22:06 Dose: 40 mg Documented By: SUNITA Baclofen (Baclofen 10 Mg Tablet) 10 mg PO TID PRN PRN Reason: Muscle Spasm Clonazepam (Clonazepam 0.5 Mg Tablet) 0.5 mg PO NOW ONE Stop: 03/25/22 02:08 Last Admin: 03/25/22 02:15 Dose: 0.5 mg Documented By: SUNITA Clonazepam (Clonazepam 0.5 Mg Tablet) 0.5 mg PO BID PRN PRN Reason: Pain, 1-10 Last Admin: 03/25/22 16:37 Dose: 0.5 mg Documented By: VANESSA Dextrose (Dextrose 50 % In Water 25 Gm/50 Ml Syringe) 25 gm IV PRN PRN PRN Reason: Hypoglycemia Diazepam (Diazepam 5 Mg Tablet) 5 mg PO Q6HR PRN PRN Reason: prior to MRI Last Admin: 03/25/22 08:57 Dose: 5 mg Documented By: BR Gabapentin (Gabapentin 300 Mg Capsule) 300 mg PO TID [facility] Last Admin: 03/25/22 16:33 Dose: 300 mg Documented By: Admin: 03/25/22 08:57 Dose: 300 mg Documented By: Admin: 03/24/22 22:08 Dose: 300 mg Documented By: SUNITA Heparin Sodium (Porcine) (Heparin 5,000 Unit/Ml Vial) 5,000 unit SUBCUT BID [facility] Last Admin: 03/25/22 08:57 Dose: 5,000 unit Documented By: Admin: 03/24/22 22:08 Dose: 5,000 unit Documented By: SUNITA Sodium Chloride (Normal Saline 0.9%) 500 mls @ 1,000 mls/hr IV BOLUS ONE Stop: 03/24/22 12:41 Last Infusion: 03/24/22 14:22 Dose: 0 mls/hr Documented By: Admin: 03/24/22 13:33 Dose: 1,000 mls/hr Documented By: AT Insulin Human Lispro (Insulin Lispro 100 Unit/Ml 3ml Vial) 0 unit SUBCUT ACHS [facility]; Protocol Last Admin: 03/25/22 16:55 Dose: Not Given Documented By: Admin: 03/25/22 13:08 Dose: Not Given Documented By: Admin: 03/25/22 08:52 Dose: Not Given Documented By: VANESSA Meloxicam (Meloxicam 7.5 Mg Tablet) 15 mg PO 0800 [facility] Meloxicam (Meloxicam 7.5 Mg Tablet) 15 mg PO NOW ONE Stop: 03/24/22 20:49 Last Admin: 03/24/22 22:07 Dose: 15 mg Documented By: SUNITA Ondansetron HCl (Ondansetron 4 Mg/2 Ml Inj) 4 mg IV Q8HR PRN PRN Reason: Nausea And Vomiting Oxycodone HCl (Oxycodone Ir 5 Mg Tablet) 5 mg PO NOW ONE Stop: 03/24/22 20:52 Last Admin: 03/24/22 22:07 Dose: 5 mg Documented By: Tramadol HCl (Tramadol 50 Mg Tablet) 50 mg PO NOW ONE Stop: 03/24/22 23:34 Last Admin: 03/24/22 23:40 Dose: 50 mg Documented By: Vital Signs Vital signs: Vital Signs - 8 hr 03/24/22 13:48 03/24/22 14:00 03/24/22 14:00 Pulse Rate 69 69 Respiratory Rate 13 14 Blood Pressure 170/77 H Pulse Oximetry 99 99 Oxygen Delivery Method 03/24/22 14:30 03/24/22 14:31 03/24/22 14:31 Pulse Rate 67 65 Respiratory Rate 14 13 Blood Pressure 158/75 H Pulse Oximetry 98 99 Oxygen Delivery Method 03/24/22 15:00 03/24/22 15:00 03/24/22 15:30 Pulse Rate 69 Respiratory Rate 15 Blood Pressure 171/74 H 195/87 H Pulse Oximetry 98 Oxygen Delivery Method 03/24/22 15:30 03/24/22 16:00 03/24/22 16:01 Pulse Rate 72 69 Respiratory Rate 17 14 Blood Pressure 163/72 H Pulse Oximetry 98 99 Oxygen Delivery Method Room Air Room Air 03/24/22 16:01 03/24/22 16:30 03/24/22 16:30 Pulse Rate 69 72 Respiratory Rate 12 16 Blood Pressure 171/74 H Pulse Oximetry 98 98 Oxygen Delivery Method Room Air 03/24/22 17:00 03/24/22 17:30 03/24/22 18:00 Pulse Rate 66 71 82 Respiratory Rate 14 15 21 Blood Pressure Pulse Oximetry 98 97 Oxygen Delivery Method Room Air 03/24/22 18:30 03/24/22 18:50 03/24/22 18:50 Pulse Rate 83 76 Respiratory Rate 19 20 Blood Pressure 115/59 L Pulse Oximetry 98 Oxygen Delivery Method Room Air 03/24/22 18:52 03/24/22 18:52 03/24/22 19:00 Pulse Rate 80 Respiratory Rate 25 H Blood Pressure 143/70 H 154/73 H Pulse Oximetry 98 Oxygen Delivery Method 03/24/22 19:00 03/24/22 19:30 Pulse Rate 79 78 Respiratory Rate 20 22 Blood Pressure Pulse Oximetry 99 97 Oxygen Delivery Method Room Air MDM - Fall <Marvin Alvarez MD - Last Filed: 04/05/22 01:55> Lab Data 03/24/22 12:17 03/24/22 12:17 Labs: Lab Results 03/24/22 03/24/22 03/24/22 Range/Units 12:17 12:17 12:17 WBC 8.8 (4.5-11.0) X10^3/uL RBC 4.55 (4.0-5.2) X10^6/uL Hgb 13.8 (12.0-16.0) g/dL Hct 41.9 (36-46) % MCV 92.0 (80-100) fL MCH 30.3 (26-34) PG MCHC 32.9 (30-36) % RDW 12.6 (11.6-14.8) % Plt Count 240 (150-400) X10^3/uL Neut % (Auto) 68.7 (50-75) % Lymph % (Auto) 25.5 (25-40) % [place] % (Auto) 4.8 (3-14) % Eos % (Auto) 0.4 L (2-4) % Baso % (Auto) 0.6 (0-2) % Neut # (Auto) 6000 (0306-2294) /uL Lymph # (Auto) 2200 (8808-1433) /uL [place] # (Auto) 400 (0-900) /uL Eos # (Auto) 0 (0-450) /uL Baso # (Auto) 100 (0-100) /uL PT 12.6 (10.1-12.7) SECONDS INR 1.1 (0.9-1.3) APTT 30 (26-36) SECONDS Sodium 140 (137-145) mmol/L Potassium 4.2 (3.4-5.1) mmol/L Chloride 104 (98-107) mmol/L Carbon Dioxide 26 (22-32) mmol/L BUN 15 (7-17) mg/dL Creatinine 0.59 (0.52-1.04) mg/dL Estimated GFR > 60 (>60) mL/min BUN/Creatinine Ratio 25.4 H (6-22) Glucose 132 H (80-110) mg/dL Calcium 9.9 (8.4-10.2) mg/dL Total Bilirubin 0.5 (0.2-1.3) mg/dL AST 29 (14-36) IU/L ALT 24 (<35) IU/L Alkaline Phosphatase 126 (38-126) U/L Total Creatine Kinase 148 H (30-135) U/L CK-MB (CK-2) 1.78 (<2.37) ng/mL CK-MB (CK-2) Rel Index 1.2 L (1.5-5.0) % Troponin I < 0.012 (0.01-0.034) ng/mL Total Protein 7.3 (6.3-8.2) g/dL Albumin 4.4 (3.5-5.0) g/dL Globulin 2.9 (1.7-4.1) g/dL Albumin/Globulin Ratio 1.5 (1.0-2.8) SARS-CoV-2 (PCR) (Negative) 03/24/22 Range/Units 12:17 WBC (4.5-11.0) X10^3/uL RBC (4.0-5.2) X10^6/uL Hgb (12.0-16.0) g/dL Hct (36-46) % MCV (80-100) fL MCH (26-34) PG MCHC (30-36) % RDW (11.6-14.8) % Plt Count (150-400) X10^3/uL Neut % (Auto) (50-75) % Lymph % (Auto) (25-40) % [place] % (Auto) (3-14) % Eos % (Auto) (2-4) % Baso % (Auto) (0-2) % Neut # (Auto) (9690-0107) /uL Lymph # (Auto) (1619-0770) /uL [place] # (Auto) (0-900) /uL Eos # (Auto) (0-450) /uL Baso # (Auto) (0-100) /uL PT (10.1-12.7) SECONDS INR (0.9-1.3) APTT (26-36) SECONDS Sodium (137-145) mmol/L Potassium (3.4-5.1) mmol/L Chloride (98-107) mmol/L Carbon Dioxide (22-32) mmol/L BUN (7-17) mg/dL Creatinine (0.52-1.04) mg/dL Estimated GFR (>60) mL/min BUN/Creatinine Ratio (6-22) Glucose (80-110) mg/dL Calcium (8.4-10.2) mg/dL Total Bilirubin (0.2-1.3) mg/dL AST (14-36) IU/L ALT (<35) IU/L Alkaline Phosphatase (38-126) U/L Total Creatine Kinase (30-135) U/L CK-MB (CK-2) (<2.37) ng/mL CK-MB (CK-2) Rel Index (1.5-5.0) % Troponin I (0.01-0.034) ng/mL Total Protein (6.3-8.2) g/dL Albumin (3.5-5.0) g/dL Globulin (1.7-4.1) g/dL Albumin/Globulin Ratio (1.0-2.8) SARS-CoV-2 (PCR) Negative (Negative) Urine Dip Bedside Urine Glucose Negative Bedside Urine Bilirubin - Negative Bedside Urine Ketone - Negative Urine Specific [place] 1.015 Bedside Urine Occult Blood - Negative Bedside Urine pH 7.5 Bedside Urine Protein - Negative Bedside Urine Urobilinogen - Negative Bedside Urine Nitrite - Negative Bedside Urine Leukocytes - Negative Esterase Imaging Data CTA - brain/neck: Radiologist's Impression: [address] [address] [address] Scan Report Signed Patient: Annabella Alvarez MR#: [id number] : 1950 Acct:[id number] Age/Sex: 71 / F Date of Service: 03/24/22 Loc: ED Accession Number: [id number] ?? Procedure: CT angio head and neck Ordering Provider: Marvin Alvarez MD PROCEDURE:? CT ANGIO HEAD AND NECK ? INDICATIONS:? left hand weak ? TECHNIQUE:? Pre-contrast 4.5 mm thick sections acquired from the foramen magnum to the vertex.? After the administration of intravenous contrast, 1 mm thick sections acquired from the aortic arch through the [place] of [place].? Post-contrast 4.5 mm thick sections then re-acquired from the foramen magnum to the vertex.? 3-dimensional pfrghbo-shxkinhve-ukoyuhxnky (MIP) and/or volume rendering reformats were acquired of the central intracranial vasculature and neck separately. For radiation dose reduction, the following was used:? automated exposure control, adjustment of mA and/or kV according to patient size.? ? COMPARISON:? None. ? FINDINGS:? Image quality:? Mild streak artifact can be seen through the skull base. ? BRAIN:? CSF spaces:? Ventricles are normal in size and shape.? Basal cisterns are patent.? No extra-axial fluid collections.? ? Brain:? No midline shift.? No intracranial bleeds or masses.? [place]-white matter interface appears intact.? Note is made of age-appropriate brain parenchymal volume loss and chronic small vessel ischemic changes. ? Skull and face:? Calvarium and facial bones appear intact, without suspicious lesions.? Orbits appear normal.? Incidental note is made of hyperostosis frontalis. This is not considered to be pathologic in a woman of this age. ? Sinuses:? Sinuses and mastoids are clear.? ? HEAD CT ANGIOGRAPHY:? Anterior circulation:? Intracranial internal carotid arteries demonstrate generalized atherosclerotic irregularity and calcification, with up to 40% narrowing on the right side and up to 20% narrowing on left.? There is a diminutive right A1 segment, with a corresponding robust left A1 segment.? This is considered to be a normal developmental variant of the [place] of [place], of typically no clinical consequence.? The flow within the paired anterior cerebral arteries is other normal and symmetric.? The flow within the middle cerebral arteries is normal and symmetric.? The anterior communicating artery is seen.? No aneurysms are seen.? ? Posterior circulation:? The right V4 segment is within normal limits.? The left V4 segment largely terminates in the left posterior inferior cerebellar artery.? There is a normal appearing basilar artery. Flow within the posterior cerebral arteries is normal and symmetric.? No aneurysms are seen.? ? NECK CT ANGIOGRAPHY:? Carotid system:? The great vessels demonstrate a conventional anatomy as they arise from the aortic arch.? The origins of the common carotid arteries appear patent.? The common carotid arteries demonstrate normal caliber and courses.? The bifurcation regions are both widely patent.? The internal carotid arteries demonstrate normal calibers and courses.? ? Posterior circulation:? The origins of the vertebral arteries both appear widely patent.? The more superior extracranial portions of both vertebral arteries also demonstrate normal courses and calibers.? The right vertebral artery is dominant to the left. ? Soft tissues:? Visualized neck soft tissues demonstrate no suspicious abnormalities.? ? Bones:? No suspicious bony lesions.? Visualized cervical spine appears normally aligned.? Cervical fixation hardware is seen, with a fusion plate extending from C4 through C6.? Additional anterior fixation devices can be seen at C6-C7 and at C7-T1.? There is focal moderate disc space narrowing seen at C3-C4. ? ? IMPRESSION:? ? No acute intracranial process is seen.? ? No acute intracranial hemorrhage is seen.? ? No significant intracranial arterial abnormality is seen. ? Within the arteries of the neck, no hemodynamically significant stenosis can be seen. ? ? If there is strong clinical suspicion for an acute stroke, please consider a brain MRI for further evaluation, as it is more sensitive (assuming that there is no contraindication to MRI).? Additional findings:? [id number] developmental anomalies. Cervical spine postoperative hardware Right vertebral artery dominant to the left ? ? ? Any quantitative measurements of stenosis were performed using NASCET criteria.? ? ? Dictated by: Beltran Love M.D. on 03/24/2022 at 12:33 ? ? Approved by: Beltran Love M.D. on 03/24/2022 at 12:37 ? MDM Narrative Medical decision making narrative: Patient brought in by son for complaints of left hand weakness. Patient has history of cervical spine thoracic spine and lumbar spine surgery with Dr. Templeton, surgeon here. Patient recently had bilateral carpal tunnel surgery in the last month by Dr. Shankar here as well. Patient states followed by Dr. Garcia'popeye for sacroiliac joint pain that she gets injections for. Patient states her SI joint pain was intense this morning. At 8:30 a.m. 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 She has numbness and tingling before and after the carpal tunnel surgery however never had weakness before. No slurred speech or facial droop or headache. No left leg weakness. 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 Patient states her actuarial technician strength test with nurse was much weaker, she is now at near resolution with strength. Has baseline left worse than right tingling to the fingers and hand due to carpal tunnel. After history exam, CBC CMP coags/troponin/EKG CT angiogram have been ordered. MDM CC: Left hand weakness Complicating co-morbidities: Recent carpal tunnel surgery, history of cervical thoracic and lumbar spine surgery Data collected from: Patient and son Medical records reviewed: No previous visits for TIA/stroke Differential considered: Includes but not limited to TIA/stroke/peripheral neuropathy/cervical radiculopathy/carpal tunnel syndrome Exam documented above, pertinent findings include: Tingling to bilateral fingers and hand Lab Test results independently reviewed as above. Pertinent findings: No leukocytosis on CBC, CMP without acute renal injury, troponin less than 0.012 Independently reviewed EKG as above normal sinus rhythm normal EKG rate [address] elevation or depression Imaging studies independently reviewed: CT angio head and neck, no acute process CT head without contrast, no acute process CT angio head and neck Consultations: 5:15 p.m., spoke with hospitalist dr gastelum, he will see patient 1st for evaluation for admission Treatments: Normal saline Re-evaluations: Reviewed results with patient and family. They do agree for admission for balance workup for TIA/hand weakness Discussion: Appropriate for admission for balance or workup of possible TIA. Needs echocardiogram and MRI. Reviewed with patient and agrees for admit. Reviewed hospitalist agree for admit 6:[address] Alarcon, awaiting for hospitalist to evaluate patient to determine for admission. <Christine Alarcon, DO - Last Filed: 03/24/22 20:52> Lab Data Labs: Lab Results 03/24/22 03/24/22 03/24/22 Range/Units 12:17 12:17 12:17 WBC 8.8 (4.5-11.0) X10^3/uL RBC 4.55 (4.0-5.2) X10^6/uL Hgb 13.8 (12.0-16.0) g/dL Hct 41.9 (36-46) % MCV 92.0 (80-100) fL MCH 30.3 (26-34) PG MCHC 32.9 (30-36) % RDW 12.6 (11.6-14.8) % Plt Count 240 (150-400) X10^3/uL Neut % (Auto) 68.7 (50-75) % Lymph % (Auto) 25.5 (25-40) % [place] % (Auto) 4.8 (3-14) % Eos % (Auto) 0.4 L (2-4) % Baso % (Auto) 0.6 (0-2) % Neut # (Auto) 6000 (9677-2183) /uL Lymph # (Auto) 2200 (3551-8083) /uL [place] # (Auto) 400 (0-900) /uL Eos # (Auto) 0 (0-450) /uL Baso # (Auto) 100 (0-100) /uL PT 12.6 (10.1-12.7) SECONDS INR 1.1 (0.9-1.3) APTT 30 (26-36) SECONDS Sodium 140 (137-145) mmol/L Potassium 4.2 (3.4-5.1) mmol/L Chloride 104 (98-107) mmol/L Carbon Dioxide 26 (22-32) mmol/L BUN 15 (7-17) mg/dL Creatinine 0.59 (0.52-1.04) mg/dL Estimated GFR > 60 (>60) mL/min BUN/Creatinine Ratio 25.4 H (6-22) Glucose 132 H (80-110) mg/dL Calcium 9.9 (8.4-10.2) mg/dL Total Bilirubin 0.5 (0.2-1.3) mg/dL AST 29 (14-36) IU/L ALT 24 (<35) IU/L Alkaline Phosphatase 126 (38-126) U/L Total Creatine Kinase 148 H (30-135) U/L CK-MB (CK-2) 1.78 (<2.37) ng/mL CK-MB (CK-2) Rel Index 1.2 L (1.5-5.0) % Troponin I < 0.012 (0.01-0.034) ng/mL Total Protein 7.3 (6.3-8.2) g/dL Albumin 4.4 (3.5-5.0) g/dL Globulin 2.9 (1.7-4.1) g/dL Albumin/Globulin Ratio 1.5 (1.0-2.8) SARS-CoV-2 (PCR) (Negative) 03/24/22 Range/Units 12:17 WBC (4.5-11.0) X10^3/uL RBC (4.0-5.2) X10^6/uL Hgb (12.0-16.0) g/dL Hct (36-46) % MCV (80-100) fL MCH (26-34) PG MCHC (30-36) % RDW (11.6-14.8) % Plt Count (150-400) X10^3/uL Neut % (Auto) (50-75) % Lymph % (Auto) (25-40) % [place] % (Auto) (3-14) % Eos % (Auto) (2-4) % Baso % (Auto) (0-2) % Neut # (Auto) (7341-4325) /uL Lymph # (Auto) (9841-1238) /uL [place] # (Auto) (0-900) /uL Eos # (Auto) (0-450) /uL Baso # (Auto) (0-100) /uL PT (10.1-12.7) SECONDS INR (0.9-1.3) APTT (26-36) SECONDS Sodium (137-145) mmol/L Potassium (3.4-5.1) mmol/L Chloride (98-107) mmol/L Carbon Dioxide (22-32) mmol/L BUN (7-17) mg/dL Creatinine (0.52-1.04) mg/dL Estimated GFR (>60) mL/min BUN/Creatinine Ratio (6-22) Glucose (80-110) mg/dL Calcium (8.4-10.2) mg/dL Total Bilirubin (0.2-1.3) mg/dL AST (14-36) IU/L ALT (<35) IU/L Alkaline Phosphatase (38-126) U/L Total Creatine Kinase (30-135) U/L CK-MB (CK-2) (<2.37) ng/mL CK-MB (CK-2) Rel Index (1.5-5.0) % Troponin I (0.01-0.034) ng/mL Total Protein (6.3-8.2) g/dL Albumin (3.5-5.0) g/dL Globulin (1.7-4.1) g/dL Albumin/Globulin Ratio (1.0-2.8) SARS-CoV-2 (PCR) Negative (Negative) Urine Dip Bedside Urine Glucose Negative Bedside Urine Bilirubin - Negative Bedside Urine Ketone - Negative Urine Specific [place] 1.015 Bedside Urine Occult Blood - Negative Bedside Urine pH 7.5 Bedside Urine Protein - Negative Bedside Urine Urobilinogen - Negative Bedside Urine Nitrite - Negative Bedside Urine Leukocytes - Negative Esterase MDM Narrative Medical decision making narrative: Patient brought in by son for complaints of left hand weakness. Patient has history of cervical spine thoracic spine and lumbar spine surgery with Dr. Templeton, surgeon here. Patient recently had bilateral carpal tunnel surgery in the last month by Dr. Shankar here as well. Patient states followed by Dr. Garcia's for sacroiliac joint pain that she gets injections for. Patient states her SI joint pain was intense this morning. At 8:30 a.m. 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 She has numbness and tingling before and after the carpal tunnel surgery however never had weakness before. No slurred speech or facial droop or headache. No left leg weakness. 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 Patient states her actuarial technician strength test with nurse was much weaker, she is now at near resolution with strength. Has baseline left worse than right tingling to the fingers and hand due to carpal tunnel. After history exam, CBC CMP coags/troponin/EKG CT angiogram have been ordered. MDM CC: Left hand weakness Complicating co-morbidities: Recent carpal tunnel surgery, history of cervical thoracic and lumbar spine surgery Data collected from: Patient and son Medical records reviewed: No previous visits for TIA/stroke Differential considered: Includes but not limited to TIA/stroke/peripheral neuropathy/cervical radiculopathy/carpal tunnel syndrome Exam documented above, pertinent findings include: Tingling to bilateral fingers and hand Lab Test results independently reviewed as above. Pertinent findings: No leukocytosis on CBC, CMP without acute renal injury, troponin less than 0.012 Independently reviewed EKG as above normal sinus rhythm normal EKG rate [address] elevation or depression Imaging studies independently reviewed: CT angio head and neck, no acute process CT head without contrast, no acute process CT angio head and neck Consultations: 5:15 p.m., spoke with hospitalist dr gastelum, he will see patient 1st for evaluation for admission Treatments: Normal saline Re-evaluations: Reviewed results with patient and family. They do agree for admission for balance workup for TIA/hand weakness Discussion: Appropriate for admission for balance or workup of possible TIA. Needs echocardiogram and MRI. Reviewed with patient and agrees for admit. Reviewed hospitalist agree for admit 6:[address] Alarcon, awaiting for hospitalist to evaluate patient to determine for admission. Dorian- Patient was signed out to me at the time of sign-out Dr. Gastelum on was evaluating patient and admitted patient for observation I did not see or evaluate patient patient promptly went upstairs Discharge Plan Departure Patient Disposition: Admitted as Observation Clinical Impression: Left hand weakness Admit Date/Time: 03/24/22 19:38 Admit Provider: Mayur Gastelum
[2022-03-24 12:28] LABS: Add Manual Diff / Slide Review NO; Basophils Absolute Auto 100 /uL (0-100); Basophils Percent Auto 0.6 % (0-2); Eosinophils Absolute Auto 0 /uL (0-450); Eosinophils Percent Auto 0.4 % (2-4); Hematocrit 41.9 % (36-46); Hemoglobin 13.8 g/dL (12.0-16.0); Lymphocytes Absolute Auto 2200 /uL (1100-4500); Lymphocytes Percent Auto 25.5 % (25-40); Mean Corpuscular HGB Conc 32.9 % (30-36); Mean Corpuscular Hemoglobin 30.3 PG (26-34); Monocytes Absolute Auto 400 /uL (0-900); Monocytes Percent Auto 4.8 % (3-14); Neutrophils Absolute Auto 6000 /uL (1500-7000); Neutrophils Percent Auto 68.7 % (50-75); Platelet Count 240 X10^3/uL (150-400); Red Blood Cell Count 4.55 X10^6/uL (4.0-5.2); Red Cell Distribution Width 12.6 % (11.6-14.8); White Blood Cell Count 8.8 X10^3/uL (4.5-11.0)
[2022-03-24 12:38] LABS: INR 1.1 (0.9-1.3); Prothrombin Time 12.6 SECONDS (10.1-12.7)
[2022-03-24 12:40] LABS: PTT Partial Thromboplastin Tim 30 SECONDS (26-36)
[2022-03-24 12:42] LABS: Alanine Aminotransferase 24 IU/L (<35); Albumin 4.4 g/dL (3.5-5.0); Albumin Globulin Ratio 1.5 (1.0-2.8); Alkaline Phosphatase 126 U/L (38-126); Aspartate Aminotransferase 29 IU/L (14-36); BUN Creatinine Ratio 25.4 (6-22); Bilirubin Total 0.5 mg/dL (0.2-1.3); Blood Urea Nitrogen 15 mg/dL (7-17); Calcium 9.9 mg/dL (8.4-10.2); Carbon Dioxide 26 mmol/L (22-32); Chloride 104 mmol/L (98-107); Creatine Kinase 148 U/L (30-135); Estimated Glomerular Filt Rate > 60 mL/min (>60); Globulin 2.9 g/dL (1.7-4.1); Glucose 132 mg/dL (80-110); HEMOLYSIS 15 (0-50); Potassium 4.2 mmol/L (3.4-5.1); Sodium 140 mmol/L (137-145); Total Protein 7.3 g/dL (6.3-8.2)
[2022-03-24 12:49] LABS: COVID19 -Nasal RAPID Negative (Negative)
[2022-03-24 12:53] LABS: Troponin I < 0.012 ng/mL (0.01-0.034)
[2022-03-24 12:57] LABS: CKMB % Relative Index 1.2 % (1.5-5.0); Creatine Kinase MB 1.78 ng/mL (<2.37)
[2022-03-24] MEDS: SODIUM CHLORIDE 0.9% 500 ML 1000 ML IV (13:33)
--- NOTE | 2022-03-24 19:52 | DI.MRI.S_ITS ---
PROCEDURE: MR HEAD/BRAIN WO CON INDICATIONS: stroke TECHNIQUE: Noncontrast axial T1 spin echo, axial T2 fast spin echo, sagittal and axial FLAIR, coronal T2 fast spin echo, axial gradient echo, axial diffusion and ADC through the brain. COMPARISON: [facility], CT, CT ANGIO HEAD AND NECK, 03/24/2022, 12:50. FINDINGS: Image quality: Good CSF spaces: Basal cisterns are patent. Lateral ventricles are symmetric. Volume: Volume loss. Periventricular white matter signal abnormality most commonly seen with small vessel disease. These findings are [id number] Brain: No acute infarct. No intracranial hematoma. Craniofacial structures: No displaced fracture. Sinuses are clear. Orbits are intact. IMPRESSION: No acute infarct or hemorrhage. Dictated by: Eddie Condon M.D. on 03/25/2022 at 10:13 Approved by: Eddie Condon M.D. on 03/25/2022 at 10:15
--- NOTE | 2022-03-24 20:00 | P.HP_ITS ---
History of Present Illness History of Present Illness Date Patient Seen: 03/24/22 Time Patient Seen: 18:00 Chief complaint: Back pain, weakness both arms Narrative: Ms. Alvarez is a 71W with PMH of multiple spinal surgeries, carpal tunnel, chronic sacroiliac pain getting injections who presents to the hospital for left hand weakness. She has had apparently cervical and lumbar spine fusion in the past. She has had thoracic myelopathy s/p decompression in the past. She developed carpal tunnel it is suspected because she leans heavily on her walker with her hands due to her poor mobility. She had this procedure months ago and has had bilateral parasthesias. This morning when she woke up she had worsen sacroiliac pain. 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 She is currently complaining of pain all over and especially in lower back. She has chronic lower leg weakness. No incontinence. No fevers/chills. No vision changes. No speech difficulty or swallow difficulty. Her bsa/aml compliance officer strength continues to be worse than baseline. In the ED workup was done, vitals notable for afebrile and elevated blood pressure. Labs notable for 8.8, hgb 13.8, plts 240. Creatinine 0.59. Trop negative. CT head showed no acute process. CTA head/neck showed no acute process. She was admitted for further treatment. Patient History Medical History HNP (herniated nucleus pulposus), thoracic Sacral dysfunction T12 compression fracture Thoracic myelopathy UTI (urinary tract infection) Surgical History H/O eye surgery H/O shoulder surgery H/O thumb surgery H/O: knee surgery History of back surgery History of fusion of cervical spine History of lumbar fusion Family & Social History Family History Father Congestive heart failure Osteoarthritis Mother Osteoarthritis Pneumonia Sister Heart disease Grandmother Cancer Congestive heart failure Social History: household members none Prior Living Arrangements House Safety & Behavioral: Feels Safe in Current Yes Environment Been Physically Hurt or No Threatened By a Person Tobacco & Substance use: Smoking Status Never smoker alcohol intake current alcohol intake frequency holiday/special occasion Substance Use Type does not use Meds Home Medications and Allergies Home Medications Medication Instructions Recorded Confirmed Type ascorbic acid (vitamin C) 1,000 mg 1 g PO DAILY 03/31/21 03/24/22 History tablet cholecalciferol (vitamin D3) 250 250 mcg PO DAILY 03/31/21 03/24/22 History mcg (10,000 unit) capsule coenzyme Q10 200 mg/gram oral 200 mg PO DAILY 03/31/21 03/24/22 History powder (H2Q CoQ10) multivitamin 1 tab PO DAILY 03/31/21 03/24/22 History omega-3 fatty acids 1,250 mg 2,500 mg PO DAILY 03/31/21 03/24/22 History capsule strontium gluconate-vitamins 1 tab PO DAILY 03/31/21 03/24/22 History [id number] acid 680 mg-30 mg tablet pravastatin 20 mg tablet 20 mg PO DAILY 07/09/21 03/24/22 History Saccharomyces boulardii 250 mg 5,000 mmu cells PO BID 11/17/21 03/24/22 History capsule (Daily Probiotic (S. boulardii)) meloxicam 15 mg tablet See Rx Instructions .Route 03/14/22 03/24/22 Rx .COMPLEX #90 tabs tramadol 50 mg tablet 50 mg PO BEDTIME #30 tabs 03/14/22 03/24/22 Rx gabapentin 300 mg capsule 300 mg PO .COMPLEX #90 caps 03/17/22 03/24/22 Rx Allergies Allergy/AdvReac Type Severity Reaction Status Date / Time cefazolin [From Ancef] Allergy Intermediate Hives Verified 03/24/22 10:57 pregabalin [From Lyrica] AdvReac Intermediate Agitated Verified 03/24/22 10:57 CATS Allergy Intermediate ITCHING Uncoded 03/14/22 11:30 Review of Systems Review of Systems Narrative: 14 systems reviewed and negative aside from what is noted in HPI Exam Vital Signs (past 8 hours): - 03/24/22 15:30 03/24/22 15:30 03/24/22 16:00 Temperature Pulse Rate 72 69 Respiratory Rate 17 14 Blood Pressure 195/87 H Pulse Oximetry 98 99 Oxygen Delivery Method Room Air Room Air Oxygen Flow Rate 03/24/22 16:01 03/24/22 16:01 03/24/22 16:30 Temperature Pulse Rate 69 Respiratory Rate 12 Blood Pressure 163/72 H 171/74 H Pulse Oximetry 98 Oxygen Delivery Method Oxygen Flow Rate 03/24/22 16:30 03/24/22 17:00 03/24/22 17:30 Temperature Pulse Rate 72 66 71 Respiratory Rate 16 14 15 Blood Pressure Pulse Oximetry 98 98 97 Oxygen Delivery Method Room Air Room Air Oxygen Flow Rate 03/24/22 18:00 03/24/22 18:30 03/24/22 18:50 Temperature Pulse Rate 82 83 Respiratory Rate 21 19 Blood Pressure 115/59 L Pulse Oximetry Oxygen Delivery Method Oxygen Flow Rate 03/24/22 18:50 03/24/22 18:52 03/24/22 18:52 Temperature Pulse Rate 76 80 Respiratory Rate 20 25 H Blood Pressure 143/70 H Pulse Oximetry 98 98 Oxygen Delivery Method Room Air Oxygen Flow Rate 03/24/22 19:00 03/24/22 19:00 03/24/22 19:30 Temperature Pulse Rate 79 78 Respiratory Rate 20 22 Blood Pressure 154/73 H Pulse Oximetry 99 97 Oxygen Delivery Method Room Air Oxygen Flow Rate 03/24/22 20:15 Temperature 97.6 F Pulse Rate 70 Respiratory Rate 16 Blood Pressure 162/58 H Pulse Oximetry 98 Oxygen Delivery Method Oxygen Flow Rate 0 Oxygen Delivery Method Room Air Oxygen Flow Rate 0 Narrative Exam Narrative: GEN: in discomfort from pain HEENT: moist mucous membranes CV: regular rate and rhythm, no murmurs PULM: clear bilaterally ABD: soft, nontender, nondistended, no organomegaly EXT: warm adn well perfuse with edema noted NEURO: left hand strength 4/5, subjective upper and lower extremity parasthesias, difficulty with lower extremity movement limited secondary to pain Objective Labs 03/24/22 12:17 03/24/22 12:17 Labs: Laboratory Results - last 24 hr 03/24/22 03/24/22 03/24/22 12:17 12:17 12:17 WBC 8.8 RBC 4.55 Hgb 13.8 Hct 41.9 MCV 92.0 MCH 30.3 MCHC 32.9 RDW 12.6 Plt Count 240 Neut % (Auto) 68.7 Lymph % (Auto) 25.5 [place] % (Auto) 4.8 Eos % (Auto) 0.4 L Baso % (Auto) 0.6 Neut # (Auto) 6000 Lymph # (Auto) 2200 [place] # (Auto) 400 Eos # (Auto) 0 Baso # (Auto) 100 PT 12.6 INR 1.1 APTT 30 Sodium 140 Potassium 4.2 Chloride 104 Carbon Dioxide 26 BUN 15 Creatinine 0.59 Estimated GFR > 60 BUN/Creatinine Ratio 25.4 H Glucose 132 H Calcium 9.9 Total Bilirubin 0.5 AST 29 ALT 24 Alkaline Phosphatase 126 Total Creatine Kinase 148 H CK-MB (CK-2) 1.78 CK-MB (CK-2) Rel Index 1.2 L Troponin I < 0.012 Total Protein 7.3 Albumin 4.4 Globulin 2.9 Albumin/Globulin Ratio 1.5 SARS-CoV-2 (PCR) 03/24/22 12:17 WBC RBC Hgb Hct MCV MCH MCHC RDW Plt Count Neut % (Auto) Lymph % (Auto) [place] % (Auto) Eos % (Auto) Baso % (Auto) Neut # (Auto) Lymph # (Auto) [place] # (Auto) Eos # (Auto) Baso # (Auto) PT INR APTT Sodium Potassium Chloride Carbon Dioxide BUN Creatinine Estimated GFR BUN/Creatinine Ratio Glucose Calcium Total Bilirubin AST ALT Alkaline Phosphatase Total Creatine Kinase CK-MB (CK-2) CK-MB (CK-2) Rel Index Troponin I Total Protein Albumin Globulin Albumin/Globulin Ratio SARS-CoV-2 (PCR) Negative Assessment & Plan Assessment & Plan narrative: 1. New onset left hand weakness -etiology uncertain, admitted for rule out stroke -CT head and CTA head/neck unremarkable -MRI brain and ECHO ordered -continue aspirin, and ordered statin -NIH q4h -check lipids, a1c -PT/OT ordered -patient has significant spinal disease history, if MRI brain negative consider MRI of c-spine -possible ortho consult pending workup 2. Chronic pain -continue gabapentin -hold tramadol, order oxycodone instead 3. History of VTE -previous notes was on apixaban, clarify if she remains on this -for now ordered for heparin 4. Type 2 Diabetes -documented in previous notes -sliding scale for now -confirm if patient takes meds at home I have reviewed the case with the patient and family and obtained history from them. Have personally reviewed labs and CT head imaging. I discussed case with ED physician and bedside nurse. CODE: Full Proxy: Mauro Alvarez, son Time Spent With Patient Critical Care time: I spent a total of [] minutes of critical care time on this patient's care today; this time is exclusive of procedural time. Quality [facility] - Meds 'Current medications' to include all prescriptions, [id number] products, herbals, cannabis/cannabidiol products, and vitamin/mineral/dietary (nutrit ional) supplements. I have utilized all available resources to obtain, update, or review the patient?s current medications. [If Yes, STOP here]: Yes
[2022-03-24] MEDS: ATORVASTATIN 20 MG TABLET 40 MG PO (22:06)
[2022-03-24] MEDS: MELOXICAM 7.5 MG TABLET 15 MG PO (22:07)
[2022-03-24] MEDS: OXYCODONE IR 5 MG TABLET PO (22:07)
[2022-03-24] MEDS: HEPARIN 5,000 UNIT/ML VIAL 5000 UNIT SUBCUT (22:08)
[2022-03-24] MEDS: GABAPENTIN 300 MG CAPSULE PO (22:08)
[2022-03-24] MEDS: TRAMADOL 50 MG TABLET PO (23:40)
[2022-03-24] MEDS: ACETAMINOPHEN 325 MG TABLET 650 MG PO (23:41)
[2022-03-25] VITALS (8 sets, daily range): BP systolic 142–166; BP diastolic 65–84; PULSE 60–97; RESP 16; TEMP 36.1–36.7; O2SAT 96–98
[2022-03-25] MEDS: clonazePAM 0.5 MG TABLET PO ×2 (02:15→16:37)
[2022-03-25 06:46] LABS: Add Manual Diff / Slide Review NO; Basophils Absolute Auto 0 /uL (0-100); Basophils Percent Auto 0.5 % (0-2); Eosinophils Absolute Auto 100 /uL (0-450); Eosinophils Percent Auto 1.3 % (2-4); Hematocrit 40.1 % (36-46); Hemoglobin 13.6 g/dL (12.0-16.0); Lymphocytes Absolute Auto 3700 /uL (1100-4500); Lymphocytes Percent Auto 51.7 % (25-40); Mean Corpuscular HGB Conc 33.9 % (30-36); Mean Corpuscular Hemoglobin 30.9 PG (26-34); Mean Corpuscular Volume 91.1 fL (80-100); Monocytes Absolute Auto 500 /uL (0-900); Monocytes Percent Auto 6.7 % (3-14); Neutrophils Absolute Auto 2800 /uL (1500-7000); Neutrophils Percent Auto 39.8 % (50-75); Platelet Count 223 X10^3/uL (150-400); Red Cell Distribution Width 12.5 % (11.6-14.8); White Blood Cell Count 7.1 X10^3/uL (4.5-11.0)
[2022-03-25 06:52] LABS: Blood Urea Nitrogen 12 mg/dL (7-17); Calcium 9.2 mg/dL (8.4-10.2); Carbon Dioxide 26 mmol/L (22-32); Chloride 104 mmol/L (98-107); Cholesterol 184 mg/dL (140-199); Estimated Glomerular Filt Rate > 60 mL/min (>60); Glucose 103 mg/dL (80-110); HDL Cholesterol 56 mg/dL (40-60); HEMOLYSIS < 15 (0-50); LDL Cholesterol Calculated 87 mg/dL (<100); Potassium 3.7 mmol/L (3.4-5.1); Sodium 138 mmol/L (137-145); Triglycerides 205 mg/dL (35-150)
[2022-03-25 07:00] LABS: Hemoglobin A1C% w Est Avg Glu 6.7 % (4.0-6.0)
--- NOTE | 2022-03-25 07:10 | DI.ECHO.S_ITS ---
Interpretation Summary The left ventricle is normal in size. Left ventricular systolic function appears normal without focal wall motion abnormalities. The ejection fraction is estimated to be 60-65%. Diastolic parameters suggest a relaxation abnormality of the left ventricle, consistent with probable normal filling pressures. The right ventricle is not well visualized. The right ventricle grossly appears normal in size with probable normal systolic function. The left atrial size is normal. Right atrium not well visualized. There is no significant valvular heart disease. The ascending aorta is normal in size. There is linear echoes within the ascending aorta and is probable more consistent with artifact but if clinical presentation is concerning for aortic dissection then consider CTA or MRA to have a better assessment. Procedure: A two-dimensional transthoracic echocardiogram with color flow and Doppler was performed. The study quality was technically difficult. The patient was in sinus rhythm with heart rates between 62-73 bpm during the exam. Left Ventricle: The left ventricle is normal in size. Left ventricular wall thickness is mildly increased. Left ventricular systolic function appears normal without focal wall motion abnormalities. The ejection fraction is estimated to be 60-65%. Diastolic parameters suggest a relaxation abnormality of the left ventricle, consistent with probable normal filling pressures. Right Ventricle: The right ventricle is not well visualized. The right ventricle grossly appears normal in size with probable normal systolic function. Atria: The left atrial size is normal. Right atrium not well visualized. There is no Doppler evidence for an interatrial shunt. Mitral Valve: The mitral valve is normal in structure and function. The mitral valve leaflets appear mildly thickened, but open well. There is trace mitral regurgitation. Aortic Valve: The aortic valve is trileaflet. The aortic valve opens well. There is mild aortic valve sclerosis. There is trace aortic regurgitation. Tricuspid Valve: The tricuspid valve is normal in structure and function. There is trace tricuspid regurgitation. Pulmonic Valve: The pulmonic valve leaflets are thin and pliable; valve motion is normal. There is a trace or physiologic amount of pulmonic regurgitation. There is no significant valvular heart disease. Great Vessels: The aortic root is normal size. The ascending aorta is normal in size. There is linear echoes within the ascending aorta and is probable more consistent with artifact but if clinical presentation is concerning for aortic dissection then consider CTA or MRA to have a better assessment. The IVC is of normal diameter and collapses greater than 50% with a sniff. This suggests a low right atrial pressure of 3 mm Hg. Pericardium/ Pleura There is no pericardial effusion. There is no pleural effusion. MMode/2D Measurements & Calculations LVIDd: 3.8 cm LVOT diam: 1.8 cm LVIDs: 2.3 cm Ao root diam: 3.2 cm FS: 39.1 % asc Aorta Diam: 3.3 cm EPSS: 0.33 cm IVSd: 1.2 cm LVPWd: 1.0 cm LV robertson. diameter/BSA (cm/m^2): 2.0 LV sys. diameter/BSA (cm/m^2): 1.2 LA A2 area: 15.2 cm2 TAPSE: 2.2 cm LA A4 area: 9.8 cm2 LA length (vol): 3.6 cm LA vol: 35.0 ml LA vol index: 18.3 ml/m2 Doppler Measurements & Calculations Ao V2 max: 138.4 cm/sec LVOT Max Almas: 92.5 cm/sec Ao V2 mean: 107.1 cm/sec LV V1 max P.4 mmHg Ao max P.7 mmHg LV V1 VTI: 24.6 cm Ao mean P.9 mmHg STACIA(I,D): 2.2 cm2 Ao V2 VTI: 28.4 cm STACIA(V,D): 1.7 cm2 sev ratio: 0.87 STACIA indexed to BSA (cm^2/m^2): 1.2 MV E max almas: 67.6 cm/sec TR max almas: 218.3 cm/sec MV A max almas: 83.8 cm/sec TR max P.1 mmHg MV E/A: 0.81 PA V2 max: 61.4 cm/sec Med Peak E' Almas: 4.6 cm/sec PA V2 mean: 46.6 cm/sec E/E' med: 14.7 PA mean P.95 mmHg Lat Peak E' Almas: 8.0 cm/sec E/E' lat: 8.5 E/e' average: 11.6 MV dec time: 0.30 sec MVA(VTI): 2.9 cm2 MV V2 mean: 36.3 cm/sec SV(LVOT): 63.6 ml MV mean P.76 mmHg MV V2 VTI: 21.6 cm Reading Physician:08:46 AM
[2022-03-25] MEDS: diazePAM 5 MG TABLET PO (08:57)
[2022-03-25] MEDS: HEPARIN 5,000 UNIT/ML VIAL 5000 UNIT SUBCUT (08:57)
[2022-03-25] MEDS: GABAPENTIN 300 MG CAPSULE PO ×2 (08:57→16:33)
[2022-03-25] MEDS: ASPIRIN EC 81 MG TABLET PO (08:57)
--- NOTE | 2022-03-25 10:31 | PT.IIE ---
Surgical History (Last Reviewed 03/24/22 @ 23:09 by Mayur Ervin MD) H/O eye surgery H/O shoulder surgery H/O thumb surgery H/O: knee surgery History of back surgery History of fusion of cervical spine History of lumbar fusion Medical History (Last Reviewed 03/24/22 @ 23:09 by Mayur Ervin MD) HNP (herniated nucleus pulposus), thoracic Sacral dysfunction T12 compression fracture Thoracic myelopathy UTI (urinary tract infection) Physical Therapy Inpatient Evaluation/Re-Eval M1 PT/OT-IP Prior Functional Status Start: 03/25/22 13:51 Freq: NEEDED Status: Active Protocol: Document 03/25/22 10:31 AB (Rec: 03/25/22 14:07 AB [id number]) Medical Review Prior Functional Status Medical History Reviewed Yes Communication able to make needs known Mobility and Gait pt stated that she is modified independent with all mobilities and ambulation using her Up walker Social History Household Members none Living Arrangements House Number of Floors (Floors) One Floor Number of Stairs To Enter/Railing? 1 step to enter Home Environment Standard Height Toilet,Walk in Shower Home Equipment Four Wheel Walker,Raised Toilet Seat Without Armrests, Shower Seat without Backrest, Hand Held Shower Additional Social History Comment pt has an Up walker pt has an adjustable bed with R rail and a recliner M2 PT-IP Current Condition Start: 03/25/22 13:51 Freq: NEEDED Status: Active Protocol: Document 03/25/22 10:31 AB (Rec: 03/25/22 14:07 AB [email or web address]) Physical Therapy Current Condition Current Condition Evaluation Date 03/25/22 Treatment Diagnosis r/o CVA; weakness Onset Date 03/24/22 M3 PT-IP Subjective Start: 03/25/22 13:51 Freq: NEEDED Status: Active Protocol: Document 03/25/22 10:31 AB (Rec: 03/25/22 14:07 AB [email or web address]) Subjective Physical Therapy Visit Type Type Initial Evaluation Visit Start Time 10:31 Visit Stop Time 11:00 Total Visit Minutes 29 Number of ANGIOGRAPHY NURSE Visits 0 Physical Therapy Visit Comments Patient Comments agreeable to do PT M4 PT-IP Mobility and Gait Start: 03/25/22 13:51 Freq: NEEDED Status: Active Protocol: Document 03/25/22 10:31 AB (Rec: 03/25/22 14:07 AB [id number]) PT-Bed Mobility Assessment Supine to Sit Supine to Sit Maximum Assistance,1 Person Assistance,Bedrails Sit to Supine Sit to Supine Maximum Assistance,Bedrails PT-Transfer Assessment Sit to and From Stand Sit to and from Stand Maximum Assistance,1 Person Assistance,Use of Upper Extremities Equipment Transfer Assistive Device Gait Belt,4 Wheeled Walker Orthotic/Prosthetic Devices or Brace: No Comments Mobility Comments pt with back issues and with recent carpal tunnel surgeries affecting mobility. pt completed supine to sit max A and max cues with HOB elevated . pt stated that they gave her valium for the MRI procedure and is feeling tired and stated that she was able to move better prior to valium . pt able to sit on EOB SBA to CGA. completed sit to stand x 2 attempts max A x 1 and max cues. max A for standing balance. attempted to ambulated using Up walker but pt only able to take ~ 2 steps forwards and backed up and stated that she feels her LE are wobbly due to the valium. pt sat back on the EOB. asked pt to stand up again to positioned better on the bed. pt completed sit to stand max A and took side steps towards the HOB using Up walker max A and cues. pt completed sit to supine max A for LE elevation . positioned pt on the bed. call light and table placed within reach. Gait Assessment Comments Gait Comments took steps to position in bed PT-Balance Assessment Sitting Balance and Reactions Static Sitting Balance Ability Good Dynamic Sitting Balance Ability Fair Standing Balance and Reactions Static Standing Balance Ability Poor Dynamic Standing Balance Ability Poor Device Used up walker M5 PT-IP Objective Assessments Start: 03/25/22 13:51 Freq: NEEDED Status: Active Protocol: Document 03/25/22 10:31 (Rec: 03/25/22 14:07 [id number]) Orientation Orientation/Cognition Level of Alertness Alert Orientation Name,Place,Situation Language Function Ability No Deficits Noted Safety Awareness Decreased Safety Awareness Memory Description No Deficits Noted Gross Range of Motion Lower Extremity ROM Assessment Within Functional Limits Strength Lower Extremity Strength Assessment Bilaterally Impaired Hip 4-/5 Knee 3+/5 Sensation Assessment Sensation Sensation Description Numbness,Tingling Comments Sensation Comments neuropathy on BLE Muscle Tone Muscle Tone WNL Yes M6 PT-IP Treatment Start: 03/25/22 13:51 Freq: NEEDED Status: Active Protocol: Document 03/25/22 10:31 AB (Rec: 03/25/22 14:07 AB [id number]) Physical Therapy Treatment Education Education Provided Safety M7 PT-IP Assessment and Plan Start: 03/25/22 13:51 Freq: NEEDED Status: Active Protocol: Document 03/25/22 10:31 AB (Rec: 03/25/22 14:07 AB [id number]) PT Summary Assessment and Plan Potential Rehabilitation Potential Fair Status of Condition at Evaluation Evolving Summary Impairments Pain,ROM,Strength,Balance, Coordination,Sensation,Tone, Cognition,Bed Mobility, Transfers,Gait,Activity Tolerance Assessment Summary pt requiring max A and max cues with mobility using Up walker. pt stated that she was given valium this morning prior to MRI and is affecting her mobiltiy. pt lives alone and will not have assistance at home. will continue to assess progress. Goals Bed Mobility Goal Independent Transfer Goal Independent,Four Wheeled Walker Gait Goal Independent,Four Wheel Walker Gait Distance 100 Other Goals improve transfers and ambulation using Up walker Days to Meet Goals 10 Frequency of Treatment Frequency Of Treatment Once a Day Treatment Plan Physical Therapy Treatment Plan Bed Mobility Training,Transfer Training,Gait Training, Therapeutic Exercise,Balance Retraining,Discharge Planning, Hot or Cold Pack,Neuromuscular Re-ed,Coordination Retraining ,Manual Therapy Precautions Other Precautions falls Recommendations To Nursing Amount of Assist Needed 1 Person Assist Discharge Recommendations PT Discharge Recommendations Home with 05/09 Assist Available,Home Health,SNF Rehab,Home vs SNF Transportation Needs at Discharge Wheelchair/Cabulance
--- NOTE | 2022-03-25 12:34 | OT.IP.EVAL ---
Past Medical History (Last Reviewed 03/24/22 @ 23:09 by Mayur Ervin MD) HNP (herniated nucleus pulposus), thoracic Sacral dysfunction T12 compression fracture Thoracic myelopathy UTI (urinary tract infection) Surgical History (Last Reviewed 03/24/22 @ 23:09 by Mayur Ervin MD) H/O eye surgery H/O shoulder surgery H/O thumb surgery H/O: knee surgery History of back surgery History of fusion of cervical spine History of lumbar fusion Occupational Therapy Inpatient Evaluation/Re-Eval M1 PT/OT-IP Prior Functional Status Start: 03/25/22 13:51 Freq: NEEDED Status: Active Protocol: Document 03/25/22 12:34 [facility] (Rec: 03/25/22 15:55 [facility] [id number]) Medical Review Prior Functional Status Medical History Reviewed Yes Communication able to make needs known Mobility and Gait pt stated that she is modified independent with all mobilities and ambulation using her Up walker Activities of Daily Living and IADL's Pt states prior has been able to do her ADL's and IADL's with increased time. Social History Household Members none Living Arrangements House Number of Floors (Floors) One Floor Number of Stairs To Enter/Railing? 1 step to enter with bilateral rail. Home Environment Standard Height Toilet,Walk in Shower Home Equipment Front Wheel Walker,Four Wheel Walker,Quad Cane,Raised Toilet Seat Without Armrests,Shower Seat without Backrest,Hand Held Shower,Medical Oncologist Additional Social History Comment pt has an Up walker pt has an adjustable bed with R rail and a recliner M2 OT-IP Current Condition Start: 03/25/22 15:30 Freq: Status: Active Protocol: Document 03/25/22 12:34 [facility] (Rec: 03/25/22 15:55 [facility] [id number]) Occupational Therapy Current Condition Current Condition Evaluation Date 03/25/22 Treatment Diagnosis TIA, left hand weakness Diagnosis Onset Date 03/24/22 M3 OT- IP Subjective and Pain Start: 03/25/22 15:30 Freq: Status: Active Protocol: Document 03/25/22 12:34 [facility] (Rec: 03/25/22 15:55 [facility] [id number]) OT- Subjective Occupational Therapy Visit Type Type Initial Evaluation Visit Start Time 12:03 Visit Stop Time 12:34 Total Visit Minutes 31 Occupational Therapy Visit Comments Patient Comments Pt agreed to get up to use the BSC. Patient/Caregiver Goals TO go home. OT Pain Assessment Pain When Pain Assessed During Mobility Pain Present Pain Present Pain Reported M4 OT- IP ADL's Start: 03/25/22 15:30 Freq: Status: Active Protocol: Document 03/25/22 12:34 [facility] (Rec: 03/25/22 15:55 [facility] [id number]) OT [id number] Comments OT Self-Feeding Comments Not at meal time. Pt will benefit from light weight utensils at this time, kitchen staff notified. OT ADL-Grooming Comments OT Grooming Comments Assist for set-up OT ADL-Oral Care Comments Oral Care Comments Assist for set-up OT ADL-Dressing General Eval Lower Body Dressing Ability Maximum Assistance Comments OT Dressing Comments MAXA for all LB dressing needs at this time. Pt insists that she has a neighbor that will assist her needs and be able to stay with her. OT ADL-Toileting General Evaluation Toileting Ability Maximum Assistance Areas Needing Assistance Manage Clothing,Perform Perineal Hygiene Comments OT Toileting Comments MAXA for all hygiene needs. Pt states has a toilet paper aid at home. After suggesting, pt considering to get a bidet. OT ADL-Bathing Comments OT Bathing Comments Sponge bath more appropriate at this time. Pt states she has walk in shower and backs up into the shower chair and able to use the hand held shower spray. M5 OT- IP IADL's Start: 03/25/22 15:30 Freq: Status: Active Protocol: Document 03/25/22 12:34 [facility] (Rec: 03/25/22 15:55 [facility] [id number]) OT-Instrumental Activities of Daily Living Home Safety Awareness Home Safety Comments Pt will need 24/7 assist for all needs. Medication Management Medication Management Comments Pt states has been doing it on her own, would be good to have assist. Money Management Money Management Comments Pt states has been doing it on her own, would be good to have assist. Meal Preparation Meal Preparation Comments Pt will need assist. Letter Stamping Machine Operator Letter Stamping Machine Operator Comments Pt will need assist. M6 OT- IP Functional Cognition Start: 03/25/22 15:30 Freq: Status: Active Protocol: Document 03/25/22 12:34 [facility] (Rec: 03/25/22 15:55 [facility] [id number]) Cognitive Factors Limiting Selfcare Function Cognitive Ability Level of Alertness Alert Patient Orientation Name,Place,Situation Attention Span Ability Capable of Focused Attention, Capable of Sustained Attention Ability to Follow Commands Able to Follow One Step Commands Cognitive Comments Cognitive Assessment Comments Pt able to follow commands and is insistent on her care and movements. M7 OT- IP Mobility and Balance Start: 03/25/22 15:30 Freq: Status: Active Protocol: Document 03/25/22 12:34 [facility] (Rec: 03/25/22 15:55 [facility] [id number]) OT- Bed Mobility Assessment Supine to Sit Supine to Sit Assist Moderate Assistance Sit to Supine Sit to Supine Assist Moderate Assistance,2 Person Assistance OT-Transfer Assessment Sit to and From Stand Sit to and from Stand Moderate Assistance Transfers Transfer Ability Moderate Assistance Technique Transfer Destination Bed,Bedside Commode Comments Mobility Comments MODA to help get her trunk upright. MODA x1 to stand to her upright walker and transfer to the [facility]. Pt needing increased time and having to do it her way. MODA X 2 to help get back to bed. OT- Balance Assessment Sitting Balance and Reactions Static Sitting Balance Ability Good Dynamic Sitting Balance Ability Fair Standing Balance and Reactions Static Standing Balance Ability Poor Dynamic Standing Balance Ability Poor M8 OT- IP Objective Assessments Start: 03/25/22 15:30 Freq: Status: Active Protocol: Document 03/25/22 12:34 [facility] (Rec: 03/25/22 15:55 [facility] [id number]) OT Gross Range of Motion Upper Extremity Range of Motion Assessment Bilaterally Impaired OT Strength Upper Extremity Strength Assessment Bilaterally Impaired Comments Strength Comments Pt not able to use her left hand to grasp the cup. Pt needing use her right hand to help pecan picker items at this time. OT- Coordination Assessment Upper Extremity Finger to Nose Test Right UE Impaired Comments Coordination Comments decreased use of left hand for FMS to open items and containers. M9 OT- IP Assessment and Plan Start: 03/25/22 15:30 Freq: Status: Active Protocol: Document 03/25/22 12:34 [facility] (Rec: 03/25/22 15:55 [facility] [id number]) OT Summary Assessment and Plan Potential Rehabilitation Potential Good Analytic Complexity at Evaluation Moderate Summary OT Impairments Pain,Strength,Balance, Functional Mobility,Self- Feeding,Grooming,Dressing, Toileting,Bathing,Toilet Transfers,Shower Transfers, Activity Tolerance Progress Towards Goals Slow Progress due to Medical Issues,Slow Progress due to Activity Tolerance Assessment Summary Pt MOD complexity and now needing MODA 1-2 for bed mobility, sit to stand MODA x1 and to transfer with her up walker to the commode. Pt needing another person for hygiene needs. Pt will benefit from skilled rehab versus 24/7 assist at home with home health pending pt's progress. Pt is insistent on going home. Goals Grooming Goal Standby Assistance Dressing Goal Minimal Assistance Toileting Goal Minimal Assistance Bathing Goal Moderate Assistance Toilet Transfer Goal Contact Guard Assistance Shower Transfer Goal Minimal Assistance Days to Meet Goals 20 Frequency of Treatment Frequency Of Treatment Once a Day Treatment Plan OT Treatment Plan ADL Training,Functional Mobility,Patient/Family Education,Discharge Planning Other Treatment Recommendations and Next Pt to transfer to the toilet Treatment Focus with LALY x1 Discharge Recommendations OT Discharge Recommendations Home with 24/7 Assist Available,Home Health,SNF Rehab,Home vs SNF Transportation Needs at Discharge Private Vehicle,Wheelchair/ Cabulance
--- NOTE | 2022-03-25 13:50 | PM.DS.1 ---
History of Present Illness History of Present Illness Date Patient Seen: 03/25/22 Time Patient Seen: 13:50 Chief complaint: Back pain, weakness both arms Narrative: Per Dr. Ervin, admitting provider, Ms. Alvarez is a 71W with PMH of multiple spinal surgeries, carpal tunnel, chronic sacroiliac pain getting injections who presents to the hospital for left hand weakness. She has had apparently cervical and lumbar spine fusion in the past. She has had thoracic myelopathy s/p decompression in the past. She developed carpal tunnel it is suspected because she leans heavily on her walker with her hands due to her poor mobility. She had this procedure months ago and has had bilateral parasthesias. This morning when she woke up she had worsen sacroiliac pain. She tried to reposition herself but had no left hand senior private client advisor strength and then fell. She is currently complaining of pain all over and especially in lower back. She has chronic lower leg weakness. No incontinence. No fevers/chills. No vision changes. No speech difficulty or swallow difficulty. Her senior private client advisor strength continues to be worse than baseline. In the ED workup was done, vitals notable for afebrile and elevated blood pressure. Labs notable for 8.8, hgb 13.8, plts 240. Creatinine 0.59. Trop negative. CT head showed no acute process. CTA head/neck showed no acute process. She was admitted for further treatment. Discharge Providers Provider Date of admission: 03/24/22 19:38 Discharge Date: 03/25/22 Primary care physician: Marianna Wick MD Consults: 03/24/22 20:19 Consult to Occupational Therapy Evaluate & Treat Comment: Physician Instructions: Evaluate and treat Consult to Physical Therapy Evaluate & Treat Comment: Physician Instructions: Evaluate and Treat Discharge provider: Daniel Balbuena DO Summary Hospital Course Discharge Diagnosis: 1. New onset left hand weakness, bilateral (L > R) Carpal tunnel syndrome 2. Chronic pain 3. History of VTE 4. Type 2 Diabetes Hospital Course: 71 year old female with PMH of chronic pain, b/l carapl tunnel, prior VTE, DM who presented with L hand weakness and paresthesias. Stroke workup was unremarkable, including MRI of her brain. Echocardiogram was similarly unremarkable. She continued to have symptoms, but with positive tinel testing etiology was likely from worsening carpal tunnel syndrome on the L. She was prescribed a medrol dose pack for her symptoms and risks and benefits of continued admission or discharge were discussed for further monitoring in the setting of continued weakness. The patient wished to be discharged home. She should follow up with her PCP along with orthopedic surgery as an outpatient after completion of her steroids. Time Spent with Patient Time spent: Greater than 30 minutes Exam Vital Signs (past 8 hours): - 03/25/22 09:00 03/25/22 08:22 Temperature 97.3 F L Pulse Rate 76 Respiratory Rate 16 Blood Pressure 166/74 H Pulse Oximetry 96 98 Oxygen Delivery Method Room Air Oxygen Flow Rate 0 0 Oxygen Delivery Method Room Air Oxygen Flow Rate 0 Narrative Exam Narrative: GEN: no acute distress HEENT: moist mucous membranes CV: regular rate and rhythm, no murmurs PULM: clear bilaterally ABD: soft, nontender, nondistended, no organomegaly EXT: warm adn well perfuse with edema noted. NEURO: left hand strength 4/5, subjective upper and lower extremity parasthesias, difficulty with lower extremity movement limited secondary to pain. + tinel testing bilaterally with reproducable symptoms. Objective Labs 03/25/22 05:30 03/25/22 05:30 Labs: Laboratory Results - last 24 hr 03/25/22 03/25/22 03/25/22 05:30 05:30 05:30 WBC 7.1 RBC 4.40 Hgb 13.6 Hct 40.1 MCV 91.1 MCH 30.9 MCHC 33.9 RDW 12.5 Plt Count 223 Neut % (Auto) 39.8 L D Lymph % (Auto) 51.7 H D Brooks % (Auto) 6.7 Eos % (Auto) 1.3 L Baso % (Auto) 0.5 Neut # (Auto) 2800 Lymph # (Auto) 3700 Brooks # (Auto) 500 Eos # (Auto) 100 Baso # (Auto) 0 Sodium 138 Potassium 3.7 Chloride 104 Carbon Dioxide 26 BUN 12 Creatinine 0.60 Estimated GFR > 60 BUN/Creatinine Ratio 20.0 Glucose 103 Hemoglobin A1c 6.7 H Calcium 9.2 Triglycerides 205 H Cholesterol 184 LDL Cholesterol, Calc 87 HDL Cholesterol 56 PFSH Medical History HNP (herniated nucleus pulposus), thoracic Sacral dysfunction T12 compression fracture Thoracic myelopathy UTI (urinary tract infection) Surgical History H/O eye surgery H/O shoulder surgery H/O thumb surgery H/O: knee surgery History of back surgery History of fusion of cervical spine History of lumbar fusion Family History Father Congestive heart failure Osteoarthritis Mother Osteoarthritis Pneumonia Sister Heart disease Grandmother Cancer Congestive heart failure Social History household members: none Smoking Status: Never smoker alcohol intake: current Discharge Plan Discharge Plan Patient Disposition: Home Provider Discharge Comment: You were admitted to the hospital with L hand weakness, MRI was negative for stroke. Most likely from L carpal tunnel. Start medrol dose pack which was sent to your pharmacy. Please follow up with PCP and orthopedics. Discharge orders & Medications Prescriptions: New methylprednisolone 4 mg tablet See Rx Instructions .ROUTE .COMPLEX Qty: 21 0RF Rx Instructions: Take 6 tabs x1 day, 5 tabs x1 day, 4 tabs x1 day, 3 tabs x1 day,2 tabs x1 day, 1 tabs x1 day Continued gabapentin 300 mg capsule 300 mg PO .COMPLEX Qty: 90 2RF Label Comments: 300 in am and 600 at night Rx Instructions: 1-2 PO Tid to begin at HS and titrate to pain relief multivitamin Tablet 1 tab PO DAILY ascorbic acid (vitamin C) 1,000 mg tablet 1 g PO DAILY cholecalciferol (vitamin D3) 250 mcg (10,000 unit) capsule 250 mcg PO DAILY H2Q CoQ10 200 mg/gram powder 200 mg PO DAILY omega-3 fatty acids 1,250 mg capsule 2,500 mg PO DAILY Label Comments: not taking strontium [id number] 680-30 mg tablet 1 tab PO DAILY pravastatin 20 mg tablet 20 mg PO DAILY Saccharomyces boulardii [Daily Probiotic (S. boulardii)] 250 mg capsule 5,000 mmu cells PO BID Label Comments: not taking meloxicam 15 mg tablet See Rx Instructions .ROUTE .COMPLEX Qty: 90 2RF Dose Instruction: TAKE 1 TABLET BY MOUTH DAILY Rx Instructions: TAKE 1 TABLET BY MOUTH DAILY tramadol 50 mg tablet 50 mg PO BEDTIME Qty: 30 1RF Follow up/Referrals: Marianna Wick MD [Primary Care Provider] - Diet/Activity/Treatments Diet: Diet as Tolerated Activity: As tolerated Visit Report/Discharge Packet Instructions: Carpal Tunnel Syndrome, How to Prevent Falls, Methylprednisolone Stand Alone Forms: Patient Portal/API, Stroke Signs & Symptoms Discharge Data Primary Care Provider: Marianna Wick Attending Provider: Mayur Ervin VTE Deep Vein Thrombosis/Pulmonary Embolism Present on Admission: No
--- NOTE | 2022-03-26 08:18 | CM.DPNOTE ---
DCP: Patient already discharged home yesterday, did not note any notes from DCP in chart, but hand-off indicated that patient wanted [facility], patient was OBS, would not need resumption order. Spoke to Jane at [facility], they no longer have patient on services, but can accept. Sent referral, included H&P, P.t notes, orders, face to face, and DC Summary. Ordering P.T, and O.T. P: Patient discharged yesterday, but went ahead and set up [facility] P.T, and O.T. Lynda Mane RN/Operations Research Director
== END 2022-03-25 20:45 | disposition home or self-care (01) ==
LOC: ED 18:06 → AC 19:39
PROVIDERS: Emergency Medicine; Admitting Provider Internal Medicine; Emergency Provider Emergency Medicine; PCP Internal Medicine; Visit Provider Internal Medicine
DX: M54.9 Dorsalgia, unspecified (principal); G56.03 Carpal tunnel syndrome, bilateral upper limbs; G89.29 Other chronic pain; E11.9 Type 2 diabetes mellitus without complications; Z20.822 Contact with and (suspected) exposure to COVID-19; R53.1 Weakness; R20.0 Anesthesia of skin
CPT/HCPCS: 36415; 70496; 70498; 70551; 80048; 80053; 80061; 81003; 82550; 82553; 82962; 83036; 84484; 85025; 85610; 85730; 87635; 93005; 93306; 96360; 96372; 97163; 97166; 99284; C9803; G0378; J1644; Q9967

== ENCOUNTER → 2022-04-07 16:57 | Outpatient (CLI) | payer MEDICARE, SELFPAY ==
[2022-03-24 20:23] VITALS: BMI 32.7
--- NOTE | 2022-04-07 | DI.MRI.S_ITS ---
PROCEDURE: MR CERVICAL SPINE WO CON INDICATIONS: CERVICALGIA TECHNIQUE: Noncontrast sagittal T1 spin echo and T2 fast spin echo, sagittal STIR, foraminal oblique sagittal T2 fast spin echo, and axial gradient echo or T2 fast spin echo through the cervical spine. COMPARISON: None. FINDINGS: Image quality: Excellent. Alignment and Curvature: There is loss of normal cervical lordosis. Bone Marrow: Marrow demonstrates normal overall signal. Anterior fusion hardware at C4-T1 is present mild reactive signal throughout the endplates of the cervical and upper thoracic spine. Spinal Cord: Visualized spinal cord has normal signal. There are several scattered regions of high T2 signal intensity within the cervical cord, including the central cord at the C3-C4 level, measuring roughly 6 mm transverse, the C4-C5 disc space level, measuring roughly 4 mm transverse, and at the C5-C6 level measuring roughly 3 mm. No cerebellar tonsillar herniation. Paraspinous Soft Tissues: No paravertebral masses. Prevertebral soft tissues are normal in thickness. C2-C3: Moderate disc desiccation. Mild diffuse disc bulge. Mild facet and uncovertebral hypertrophy bilaterally. Mild canal stenosis. Moderate bilateral foraminal stenosis. C3-C4: Moderate disc height loss and desiccation. Moderate diffuse disc bulge. Mild facet and uncovertebral hypertrophy bilaterally. Severe canal stenosis. Severe cord flattening. Severe bilateral foraminal stenosis with bilateral C4 nerve root compression. C4-C5: Anterior fusion. Mild residual disc bulge/osteophyte. Mild facet and uncovertebral hypertrophy bilaterally. Moderate to severe canal stenosis. Mild cord flattening. Severe bilateral foraminal stenosis with bilateral C5 nerve root compression. C5-C6: Anterior fusion. Mild residual disc bulge/osteophyte with superimposed left paracentral protrusion/osteophyte. Mild facet and uncovertebral hypertrophy bilaterally. Severe canal stenosis. Mild cord flattening. Moderate bilateral foraminal stenosis. C6-C7: Anterior fusion. Mild residual disc bulge/osteophyte. Mild facet and uncovertebral hypertrophy bilaterally. Moderate canal stenosis. Severe bilateral foraminal stenosis. Bilateral C7 nerve root compression. C7-T1: Anterior fusion. Moderate disc desiccation. Mild diffuse disc bulge. Mild facet and uncovertebral hypertrophy bilaterally. Mild canal stenosis. Severe bilateral foraminal stenosis. Bilateral C8 nerve root compression. IMPRESSION: 1. Postsurgical sequelae. 2. Multilevel degenerative disc and facet disease, as well as uncovertebral hypertrophy. 3. Multilevel canal stenoses, worst at C3-C4, C4-C5, and C5-C6 where there is associated cord flattening. 4. Multilevel foraminal stenoses, worst at C3-C4, C4-C5, C6-C7, and C7-T1 where there is associated intraforaminal nerve root compression. 5. Multiple regions of high T2 signal intensity within the cervical cord, consistent with regions of cord injury/gliosis. Dictated by: Amy Maradiaga M.D. on 04/13/2022 at 10:35 Transcribed by: DENY on 04/13/2022 at 10:43 Approved by: Amy Maradiaga M.D. on 04/13/2022 at 16:04
== END ==
PROVIDERS: PCP Internal Medicine; Referring Provider Orthopaedic Surgery Orthopaedic Surgery of the Spine; Visit Provider Orthopaedic Surgery Orthopaedic Surgery of the Spine
DX: M50.31 Other cervical disc degeneration, high cervical region (principal); M47.812 Spondylosis without myelopathy or radiculopathy, cervical region; M48.02 Spinal stenosis, cervical region; Z98.1 Arthrodesis status
CPT/HCPCS: 72141

== ENCOUNTER 2022-04-20 06:07 | Inpatient (IN) | payer MEDICARE, SELFPAY ==
[2022-03-24 20:23] VITALS: BMI 32.7
[2022-04-18 13:42] VITALS: BMI 31.7
[2022-04-20] VITALS (13 sets, daily range): BP systolic 169–196; BP diastolic 79–110; PULSE 72–121; RESP 10–18; TEMP 36.2–37.1; O2SAT 93–98; BMI 31.7
[2022-04-20 07:16] LABS: COVID19 -Nasal RAPID Negative (Negative)
[2022-04-20] MEDS: LACTATED RINGERS 1,000 ML 42 ML IV (07:16)
--- NOTE | 2022-04-20 07:44 | PM.PREOP ---
Pre-operative Note COVID-19 COVID-19 status: Negative Result date/Date tested (Pos, Neg/Pending): 04/19/22 Criteria for continued procedure: Expected advancement of disease process, Possibility delay results in more complex future surgery or treatment, Increased loss of function, Continuing or worsening of significant or severe pain, Deterioration of the patient's condition or overall health and Delay expected to result in less-positive ultimate med/surg outcome Interval Note History & Physical reviewed/Exam performed by Physician: Yes Changes to H&P: No
[2022-04-20] MEDS: CLINDAMYCIN 900 MG/50 ML PIGGYBACK 50 MG IV (07:50)
--- NOTE | 2022-04-20 08:40 | SUR.OPER ---
Supine, head on gel donut. Arms padded with gel pads, tucked at sides, towel roll under shoulders. Tape on shoulders to foot of bed. Safety belt at thigh. Legs uncrossed tape over lower legs.
[2022-04-20] MEDS: BUPIVACAINE 0.25% (PF) 10 ML, EPINEPHrine 0.3 MG INJ (09:10)
--- NOTE | 2022-04-20 09:37 | DI.RAD.S_ITS ---
PROCEDURE: XR CERVICAL SPINE 2V OR 3V INDICATIONS: C 3-4 ACDF TECHNIQUE: 2 intra-operative spot fluoroscopic images of the cervical spine. COMPARISON: [facility], MR, MR CERVICAL SPINE WO CON, 04/07/2022, 17:16. FINDINGS: Intraoperative images demonstrate postsurgical changes from prior spinal fusion hardware changes from C4 through T1 as seen on the prior MRI. There is been interval fusion at the C3-4 disc space level. Hardware is in expected position radiographically. IMPRESSION: Interval cervical spinal fusion at the C3-4 disc space level. Approved by: Rah Burns M.D. on 04/20/2022 at 10:41
--- NOTE | 2022-04-20 09:56 | P.OP_ITS ---
Operative Date/Time/Diagnoses Date of procedure: 04/20/22 Time of procedure: 07:40 Pre-op diagnosis: 1. 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 C3-4 anterior cervical diskectomy and fusion 2. C3-4 anterior interbody cage placement 3. C3-4 anterior instrumentation with plate and screw placement in C5 and C6 vertebrae 4. Utilization of microsurgical technique and operating microscope Same procedure as scheduled: Yes Indications: Patient has been having chronic neck pain and worsening cervical myelopathy with difficulty walking using her upper and lower extremities and balance. Patient failed multiple conservative management with worsening pain weakness and numbness in her upper extremity and lower extremity. Patient has been having difficulty performing activity of daily living. After discussing risks benefits of treatment options, patient elected proceed with surgery. Surgeon: Vince Man Senior Mechanical Design Engineer: Jacqueline Keenan Click Yes if Unassisted: No Anesthesia Type: General Operative Notes Closure Type: primary Specimen(s): none sent Prosthetic devices, grafts, tissues, transplants, or devices: Globus Hedron C interbody spacer Estimated Blood Loss (mL): 5 Blood products transfused: none Procedure in detail: Patient was seen in the preoperative area. Risks and benefits of the surgery was discussed with the patient. Informed consent was obtained from the patient and placed in the chart. Surgical site was marked. Patient was taken to the operative room. General anesthesia was administered. Prophylactic antibiotic was given to the patient less than 30 min before the incision was made. Patient was placed into a supine position on a radiolucent table. Patient's shoulders were taped down to allow proper C-arm imaging. Anterior cervical area was prepped and draped in a sterile fashion. Time-out was performed at this time. Using lateral C-arm imaging, the level between C3 and C4 was identified and marked on patient's neck. A oblique incision from midline towards medial border of sternocleidomastoid muscle was made. The platysma muscle was incised in line with skin incision. Metzenbaum scissor was used to develop the plane between the medial border of sternocleidomastoid d and the strap muscles medially. The carotid sheath and its contents were identified and protected behind the hand- held retractor during the entire case. The plane between the carotid sheath and strap muscles was developed with Metzenbaum scissors. Dissection was made down to the level of the anterior cervical fascia. Longus colli muscle was incised on the anterior aspect of vertebral bodies bilaterally from C3-4. Spinal needle was placed into the C3-4 disc space and confirmed with lateral C-arm imaging. Using microsurgical technique and operative microscope, anterior cervical diskectomy was performed at C3-4 level. This was done by removing the disc material, removing the anterior and posterior osteophytes posterior longitudinal ligaments along with performing bilateral foraminotomies at the C3-4 levels. Patient was found to have severe central stenosis and foraminal stenosis. Patient's stenosis was fully decompressed after decompression was completed. After the diskectomy was completed, Globus Hedron C anterior interbody cage was obtained. The cage was packed with DBM bone grafting material. One cage each along with the bone grafting material was then packed into the interbody space at C3-4 along with an anterior cervical plate. The cervical plate was stabilized to the C5-C6 vertebrae using 2 screws. After confirming placement of the hardware with AP and lateral C-arm imaging, the screws were locked into the plate using the locking mechanism and torque limiting screwdriver. After the hardware was placed and confirmed with AP and lateral C-arm imaging, the wound was irrigated with sterile normal saline. The platysma muscle and the subcutaneous tissue was closed with 2-0 Vicryl. The skin was closed with 4-0 Monocryl and Steri-Strips. Patient tolerated the procedure well. Patient was transferred recovery room in stable condition. There were no complications. Neuro monitoring was used to monitor patient's EMG SSEP and motor evoked potential. Patient signal was stable throughout the entire procedure. Complications: none Post-operative Condition: stable Disposition: PACU Plan for aftercare: Admit to inpatient hospital
[2022-04-20] MEDS: SODIUM CHLORIDE 0.9% 1,000 ML 100 ML IV ×2 (11:02→22:04)
[2022-04-20] MEDS: hydrOXYzine pamoate 25 MG CAPSULE PO (11:51)
[2022-04-20] MEDS: OXYCODONE IR 5 MG TABLET PO (11:51)
[2022-04-20] MEDS: ACETAMINOPHEN 325 MG TABLET 650 MG PO (11:51)
[2022-04-20] MEDS: HYDROMORPHONE 0.5 MG INJ IV (14:47)
[2022-04-20] MEDS: CLINDAMYCIN 600 MG/50 ML PIGGYBACK 50 MG IV (17:09)
[2022-04-20] MEDS: OXYCODONE IR 5 MG TABLET 10 MG PO ×2 (17:43→20:51)
[2022-04-20] MEDS: DOCUSATE 100 MG CAPSULE PO (20:51)
[2022-04-20] MEDS: GABAPENTIN 600 MG TABLET PO (20:51)
[2022-04-20] MEDS: SENNOSIDES 8.6 MG TABLET 17.2 MG PO (20:51)
[2022-04-21] MEDS: CLINDAMYCIN 600 MG/50 ML PIGGYBACK 50 MG IV (00:27)
[2022-04-21] MEDS: ACETAMINOPHEN 325 MG TABLET 650 MG PO ×4 (00:32→20:58)
[2022-04-21] MEDS: OXYCODONE IR 5 MG TABLET 10 MG PO (00:32)
--- NOTE | 2022-04-21 01:42 | PC.NURSE ---
Initially difficult to arouse requiring calling name loudly and gently shaking awake. Once awake patient was alert and oriented although responses are delayed and is very soft spoken. Having sore throat and some difficulty with swallowing due to the soreness but no coughing/choking when taking pills/liquids. Dressing to neck is CDI and is wearing a soft collar. Did complain of pain and is receiving scheduled oxycodone but related to difficulty in arousing is requesting to have only 5mg of oxycodone when given. Ice pack has been applied to neck for additional pain relief. Breath sounds CTA with RA sat of 96% but found to drop down into upper 80's when asleep so placed on oxygen at 2L/min per NC overnight to maintain sats > 92%. HRR but tachy at 110 bpm and BP elevated at 175/92. Denies nausea. BT hypoactive and abdomen is soft. Up to BSC with platform walker and 1 assist and voided 450cc; denied dysuria. External catheter placed for overnight per patient request. Is able to turn herself in bed. Does have blanchable redness between buttocks. Is wearing bilateral calf SCD's. Has chronic neuropathy in bilateral LE. Weakness in UE and has difficulty grasping objects but has good radial pulses. Fall risk score is high and bed alarm is activated.
[2022-04-21 02:00] VITALS: BP 112/64; PULSE 57; RESP 15; TEMP 35.9; O2SAT 95
[2022-04-21 06:25] VITALS: BP 110/66; PULSE 60; RESP 15; TEMP 36; O2SAT 96
[2022-04-21 08:00] VITALS: BP 183/102; PULSE 90; RESP 17; TEMP 36.3; O2SAT 98
[2022-04-21] MEDS: CHOLECALCIFEROL (VITAMIN D3) 5,000 UNIT TABLET 10000 UNIT PO (08:52)
[2022-04-21] MEDS: ASCORBIC ACID 500 MG TABLET 1000 MG PO (08:52)
[2022-04-21] MEDS: MULTIVITAMIN 1 TABLET 1 TAB PO (08:53)
[2022-04-21] MEDS: PRAVASTATIN 20 MG TABLET PO (08:53)
[2022-04-21] MEDS: DOCUSATE 100 MG CAPSULE PO ×2 (08:53→20:59)
[2022-04-21] MEDS: GABAPENTIN 300 MG CAPSULE PO (08:53)
--- NOTE | 2022-04-21 09:29 | PM.PNPO.1 ---
Subjective Subjective Date Patient Seen: 04/21/22 Time Patient Seen: 09:30 Interval history: Pain has been moderate to severe. Denies fever or chills. No nausea or vomiting. Patient states that the oxycodone she took last night was too strong for her. Patient has typically taken tramadol without adverse effects. Patient lives alone. Exam Vital Signs (past 8 hours): - 04/21/22 02:00 04/21/22 02:00 04/21/22 06:25 Temperature 96.6 F L 96.8 F L Pulse Rate 57 L 60 Respiratory Rate 15 15 Blood Pressure 112/64 110/66 Pulse Oximetry 95 96 Oxygen Flow Rate 0 2 2 04/21/22 08:00 Temperature 97.4 F L Pulse Rate 90 Respiratory Rate 17 Blood Pressure 183/102 H Pulse Oximetry 98 Oxygen Flow Rate 2 Oxygen Delivery Method Room Air Oxygen Flow Rate 2 Narrative Exam Narrative: 71-year-old female in no apparent distress. Dressing is clean, dry and intact. Soft collar in place. Neurovascular status is grossly intact bilateral lower extremities. Const General: cooperative and comfortable Nutritional Appearance: average body habitus Orientation: alert Resp Effort & Inspection: normal respiratory effort and able to speak in complete sentences FORMERLY [facility], [facility]1983 Medical History Diabetes DVT (deep venous thrombosis) (2021) Easy bruisability GERD (gastroesophageal reflux disease) HLD (hyperlipidemia) HNP (herniated nucleus pulposus), thoracic Neuropathy Sacral dysfunction SCC (squamous cell carcinoma) T12 compression fracture (04/2021) Thoracic myelopathy UTI (urinary tract infection) Surgical History H/O eye surgery H/O thumb surgery H/O: knee surgery History of back surgery History of carpal tunnel surgery of left wrist (11/2021) History of carpal tunnel surgery of right wrist (01/2022) History of fusion of cervical spine (2008) History of lumbar fusion (2009) History of total left knee replacement History of total replacement of right shoulder joint History of total right knee replacement Hx of bilateral cataract extraction (2020) Hx of dilation and curettage Hx of tonsillectomy Family History Father Congestive heart failure Osteoarthritis Mother Osteoarthritis Pneumonia Sister Heart disease Grandmother Cancer Congestive heart failure Social History household members: none Smoking Status: Never smoker alcohol intake: current Assessment & Plan Post-op Postoperative Procedures: Procedures Operation Date: 04/20/22 07:45 Actual Procedure Side Surgeon p C3-4 ACDF w. anterior instrumentation Vince Man MD Postoperative day: 1 Postoperative status: doing well and marginal pain control Postoperative status narrative: Patient progressing as expected status post C3-C4 anterior cervical diskectomy and fusion Postoperative plan narrative: Oxycodone has been discontinued and we will start tramadol Physical therapy, limit bending, twisting, lifting Soft collar for comfort Disposition to be determined
[2022-04-21] MEDS: TRAMADOL 50 MG TABLET PO ×3 (10:15→20:59)
--- NOTE | 2022-04-21 10:26 | PT.IIE ---
Current Diagnoses Disease of spinal cord, unspecified (04/20/22) Spinal stenosis, cervical region (04/20/22) Surgery Performed Operation Date: 04/20/22 07:45 Actual Procedures p C3-4 ACDF w. anterior instrumentation - Vince Man MD Surgical History (Last Reviewed 04/21/22 @ 09:31 by Shashi Clark PA-C) H/O eye surgery H/O thumb surgery H/O: knee surgery History of back surgery History of carpal tunnel surgery of left wrist (11/2021) History of carpal tunnel surgery of right wrist (01/2022) History of fusion of cervical spine (2008) History of lumbar fusion (2009) History of total left knee replacement History of total replacement of right shoulder joint History of total right knee replacement Hx of bilateral cataract extraction (2020) Hx of dilation and curettage Hx of tonsillectomy Medical History (Last Reviewed 04/21/22 @ 09:31 by Shashi Clark PA-C) Diabetes DVT (deep venous thrombosis) (2021) Easy bruisability GERD (gastroesophageal reflux disease) HLD (hyperlipidemia) HNP (herniated nucleus pulposus), thoracic Neuropathy Sacral dysfunction SCC (squamous cell carcinoma) T12 compression fracture (04/2021) Thoracic myelopathy UTI (urinary tract infection) Physical Therapy Inpatient Evaluation/Re-Eval M1 PT/OT-IP Prior Functional Status Start: 04/21/22 10:08 Freq: NEEDED Status: Active Protocol: Document 04/21/22 10:10 [facility] (Rec: 04/21/22 10:26 [facility] [id number]) Medical Review Prior Functional Status Medical History Reviewed Yes Mobility and Gait pt has been ambulating with a platform walker due to recent Carple tunnel surgery on her left wrist Activities of Daily Living and IADL's needs assist with bathing and ADL's and has had home health care as pt lives alone Social History Household Members none Living Arrangements Apartment/Condo Additional Social History Comment pt currently has a platform walker due to recent carpal tunnel surgery M2 PT-IP Current Condition Start: 04/21/22 10:08 Freq: NEEDED Status: Active Protocol: Document 04/21/22 10:10 [facility] (Rec: 04/21/22 10:26 [facility] [id number]) Physical Therapy Current Condition Current Condition Evaluation Date 04/21/22 Treatment Diagnosis C3-4 cervical diskectomy and fusion Onset Date 04/20/22 M3 PT-IP Subjective Start: 04/21/22 10:08 Freq: NEEDED Status: Active Protocol: Document 04/21/22 10:10 [facility] (Rec: 04/21/22 10:26 [facility] [id number]) Subjective Physical Therapy Visit Type Type Initial Evaluation Visit Start Time 09:50 Visit Stop Time 10:10 Total Visit Minutes 20 Physical Therapy Visit Comments Patient Comments pt is resting in bed, she states the oxycodine was too much overnight. She has been up and walked to the bathroom and has just gotten back into bed. She reports numbness in her hands and fingertips that was there pre surgery but this am she states she could actuallly feel the bed rail in her hands when holding it. Pt request going to [facility] in [facility] due to living alone and requiring assist Therapy Pain Assessment Pain When Pain Assessed At Rest Pain Present Pain Present Pain Reported Location Posterior Neck Intensity 7 Scale Used Numeric (0 - 10) M4 PT-IP Mobility and Gait Start: 04/21/22 10:08 Freq: NEEDED Status: Active Protocol: Document 04/21/22 10:10 [facility] (Rec: 04/21/22 10:26 [facility] [id number]) PT-Bed Mobility Assessment Rolling Type of Rolling Log Rolling PT-Transfer Assessment Comments Mobility Comments Annabella had just been up prior to PT session and had ambulated to the bathroom with nursing. She had just returned to bed and did not want to push further as she is in pain M5 PT-IP Objective Assessments Start: 04/21/22 10:08 Freq: NEEDED Status: Active Protocol: Document 04/21/22 10:10 [facility] (Rec: 04/21/22 10:26 [facility] [id number]) Orientation Orientation/Cognition Level of Alertness Alert Gross Range of Motion Upper Extremity ROM Assessment Within Functional Limits Lower Extremity ROM Assessment Within Functional Limits Strength Upper Extremity Strength Assessment Bilaterally Impaired Lower Extremity Strength Assessment Bilaterally Impaired Comments Strength Comments pt has history of multiple fusions including throacic fusion april of 2020 general weakness B LE as well as UE Other Assessments Other Other Assessments Annabella is a 71 year old female day 1 s/o C3-4 anterior cervical diskectomy and fusion . She has a extensive history of surgeries including a T12 and lumbar fusions. She reports this is her 3rd neck surgery. Prior to her C3-4 fusion she underwent a left carpal tunnel surgery. 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 She notes numbness into her hands and fingertips that was there prior to her fusion. She states though that she can feel the bed rail in her hand today for the first time. Pt lives alone and request placement at [facility] following hospital discharge as she is not able to fully care for herself and she feels home health is not enough. She requires assistance with bathing and ADL's. She does have 2 steps to enter her house with railing on either side. Annabella had just gotten out of bed with nursing and ambulated with her platform walker to the bathroom and back. She did not want to attempt again with PT this am. I told her PT would be back again in the PM. M6 PT-IP Treatment Start: 04/21/22 10:08 Freq: NEEDED Status: Active Protocol: Document 04/21/22 10:10 [facility] (Rec: 04/21/22 10:26 [facility] [id number]) Physical Therapy Treatment Education Education Provided Precautions,Safety M7 PT-IP Assessment and Plan Start: 04/21/22 10:08 Freq: NEEDED Status: Active Protocol: Document 04/21/22 10:10 [facility] (Rec: 04/21/22 10:26 [facility] [id number]) PT Summary Assessment and Plan Potential Rehabilitation Potential Good Status of Condition at Evaluation Evolving Summary Impairments Pain,ROM,Strength,Gait, Activity Tolerance Assessment Summary (see other assessments above) Goals Bed Mobility Goal Contact Guard Assistance Transfer Goal Contact Guard Assistance Gait Goal Contact Guard Assistance Days to Meet Goals 5 Frequency of Treatment Frequency Of Treatment Twice a Day Treatment Plan Physical Therapy Treatment Plan Bed Mobility Training,Transfer Training,Gait Training, Therapeutic Exercise,Post Op Education Precautions Cervical Spine Precautions Soft Collar for Comfort,No Heavy Lifting,Log Roll Recommendations To Nursing Amount of Assist Needed 1 Person Assist Discharge Recommendations PT Discharge Recommendations SNF Rehab Transportation Needs at Discharge Private Vehicle
--- NOTE | 2022-04-21 11:48 | OT.IP.EVAL ---
Current Diagnoses Disease of spinal cord, unspecified (04/20/22) Spinal stenosis, cervical region (04/20/22) Surgery Performed Operation Date: 04/20/22 07:45 Actual Procedures p C3-4 ACDF w. anterior instrumentation - Vince Man MD Past Medical History (Last Reviewed 04/21/22 @ 09:31 by Shashi Clark PA-C) Diabetes DVT (deep venous thrombosis) (2021) Easy bruisability GERD (gastroesophageal reflux disease) HLD (hyperlipidemia) HNP (herniated nucleus pulposus), thoracic Neuropathy Sacral dysfunction SCC (squamous cell carcinoma) T12 compression fracture (04/2021) Thoracic myelopathy UTI (urinary tract infection) Surgical History (Last Reviewed 04/21/22 @ 09:31 by Shashi Clark PA-C) H/O eye surgery H/O thumb surgery H/O: knee surgery History of back surgery History of carpal tunnel surgery of left wrist (11/2021) History of carpal tunnel surgery of right wrist (01/2022) History of fusion of cervical spine (2008) History of lumbar fusion (2009) History of total left knee replacement History of total replacement of right shoulder joint History of total right knee replacement Hx of bilateral cataract extraction (2020) Hx of dilation and curettage Hx of tonsillectomy Occupational Therapy Inpatient Evaluation/Re-Eval M1 PT/OT-IP Prior Functional Status Start: 04/21/22 10:08 Freq: NEEDED Status: Complete Protocol: Document 04/21/22 10:10 [facility] (Rec: 04/21/22 10:26 [facility] [id number]) Medical Review Prior Functional Status Medical History Reviewed Yes Mobility and Gait pt has been ambulating with a platform walker due to recent Carple tunnel surgery on her left wrist Activities of Daily Living and IADL's needs assist with bathing and ADL's and has had home health care as pt lives alone Social History Household Members none Living Arrangements Apartment/Condo Additional Social History Comment pt currently has a platform walker due to recent carpal tunnel surgery M1 PT/OT-IP Prior Functional Status Start: 04/21/22 12:14 Freq: NEEDED Status: Active Protocol: Document 04/21/22 11:15 [facility] (Rec: 04/21/22 16:26 [facility] [id number]) Medical Review Prior Functional Status Medical History Reviewed Yes Mobility and Gait pt has been ambulating with a platform walker due to recent Carpal tunnel surgery on her left wrist Activities of Daily Living and IADL's needs assist with bathing and ADL's and has had home health care as pt lives alone Pt needing assist with IADl need as well. Social History Household Members none Living Arrangements Apartment/Condo Number of Floors (Floors) One Floor Number of Stairs To Enter/Railing? 1 step with bilateral rails Home Environment Standard Height Toilet,Walk in Shower Home Equipment Front Wheel Walker,Four Wheel Walker,Quad Cane,Manual Wheelchair,Shower Seat without Backrest,Long Handled Shoe Horn,Lace Weaver Additional Social History Comment pt currently has a platform walker due to recent carpal tunnel surgery. Pt also has a toilet paper aid M2 OT-IP Current Condition Start: 04/21/22 12:14 Freq: Status: Active Protocol: Document 04/21/22 11:15 [facility] (Rec: 04/21/22 16:26 [facility] [id number]) Occupational Therapy Current Condition Current Condition Evaluation Date 04/21/22 Treatment Diagnosis S/p C3-4 ACDF Diagnosis Onset Date 04/20/22 Post Operative Precautions Cervical Spine Precautions Soft Collar for Comfort,No Heavy Lifting,Log Roll M3 OT- IP Subjective and Pain Start: 04/21/22 12:14 Freq: Status: Active Protocol: Document 04/21/22 11:15 [facility] (Rec: 04/21/22 16:26 [facility] [id number]) OT- Subjective Occupational Therapy Visit Type Type Initial Evaluation Visit Start Time 11:15 Visit Stop Time 11:48 Total Visit Minutes 33 Occupational Therapy Visit Comments Patient Comments Pt agreed to get up to use the BSC. Patient/Caregiver Goals To go to skilled rehab OT Pain Assessment Pain When Pain Assessed At Rest Pain Present Pain Present Pain Reported Location Posterior Neck Intensity 4 Scale Used Numeric (0 - 10) M4 OT- IP ADL's Start: 04/21/22 12:14 Freq: Status: Active Protocol: Document 04/21/22 11:15 [facility] (Rec: 04/21/22 16:26 [facility] [id number]) OT ALW-Kckl-Aekmttv Comments OT Self-Feeding Comments Pt having difficulty to use her hands and states needing assist with set-up. OT ADL-Grooming Comments OT Grooming Comments not performed as pt too tired OT ADL-Oral Care Comments Oral Care Comments Not performed OT ADL-Dressing General Eval Lower Body Dressing Ability Maximum Assistance Areas Needing Assistance Underpants/Brief,Socks Comments OT Dressing Comments Pt needing assist for socks and brief. Pt needing assist to corinna/doff her soft collar at this time. OT ADL-Toileting General Evaluation Toileting Ability Maximum Assistance Areas Needing Assistance Manage Clothing,Perform Perineal Hygiene Comments OT Toileting Comments Pt needing assist for brief and hygiene needs. Pt has a toilet paper aid she uses at home but since her carpal tunnel surgery has had more difficulty to do hygiene needs . OT ADL-Bathing Comments OT Bathing Comments Not performed. M5 OT- IP IADL's Start: 04/21/22 12:14 Freq: Status: Active Protocol: Document 04/21/22 11:15 [facility] (Rec: 04/21/22 16:26 [facility] [id number]) OT-Instrumental Activities of Daily Living Deficits IADL Deficits Identified Deficits Home Safety Awareness Awareness of Need for Assistance at Home Good Awareness Ability to Problem Solve Emergency Able to Problem Solve Situations Medication Management Medication Management Caregiver Administers Medication Management Comments Due to decreased use of hands, pt needing son to assist to set-up medications for her. Money Management Money Management Caregiver Provides Assistance Money Management Comments Pt unable to continuous pickling line pickler papers and due to recent carpal tunnel surgery and pt's son assisting her with finance needs. Meal Preparation Meal Preparation Caregiver Provides Assist Bank Officer Bank Officer Caregiver Provides Assist M6 OT- IP Functional Cognition Start: 04/21/22 12:14 Freq: Status: Active Protocol: Document 04/21/22 11:15 [facility] (Rec: 04/21/22 16:26 [facility] [id number]) Cognitive Factors Limiting Selfcare Function Cognitive Ability Level of Alertness Alert Patient Orientation Name,Place,Situation Attention Span Ability Capable of Focused Attention, Capable of Sustained Attention Ability to Follow Commands Able to Follow One Step Commands Cognitive Comments Cognitive Assessment Comments Pt able to follow commands for ADl and mobility needs. Pt needing reminders for safety awareness to follow log rolling for bed mobility needs . OT- Vision and Hearing OT- Hearing Assessment OT- Hearing Assessment WFL M7 OT- IP Mobility and Balance Start: 04/21/22 12:14 Freq: Status: Active Protocol: Document 04/21/22 11:15 [facility] (Rec: 04/21/22 16:26 [facility] [id number]) OT- Bed Mobility Assessment Supine to Sit Supine to Sit Assist Moderate Assistance Sit to Supine Sit to Supine Assist Moderate Assistance Scooting Scooting to Edge of Bed Moderate Assistance OT-Transfer Assessment Sit to and From Stand Sit to and from Stand Moderate Assistance Transfers Transfer Ability Minimal Assistance,Moderate Assistance Technique Transfer Destination Bed,Bedside Commode Transfer Technique Stand Step Pivot Devices Transfer Assistive Devices Front Wheeled Walker Comments Mobility Comments MODA to assist to get her trunk upright and MIN/MODA to stand to her platform walker. assist to balance and to help ease down to the bSC and BEd. Assist to help get her legs back up into the bed. OT- Balance Assessment Sitting Balance and Reactions Static Sitting Balance Ability Good Dynamic Sitting Balance Ability Fair Standing Balance and Reactions Static Standing Balance Ability Fair Dynamic Standing Balance Ability Poor M8 OT- IP Objective Assessments Start: 04/21/22 12:14 Freq: Status: Active Protocol: Document 04/21/22 11:15 [facility] (Rec: 04/21/22 16:26 [facility] [id number]) OT Strength Upper Extremity Strength Assessment Bilaterally Impaired OT- Coordination Assessment Comments Coordination Comments Decreased FMS and needing assist for set-up for ADl needs. M9 OT- IP Assessment and Plan Start: 04/21/22 12:14 Freq: Status: Active Protocol: Document 04/21/22 11:15 [facility] (Rec: 04/21/22 16:26 [facility] [id number]) OT Summary Assessment and Plan Potential Rehabilitation Potential Good Analytic Complexity at Evaluation Moderate Summary OT Impairments Pain,Strength,Balance, Functional Mobility,Self- Feeding,Grooming,Dressing, Toileting,Bathing,Toilet Transfers Progress Towards Goals Slow Progress due to Pain,Slow Progress due to Medical Issues,Slow Progress due to Activity Tolerance Assessment Summary Pt MOD complexity due to steps , progressively gotten weaker with bilateral UE and also progressive decreased balance since her carpal tunnel releases this past year. Hopefully after this cervical surgery that pt will regain strength with her BUE and also improve her balance so able to be more independent with her needs. Pt will greatly benefit from skilled rehab. Goals Self-Feeding Goal Independent Grooming Goal Independent Dressing Goal Independent Toileting Goal Independent Bathing Goal Minimal Assistance Toilet Transfer Goal Independent Shower Transfer Goal Contact Guard Assistance Patient/Caregiver Education Goal Demonstrate Post-Op Precautions Days to Meet Goals 25 Frequency of Treatment Frequency Of Treatment Once a Day Treatment Plan OT Treatment Plan ADL Training,Functional Mobility,Therapeutic Exercises ,Patient/Family Education, Discharge Planning Other Treatment Recommendations and Next To go over hand exercises for Treatment Focus pt. Discharge Recommendations OT Discharge Recommendations SNF Rehab Transportation Needs at Discharge Wheelchair/Cabulance
[2022-04-21 12:00] VITALS: BP 155/77; PULSE 82; RESP 17; TEMP 36.6; O2SAT 97
--- NOTE | 2022-04-21 14:23 | CM.DANOTE ---
Patient is a 71 yo female who was admitted for Cervical ACDF. Pt has MCR and AARP for insurance and her PCP is Marianna Wick. EMR was reviewed. Per Ortho, pt tolerated procedure well and to work with PT/OT. Per RN, pt's throat has been sore and soft spoken and was able to use walker to commode 1PA. Per PT/OT, pt could benefit from SNF at d/c before return home alone. SW met bedside with pt and she confirms she lives in [place] alone in a condo but has local supportive son and neighbor and is independent with ADLs at baseline and drives. Pt was last admitted in Mar 2022 this year and was able to d/c home with Kira CHATTERJEE. Pt confirms she feels SNF needed at d/c and already reviewed the SNF Choice list and did research and her preference is [facility]. SW made referral to [facility] and spoke to Kavita in admissions and she will review and confirms they have a couple available beds and MICK Roberts faxed clinicals to review. PASRR done. Plan: SW to follow for [facility] review to confirm they can accept pt otherwise further SNF referrals needed tomorrow. BERNICE Funes Discharge Planning/Care Management Advanced directive, confirm from FAMILY Start: 04/20/22 10:42 Freq: Q24H Status: Active Protocol: Document 04/20/22 10:54 EM (Rec: 04/20/22 10:55 EM [id number]) Advance Directive, confirm on record Time 10:55 Person contacted patient Copy received No CM Discharge Assessment Start: 04/21/22 14:21 Freq: Status: Active Protocol: Document 04/21/22 14:21 BF (Rec: 04/21/22 14:22 BF [id number]) Discharge Planning Assessment Assigned Is Support Analyst BERNICE Engle DPOA/Assigned Designee Name son [phone] Advance Directives? No Advance Directives on File No History Provided By Patient,Family Member,Medical Record Has Patient been admitted in last 30 No days? Prior Living Arrangements Apartment/Condo Household Members none Type of transporation used prior to Drives own vehicle admit Independent with ADL's Yes Is patient alert and oriented? Yes Caregiver for Another No Community Services used prior to Physical Therapy admission: DME Already Rented / Owned FWW / Walker Patient/Family Preference Assisted Facility Barriers to Discharge No Discharge Plan Assisted Facility Transportation Arrangement Son likely to transport home at d/c if safe for home vs facility van Referrals Initiated Assisted If patient plan is SNF: Has PASSR been Yes completed? Medicare Choice List Provided Yes Medicare choice list reviewed on patient electronic tablet with SNF/HH Preference [facility] Has Agency SNF been contacted Yes Whiteboard Updated in Patient Room with Yes name and ext. # of Is Support Analyst Review Status In Process Please Provide Date Initial DC 04/21/22 Assessment Was Performed Next Review Type Continued Stay Review Pre-Anesthesia Assessment Start: 04/18/22 13:42 Freq: Status: Complete Protocol: Document 04/18/22 13:42 CAB (Rec: 04/18/22 14:37 CAB [id number]) Pre-Anesthesia Assessment Preferred Name Ba Patient Information Reviewed Via Phone Assessment Assessment Completed With Patient Diagnostic Results BMP/CMP,CBC,EKG Comment Labs/EKG @ [facility] Primary Care Provider Marianna Wick Seen Specialist in Last 12 Months Yes Specialist Seen Emergency,Orthopedist Primary Language Wallisian Preferred Language Wallisian Environmental Conservation Officer Required No Height 162.56 cm Weight 83.915 kg Body Mass Index (BMI) 31.7 Hearing Ability Normal Visual Assist Magnifying Glass Dentition Type Teeth, Natural Present Barriers to Learning None Hx Anesthesia Reactions No Hx Family Anesthesia Reaction Yes: Son has trouble getting put to sleep w/anesthesia Hx Malignant Hyperthermia No Hx Blood Transfusions No Hx Blood Transfusion Reaction No Anesthesia Review Requested No Industrial Energy Engineer No alcohol intake current alcohol intake frequency holidays/special occasions only Smoking Status Never smoker Substance Use Type does not use Pain Present Pain Reported Musculoskeletal Symptoms Joint Pain,Limited Range of Motion History of Falling (Recent or History of Yes ) Patient is completely paralyzed or No completely immobile Prosthesis or Orthotic Device Front Wheel Walker Comment Balance issues Is patient on oxygen? No Does patient have RENDON/SOB No Hx Sleep Apnea No CPAP/BIPAP use not prescribed Currently Taking a Beta Maggy No Can You Climb a Flight of Stairs Without Pt unsure SOB Hx Chest Pain No Hx SOB No Hx Syncope or Dizziness No Anti-Coagulant Therapy No Has a Train Planner No Cardiac Testing No Hx Pacemaker/ICD No Pacemaker Rep Required? No Diet Type At Home Diabetic,Other Dysphagia No Gastrointestinal Symptoms None Chronic UTI No Urinary Catheter Present No Hx Urinary Self Catheterization No Diabetes Yes: Managed with diet, does not check blood sugars at home HgbA1C 6.7 Date 03/25/22 Patient No Lactating No Hx Drug Resistant Organism No Presence of External or Internal Medical Yes: Dami eye IOLs, spinal Devices hardware, right shoulder, bilat knees Have you had any close contact with No someone diagnosed with COVID-19? Received a COVID vaccine? Yes: plus booster Received all doses? Yes Marital Status Lives With none Current Living Arrangements Apartment/Condo Number of Floors (Floors) One Floor Comment Pt does not feel family is qualified to assisit with care at [place] Does the Patient Have Assistance After No Surgery Patient Discharge Plan Description Assisted Facility/Rehab Comment Pt not advised on length of stay per surgeon Feels Safe in Current Environment Yes Been Physically Hurt or Threatened By a No Person in Current Environment Do you have thoughts of harming yourself None or others? Are you currently considering suicide? No Do you have a plan to hurt yourself or No Plan others? Do You Have Any Spiritual Beliefs That No May Affect Your HC Choices? Do You Have Any Cultural Practices That No May Affect Your HC Choices? Comment Hoahaoism Who Can We Speak to About Patient's Care Family, friiends Identifying Code for Release of Patient Declines to issue Information Health Care Proxy/Next of Kin Mely (son) Health Care Proxy Emergency Contact Name Mely (son) Emergency Contact Advance Directives? No Advance Directives on File No Power of Clerk Carrier No PAC Instructions Diabetes instructions,Durable medical equipment,Medications to take/avoid,Nasal antibiotic ,No ETOH/petroleum product on skin DOS,NPO,Post-op transportation,Pre-surgical wash,Sturdy shoes/comfortable clothes,Do not bring valuables and remove jewelry
[2022-04-21] MEDS: SODIUM CHLORIDE 0.9% 1,000 ML 100 ML IV (15:05)
[2022-04-21 15:57] VITALS: BP 132/68; PULSE 87; RESP 17; TEMP 36.3; O2SAT 99
--- NOTE | 2022-04-21 17:00 | PT.IPTN ---
Current Diagnoses Disease of spinal cord, unspecified (04/20/22) Spinal stenosis, cervical region (04/20/22) Surgery Performed Operation Date: 04/20/22 07:45 Actual Procedures p C3-4 ACDF w. anterior instrumentation - Vince Man MD Physical Therapy Treatment Note M2 PT-IP Current Condition Start: 04/21/22 10:08 Freq: NEEDED Status: Active Protocol: Document 04/21/22 10:10 [facility] (Rec: 04/21/22 10:26 [facility] [id number]) Physical Therapy Current Condition Current Condition Evaluation Date 04/21/22 Treatment Diagnosis C3-4 cervical diskectomy and fusion Onset Date 04/20/22 M3 PT-IP Subjective Start: 04/21/22 10:08 Freq: NEEDED Status: Active Protocol: Document 04/21/22 17:00 [facility] (Rec: 04/21/22 18:05 [facility] [id number]) Subjective Physical Therapy Visit Type Type Treatment Note Visit Start Time 16:30 Visit Stop Time 17:00 Total Visit Minutes 30 Number of OBJECTIVE C DEVELOPER Visits 0 Physical Therapy Visit Comments Patient Comments She reports the ice helps her pain today on her neck. Patient Goals discharge to SNF to get more independent before going back home Therapy Pain Assessment Pain When Pain Assessed After Treatment Pain Present Pain Present Pain Reported Location Posterior Neck Intensity 6 Scale Used Numeric (0 - 10) Description Aching,Tender Pain Behaviors Facial Grimacing,Guarding Pain Management Techniques Apply Cold,Re-positioning M4 PT-IP Mobility and Gait Start: 04/21/22 10:08 Freq: NEEDED Status: Active Protocol: Document 04/21/22 17:00 DLM (Rec: 04/21/22 18:05 DL [id number]) PT-Bed Mobility Assessment Rolling Type of Rolling Log Rolling Level of Assist Standby Assistance Supine to Sit Supine to Sit Minimal Assistance,Moderate Assistance,Head of Bed Elevated,Bedrails Sit to Supine Sit to Supine Moderate Assistance,Head of Bed Elevated,Bedrails Scooting Scooting to Edge of Bed Moderate Assistance PT-Transfer Assessment Sit to and From Stand Sit to and from Stand Contact Guard Assistance,Use of Upper Extremities Equipment Transfer Assistive Device Gait Belt,Platform Walker Transfers Transfer Destination Bed,Chair,Toilet Transfer Technique Stand Step Pivot Transfer Ability Level of Assist Standby Assistance,Contact Guard Assistance,Use of Upper Extremities Comments Mobility Comments Pt using her upright walker for therapy, pt up to toilet and needs assist for her pants , she used her tongs to wipe self Pt requested back to bed after activity to rest. Gait Assessment Gait Gait Assistance Required: Standby Assistance,Contact Guard Assist Distance (Feet) 60 Assistive Devices Assistive Device Gait Belt,Platform Walker Gait Deviations General Gait Pattern Flexed Trunk Factors Limiting Gait Function Factors Limiting Gait Function Decreased Activity Tolerance, Decreased Strength,Limited Range of Motion,Pain,Poor Balance Comments Gait Comments pt using her upright FWW for gait training, she was able to ambulate into the corbett this visit PT-Balance Assessment Sitting Balance and Reactions Static Sitting Balance Ability Good Dynamic Sitting Balance Ability Good Standing Balance and Reactions Static Standing Balance Ability Good Dynamic Standing Balance Ability Good Device Used upright FWW M5 PT-IP Objective Assessments Start: 04/21/22 10:08 Freq: NEEDED Status: Active Protocol: Document 04/21/22 10:10 [facility] (Rec: 04/21/22 10:26 [facility] [id number]) Orientation Orientation/Cognition Level of Alertness Alert Gross Range of Motion Upper Extremity ROM Assessment Within Functional Limits Lower Extremity ROM Assessment Within Functional Limits Strength Upper Extremity Strength Assessment Bilaterally Impaired Lower Extremity Strength Assessment Bilaterally Impaired Comments Strength Comments pt has history of multiple fusions including throacic fusion april of 2020 general weakness B LE as well as UE Other Assessments Other Other Assessments M6 PT-IP Treatment Start: 04/21/22 10:08 Freq: NEEDED Status: Active Protocol: Document 04/21/22 17:00 DLM (Rec: 04/21/22 18:05 DLM [id number]) Physical Therapy Treatment Education Education Provided Precautions,Safety Equipment Issued Equipment Type and Company she has her upright FWW from home in room (bilateral UE platforms on FWW) Other Treatments Other Treatment Performed education for log rolling, pt has an adjustable bed at home and is using to keeping the head of the bed elevated M7 PT-IP Assessment and Plan Start: 04/21/22 10:08 Freq: NEEDED Status: Active Protocol: Document 04/21/22 17:00 DLM (Rec: 04/21/22 18:05 DLM [id number]) PT Summary Assessment and Plan Summary Impairments Pain,ROM,Strength,Gait, Activity Tolerance Progress Towards Goals Slow Progress due to Activity Tolerance Assessment Summary Annabella is alert and resting in bed. She just woke up from a nap. She was able to get to the bathroom to urinate then ambulate with her upright FWW into the corbett. She is progressing well with her gait this visit. She sat up in the recliner but did not want to stay up so she returned to bed . Her UE weakness interferes with functional use of her hands for ADL's. She has the most difficulty getting in/out of bed this visit even with head of bed elevated. Pt does not feel safe to discharge home alone. Goals Bed Mobility Goal Standby Assistance Transfer Goal Standby Assistance,Front Wheeled Walker Gait Goal Standby Assistance,Front Wheel Walker Gait Distance 100 feet Other Goals up/down 2 steps with rail and min assist Days to Meet Goals 5 Frequency of Treatment Frequency Of Treatment Once a Day Treatment Plan Physical Therapy Treatment Plan Bed Mobility Training,Transfer Training,Gait Training, Therapeutic Exercise,Balance Retraining,Post Op Education, Discharge Planning,Hot or Cold Pack,Neuromuscular Re-ed Precautions Cervical Spine Precautions Soft Collar for Comfort,No Heavy Lifting,Log Roll Recommendations To Nursing Amount of Assist Needed 1 Person Assist Discharge Recommendations PT Discharge Recommendations SNF Rehab Transportation Needs at Discharge Private Vehicle
--- NOTE | 2022-04-21 18:08 | PC.NURSE ---
Pt has had a pretty good shift; she reports continued numbness and tingling in her bilateral hands, which was present pre-op; oxy was discontinued and she was started on tramadol per pt request; soft c-collar remains on.
[2022-04-21 20:45] VITALS: BP 162/79; PULSE 74; RESP 18; TEMP 36.3; O2SAT 97
[2022-04-21] MEDS: GABAPENTIN 600 MG TABLET PO (20:59)
[2022-04-22] MEDS: SODIUM CHLORIDE 0.9% 1,000 ML 100 ML IV (01:14)
[2022-04-22 01:38] VITALS: BP 169/68; PULSE 68; RESP 18; TEMP 36; O2SAT 97
[2022-04-22 05:00] VITALS: BP 175/80; PULSE 83; RESP 18; TEMP 36.2; O2SAT 98
[2022-04-22] MEDS: ACETAMINOPHEN 325 MG TABLET 650 MG PO ×2 (05:06→19:49)
[2022-04-22] MEDS: TRAMADOL 50 MG TABLET PO ×3 (05:06→19:51)
[2022-04-22 08:00] VITALS: BP 181/85; PULSE 74; RESP 17; TEMP 36.3; O2SAT 95
[2022-04-22] MEDS: ASCORBIC ACID 500 MG TABLET 1000 MG PO (08:19)
[2022-04-22] MEDS: MULTIVITAMIN 1 TABLET 1 TAB PO (08:19)
[2022-04-22] MEDS: GABAPENTIN 300 MG CAPSULE PO (08:19)
[2022-04-22] MEDS: CHOLECALCIFEROL (VITAMIN D3) 5,000 UNIT TABLET 10000 UNIT PO (08:19)
[2022-04-22] MEDS: PRAVASTATIN 20 MG TABLET PO (08:19)
[2022-04-22] MEDS: DOCUSATE 100 MG CAPSULE PO ×2 (08:19→19:50)
[2022-04-22 08:42] LABS: Hematocrit 40.8 % (36-46); Hemoglobin 13.4 g/dL (12.0-16.0)
--- NOTE | 2022-04-22 08:48 | P.DS_ITS ---
History of Present Illness History of Present Illness Date Patient Seen: 04/22/22 Time Patient Seen: 07:40 Chief complaint: Cervical ACDF Narrative: Patient is complaining of moderate to severe neck pain. She is also having significant pain with swallowing. She has bilateral upper extremity numbness, has not noted much improvement since surgery. Yesterday she felt lightheaded when getting up with physical therapy. She lives alone. She is planning on being discharged to SNF. Discharge Providers Provider Date of admission: 04/20/22 06:07 Discharge Date: 04/22/22 Primary care physician: Marianna Wick MD Consults: 04/20/22 10:39 Consult to Occupational Therapy Evaluate & Treat Comment: Physician Instructions: Evaluate and treat Consult to Physical Therapy Evaluate & Treat Comment: Physician Instructions: Evaluate and Treat Discharge provider: Ninoska Rose PA-C Summary Hospital Course Discharge Diagnosis: 1. 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 C3-4 anterior cervical diskectomy and fusion 2. C3-4 anterior interbody cage placement 3.? C3-4 anterior instrumentation with plate and screw placement in C5 and C6 vertebrae 4.? Utilization of microsurgical technique and operating microscope Same procedure as scheduled: Yes Indications: Patient has been having chronic neck pain and worsening cervical myelopathy with difficulty walking using her upper and lower extremities and balance. Patient failed multiple conservative management with worsening pain weakness and numbness in her upper extremity and lower extremity.? Patient has been having difficulty performing activity of daily living.? After discussing risks benefits of treatment options, patient elected proceed with surgery. Surgeon: Vince Man Transfer Table Operator Helper: Jacqueline Keenan Click Yes if Unassisted: No Anesthesia Type: General Operative Notes Closure Type: primary Specimen(s): none sent Prosthetic devices, grafts, tissues, transplants, or devices: Globus Hedron C interbody spacer Estimated Blood Loss (mL): 5 Blood products transfused: none Status at Discharge Cognitive/behavioral status at discharge: at baseline, oriented Overall status at discharge: patient is progressing back to baseline Exam Vital Signs (past 8 hours): - 04/22/22 01:38 04/22/22 05:00 04/22/22 08:00 Temperature 96.8 F L 97.2 F L 97.3 F L Pulse Rate 68 83 74 Respiratory Rate 18 18 17 Blood Pressure 169/68 H 175/80 H 181/85 H Pulse Oximetry 97 98 95 Oxygen Flow Rate 0 0 0 Oxygen Delivery Method Room Air Oxygen Flow Rate 0 Narrative Exam Narrative: Pleasant 71-year-old female, resting comfortably in bed, no acute distress. Soft collar is in place. Neck dressing is clean, dry, but edges are rolled up. Outer dressing was replaced today. Bilateral upper extremity: Motor functions are grossly intact, sensation is symmetrical but decreased bilaterally. Patient notes this is her baseline. Objective Labs 04/22/22 08:20 [facility] Medical History Diabetes DVT (deep venous thrombosis) (2021) Easy bruisability GERD (gastroesophageal reflux disease) HLD (hyperlipidemia) HNP (herniated nucleus pulposus), thoracic Neuropathy Sacral dysfunction SCC (squamous cell carcinoma) T12 compression fracture (04/2021) Thoracic myelopathy UTI (urinary tract infection) Surgical History H/O eye surgery H/O thumb surgery H/O: knee surgery History of back surgery History of carpal tunnel surgery of left wrist (11/2021) History of carpal tunnel surgery of right wrist (01/2022) History of fusion of cervical spine (2008) History of lumbar fusion (2009) History of total left knee replacement History of total replacement of right shoulder joint History of total right knee replacement Hx of bilateral cataract extraction (2020) Hx of dilation and curettage Hx of tonsillectomy Family History Father Congestive heart failure Osteoarthritis Mother Osteoarthritis Pneumonia Sister Heart disease Grandmother Cancer Congestive heart failure Social History household members: none Smoking Status: Never smoker alcohol intake: current Discharge Assessment & Plan Assessment and Plan Assessment: Patient progressing as expected status post C3-C4 anterior cervical diskectomy and fusion Plan of Treatment: -continue with multimodal pain management: Increased tramadol -mobilize with physical therapy and occupational therapy. Limit bending, twisting, lifting x 6 weeks. -Soft collar for comfort -continue to monitor swallowing -DC to SNF once cleared by PT and bed is available. The patient lives alone. Discharge Plan Discharge Plan Patient Disposition: SNF Discharge orders & Medications Prescriptions: New tramadol 50 mg Tablet See Rx Instructions .ROUTE .COMPLEX MDD Max 8 tablets per day PRN (Reason: Pain, Moderate (4-6)) Qty: 42 0RF Rx Instructions: Take 1-2 tablets by mouth every 4 hours as needed for moderate to severe postoperative pain hydroxyzine pamoate 25 mg Capsule 25 mg PO Q4HR PRN (Reason: Muscle spasm/pain/nausea) Qty: 20 0RF docusate sodium 100 mg Capsule 100 mg PO BID PRN (Reason: constipation) Qty: 30 0RF Continued gabapentin 300 mg capsule 300 mg PO .COMPLEX Qty: 90 2RF Patient Comments: 300 in am and 600 at night Rx Instructions: 1-2 PO Tid to begin at HS and titrate to pain relief methylprednisolone 4 mg tablet See Rx Instructions .ROUTE .COMPLEX Qty: 21 0RF Rx Instructions: Take 6 tabs x1 day, 5 tabs x1 day, 4 tabs x1 day, 3 tabs x1 day,2 tabs x1 day, 1 tabs x1 day acetaminophen 500 mg Tablet 500 mg PO Q4HR PRN (Reason: Pain) multivitamin Tablet 1 tab PO DAILY ascorbic acid (vitamin C) 1,000 mg tablet 1 g PO DAILY cholecalciferol (vitamin D3) 250 mcg (10,000 unit) capsule 250 mcg PO DAILY H2Q CoQ10 200 mg/gram powder 200 mg PO DAILY strontium [id number] [id number] mg tablet 1 tab PO DAILY pravastatin 20 mg tablet 20 mg PO DAILY Saccharomyces boulardii [Daily Probiotic (S. boulardii)] 250 mg capsule 5,000 mmu cells PO BID Patient Comments: not taking Discontinued tramadol 50 mg tablet 50 mg PO Q4H PRN (Reason: Pain) meloxicam 15 mg tablet See Rx Instructions .ROUTE .COMPLEX Qty: 90 2RF Dose Instruction: TAKE 1 TABLET BY MOUTH DAILY Rx Instructions: TAKE 1 TABLET BY MOUTH DAILY Follow up/Referrals: Marianna Wick MD [Primary Care Provider] - Vince Man MD [Physician] - As previously scheduled (Follow up w/ ALFREDO Mendoza, on 05/04/2022 @ 4:00 pm at [facility].) Diet/Activity/Treatments Diet: Diet as Tolerated Food texture: Soft Diet comment: Start with soft food, advance as tolerated. Activity: Soft collar as needed for comfort only; may have off if uncomfortable. No lifting more than 10 pounds. Cold/Heat Therapy: Heating pad to back of neck/between shoulder blades as needed for pain. Skin/Wound/Dressing Care Dressing: May shower; keep dressing as dry as possible. May remove dressing if it becomes wet or dirty inside. Leave steri-strips in place until follow up in office. Special Rehabilitation Services Reason for rehabilitation: Post-operative therapy Rehab type: Physical therapy and Occupational therapy Visit Report/Discharge Packet Instructions: DI for Anterior Cervical Discectomy and Fusion, DI for Prescription Opioid Use Stand Alone Forms: Patient Portal/API, Surgery Discharge Discharge Data Primary Care Provider: Marianna Wick
--- NOTE | 2022-04-22 10:25 | PT.IPTN ---
Current Diagnoses Disease of spinal cord, unspecified (04/20/22) Spinal stenosis, cervical region (04/20/22) Surgery Performed Operation Date: 04/20/22 07:45 Actual Procedures p C3-4 ACDF w. anterior instrumentation - Vince Man MD Physical Therapy Treatment Note M2 PT-IP Current Condition Start: 04/21/22 10:08 Freq: NEEDED Status: Active Protocol: Document 04/21/22 10:10 [facility] (Rec: 04/21/22 10:26 [facility] [id number]) Physical Therapy Current Condition Current Condition Evaluation Date 04/21/22 Treatment Diagnosis C3-4 cervical diskectomy and fusion Onset Date 04/20/22 M3 PT-IP Subjective Start: 04/21/22 10:08 Freq: NEEDED Status: Active Protocol: Document 04/22/22 11:03 TS (Rec: 04/22/22 11:23 TS [id number]) Subjective Physical Therapy Visit Type Type Treatment Note Visit Start Time 10:25 Visit Stop Time 10:53 Total Visit Minutes 28 Number of [employer] TECHNICIAN Visits 1 Physical Therapy Visit Comments Patient Comments Pt reports she continues to have numbness and tingling in her hands and especially at fingertips. Patient Goals discharge to SNF to get more independent before going back home M4 PT-IP Mobility and Gait Start: 04/21/22 10:08 Freq: NEEDED Status: Active Protocol: Document 04/22/22 11:03 TS (Rec: 04/22/22 11:23 TS [id number]) PT-Bed Mobility Assessment Rolling Type of Rolling Log Rolling Level of Assist Standby Assistance Supine to Sit Supine to Sit Moderate Assistance,Head of Bed Elevated,Bedrails Scooting Scooting to Edge of Bed Moderate Assistance PT-Transfer Assessment Sit to and From Stand Sit to and from Stand Standby Assistance,Contact Guard Assistance,Use of Upper Extremities Equipment Transfer Assistive Device Gait Belt,Platform Walker Comments Mobility Comments Pt found resting in bed with son in the room, states she needs to use restroom and is agreeable to PT session. She required cues for logroll technique of rolling on shoulder and moving legs and torso in one motion. Once on side she required use of handrails with RUE and ModA for uprighting trunk and handheld assist with LUE. Once seated she maintianed midline without UE support. She required ModA for scooting to EOB, bed too high for feet to reach floor. Pt performed sit to stand x1 from bed CGA and progressed to SBA x1 from toilet/commode in bathroom. Provided cues for good eccentric control and reaching for arms of chair before descending. Pt was left in bedside chair with son in room , call light nearby and with food tray. Gait Assessment Gait Gait Assistance Required: Standby Assistance Distance (Feet) 50 Assistive Devices Assistive Device Gait Belt,Platform Walker Gait Deviations General Gait Pattern Decreased Stride Length, Decreased Feet Clearance, Flexed Trunk,Step-to Gait Factors Limiting Gait Function Factors Limiting Gait Function Decreased Activity Tolerance, Decreased Strength,Limited Range of Motion,Pain,Poor Balance Comments Gait Comments Pt ambulated with upright FWW to bathroom toilet at a slow/ cautious speed and decreased stride length and step height. She continued and ambulated to door of room and back to bed side chair, reporting feeling exhausted and some SOB . PT-Balance Assessment Sitting Balance and Reactions Static Sitting Balance Ability Good Dynamic Sitting Balance Ability Good Standing Balance and Reactions Static Standing Balance Ability Good Dynamic Standing Balance Ability Good Device Used upright FWW M5 PT-IP Objective Assessments Start: 04/21/22 10:08 Freq: NEEDED Status: Active Protocol: Document 04/21/22 10:10 [facility] (Rec: 04/21/22 10:26 [facility] [id number]) Orientation Orientation/Cognition Level of Alertness Alert Gross Range of Motion Upper Extremity ROM Assessment Within Functional Limits Lower Extremity ROM Assessment Within Functional Limits Strength Upper Extremity Strength Assessment Bilaterally Impaired Lower Extremity Strength Assessment Bilaterally Impaired Comments Strength Comments pt has history of multiple fusions including throacic fusion april of 2020 general weakness B LE as well as UE Other Assessments Other Other Assessments Annabella is a 71 year old female day 1 s/o C3-4 anterior cervical diskectomy and fusion . She has a extensive history of surgeries including a T12 and lumbar fusions. She reports this is her 3rd neck surgery. Prior to her C3-4 fusion she underwent a left carpal tunnel surgery. She has been using a platform walker since then as she is not able to coil cleaner. She notes numbness into her hands and fingertips that was there prior to her fusion. She states though that she can feel the bed rail in her hand today for the first time. Pt lives alone and request placement at [facility] following hospital discharge as she is not able to fully care for herself and she feels home health is not enough. She requires assistance with bathing and ADL's. She does have 2 steps to enter her house with railing on either side. Annabella had just gotten out of bed with nursing and ambulated with her platform walker to the bathroom and back. She did not want to attempt again with PT this am. I told her PT would be back again in the PM. M6 PT-IP Treatment Start: 04/21/22 10:08 Freq: NEEDED Status: Active Protocol: Document 04/22/22 11:03 TS (Rec: 04/22/22 11:23 TS [id number]) Physical Therapy Treatment Education Education Provided Precautions,Safety Equipment Issued Equipment Type and Company she has her upright FWW from home in room (bilateral UE platforms on FWW) Other Treatments Other Treatment Performed Education on proper technique of logroll. M7 PT-IP Assessment and Plan Start: 04/21/22 10:08 Freq: NEEDED Status: Active Protocol: Document 04/22/22 11:03 TS (Rec: 04/22/22 11:23 TS [id number]) PT Summary Assessment and Plan Potential Rehabilitation Potential Good Status of Condition at Evaluation Evolving Summary Impairments Pain,ROM,Strength,Gait, Activity Tolerance Progress Towards Goals Slow Progress due to Activity Tolerance Goals Bed Mobility Goal Standby Assistance Transfer Goal Standby Assistance,Front Wheeled Walker Gait Goal Standby Assistance,Front Wheel Walker Gait Distance 100 feet Other Goals up/down 2 steps with rail and min assist Days to Meet Goals 5 Frequency of Treatment Frequency Of Treatment Once a Day Treatment Plan Physical Therapy Treatment Plan Bed Mobility Training,Transfer Training,Gait Training, Therapeutic Exercise,Balance Retraining,Post Op Education, Discharge Planning,Hot or Cold Pack,Neuromuscular Re-ed Precautions Cervical Spine Precautions Soft Collar for Comfort,No Heavy Lifting,Log Roll Recommendations To Nursing Amount of Assist Needed 1 Person Assist Discharge Recommendations PT Discharge Recommendations SNF Rehab Transportation Needs at Discharge Private Vehicle
[2022-04-22 14:39] VITALS: BP 163/70; PULSE 85; RESP 17; TEMP 36.5; O2SAT 98
--- NOTE | 2022-04-22 16:26 | CM.DPNOTE ---
DCP Note [facility] can admit patient tomorrow, No updated COVID PCR needed Met w/patient to update on above and she was very pleased, states her son can transport her tomorrow Updated Kavita at [facility], son to transport, patient agreeable to plan- Kavita requests earlier the better for transport as long as [facility] and SNF orders/med list are completed, signed and faxed CM team instructed to call Kavita at the Admission cell tomorrow for coordination P [phone] Plan: DC expected tomorrow to [facility] via son's transport JW
--- NOTE | 2022-04-22 19:00 | PC.NURSE ---
Day shift: OK to d/c IV fluids per NONI Rose.
[2022-04-22] MEDS: SENNOSIDES 8.6 MG TABLET 17.2 MG PO (19:50)
[2022-04-22 20:07] VITALS: BP 176/80; PULSE 98; RESP 18; TEMP 36.7; O2SAT 97
[2022-04-22] MEDS: GABAPENTIN 600 MG TABLET PO (22:10)
[2022-04-23 05:31] VITALS: BP 156/87; PULSE 91; RESP 18; TEMP 36.2; O2SAT 93
[2022-04-23 09:00] VITALS: BP 181/86; PULSE 88; RESP 17; TEMP 36.9; O2SAT 97
[2022-04-23] MEDS: MULTIVITAMIN 1 TABLET 1 TAB PO (09:45)
[2022-04-23] MEDS: CHOLECALCIFEROL (VITAMIN D3) 5,000 UNIT TABLET 10000 UNIT PO (09:45)
[2022-04-23] MEDS: GABAPENTIN 300 MG CAPSULE PO ×2 (09:45→12:16)
[2022-04-23] MEDS: ASCORBIC ACID 500 MG TABLET 1000 MG PO (09:45)
[2022-04-23] MEDS: DOCUSATE 100 MG CAPSULE PO (09:45)
[2022-04-23] MEDS: PRAVASTATIN 20 MG TABLET PO (09:45)
--- NOTE | 2022-04-23 11:13 | CM.DPNOTE ---
Discharge Planning Note: Readying patient for discharge to [facility], faxed final papers. Ninoska Rose in to see patient. Son to come for transport shortly. Yolis Awan RN/DCP
--- NOTE | 2022-04-23 12:09 | OT.IP.TRT ---
Current Diagnoses Disease of spinal cord, unspecified (04/20/22) Spinal stenosis, cervical region (04/20/22) Surgery Performed Operation Date: 04/20/22 07:45 Actual Procedures p C3-4 ACDF w. anterior instrumentation - Vince Man MD Occupational Therapy Treatment Note M2 OT-IP Current Condition Start: 04/21/22 12:14 Freq: Status: Active Protocol: Document 04/21/22 11:15 [facility] (Rec: 04/21/22 16:26 [facility] [id number]) Occupational Therapy Current Condition Current Condition Evaluation Date 04/21/22 Treatment Diagnosis S/p C3-4 ACDF Diagnosis Onset Date 04/20/22 Post Operative Precautions Cervical Spine Precautions Soft Collar for Comfort,No Heavy Lifting,Log Roll M3 OT- IP Subjective and Pain Start: 04/21/22 12:14 Freq: Status: Active Protocol: Document 04/23/22 12:02 [facility] (Rec: 04/23/22 12:09 [facility] [id number]) OT- Subjective Occupational Therapy Visit Type Type Treatment Note Visit Start Time 11:51 Visit Stop Time 12:00 Total Visit Minutes 9 Occupational Therapy Visit Comments Patient Comments Pt in the room with her son and looking to go to SNF soon. Patient/Caregiver Goals To go to skilled rehab M4 OT- IP ADL's Start: 04/21/22 12:14 Freq: Status: Active Protocol: Document 04/23/22 12:02 [facility] (Rec: 04/23/22 12:09 [facility] [id number]) OT ADL-Dressing Comments OT Dressing Comments Pt still not able to get her LUE up high enough to help corinna the soft collar at this time. M9 OT- IP Assessment and Plan Start: 04/21/22 12:14 Freq: Status: Active Protocol: Document 04/23/22 12:02 [facility] (Rec: 04/23/22 12:09 [facility] [id number]) OT Summary Assessment and Plan Potential Rehabilitation Potential Good Analytic Complexity at Evaluation Moderate Summary Assessment Summary Pt going to skilled rehab today and her son to be taking her. Pt's son states does not need any training as prior has been able to assist pt for mobility needs and getting into and out of the car. Able to give pt theraputty for hand exercises to help with her coordination and strength. Pt's son taking pt to SNF today Discharge Recommendations OT Discharge Recommendations SNF Rehab Transportation Needs at Discharge Private Vehicle
--- NOTE | 2022-04-23 15:14 | PC.NURSE ---
1330: patient is a/o, voices needs. SBA-1pa transfers OOB to BSC. using platform walker for mobility. reports RLE is weaker than the LLE. ortho to see patient. dressing to Left anterior cervical incision is CDI. soft collar in place. + CSM denies pain/discomfort. XL bowel movement in bathroom. d/c orders received- son here to brain picker patient. call to [facility]) to give report. see d/c
== END 2022-04-23 13:20 | DRG 472 ==
PROVIDERS: Physician Assistant; Admitting Provider Orthopaedic Surgery Orthopaedic Surgery of the Spine; PCP Internal Medicine; Referring Provider Orthopaedic Surgery; Visit Provider Orthopaedic Surgery Orthopaedic Surgery of the Spine
PROC: 0RG10A0 Fusion of Cervical Vertebral Joint with Interbody Fusion Device, Anterior Approach, Anterior Column, Open Approach (ICD-10-PCS; principal; 2022-04-20 07:45)
DX: M48.02 Spinal stenosis, cervical region (principal); M47.12 Other spondylosis with myelopathy, cervical region; G62.9 Polyneuropathy, unspecified; E78.5 Hyperlipidemia, unspecified; Z20.822 Contact with and (suspected) exposure to COVID-19
CPT/HCPCS: 36415; 72040; 76000; 85014; 85018; 87635; 97116; 97162; 97167; 97530; C1776; C9803; J0171; J0330; J1100; J1170; J2250; J2405; J2704; J3010

== ENCOUNTER → 2022-07-13 10:56 | Outpatient (CLI) | payer MEDICARE, SELFPAY ==
[2022-07-05 08:47] VITALS: BMI 31.7
--- NOTE | 2022-07-13 11:00 | DI.RAD.S_ITS ---
PROCEDURE: XR HIP W PEL IF DONE SHILPA MIN 4V INDICATIONS: Right hip djd TECHNIQUE: AP pelvis with lateral view(s) of the right and left hip(s). COMPARISON: [facility], , XR PELVIS 1-2V, 05/04/2021, 17:33. FINDINGS: Bones: No acute fracture or dislocation identified. Severe degenerative changes of the right hip are present with complete joint space loss, articular surface deformity, subchondral cystic change and sclerosis and spurring. These findings are significantly worsened since the prior exam. Mild degenerative changes of the left hip also present. Partially imaged lumbosacral spine fusion hardware. Soft tissues: The visualized bowel gas pattern is normal. IMPRESSION: Severe degenerative changes of the right hip, markedly worsened since 04/14/2021. Dictated by: Rah Snyder M.D. on 07/13/2022 at 17:39 Approved by: Rah Snyder M.D. on 07/13/2022 at 17:41
== END ==
PROVIDERS: PCP Internal Medicine; Referring Provider Physical Medicine & Rehabilitation; Visit Provider Physical Medicine & Rehabilitation
DX: M16.11 Unilateral primary osteoarthritis, right hip (principal)
CPT/HCPCS: 73522

== ENCOUNTER → 2022-10-07 10:44 | Outpatient (CLI) | payer MEDICARE, SELFPAY ==
[2022-07-05 08:47] VITALS: BMI 31.7
--- NOTE | 2022-10-07 10:45 | DI.RAD.S_ITS ---
PROCEDURE: XR DEXA AXIAL SKELETON INDICATIONS: EVALUATE FOR TOTAL JOINT SURGERY COMPARISON: None. FINDINGS: This blank DEXA report has been sent in error by the PACS system. The correct and complete report will be forthcoming in 1-2 days. Thank you for your patience and understanding. Dictated by: Yoni Hdez M.D. on 10/07/2022 at 13:07 Approved by: Yoni Hdez M.D. on 10/07/2022 at 13:07
--- NOTE | 2022-10-07 11:06 | DI.DEXA.S_ITS ---
Bone Density Report Name: LAKHWINDER LEON Age: 72 Sex: Female Ethnicity: White Date of : 1950 Indication: postmenopausal; screening for osteoporosis; Referring Provider: SASHA WADSWORTH Study: Bone densitometry was performed. Exam Date: October 07, 2022 Accession number: [id number] Bone Density: Region BMD T-score Z-score Classification Femoral Neck (Left) 0.744 -0.9 1.1 Normal Total Hip (Left) 0.808 -1.1 0.6 Osteopenia Femoral Neck (Right) 0.549 -2.7 -0.7 Osteoporosis Total Hip (Right) 0.449 -4.0 -2.3 Osteoporosis Total Hip Mean 0.629 -2.6 -0.9 Osteoporosis Total Forearm (Left) 0.439 -2.6 -0.2 Osteoporosis 1/3 Forearm (Left) 0.517 -2.9 -0.5 Osteoporosis UD Forearm (Left) 0.363 -1.4 0.4 Osteopenia World Health Organization criteria for BMD impression classify patients as: Normal (T-score at or above -1.0), Osteopenia (T-score between -1.0 and -2.5), or Osteoporosis (T-score at or below -2.5). 10-year Fracture Risk: FRAX not reported because: Some T-score for Spine Total or Hip Total or Femoral Neck at or below -2.5 Impression: The patient has osteoporosis, based on the Right Total Hip T-score. Discussion: HIGH RISK OF FRACTURE. BONE DENSITY IS UNDESIRABLY LOW AT ONE OR MORE SKELETAL SITES, CONSISTENT WITH OSTEOPOROSIS. ALSO, BONE DENSITY IS LOWER THAN EXPECTED FOR AGE AND SEX AT ONE OR MORE SKELETAL SITES; RECOMMEND A DILIGENT SEARCH FOR SECONDARY CAUSES OF BONE LOSS. This patient's lowest T-score meets the World Health Organization's (WHO) criteria for osteoporosis at one or more sites (T-score -2.5 or below). In untreated patients, the risk of osteoporotic fracture increases approximately two-fold for each 1.0 SD decrease in T-score. Low bone density is not the only risk factor for fracture; also consider factors such as patient's age, frailty or poor health, risk of falling, risk of injury, previous osteoporotic fracture, family history of osteoporosis, cigarette smoking, low body weight, etc. Not everyone with low bone mineral density has osteoporosis; osteomalacia and other metabolic bone disorders should also be considered. Patients who have osteoporosis should be evaluated for specific diseases and conditions (secondary causes) that may cause or contribute to bone loss. The [place] [employer]ocrinologists (AACE) and National Osteoporosis Foundation (NOF) recommend pharmacologic intervention for all postmenopausal women whose T-score is in this range. Also, this patient's bone mineral density is below the range considered normal for healthy age-, sex-, and race-matched controls at least one site (Z-score -2.0 or below). This warrants careful evaluation for diseases and conditions that may contribute to accelerated bone loss. The patient should follow a healthful lifestyle (good nutrition with adequate calcium and vitamin D, and appropriate weight-bearing exercise). Follow-Up: Consider a repeat BMD and Vertebral Fracture Assessment (VFA) exam in 2 years or sooner if medically necessary, to reassess this patient's status. Reported by: RADHA PENA M.D. on 10/11/2022 1:07:00 PM.
== END ==
PROVIDERS: PCP Internal Medicine; Referring Provider Orthopaedic Surgery; Visit Provider Orthopaedic Surgery
DX: M81.0 Age-related osteoporosis without current pathological fracture (principal); Z98.1 Arthrodesis status; Z78.0 Asymptomatic menopausal state
CPT/HCPCS: 77080; 77081

== ENCOUNTER 2022-11-04 10:52 | Day surgery (SDC) | payer MEDICARE, SELFPAY ==
[2022-07-05 08:47] VITALS: BMI 31.7
[2022-10-24 11:02] VITALS: BMI 32.5
[2022-11-04] VITALS (14 sets, daily range): BP systolic 126–185; BP diastolic 50–84; PULSE 81–97; RESP 9–18; TEMP 36.3–36.7; O2SAT 96–99; BMI 32.5
--- NOTE | 2022-11-04 | DI.RAD.S_ITS ---
PROCEDURE: XR HIP W PEL IF DONE RT 4V INDICATIONS: RIGHT INTRA OP HIP TECHNIQUE: Intraoperative right hip fluoroscopic spot film COMPARISON: [facility], CR, XR HIP W PEL IF DONE SHILPA 3TO4V, 07/13/2022, 11:16. FINDINGS: Four fluoroscopic spot films were obtained intraoperative during placement of a right total hip arthroplasty. IMPRESSION: Approved by: Chon Umaña M.D. on 11/04/2022 at 16:55
--- NOTE | 2022-11-04 | DI.RAD.S_ITS ---
PROCEDURE: XR HIP W PEL IF DONE RT 2V INDICATIONS: RT ANTERIOR HIP TECHNIQUE: 2 views of the hip were acquired. COMPARISON: [facility], , XR HIP W PEL IF DONE RT 4V, 11/04/2022, 14:58. FINDINGS: Bones: Total right hip arthroplasty with overlying soft tissue postprocedural air is present. Lower lumbar spine venkatesh and screw instrumentation present. [id number] left hip degenerative changes. Soft tissues: As above IMPRESSION: Total right hip arthroplasty in good position Approved by: Chon Umaña M.D. on 11/04/2022 at 16:56
[2022-11-04] MEDS: LACTATED RINGERS 1,000 ML 100 ML IV ×3 (11:22→19:01)
--- NOTE | 2022-11-04 11:41 | SUR.PREOP ---
ok to use cefazolin - Dr Mckeon said the risks outweigh the benefilts
--- NOTE | 2022-11-04 11:49 | PM.PREOP ---
Pre-operative Note Interval Note History & Physical reviewed/Exam performed by Physician: Yes Changes to H&P: No
[2022-11-04] MEDS: CEFAZOLIN 2 GM/100 ML PREMIX 100 ML IV (12:29)
--- NOTE | 2022-11-04 13:13 | SUR.OPER ---
Supine on padded [place] table with bilateral legs secured in padded positioning boots and suspended in positioning spars, operative leg in traction per surgeon. Head on one pillow. Arm on both side secured on padded armboard <90 degrees abduction. Padded perineal post in place per surgeon. all bony prom. protected, cap refill on both toes visible.
[2022-11-04] MEDS: TRANEXAMIC ACID 1,000 MG VIAL 2000 MG INJ ×2 (13:40→14:59)
[2022-11-04] MEDS: ROPIVACAINE/EPI/CLONIDINE/KET 50 ML SYRINGE INJ (13:48)
[2022-11-04] MEDS: OXYCODONE/ACETAMINOPHEN 5/325 TABLET 1 TAB PO ×2 (15:43→16:13)
[2022-11-04] MEDS: hydrOXYzine pamoate 25 MG CAPSULE PO (15:49)
[2022-11-04] MEDS: HYDROMORPHONE 1 MG INJ IV ×2 (15:50→16:00)
--- NOTE | 2022-11-04 16:04 | PT-IP ANOTE ---
PT eval order received. EMR reviewed. pt still in PACU and has not arrived on the acute floor at this time. will f/u tomorrow.
[2022-11-04] MEDS: MEPERIDINE 50 MG/ML INJ 12.5 MG IV (16:12)
[2022-11-04] MEDS: HYDROCODONE/ACET 5/325 TABLET 2 TAB PO (17:41)
[2022-11-04] MEDS: IBUPROFEN 600 MG TABLET PO (17:41)
--- NOTE | 2022-11-04 18:00 | PM.OP.1 ---
Operative Date/Time/Diagnoses Date of procedure: 11/04/22 Time of procedure: 12:30 Pre-op diagnosis: Right hip arthritis Post-op diagnosis: same Procedure & Clinicians Procedure: Right total hip arthroplasty (CPT code 78788) Same procedure as scheduled: Yes Surgeon: Chon Jordan [employer] Worker: Portia Bowens Anesthesia Type: General and Local Operative Notes Findings: End-stage arthritic changes to right hip Prosthetic devices, grafts, tissues, transplants, or devices: Depuy Bimentum 49 mm monoblock dual mobilty acetabular component Depuy 28 +5/49 dual mobility head Depuy C stem 2 High Offset [place]os cement Estimated Blood Loss (mL): 200 Procedure in detail: This 72-year-old female patient presented with end-stage right hip arthritis in the setting of a prior lumbar fusion. She had some residual motor deficits related to the nerve injury associated with her initial fracture which eventually necessitated the spinal fixation. She wished to proceed with surgery. Risks and benefits were discussed at length, with particular focus on her high risk of dislocation given her spine fusion and her risk of fracture given known osteoporosis. Additionally we discussed the risk of worsening nerve function given her pre-existing motor impairments. Informed consent was obtained. The patient was met in the preoperative holding area the day of surgery and the operative limb was marked. She was brought back to the operating room and general anesthesia was induced. She was positioned on the [place] table and all bony prominences were padded. She was prepped and draped in the usual sterile fashion. A time-out was performed verifying the correct patient, procedure, and laterality. Preoperative antibiotics and tranexamic acid were administered. A direct anterior approach the hip was utilized through the interval between the TFL and the rectus. The lateral circumflex vessels were coagulated. Retractors were placed around the femoral neck and a soft tissue retractor was placed. Capsulotomy was performed and tag stitches were placed for retraction of the capsule. The neck cut was measured based on preoperative templating and cut. The femoral head was removed. The acetabulum was exposed and retractors were placed around the acetabulum. The labrum was excised and the pulvinar was excised and coagulated. The acetabulum was prepped under fluoroscopic visualization using reamers beginning with a 45 mm Reamer. I reamed up to 49 mm. Before placing the cup I performed an obturator nerve block through the incision in the inferior aspect of the acetabulum. I then placed a 49 mm monoblock dual mobility cup and verify the appropriate abduction and anteversion fluoroscopically. All retractors were removed and the lateral capsule was dissected off of the greater trochanter. The leg was externally rotated, hyperextended, and adducted. The hip was elevated and broaches were used to prep for a size 2 C stem. A high offset neck and a 1.5 mm head with a dual mobility articulation were trialed and it was noted that the neck had come disengaged during the reduction process. It appeared to be close to the correct length with the disengaged neck and for this reason we proceeded with cementing. The hip was placed back into the femoral preparation position and the femur was irrigated. A cement restrictor was placed. The femur was irrigated again. Cement was placed with a whistle-tip catheter to remove any excess blood and the stem was placed. The cement was allowed to dry. A +5 head and a dual mobility articulation was placed onto the stem and trialed. Fluoroscopy was obtained after reduction demonstrating appropriate length and offset. These components were then implanted onto a clean dry trunnion. The hip was reduced and irrigated with a dilute Betadine solution. Fluoroscopy of the pelvis and hip were obtained demonstrating appropriate length and offset and the absence of any intraoperative fractures. A drop test was performed extending the hip at 90? of external rotation which did not demonstrate any instability. A mixture of ropivacaine epinephrine clonidine and Toradol was injected throughout the wound The hip was closed with Vicryl Stratafix and Monocryl suture. A Dermabond incisional adhesive was applied and an Aquacel dressing was applied. The patient was awoken from anesthesia without complications and taken to the PACU. Post-operative Disposition: PACU Plan for aftercare: Weight-bearing as tolerated with anterior hip precautions Aspirin 81 mg b.i.d. for VTE prophylaxis Plan for discharge home after mobilization with physical therapy Discharge medications have been sent preoperatively including hydrocodone tramadol meloxicam and Tylenol and aspirin Follow up with me in 2 weeks for wound check
--- NOTE | 2022-11-04 19:27 | PM.PN.1 ---
Subjective Subjective Interval history: Seen postop. Pain well controlled. Stood up and didn't have any vasovagal symptoms Exam Vital Signs (past 8 hours): - 11/04/22 15:33 11/04/22 15:39 11/04/22 16:07 Temperature 97.4 F L 97.5 F L Pulse Rate 84 84 87 Respiratory Rate 9 L 13 13 Blood Pressure 185/84 H 147/74 H 154/77 H Pulse Oximetry 99 98 98 Oxygen Delivery Method Room Air Room Air Room Air Oxygen Flow Rate 0 0 0 11/04/22 16:22 11/04/22 16:35 11/04/22 15:52 Temperature 97.8 F 98 F Pulse Rate 93 H 94 H 89 Respiratory Rate 14 14 16 Blood Pressure 161/66 H 147/71 H 147/72 H Pulse Oximetry 98 98 98 Oxygen Delivery Method Room Air Room Air Room Air Oxygen Flow Rate 0 0 0 11/04/22 15:58 11/04/22 16:02 11/04/22 17:00 Temperature 97.5 F L 98 F Pulse Rate 91 H 90 97 H Respiratory Rate 14 14 18 Blood Pressure 172/71 H 160/73 H 158/50 H Pulse Oximetry 98 98 96 Oxygen Delivery Method Room Air Room Air Oxygen Flow Rate 0 0 11/04/22 17:16 11/04/22 18:15 Temperature 98.0 F 98.0 F Pulse Rate 97 H 96 H Respiratory Rate 14 18 Blood Pressure 158/50 H 144/60 H Pulse Oximetry 96 98 Oxygen Delivery Method Oxygen Flow Rate 0 Oxygen Delivery Method Room Air Oxygen Flow Rate 0 Narrative Exam Narrative: RLE: Aquacel in place CDI. Flexes/extends toes+ankle. SILT L2-S1. Toes WWP PFSH Medical History (Updated 07/01/22 @ 13:54 by Kevin Garcia DO) Degenerative joint disease of right hip Diabetes DVT (deep venous thrombosis) (2021) Easy bruisability GERD (gastroesophageal reflux disease) HLD (hyperlipidemia) HNP (herniated nucleus pulposus), thoracic Neuropathy Sacral dysfunction SCC (squamous cell carcinoma) T12 compression fracture (04/2021) Thoracic myelopathy UTI (urinary tract infection) Surgical History H/O eye surgery H/O thumb surgery H/O: knee surgery History of back surgery History of carpal tunnel surgery of left wrist (11/2021) History of carpal tunnel surgery of right wrist (01/2022) History of fusion of cervical spine (2008) History of lumbar fusion (2009) History of total left knee replacement History of total replacement of right shoulder joint History of total right knee replacement Hx of bilateral cataract extraction (2020) Hx of dilation and curettage Hx of tonsillectomy Family History Father Congestive heart failure Osteoarthritis Mother Osteoarthritis Pneumonia Sister Heart disease Grandmother Cancer Congestive heart failure Social History household members: none Smoking Status: Never smoker alcohol intake: never Assessment & Plan Assessment and plan (1) Degenerative joint disease of right hip: Qualifiers: Osteoarthritis type: primary Qualified Code(s): M16.11 - Unilateral primary osteoarthritis, right hip Status: Acute Plan Status post R DAYNA WBAT ASA 81 BID DVT PPX Needs to clear PT Plan DC home tomorrow Assessment & Plan narrative: .
[2022-11-04] MEDS: AMLODIPINE 5 MG TABLET 2.5 MG PO (19:44)
[2022-11-04] MEDS: ASPIRIN EC 81 MG TABLET PO (19:45)
[2022-11-04] MEDS: DOCUSATE 100 MG CAPSULE PO (19:45)
[2022-11-04] MEDS: PRAVASTATIN 20 MG TABLET PO (21:15)
[2022-11-05] MEDS: HYDROCODONE/ACET 5/325 TABLET 2 TAB PO ×4 (00:45→15:05)
[2022-11-05] MEDS: IBUPROFEN 600 MG TABLET PO ×2 (00:46→05:14)
--- NOTE | 2022-11-05 02:51 | PC.NURSE ---
Patient desatting to high 80's while sleeping, placed on 1 L O2 via NC. Sats increased to 97 on 1L O2.
[2022-11-05] MEDS: LACTATED RINGERS 1,000 ML 100 ML IV (02:57)
[2022-11-05 04:13] VITALS: BP 143/55; PULSE 81; RESP 17; TEMP 36; O2SAT 100
[2022-11-05 06:32] LABS: Hematocrit 30.4 % (36-46); Hemoglobin 10.2 g/dL (12.0-16.0)
--- NOTE | 2022-11-05 08:31 | PM.PN.1 ---
Subjective Subjective Interval history: Seen this AM. Some pain overnight. Controlled with oral opioids. Burning on lateral thigh. Has ambulated to and from bathroom. No PT yet Exam Vital Signs (past 8 hours): - 11/05/22 04:13 Temperature 96.8 F L Pulse Rate 81 Respiratory Rate 17 Blood Pressure 143/55 H Pulse Oximetry 100 Oxygen Delivery Method Room Air Oxygen Flow Rate 0 Narrative Exam Narrative: RLE: SILT L2-S1. Incision CDI. Toes WWP. Palpable DP pulse. Flexes/extends toes+ankle Objective Imaging Pelvis, lateral hip: My impression: Right total hip arthroplasty in place postoperatively Labs 11/05/22 06:08 Labs: Laboratory Results - last 24 hr 11/05/22 06:08 Hgb 10.2 L Hct 30.4 L PFSH Medical History (Updated 07/01/22 @ 13:54 by Kevin Garcia DO) Degenerative joint disease of right hip Diabetes DVT (deep venous thrombosis) (2021) Easy bruisability GERD (gastroesophageal reflux disease) HLD (hyperlipidemia) HNP (herniated nucleus pulposus), thoracic Neuropathy Sacral dysfunction SCC (squamous cell carcinoma) T12 compression fracture (04/2021) Thoracic myelopathy UTI (urinary tract infection) Surgical History H/O eye surgery H/O thumb surgery H/O: knee surgery History of back surgery History of carpal tunnel surgery of left wrist (11/2021) History of carpal tunnel surgery of right wrist (01/2022) History of fusion of cervical spine (2008) History of lumbar fusion (2009) History of total left knee replacement History of total replacement of right shoulder joint History of total right knee replacement Hx of bilateral cataract extraction (2020) Hx of dilation and curettage Hx of tonsillectomy Family History Father Congestive heart failure Osteoarthritis Mother Osteoarthritis Pneumonia Sister Heart disease Grandmother Cancer Congestive heart failure Social History household members: none Smoking Status: Never smoker alcohol intake: never Assessment & Plan Assessment and plan (1) Degenerative joint disease of right hip: Qualifiers: Osteoarthritis type: primary Qualified Code(s): M16.11 - Unilateral primary osteoarthritis, right hip Status: Acute Plan R DAYNA 11/04/22 Assessment & Plan narrative: PT Add gabapentin 300-600 mg TID for nerve pain WBAT with walker. Fine to bear full weight ASA 81 BID DVT PPX Anticipate DC home today Followup with me in two weeks
[2022-11-05] MEDS: GABAPENTIN 300 MG CAPSULE PO ×2 (08:56)
[2022-11-05] MEDS: ASPIRIN EC 81 MG TABLET PO (08:56)
[2022-11-05] MEDS: DOCUSATE 100 MG CAPSULE PO (08:56)
--- NOTE | 2022-11-05 09:29 | CM.DANOTE ---
Initial DCP Assessment Note Pt is a 72 yo female, resident of [place], now POD#1 from Rt DAYNA by Dr Jordan PCP: Marianna Ball Payer: [employer] Reviewed chart, Therapy evals pending this morning , DC order from Ortho has already been initiated this morning. Met w/patient to introduce role. Patient lives in [place], alone, mostly indp at baseline. Patient explains she has had numerous surgeries in the last few years. Family and friends/neighbors have been assisting her afterwards. Patient denies needs from this PEDIATRIC DENTIST, says she is prepared for her discharge home, hopes for today, with neighbor and family to assist, outpatient PT has already been arranged. No barriers identified at this time to patient's safe discharge home w/family to assist; close outpatient f/u recommended. Therapy eval pending this morning. CM team will plan to follow closely in case any DC needs or concerns arise. BERNICE Gomes Discharge Planning/Care Management CM Discharge Assessment Start: 11/05/22 09:24 Freq: Status: Active Protocol: Document 11/05/22 09:25 GERALD (Rec: 11/05/22 09:28 [id number]) Discharge Planning Assessment Assigned Public Welfare Worker BERNICE Lam DPOA/Assigned Designee Name Mauro Alvarez, jacinta Contact Information [phone] Advance Directives? Yes Advance Directives on File No History Provided By Patient,Medical Record Prior Living Arrangements Apartment/Condo Household Members none Type of transporation used prior to Drives own vehicle admit Independent with ADL's Yes Is patient alert and oriented? Yes Patient/Family Preference OP PT Therapy Comment Patient expects to discharge home today w/outpatient PT already arranged Barriers to Discharge No Comment Pending therapy eval Discharge Plan Home Transportation Arrangement Son likely to transport home Referrals Initiated None needed
--- NOTE | 2022-11-05 10:10 | PT.IIE ---
Current Diagnoses Unilateral primary osteoarthritis, right hip (11/04/22) Other unilateral secondary osteoarthritis of hip (11/04/22) Surgery Performed Operation Date: 11/04/22 12:30 Actual Procedures p Total Hip Arthroplasty/Anterior Approach(Right) - Chon Jordan MD Surgical History (Last Reviewed 07/01/22 @ 13:39 by Kevin Garcia DO) H/O eye surgery H/O thumb surgery H/O: knee surgery History of back surgery History of carpal tunnel surgery of left wrist (11/2021) History of carpal tunnel surgery of right wrist (01/2022) History of fusion of cervical spine (2008) History of lumbar fusion (2009) History of total left knee replacement History of total replacement of right shoulder joint History of total right knee replacement Hx of bilateral cataract extraction (2020) Hx of dilation and curettage Hx of tonsillectomy Medical History (Last Updated 07/01/22 @ 13:44 by Kevin Garcia DO) Degenerative joint disease of right hip Diabetes DVT (deep venous thrombosis) (2021) Easy bruisability GERD (gastroesophageal reflux disease) HLD (hyperlipidemia) HNP (herniated nucleus pulposus), thoracic Neuropathy Sacral dysfunction SCC (squamous cell carcinoma) T12 compression fracture (04/2021) Thoracic myelopathy UTI (urinary tract infection) Physical Therapy Inpatient Evaluation/Re-Eval M1 PT/OT-IP Prior Functional Status Start: 11/05/22 12:53 Freq: NEEDED Status: Active Protocol: Document 11/05/22 10:10 AB (Rec: 11/05/22 13:11 AB [id number]) Medical Review Prior Functional Status Medical History Reviewed Yes Communication able to make needs known Mobility and Gait pt stated that she is modified indpeendent with all mobilities and ambulation using a FWW Social History Household Members none Living Arrangements Apartment/Condo Number of Floors (Floors) One Floor Number of Stairs To Enter/Railing? 2 steps B rails to enter the house Home Environment Standard Height Toilet,Walk in Shower Home Equipment Front Wheel Walker,Four Wheel Walker,Manual Wheelchair, Raised Toilet Seat Without Armrests,Shower Seat without Backrest,Hand Held Shower Additional Social History Comment pt stated that her son will stay with her over the weekend ; will have neighbors to assist her as needed pt has a hurrycane, adjustable bed with R side rail M2 PT-IP Current Condition Start: 11/05/22 12:53 Freq: NEEDED Status: Active Protocol: Document 11/05/22 10:10 AB (Rec: 11/05/22 13:11 AB [email or web address]) Physical Therapy Current Condition Current Condition Evaluation Date 11/05/22 Treatment Diagnosis s/p R DAYNA anterior approach; difficulty in walking Onset Date 11/04/22 M3 PT-IP Subjective Start: 11/05/22 12:53 Freq: NEEDED Status: Active Protocol: Document 11/05/22 10:10 AB (Rec: 11/05/22 13:11 AB [email or web address]) Subjective Physical Therapy Visit Type Type Initial Evaluation Visit Start Time 10:10 Visit Stop Time 11:00 Total Visit Minutes 50 Number of CHAIN PULLER Visits 0 Therapy Pain Assessment Pain When Pain Assessed At Rest Pain Present Pain Present Pain Reported Location Right Hip Intensity 7 Scale Used increases to 20 with mobility Description Burning Pain Management Techniques Apply Cold,Distraction, Modification of Treatment,Re- positioning,Timing of Activity with Medications M4 PT-IP Mobility and Gait Start: 11/05/22 12:53 Freq: NEEDED Status: Active Protocol: Document 11/05/22 10:10 AB (Rec: 11/05/22 13:11 AB [email or web address]) PT-Bed Mobility Assessment Sit to Supine Sit to Supine Maximum Assistance,1 Person Assistance,2 Person Assistance ,Bedrails PT-Transfer Assessment Sit to and From Stand Sit to and from Stand Maximum Assistance,1 Person Assistance,Use of Upper Extremities Equipment Transfer Assistive Device Gait Belt,Front Wheeled Walker Orthotic/Prosthetic Devices or Brace: No Transfers Transfer Destination Bed Transfer Technique ambulation Transfer Ability Level of Assist Moderate Assistance,1 Person Assistance,Use of Upper Extremities Comments Mobility Comments pt sitting on the chair. educated on anterior R hip precautions and weight bearing status. c/o R lateral hip to knee burning pain. stated that the doctor ordered gabapentin and that if that does not work, will be given steroid per pt. completed sit to stand x 2 attempts max A and max cues. pt initially stated that she cannot push up to stand. needs encouragement. ambulated ~ 15 ft mod A using FWW. presents with stooped posture and with shuffling gait. c/o increase R hip pain and stated that she has to go back to bed. sat on EOB. assisted to bed. required max A x 1-2 with sit to supine. required x 4 attempts to lie back in bed. max A x 1-2 for positioning in bed. c/o increase pain throughout PT session. call light and table placed within reach. ice packs provided. pt stated that the gabapentin is not working and wants the steroid. informed nurse. informed pt regarding SNF but pt refused. stated that if she gets the steroid and has less pain, she will be able to move better. caregiver training set up this afternoon at 130 pm. Gait Assessment Gait Gait Assistance Required: Moderate Assistance Distance (Feet) 15 Able to Maintain Weight Bearing Status Yes During Gait Assistive Devices Assistive Device Gait Belt,Front Wheeled Walker Orthotic/Prosthetic Devices or Brace: No Gait Deviations General Gait Pattern Decreased Stride Length, Decreased Feet Clearance, Flexed Trunk,Step-to Gait Factors Limiting Gait Function Factors Limiting Gait Function Decreased Activity Tolerance, Decreased Strength,Limited Range of Motion,Pain,Poor Balance,Poor Safety Awareness PT-Balance Assessment Sitting Balance and Reactions Static Sitting Balance Ability Good Dynamic Sitting Balance Ability Good Standing Balance and Reactions Static Standing Balance Ability Fair Dynamic Standing Balance Ability Poor Device Used FWW M5 PT-IP Objective Assessments Start: 11/05/22 12:53 Freq: NEEDED Status: Active Protocol: Document 11/05/22 10:10 AB (Rec: 11/05/22 13:11 AB [id number]) Orientation Orientation/Cognition Level of Alertness Alert Orientation Name,Place,Situation Language Function Ability No Deficits Noted Safety Awareness Decreased Safety Awareness Memory Description No Deficits Noted Gross Range of Motion Lower Extremity ROM Assessment Within Functional Limits Strength Lower Extremity Strength Assessment Right Impaired Hip 2-/5 Knee 3+/5 Coordination Assessment Gross Coordination Gross Coordination WNL Muscle Tone Muscle Tone WNL Yes M6 PT-IP Treatment Start: 11/05/22 12:53 Freq: NEEDED Status: Active Protocol: Document 11/05/22 10:10 AB (Rec: 11/05/22 13:11 AB [email or web address]) Physical Therapy Treatment Education Education Provided Precautions,Weight Bearing Status,Post-Op Packet,Safety M7 PT-IP Assessment and Plan Start: 11/05/22 12:53 Freq: NEEDED Status: Active Protocol: Document 11/05/22 10:10 AB (Rec: 11/05/22 13:11 AB [email or web address]) PT Summary Assessment and Plan Potential Rehabilitation Potential Fair Status of Condition at Evaluation Evolving Summary Impairments Pain,ROM,Strength,Balance, Coordination,Sensation,Tone, Cognition,Bed Mobility, Transfers,Gait,Activity Tolerance Assessment Summary pt s/p R DAYNA anterior approach and has anterior hip precautions and WBAT on RLE. pt with c/o increase R hip pain affecting mobility and activity tolerance. pt requiring max A x 1-2 for bed mobility, max A for sit to stand and mod A for ambulation using FWW and was only able to ambulate ~ 15 ft. pt lives alone but son will assist pt over the weekend but does not have consistent assistance after that. Informed pt regarding SNF but pt refusing. caregiver training set up this afternoon at 130pm. mariya continue to assess progress for safe d/c plan. Goals Bed Mobility Goal Standby Assistance Transfer Goal Standby Assistance,Front Wheeled Walker Gait Goal Standby Assistance,Front Wheel Walker Gait Distance 150 Other Goals improve bed mobility, transfers and ambulation using FWW ~ 200 ft mod I up/down 2 steps B rails SBA Days to Meet Goals 5 Frequency of Treatment Frequency Of Treatment Twice a Day Treatment Plan Physical Therapy Treatment Plan Bed Mobility Training,Transfer Training,Gait Training, Therapeutic Exercise,Balance Retraining,Post Op Education, Discharge Planning,Hot or Cold Pack,Neuromuscular Re-ed, Coordination Retraining,Manual Therapy Other Recommendations and Next Treatment Caregiver traiin/23 @ 130 Focus pm Precautions Anterior Hip Precautions No Hip Extension,No Hip External Rotation Weight Bearing Status Weight Bearing Status Weight Bear as Tolerated Allowed Weight Bearing Amount (enter % RLE WBAT or #) (%) Recommendations To Nursing Amount of Assist Needed 2 Person Assist Discharge Recommendations PT Discharge Recommendations Home with 05/09 Assist Available,Home Health,SNF Rehab,Home vs SNF Transportation Needs at Discharge Wheelchair/Cabulance
[2022-11-05] MEDS: DEXAMETHASONE 10 MG/ML VIAL 8 MG IV (12:03)
--- NOTE | 2022-11-05 13:30 | PT.IPTN ---
Current Diagnoses Type 2 diabetes mellitus without complications (11/04/22) Essential (primary) hypertension (11/04/22) Gastro-esophageal reflux disease without esophagitis (11/04/22) Unilateral primary osteoarthritis, right hip (11/04/22) Personal history of other venous thrombosis and embolism (11/04/22) Arthrodesis status (11/04/22) Surgery Performed Operation Date: 11/04/22 12:30 Actual Procedures p Total Hip Arthroplasty/Anterior Approach(Right) - Chon Jordan MD Physical Therapy Treatment Note M2 PT-IP Current Condition Start: 11/05/22 12:53 Freq: NEEDED Status: Discharge Protocol: Document 11/05/22 10:10 AB (Rec: 11/05/22 13:11 AB [id number]) Physical Therapy Current Condition Current Condition Evaluation Date 11/05/22 Treatment Diagnosis s/p R DAYNA anterior approach; difficulty in walking Onset Date 11/04/22 M3 PT-IP Subjective Start: 11/05/22 12:53 Freq: NEEDED Status: Discharge Protocol: Document 11/05/22 14:15 TS (Rec: 11/08/22 08:27 TS [id number]) Subjective Physical Therapy Visit Type Type Treatment Note Visit Start Time 13:30 Visit Stop Time 14:07 Total Visit Minutes 37 Notes Son present for caregiver training Number of PLATE FINISHER Visits 1 Physical Therapy Visit Comments Patient Comments Pt found resting in chair, reports having some pain in R hip but is better this afternoon, agreeable to PT. Therapy Pain Assessment Pain When Pain Assessed At Rest Pain Present Pain Present Pain Reported Location Right Hip Intensity 7 Scale Used Numeric (0 - 10) Description With Movement Pain Management Techniques Apply Cold,Distraction, Modification of Treatment,Re- positioning,Timing of Activity with Medications M4 PT-IP Mobility and Gait Start: 11/05/22 12:53 Freq: NEEDED Status: Discharge Protocol: Document 11/05/22 14:15 TS (Rec: 11/08/22 08:27 TS [id number]) PT-Transfer Assessment Sit to and From Stand Sit to and from Stand Moderate Assistance,1 Person Assistance,Use of Upper Extremities Equipment Transfer Assistive Device Gait Belt,Front Wheeled Walker Orthotic/Prosthetic Devices or Brace: No Comments Mobility Comments Sit to stand from chair ModA from son w/use of FWW, cues provided for UE's pushing from arms of chair. She ambulated ~100'CGA w/slow step to gait, cues were provided to son on handplacement or gait belt. She performed steps x3 CGA for ascending, Jadiel for descending steps w/B handrails . Pt was brought back to room in w/c. Sit to stand from w/c ModA from son. She ambulated back to bed side chair ~10'CGA . She recalled 2/2 hip precautions and was educated on importance of mobility and post-op ex. She was left in chair, son in room, RN notified. Gait Assessment Gait Gait Assistance Required: Contact Guard Assist Distance (Feet) 110 Able to Maintain Weight Bearing Status Yes During Gait Assistive Devices Assistive Device Gait Belt,Front Wheeled Walker Orthotic/Prosthetic Devices or Brace: No Gait Deviations General Gait Pattern Decreased Stride Length, Decreased Feet Clearance, Flexed Trunk,Step-to Gait Factors Limiting Gait Function Factors Limiting Gait Function Decreased Activity Tolerance, Decreased Strength,Limited Range of Motion,Pain,Poor Balance,Poor Safety Awareness Comments Gait Comments See mobility. Stair Climbing Assessment Evaluation Level of Assist On Stairs Contact Guard Assistance, Minimal Assistance Devices Stair Climbing Assistive Devices Left Railing,Right Railing Technique/Endurance Stair Climbing Direction Ascend and Descend Stair Climbing Technique Step to Step Number of Steps Climbed 3 Comments Stair Climbing Comments See mobility comments PT-Balance Assessment Sitting Balance and Reactions Static Sitting Balance Ability Good Dynamic Sitting Balance Ability Good Standing Balance and Reactions Static Standing Balance Ability Good Dynamic Standing Balance Ability Fair Device Used FWW M5 PT-IP Objective Assessments Start: 11/05/22 12:53 Freq: NEEDED Status: Discharge Protocol: Document 11/05/22 10:10 AB (Rec: 11/05/22 13:11 AB [id number]) Orientation Orientation/Cognition Level of Alertness Alert Orientation Name,Place,Situation Language Function Ability No Deficits Noted Safety Awareness Decreased Safety Awareness Memory Description No Deficits Noted Gross Range of Motion Lower Extremity ROM Assessment Within Functional Limits Strength Lower Extremity Strength Assessment Right Impaired Hip 2-/5 Knee 3+/5 Coordination Assessment Gross Coordination Gross Coordination WNL Muscle Tone Muscle Tone WNL Yes M6 PT-IP Treatment Start: 11/05/22 12:53 Freq: NEEDED Status: Discharge Protocol: Document 11/05/22 14:15 TS (Rec: 11/08/22 08:27 TS [id number]) Physical Therapy Treatment Education Education Provided Precautions,Weight Bearing Status,Post-Op Packet,Safety M7 PT-IP Assessment and Plan Start: 11/05/22 12:53 Freq: NEEDED Status: Discharge Protocol: Document 11/05/22 14:15 TS (Rec: 11/08/22 08:27 TS [id number]) PT Summary Assessment and Plan Potential Rehabilitation Potential Fair Summary Impairments Pain,ROM,Strength,Balance, Coordination,Sensation,Tone, Cognition,Bed Mobility, Transfers,Gait,Activity Tolerance Progress Towards Goals Progressing Toward Goals Assessment Summary Annabella made good progress with her mobility this afternoon. She required ModA for sit to stand x2, requires cues for sit to stand sequencing. She progresed her gait to ~110' CGA w/FWW and slow step to gait. She progressed stairs to x3 w/CGA ascending steps and Jadiel for descending. David was instructed in and perfromed donning of gait belt, sit to stand technique, assistance with gait and steps. Davidwill be home to assist through weekend and friends/neighbors will assist afterwards. PT is recommedning pt return home with 05/09 assist and outpatient PT. Goals Bed Mobility Goal Standby Assistance Transfer Goal Standby Assistance,Front Wheeled Walker Gait Goal Standby Assistance,Front Wheel Walker Gait Distance 150 Other Goals improve bed mobility, transfers and ambulation using FWW ~ 200 ft mod I up/down 2 steps B rails SBA Days to Meet Goals 5 Frequency of Treatment Frequency Of Treatment Twice a Day Treatment Plan Physical Therapy Treatment Plan Bed Mobility Training,Transfer Training,Gait Training, Therapeutic Exercise,Balance Retraining,Post Op Education, Discharge Planning,Hot or Cold Pack,Neuromuscular Re-ed, Coordination Retraining,Manual Therapy Precautions Anterior Hip Precautions No Hip Extension,No Hip External Rotation Weight Bearing Status Weight Bearing Status Weight Bear as Tolerated Allowed Weight Bearing Amount (enter % RLE WBAT or #) (%) Recommendations To Nursing Amount of Assist Needed 1 Person Assist Discharge Recommendations PT Discharge Recommendations Home with 05/09 Assist Available,Outpatient PT Transportation Needs at Discharge Private Vehicle
--- NOTE | 2022-11-05 15:53 | PC.NURSE ---
Pt med x 2 for discomfort w/relief. One time dose of dexithemasone given w/ good relief. [facility] dsg [facility] Work w/PT, orders for D/C given Due to internet being unavailable D/C instructions done via paper method. Pt escorted via W/C by staff to waiting vehicle D/C in stable post op status.
== END 2022-11-05 14:55 | disposition home or self-care (01) ==
LOC: OR 10:53 → AC 10:53
PROVIDERS: PCP Internal Medicine; Referring Provider Orthopaedic Surgery Adult Reconstructive Orthopaedic Surgery; Visit Provider Orthopaedic Surgery Adult Reconstructive Orthopaedic Surgery
PROC: (CPT 27130; principal; 2022-11-04 12:30)
DX: M16.11 Unilateral primary osteoarthritis, right hip (principal); E11.9 Type 2 diabetes mellitus without complications; I10 Essential (primary) hypertension; K21.9 Gastro-esophageal reflux disease without esophagitis; Z86.718 Personal history of other venous thrombosis and embolism; Z98.1 Arthrodesis status
CPT/HCPCS: 27130; 36415; 73502; 73503; 76000; 82962; 85014; 85018; 97162; 97530; C1776; J0330; J0690; J1100; J1170; J1200; J2175; J2405; J2704; J3010

== ENCOUNTER → 2023-03-23 07:02 | Outpatient (CLI) | payer MEDICARE, SELFPAY ==
[2022-11-04 17:43] VITALS: BMI 32.5
--- NOTE | 2023-03-23 | DI.MRI.S_ITS ---
PROCEDURE: MR THORACIC SPINE WO CON INDICATIONS: Spinal stenosis, thoracic region TECHNIQUE: Noncontrast sagittal T1 spine echo and T2 fast spin echo, sagittal STIR, and T2 fast spin echo through the thoracic spine. COMPARISON: [facility], MR, MR CERVICAL SPINE WO CON, 04/07/2022, 17:16. [facility], CR, XR LUMBAR SPINE 2 OR 3 VIEWS, 10/25/2022, 17:19. [facility], CR, XR CERVICAL SPINE 2 OR 3 VIEWS, 11/03/2022, 10:03. [facility], MR, MR THORACIC SPINE WO/W CON, 04/20/2021, 14:48. [facility], MR, MR THORACIC SPINE WO CON, 04/01/2021, 18:22. FINDINGS: Image quality: Excellent. Alignment and Curvature: Extensive fusion is present from what appears to be T10 through L2 as well as lower cervical spine extending to T1. There is trace retrolisthesis of T12 on L1. Bone Marrow: Marrow is of normal overall signal. No acute vertebral body compression fractures. Spinal Cord: Visualized spinal cord demonstrates minimal focus of increased signal at T10, corresponding to region previously impacted by extrusion. There is moderate spinal stenosis at T9-10, mild T8-9 minimal to mild T11-12. It is minimally progressive at T8-9, T9-10, improved at T10-11, similar T11-12. Paraspinous Soft Tissues: No paravertebral masses. Miscellaneous: On axial images, central canal and foramina appear widely patent at all scanned levels. Disc bulges are present C7-T1, T3-4, T4-5, T5-6, T6-7, T8-9, T9-T10, T11-12. Previous protrusion/extrusion at T10-11 is no longer visualized. IMPRESSION: Multilevel postsurgical and degenerative changes as above. Punctate area of increased signal at T10 within the spinal cord likely related to a small focus of mild malacia from prior spinal stenosis secondary to extrusion. Multilevel spinal stenosis similar versus minimally progressive. Dictated by: Gisele Mortensen M.D. on 03/23/2023 at 11:38 Approved by: Gisele Mortensen M.D. on 03/23/2023 at 12:09
== END ==
PROVIDERS: PCP Internal Medicine; Referring Provider Physical Medicine & Rehabilitation; Visit Provider Physical Medicine & Rehabilitation
DX: M48.04 Spinal stenosis, thoracic region (principal); M50.33 Other cervical disc degeneration, cervicothoracic region; M51.34 Other intervertebral disc degeneration, thoracic region
CPT/HCPCS: 72146

== ENCOUNTER → 2023-05-15 12:42 | Outpatient (CLI) | payer MEDICARE, SELFPAY ==
[2022-11-04 17:43] VITALS: BMI 32.5
--- NOTE | 2023-05-15 | DI.CT.S_ITS ---
PROCEDURE: CT LUMBAR SPINE WO CON INDICATIONS: Spinal stenosis, lumbar region TECHNIQUE: Noncontrast 3 mm thick sections acquired from the T12 level to the sacrum. Sagittal and coronal reformats were constructed. For radiation dose reduction, the following was used: automated exposure control. COMPARISON: [facility], CT, CT LUMBAR SPINE WO CON, 04/01/2021, 18:06. FINDINGS: Image quality: Excellent. Bones: Remote posterior lateral venkatesh and pedicle screw fixation from L1 through S1. No evidence of hardware failure or loosening. Interval posterior lateral venkatesh and pedicle screw fixation involving T10 and T11. No evidence of hardware failure or loosening. The T12 vertebral body, in between the levels of fusion hardware, has an unchanged mild to moderate inferior endplate compression. No acute compression fractures. There is normal bony alignment. No acute vertebral body compression fractures. No suspicious lytic or blastic bony lesions. No pars defects. T10-T11: Left hemilaminectomy. No canal stenosis identified. T11-T12: No canal stenosis or foraminal stenosis. T12-L1: No canal stenosis or foraminal stenosis. L1-L2: No canal stenosis or significant foraminal stenosis. L2-L3: No canal stenosis or significant foraminal stenosis. L3-L4: Posterior decompression. No canal stenosis. Mild bilateral foraminal stenosis. L4-L5: Remote posterior decompression. No canal stenosis or significant foraminal stenosis. L5-S1: No canal stenosis or significant foraminal stenosis. Soft tissues: No retroperitoneal masses or hematomas. Extensive heterotopic bone formation in the left pelvis at the level of L4-L5. Visualized aorta is normal in caliber. IMPRESSION: 1. Expected appearance of orthopedic surgical hardware. No evidence of hardware failure or loosening. 2. Old T12 compression. 3. No acute bony abnormality. 4. No significant canal stenosis or foraminal stenosis identified. Dictated by: Bishnu Santillan M.D. on 05/15/2023 at 17:06 Approved by: Bishnu Santillan M.D. on 05/15/2023 at 17:13
== END ==
PROVIDERS: PCP Internal Medicine; Referring Provider Orthopaedic Surgery Orthopaedic Surgery of the Spine; Visit Provider Orthopaedic Surgery Orthopaedic Surgery of the Spine
DX: M48.062 Spinal stenosis, lumbar region with neurogenic claudication (principal); Z98.1 Arthrodesis status
CPT/HCPCS: 72131

== ENCOUNTER → 2023-07-27 18:45 | Outpatient (CLI) | payer MEDICARE, SELFPAY ==
[2022-11-04 17:43] VITALS: BMI 32.5
--- NOTE | 2023-07-27 18:47 | DI.MRI.S_ITS ---
PROCEDURE: MR LUMBAR SPINE WO/W CON INDICATIONS: spondylosis with radiculopathy, lumbar region TECHNIQUE: Noncontrast sagittal T1 spin echo and T2 fast echo, sagittal STIR, and T2 fast spin echo through the lumbar spine. In cases with scoliosis, additional coronal T2 fast spin echo may be performed. COMPARISON: [facility], , MR LUMBAR SPINE WO/W CON, 04/20/2021, 14:48. FINDINGS: Image quality: Excellent. Alignment and Curvature: Mild dextrocurvature of the lumbar spine. Mild retrolisthesis of L1 on L2. Grade 1 anterolisthesis of L4 on L5. Bone Marrow: Postsurgical changes from posterior spinal fixation spanning L1 through S1. Additional partially visualized lower thoracic spinal fixation at T10-T11.. Marrow is of normal overall signal. Stable chronic wedging of the T12 vertebral body. No acute vertebral body compression fractures. Spinal Cord: Conus medullaris terminates at the T12-L1 level. Visualized cord demonstrates normal signal and size. Paraspinous Soft Tissues: No paravertebral masses. Postoperative seroma within the posterior paraspinal soft tissues is similar to prior. Fatty atrophy of the paraspinal musculature is redemonstrated. T12-L1: Disc desiccation and facet arthropathy. No central canal or neural foraminal stenosis. L1-L2: Postoperative changes. No central canal stenosis. Mild bilateral neural foraminal stenosis. L2-L3: Postoperative changes. No central canal stenosis. Mild bilateral neural foraminal stenosis. L3-L4: Postoperative changes. No central canal stenosis. Mild bilateral neural foraminal stenosis. L4-L5: Anterolisthesis. Postoperative changes. No central canal stenosis. Mild bilateral neural foraminal stenosis. L5-S1: Postoperative changes. No central canal stenosis. Moderate bilateral neural foraminal stenosis. IMPRESSION: Similar appearance of the lumbar spine with multilevel degenerative changes and posterior spinal fixation spanning L1 through S1. There has been interval postsurgical changes at T10-T11 which are partially visualized. No significant central canal stenosis. Moderate bilateral neural foraminal stenosis at L5-S1 is stable. Mild multilevel neural foraminal stenosis at other levels. Dictated by: Yoni Hdez M.D. on 07/28/2023 at 8:49 Approved by: Yoni Hdez M.D. on 07/28/2023 at 8:55
== END ==
PROVIDERS: PCP Internal Medicine; Referring Provider Neurological Surgery; Visit Provider Neurological Surgery
DX: M47.26 Other spondylosis with radiculopathy, lumbar region (principal); M48.07 Spinal stenosis, lumbosacral region; M48.061 Spinal stenosis, lumbar region without neurogenic claudication
CPT/HCPCS: 72158; A9579

== ENCOUNTER 2024-04-08 06:03 | Day surgery (SDC) | payer MEDICARE, SELFPAY ==
[2022-11-04 17:43] VITALS: BMI 32.5
[2024-04-02 12:03] VITALS: BMI 31.4
[2024-04-08] VITALS (14 sets, daily range): BP systolic 116–188; BP diastolic 49–99; PULSE 84–109; RESP 8–18; TEMP 35.7–36.9; O2SAT 96–100; BMI 31.4
--- NOTE | 2024-04-08 | DI.RAD.S_ITS ---
PROCEDURE: XR HIP W PEL IF DONE LT 2V INDICATIONS: ANTERIOR LT HIP TECHNIQUE: AP pelvis with lateral view(s) of the left hip(s). COMPARISON: [facility], LYDIA, XR HIP W PEL IF DONE LT 2V, 04/08/2024, 10:56. [facility], CR, XR HIP W PEL IF DONE RT 2V, 11/04/2022, 15:37. [facility], CR, XR HIP W PEL IF DONE RT 4V, 11/04/2022, 14:58. FINDINGS: Left hip arthroplasty projects in the expected location. Prior right hip arthroplasty. Lumbar sacral spine hardware. IMPRESSION: Intraoperative guidance provided. Left hip arthroplasty. Dictated by: Lance Zavaleta M.D. on 04/08/2024 at 11:55 Approved by: Lance Zavaleta M.D. on 04/08/2024 at 11:56
--- NOTE | 2024-04-08 | DI.RAD.S_ITS ---
PROCEDURE: XR HIP W PEL IF DONE LT 2V INDICATIONS: POSTY OP TECHNIQUE: AP pelvis and lateral view of the hip acquired. COMPARISON: [facility] [place], CR, XR PELVIS WITH LATERAL HIP LEFT, 02/01/2024, 16:11. [facility], CR, XR HIP W PEL IF DONE LT 2V, 04/08/2024, 9:02. [facility], CR, XR HIP W PEL IF DONE RT 2V, 11/04/2022, 15:37. FINDINGS: Bones: Patient is status post left hip arthroplasty, with hardware components in expected positions. The hip joint appears congruent. The visualized bony structures appear intact. Prior right hip arthroplasty. Lumbar sacral pedicle screws. Soft tissues: Overlying postoperative changes are noted. No suspicious soft tissue densities. IMPRESSION: Expected post-operative appearance of a hip arthroplasty. Dictated by: Lance Zavaleta M.D. on 04/08/2024 at 11:57 Approved by: Lance Zavaleta M.D. on 04/08/2024 at 11:58
[2024-04-08] MEDS: ACETAMINOPHEN 325 MG TABLET 975 MG PO (06:43)
[2024-04-08] MEDS: MELOXICAM 7.5 MG TABLET PO (06:43)
[2024-04-08] MEDS: LACTATED RINGERS 1,000 ML 42 ML IV (07:01)
--- NOTE | 2024-04-08 07:46 | PM.PREOP ---
Pre-operative Note Interval Note History & Physical reviewed/Exam performed by Physician: Yes Changes to H&P: No
[2024-04-08] MEDS: CEFAZOLIN 2 GM/100 ML PREMIX 100 ML IV ×2 (08:00→16:27)
[2024-04-08] MEDS: ROPIVACAINE/EPI/CLONIDINE/KET 50 ML SYRINGE INJ (08:56)
[2024-04-08] MEDS: EPINEPHrine 1 MG/ML IV (08:58)
--- NOTE | 2024-04-08 11:04 | P.OP_ITS ---
Operative Date/Time/Diagnoses Date of procedure: 04/08/24 Pre-op diagnosis: Left hip osteoarthritis Post-op diagnosis: same Procedure & Clinicians Procedure: Left total hip arthroplasty Same procedure as scheduled: Yes Surgeon: Chon Jordan Mail Officer: Jacqueline Keenan Anesthesia Type: General and Local Operative Notes Estimated Blood Loss (mL): 450 Procedure in detail: Left Hybrid Direct Anterior Depuy Total Hip Arthroplasty with Uncemented Acetabular Component and Cemented Femoral Component: Implants: * [place] Gription size 50 cup?with 3 screws (40 mm, 40 mm, 15 mm) with MDM liner * C Stem femoral stem size 2 High Offset * 22 mm +4 ceramic femoral head? * B[place] Altrx liner Procedure Summary: This 73-year-old female patient has a history of multiple prior spinal fusions including 1 which occurred following a traumatic injury from which she had thoracic myelopathy. She also has osteoporosis. I had previously replaced her right hip which had significantly worse acetabular wear than the side I operated on today. She had been 8 mm short prior to her right total hip arthroplasty and I had utilized a mono block dual mobility construct on that side with a +5 head. Preoperative templating indicated that I had lengthened that side but had not entirely equalized leg lengths to the left side, as I was still 5 mm long on the left side. This appeared to be due to an elevated hip center secondary to the severe acetabular erosions on the right side prior to that surgery. Intraoperatively today I planned to place a mono block dual mobility cup similar to what I do not on the other side however her bone quality was severely poor and prior to cup insertion I was very concerned I would not be able to achieve a pinch fit with a cup that did not have any screws in it so I transitioned to a [place] cup. As anticipated the pinch fit was not robust and I placed 3 screws for supplemental fixation of the cup. After screw fixation the cup was well seated. I utilized a dual mobility liner which in the relatively small head size that was utilized for her cup meant that an inner diameter 22 mm head had to be utilized for the dual mobility head. On the femoral side she surprisingly had fairly good bone quality and it was challenging to broach up to a size 2 stem which is the size she had had on her contralateral side. Trialing indicated that she remains slightly long so when inserting the final stem I think it slightly below the line at which I had calcar planed. Because she had started long, I did not intend to entirely correct this at that step in the procedure. Stability was appropriate on all trial parameters with the initial trials so a definitive head was placed after the cement had dried. Procedure in Detail: This patient was seen preoperatively and evaluated for hip pain which was refractory to numerous nonoperative treatment modalities. Their hip pain correlated with radiographic changes demonstrating significant degeneration in the hip joint. The risks and benefits of continued nonoperative management versus operative management were discussed at length and all of the patient?s questions were answered. Additional educational materials providing further details beyond our discussion in clinic were provided via a publicly available patient education video which included the incidence of medical complications associated with total hip arthroplasty, reasons for revision following total hip arthroplasty, and patient satisfaction rates following total hip arthroplasty. That video can be accessed at [email or web address]: [email or web address] . With this understanding of the risks inherent to the procedure, the patient elected to move forward with operative management. Following preoperative optimization, the patient was scheduled for surgery. The patient was met in the preoperative holding area the day of the procedure and all questions were answered. The patient?s nares were swabbed with betadine in order to decolonize them from MRSA. Informed consent was signed and the left limb was marked with indelible ink.? The patient was brought back to the operating room where anesthesia was induced. The patient was transferred to the [place] table and all bony prominences were padded. The operative site was prepped and draped in the usual sterile fashion. Prior to incision, tranexamic acid and cefazolin were administered. Operative templating images were displayed demonstrating the anticipated implant sizes and correct operative extremity. A timeout procedure was performed verifying the patient?s identity, medical comorbidities, allergies, relevant medications, anesthesia type and the surgical plan. All present were in agreement. The a ssistance of a physician video production assistant was required for positioning, room setup, soft tissue retraction and wound closure. Without this assistance, the procedure would have been significantly more challenging and time consuming.?? A direct anterior approach to the hip was utilized. This was performed with a longitudinal incision through a Heuter interval. The incision was planned 2 cm distal and 2 cm lateral to the ASIS extending towards the lateral patella, in line with the muscle body of the TFL. Following incision, the subcutaneous tissue was dissected while taking care to avoid injury to the lateral femoral cutaneous nerve. The fascia overlying the TFL was identified by dissecting off the overlying fat and identifying perforating vessels to the TFL. The TFL fascia was incised and dissected away from the medial border of the TFL. A cobra retractor was placed over the superior femoral neck between the abductors and the hip capsule and used to reflect the TFL laterally. A [place] self-retainer was then placed in the distal aspect of the wound between the TFL and the rectus femoris. This was tensioned to open up the direct anterior interval and the lateral circumflex vessels were identified and coagulated using electrocautery. The floor of the TFL fascia was incised, exposing the pericapsular fat overlying the hip capsule. A second cobra retractor was placed on the inferior femoral neck. A double-bent soft tissue retractor was placed on the anterior wall of the acetabulum and used to tension the reflected head of rectus femoris, which was then released in order to limit soft tissue tension. A capsulotomy was made in the midline of the anterior hip capsule in line with the femoral neck ending at the vastus tubercle. The double-bent retractor was removed in order to limit the amount of time that a soft tissue retractor remained on the anterior wall and protect the femoral nerve. Tag stitches were placed in the superior and inferior leaflets of the hip capsule. An [place] soft tissue retractor was introduced over the tag stitches and tensioned in the interval between the rectus femoris and the TFL in order to retract and protect those muscles. The cobra retractors were replaced intracapsularly, with one over the superior neck in the pocket created by the base of the greater trochanter and the other on the femoral head. The capsulotomy was extended laterally to the base of the greater trochanter and medially to the lesser trochanter. This required externally rotating the hip. Once the lesser trochanter had been identified, a neck cut was planned according to measurements from preoperative templating. A ruler was cut at the length measured between the superior aspect of the lesser trochanter and the collar of the prosthesis. This line was extended towards the inferior aspect of the lateral cobra retractor to plan a cut which would leave minimal residual femoral neck laterally. The neck was cut at 60 degrees of external rotation along that line. A second cut was performed to remove a large napkin ring and facilitate head extraction. The napkin ring cut and femoral head were removed.?? A broad anterior wall retractor was placed between the labrum and the anterior capsule so that the anterior capsule would prevent capturing and pinching the femoral nerve anteriorly. An additional retractor was placed on the posterior wall. External rotation and traction were applied through the [place] table so that the cut surface of the femoral neck would not restrict access to the acetabulum. The labrum was excised sharply and the pulvinar was excised with electrocautery to limit bleeding from branches of the obturator artery. Acetabular reamers were selected based on preoperative templating and measurements of the excised femoral head. These were introduced into the acetabulum. Fluoroscopy was utilized to replicate a standing AP pelvis radiograph by centering over the pelvis, rotating until there was appropriate symmetry between the obturator foramen, and introducing caudal tilt to match the position of the pubic symphysis relative to the sacrococcygeal junction according to the patient?s anatomy. Fluoroscopy was utilized to ensure appropriate reaming depth. Once satisfied with the reaming depth corresponding to the preoperative template and the pinch fit between the columns, an appropriate sized acetabular cup was selected which would provide 1 mm of press-fit. This cup was introduced and manipulated until appropriate abduction and anteversion angles were obtained with careful attention to appropriate abduction and anteversion angles as e valuated by the position of the cup relative to the anterior and posterior teran of the acetabulum and the AP fluoroscopy which recreated the patient?s standing radiograph. The cup was impacted into place. Three screws were placed to provide additional fixation. Peripheral osteophytes were removed. The acetabular liner was then placed with care to ensure locking of the locking mechanism.? Attention was then turned to the femur. All retractors were removed, traction was released, a retractor was placed in the interval between the hip capsule and the gluteus minimus, and the hip was externally rotated to 90 degrees. Traction was applied through the [place] table to tension the lateral capsule and this was released using electrocautery. Traction was released and a [place] hook was placed posteriorly around the proximal femur at the level of the vastus ridge. The table height was lowered in order to restrict the tension on the anterior structures during hip hyperextension to limit the risk of femoral nerve palsy. With traction off and the hip at 90 degrees of external rotation, the hip was hyperextended and adducted while manually elevating the femur away from the acetabulum with the [place] hook to ensure it would not be caught behind the greater trochanter. An asymmetric retractor was placed over the calcar and a broad double-pronged retractor was placed over the greater trochanter. The tag stitch capturing the lateral leaflet of the capsule was moved to the medial side, leaving the conjoined and piriformis tendons isolated in the face of the greater trochanter. The hip was externally rotated and elevated. A release of the conjoined tendon was utilized to minimize the risk of calcar fracture when I obtained adequate exposure for broaching. The canal was opened with an opening broach and a rasp was used to remove cancellous bone. A rongeur was used to remove the residual lateral bone at the base of the greater trochanter to avoid placing the stem in varus. The femur was then broached to the appropriate sized stem yielding good rotational fit and fill of the canal as well as appropriate version of the stem trial. Neck and head trials were placed, all retractors were removed and the hip was returned to neutral abduction and extension. I then reduced the hip. Initial trialing was performed with a size 2 broach, a high offset neck and a +4 head. I initially manually externally rotated the hip and found no instability. I then locked the hip in 45 degrees of external rotation and dropped it to the floor with traction off which demonstrated no instability. An AP pelvis fluoroscopic image matching the preoperative standing radiograph with both lesser trochanters visible and both hips in 40 degrees of external rotation demonstrated that the operative site was slightly long, as it had been preoperatively due to the acetabular erosions on the other side. AP and lateral hip fluoroscopic images were obtained to evaluate the broach size which demonstrated good canal fill. The hip was dislocated and I returned to the broaching position. Based on my evaluation during initial trialing I planned to place these definitive implants. I then returned to the broaching position and prepared for cementation. Prior to cementation I irrigated the canal, placed a cement restrictor, irrigated the canal again, placed epinephrine-soaked vaginal packing with a whistle-tip catheter, and removed the whistle-tip catheter after insertion of cement. The definitive stem was placed. Cement was allowed to dry. The trunnion was cleaned and dried. I placed a ceramic head onto the trunnion and impacted it into place on the [place] taper.?? All retractors were removed and the hip was reduced. A dilute mixture of betadine and peroxide was used to bathe the soft tissues during final fluoroscopic assessment. Appropriate component positioning was confirmed on an AP pelvis radiograph with the operative and nonoperative legs in 40 degrees of external rotation, evaluating leg length and offset. Appropriate stem fill was evaluated on AP and lateral hip radiographs. No fractures were identified on these radiographs. There was no hip instability with (120?) external rotation as well as a 45 degree drop test. The hip was copiously irrigated with pulse lavage. The capsule was closed with absorbable interrupted suture. The TFL fascia was closed with barbed suture while carefully protecting the lateral femoral cutaneous nerve from entrapment. A mixture of Ropivacaine, Epinephrine, Clonidine and Toradol was infiltrated throughout the soft tissues. The skin was closed with 2-0 and 3-0 sutures. Surgical glue was applied and a soft dressing was placed.??The sponge, instrument and needle counts were reported as being correct at the end of the case.??No obvious complications occurred. The patient was transferred from the [place] table back to a stretcher. The patient emerged from anesthesia without difficulty and was taken to the PACU in a stable condition.? Plan for aftercare: * Anterior hip precautions * Weightbearing as tolerated * Sliding scale insulin while in the hospital given her diabetes * Aspirin 81 twice per day for DVT prophylaxis * Anticipate discharge home today * After the patient's last total hip arthroplasty she had severe sacroiliac pain and we arranged for a steroid injection into her SI joint early in the postoperative course. If necessary we will pursue a similar injection on her left side following this one * Multimodal pain regimen with no IV opioids ordered * Apply ice machine to operative hip. Ensure that sufficient ice is in the chamber for the pad to remain cold * Follow up at [facility] in 2 weeks * Detailed postoperative instructions available at [email or web address]
[2024-04-08] MEDS: hydrOXYzine HCL 25 MG TABLET PO (11:23)
[2024-04-08] MEDS: ONDANSETRON 4 MG/2 ML INJ IV (11:24)
[2024-04-08] MEDS: GABAPENTIN 600 MG TABLET PO (11:24)
[2024-04-08] MEDS: INSULIN REGULAR 100 UNIT/ML 3 ML VIAL IV (11:28)
[2024-04-08] MEDS: HYDROCODONE/ACET 5/325 TABLET 1 TAB PO (11:33)
[2024-04-08] MEDS: LACTATED RINGERS 1,000 ML 100 ML IV (12:30)
[2024-04-08] MEDS: OXYCODONE IR 5 MG TABLET PO ×4 (13:10→21:44)
[2024-04-08] MEDS: ACETAMINOPHEN 325 MG TABLET 650 MG PO ×2 (13:11→18:50)
--- NOTE | 2024-04-08 14:06 | OT.IP.EVAL ---
Current Diagnoses Unilateral primary osteoarthritis, left hip (04/08/24) Surgery Performed Operation Date: 04/08/24 07:45 Actual Procedures p Total Hip Arthroplasty/Anterior Approach(Left) - Chon Jordan MD Past Medical History (Last Updated 04/02/24 @ 13:20 by Lore Liao, RN) Degenerative joint disease of right hip Diabetes DVT (deep venous thrombosis) (2021) Easy bruisability GERD (gastroesophageal reflux disease) History of COVID-19 (~04/2022) HLD (hyperlipidemia) HNP (herniated nucleus pulposus), thoracic Neuropathy Sacral dysfunction SCC (squamous cell carcinoma) T12 compression fracture (04/2021) Thoracic myelopathy UTI (urinary tract infection) Surgical History (Last Updated 04/02/24 @ 12:16 by Lore Liao RN) H/O eye surgery H/O thumb surgery H/O: knee surgery History of back surgery History of carpal tunnel surgery of left wrist (11/2021) History of carpal tunnel surgery of right wrist (01/2022) History of fusion of cervical spine (2008) History of lumbar fusion (2009) History of total left knee replacement History of total replacement of right shoulder joint History of total right hip replacement History of total right knee replacement Hx of bilateral cataract extraction (2020) Hx of dilation and curettage Hx of tonsillectomy Occupational Therapy Inpatient Evaluation/Re-Eval M1 PT/OT-IP Prior Functional Status Start: 04/08/24 14:38 Freq: NEEDED Status: Active Protocol: Document 04/08/24 14:59 CGR (Rec: 04/08/24 15:16 CGR [id number]) Medical Review Prior Functional Status Medical History Reviewed Yes Communication Pt is an effective verbal communicator. Mobility and Gait Pt was MOD I with use of FWW at baseline. Activities of Daily Living and IADL's Pt was IND with all ADLs and IADLS. Social History Household Members none Living Arrangements Apartment/Condo Number of Floors (Floors) One Floor Number of Stairs To Enter/Railing? 2 steps with B rails. Home Environment Standard Height Toilet,Walk in Shower Home Equipment Front Wheel Walker,Four Wheel Walker,Manual Wheelchair, Bedside Commode,Raised Toilet Seat Without Armrests,Shower Seat without Backrest,Hand Held Shower,Long Handled Shoe Horn,End Maker Employment Status Retired Additional Social History Comment Pt has an adjustable bed with R sided railing. M2 OT-IP Current Condition Start: 04/08/24 14:38 Freq: Status: Active Protocol: Document 04/08/24 14:59 CGR (Rec: 04/08/24 15:16 CGR [id number]) Occupational Therapy Current Condition Current Condition Evaluation Date 04/08/24 Treatment Diagnosis L DAYNA anterior approach Diagnosis Onset Date 04/08/24 Post Operative Precautions Anterior Hip Precautions No Hip Extension M3 OT- IP Subjective and Pain Start: 04/08/24 14:38 Freq: Status: Active Protocol: Document 04/08/24 14:59 CGR (Rec: 04/08/24 15:16 CGR [id number]) OT- Subjective Occupational Therapy Visit Type Type Initial Evaluation Visit Start Time 13:24 Visit Stop Time 14:06 Notes Partial co-treat with P.T. OT Pain Assessment Pain When Pain Assessed During Mobility Pain Present Pain Present Pain Reported Location left hip Intensity 8 Scale Used Numeric (0 - 10) Management Techniques Apply Cold,Modification of Treatment,Re-positioning, Timing of Activity with Medications M4 OT- IP ADL's Start: 04/08/24 14:38 Freq: Status: Active Protocol: Document 04/08/24 14:59 CGR (Rec: 04/08/24 15:16 CGR [id number]) OT [id number]-[id number] Comments OT Self-Feeding Comments not meal time OT ADL-Grooming Comments OT Grooming Comments not performed OT ADL-Oral Care Comments Oral Care Comments not performed OT ADL-Dressing General Eval Lower Body Dressing Ability Total Assistance Areas Needing Assistance Socks Comments OT Dressing Comments supine in bed OT ADL-Toileting General Evaluation Toileting Ability Standby Assistance Comments OT Toileting Comments pt urinated seated on BSC and was able to wipe while standing. OT ADL-Bathing Comments OT Bathing Comments not performed M5 OT- IP IADL's Start: 04/08/24 14:38 Freq: Status: Active Protocol: Document 04/08/24 14:59 CGR (Rec: 04/08/24 15:16 CGR [id number]) OT-Instrumental Activities of Daily Living Deficits IADL Deficits Identified No Deficits Home Safety Awareness Awareness of Need for Assistance at Home Good Awareness Ability to Problem Solve Emergency Able to Problem Solve Situations Medication Management Medication Management No Deficits Identified Money Management Money Management No Deficits Identified Meal Preparation Meal Preparation No Deficits Identified Advanced Seal Delivery System Advanced Seal Delivery System No Deficits Identified Driving Driving Comments 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 M6 OT- IP Functional Cognition Start: 04/08/24 14:38 Freq: Status: Active Protocol: Document 04/08/24 14:59 CGR (Rec: 04/08/24 15:16 CGR [id number]) Cognitive Factors Limiting Selfcare Function Cognitive Ability Level of Alertness Alert Patient Orientation Name,Age,Birthday,Month,Date, Year,Day of Week,Place, Situation Attention Span Ability Capable of Focused Attention, Capable of Sustained Attention Ability to Follow Commands Able to Follow One Step Commands with Increased Time, Able to Follow One Step Commands with Repetition Cognitive Comments Cognitive Assessment Comments Pt appears to be at her baseline but slow to respond at times. OT- Vision and Hearing OT- Hearing Assessment OT- Hearing Assessment WFL OT- Vision Assessment Visual Acuity Glasses For Reading Visual Attentiveness WFL Occular Pursuits WFL M7 OT- IP Mobility and Balance Start: 04/08/24 14:38 Freq: Status: Active Protocol: Document 04/08/24 14:59 CGR (Rec: 04/08/24 15:16 CGR [id number]) OT- Bed Mobility Assessment Supine to Sit Supine to Sit Assist Standby Assistance,Head of Bed Elevated,Bedrails Scooting Scooting to Edge of Bed Standby Assistance,Head of Bed Elevated,Bedrails OT-Transfer Assessment Sit to and From Stand Sit to and from Stand Contact Guard Assistance,2 Person Assistance Transfers Transfer Ability Minimal Assistance,2 Person Assistance Technique Transfer Destination Bed,Bedside Commode,Chair Transfer Technique Stand Step Pivot Devices Transfer Assistive Devices Gait Belt,Front Wheeled Walker Comments Mobility Comments Pt stood from bed and transfered to BS with significant drop in BP into the 80s systolic. See P.T. note for full measurements. Pt then stood while BSC was removed and chair was pushed into place behind her d/t low BP. Pt was symptomatic with sleepyness, slower to respond and pale during transfer. OT- Gait Assessment Comments Gait Ability Comments not performed d/t orthostatic OT- Balance Assessment Sitting Balance and Reactions Static Sitting Balance Ability Good Dynamic Sitting Balance Ability Good M8 OT- IP Objective Assessments Start: 04/08/24 14:38 Freq: Status: Active Protocol: Document 04/08/24 14:59 CGR (Rec: 04/08/24 15:16 CGR [id number]) OT Gross Range of Motion Upper Extremity Range of Motion Assessment Within Functional Limits OT Strength Upper Extremity Strength Assessment Within Functional Limits Comments Strength Comments as seen with mick ~4/5 OT-Muscle Tone Assessment Muscle Tone WNL Yes OT Sensation Assessment Edema Edema Absent M9 OT- IP Assessment and Plan Start: 04/08/24 14:38 Freq: Status: Active Protocol: Document 04/08/24 14:59 CGR (Rec: 04/08/24 15:16 CGR [id number]) OT Summary Assessment and Plan Potential Rehabilitation Potential Good Analytic Complexity at Evaluation Moderate Summary OT Impairments Pain,Functional Mobility, Grooming,Dressing,Toileting, Bathing,Toilet Transfers, Shower Transfers,Activity Tolerance Progress Towards Goals Slow Progress due to Medical Issues Assessment Summary Pt presents as a moderated complexity evaluation s/p admit fro L DAYNA anterior. Pt with orthostatic hypotention dropping in the 80 systolic with standing and activity was limited afterwards. Pt needed extra time for bed mobility then urinated seated on the BSC. Pt returned to chair and left sitting up in chair at end of session. Pt is not ready for discharge today d/t orthostatic hypotension and will be seen tomorrow by therapies to assess her further. Pt is likely to be appropriate for discharge home tomorrow if medically stable and orthostatic hypotension has stabilized. Goals Self-Feeding Goal Independent Grooming Goal Independent Dressing Goal Independent Toileting Goal Independent Bathing Goal Independent Toilet Transfer Goal Independent Shower Transfer Goal Independent Days to Meet Goals 2 Frequency of Treatment Other frequency 5x per week Treatment Plan OT Treatment Plan ADL Training,Functional Mobility,Patient/Family Education,Discharge Planning Other Treatment Recommendations and Next ADls standing at sink, Treatment Focus toileting, LB dressing if pt wants instruction. Discharge Recommendations OT Discharge Recommendations Home with Assistance Transportation Needs at Discharge Private Vehicle
[2024-04-08] MEDS: INSULIN LISPRO 100 UNIT/ML 3ML VIAL SUBCUT ×2 (14:59→18:24)
[2024-04-08] MEDS: LACTATED RINGERS 500 ML 1000 ML IV (15:06)
--- NOTE | 2024-04-08 15:55 | PT.IIE ---
Current Diagnoses Unilateral primary osteoarthritis, left hip (04/08/24) Surgery Performed Operation Date: 04/08/24 07:45 Actual Procedures p Total Hip Arthroplasty/Anterior Approach(Left) - Chon Jordan MD Surgical History (Last Updated 04/02/24 @ 12:16 by Lore Liao RN) H/O eye surgery H/O thumb surgery H/O: knee surgery History of back surgery History of carpal tunnel surgery of left wrist (11/2021) History of carpal tunnel surgery of right wrist (01/2022) History of fusion of cervical spine (2008) History of lumbar fusion (2009) History of total left knee replacement History of total replacement of right shoulder joint History of total right hip replacement History of total right knee replacement Hx of bilateral cataract extraction (2020) Hx of dilation and curettage Hx of tonsillectomy Medical History (Last Updated 04/02/24 @ 13:20 by Lore Liao RN) Degenerative joint disease of right hip Diabetes DVT (deep venous thrombosis) (2021) Easy bruisability GERD (gastroesophageal reflux disease) History of COVID-19 (~04/2022) HLD (hyperlipidemia) HNP (herniated nucleus pulposus), thoracic Neuropathy Sacral dysfunction SCC (squamous cell carcinoma) T12 compression fracture (04/2021) Thoracic myelopathy UTI (urinary tract infection) Physical Therapy Inpatient Evaluation/Re-Eval M1 PT/OT-IP Prior Functional Status Start: 04/08/24 14:38 Freq: NEEDED Status: Active Protocol: Document 04/08/24 14:59 CGR (Rec: 04/08/24 15:16 CGR [id number]) Medical Review Prior Functional Status Medical History Reviewed Yes Communication Pt is an effective verbal communicator. Mobility and Gait Pt was MOD I with use of FWW at baseline. Activities of Daily Living and IADL's Pt was IND with all ADLs and IADLS. Social History Household Members none Living Arrangements Apartment/Condo Number of Floors (Floors) One Floor Number of Stairs To Enter/Railing? 2 steps with B rails. Home Environment Standard Height Toilet,Walk in Shower Home Equipment Front Wheel Walker,Four Wheel Walker,Manual Wheelchair, Bedside Commode,Raised Toilet Seat Without Armrests,Shower Seat without Backrest,Hand Held Shower,Long Handled Shoe Horn,Warehouse Hand Employment Status Retired Additional Social History Comment Pt has an adjustable bed with R sided railing. M2 PT-IP Current Condition Start: 04/08/24 13:22 Freq: NEEDED Status: Active Protocol: Document 04/08/24 13:23 MB (Rec: 04/08/24 15:55 MB [id number]) Physical Therapy Current Condition Current Condition Evaluation Date 04/08/24 Treatment Diagnosis Left anterior DAYNA M3 PT-IP Subjective Start: 04/08/24 13:22 Freq: NEEDED Status: Active Protocol: Document 04/08/24 13:23 MB (Rec: 04/08/24 15:55 MB [id number]) Subjective Physical Therapy Visit Type Type Initial Evaluation Visit Start Time 13:23 Visit Stop Time 14:06 Number of CASH APPLICATIONS COORDINATOR Visits 0 M4 PT-IP Mobility and Gait Start: 04/08/24 13:22 Freq: NEEDED Status: Active Protocol: Document 04/08/24 13:23 MB (Rec: 04/09/24 07:13 MB [id number]) PT-Bed Mobility Assessment Rolling Level of Assist Standby Assistance Scooting Scooting to Edge of Bed Standby Assistance PT-Transfer Assessment Sit to and From Stand Sit to and from Stand Minimal Assistance,2 Person Assistance,Use of Upper Extremities Equipment Transfer Assistive Device Gait Belt,Front Wheeled Walker Orthotic/Prosthetic Devices or Brace: No Transfers Transfer Destination Chair,Bedside Commode Transfer Technique Small steps Transfer Ability Level of Assist Minimal Assistance,2 Person Assistance,Use of Upper Extremities Comments Mobility Comments Pt with severe orthostatic hypotension, see OT note for numbers, with supine to sitting and standing. Pt requires 10' and extensive encouragement to mobilize herself in the bed, use of gait belt around left foot and PT dons for her. Son and therapists are very supportive verbally to encourage mobility. See OT note for toileting assistance and PT pulls up recliner behind pt and she sits back in it after standing up from commode: swapped out with BS. Gait Assessment Gait Gait Assistance Required: Minimum Assistance,2 Person Assist Distance (Feet) 1 Able to Maintain Weight Bearing Status Yes During Gait Assistive Devices Assistive Device Gait Belt,Front Wheeled Walker Orthotic/Prosthetic Devices or Brace: No Gait Deviations General Gait Pattern Antalgic,Decreased Stride Length,Flexed Trunk,Step-to Gait,Wide Based Gait Factors Limiting Gait Function Factors Limiting Gait Function Decreased Activity Tolerance, Decreased Strength,Difficulty Following Directions,Limited Range of Motion,Pain,Poor Balance,Poor Safety Awareness M7 PT-IP Assessment and Plan Start: 04/08/24 13:22 Freq: NEEDED Status: Active Protocol: Document 04/08/24 13:23 MB (Rec: 04/08/24 15:55 MB [id number]) PT Summary Assessment and Plan Potential Rehabilitation Potential Good Status of Condition at Evaluation Evolving Summary Impairments Pain,ROM,Strength,Balance, Coordination,Sensation,Bed Mobility,Transfers,Gait, Activity Tolerance Progress Towards Goals Slow Progress due to Medical Issues,Slow Progress due to Activity Tolerance Assessment Summary Pt is a 73 y/o female who reports I living and home alone at baseline using 2WRW. Pt reports many reasons that she cannot move by herself post-op today: history of chronic pain, history of B SI pain, that she will have someone at the house to help her move OOB when she gets home, etc. There appears to be a disconnect between her reported goal of going home today and her self-effort with mobility. Son nearby during assessment and he is encourages as therapists for pt to help move herself as this is the best for recovery, safety, and gaining confidence. Pt con't with resistance to moving herself throughout the eval and takes about 10' to get to EOB with encouragement and cues from PT and use of gait belt around left foot. Pt is profoundly orthostatic once gettting up, despite slowness of movement and she loses color in her face and does not verbalize as much. 2 therapist assistance for safety and pt is not safe to increase gait or stair training with PT this afternoon. Con't PT efforts next date. Pt states she has OPPT set up at d/c. Goals Bed Mobility Goal Independent Transfer Goal Independent,Front Wheeled Walker Gait Goal Independent,Front Wheel Walker Gait Distance 100 Other Goals Pt will ascend and descend 2 steps with 2 rails to allow safe home entrance. Days to Meet Goals 3 Frequency of Treatment Other frequency x1-2, 1-2x/day Treatment Plan Physical Therapy Treatment Plan Bed Mobility Training,Transfer Training,Gait Training, Therapeutic Exercise,Balance Retraining,Post Op Education, Discharge Planning,Hot or Cold Pack,Neuromuscular Re-ed, Coordination Retraining,Manual Therapy Precautions Other Precautions No hyperextension LLE Weight Bearing Status Weight Bearing Status Weight Bear as Tolerated Recommendations To Nursing Amount of Assist Needed 2 Person Assist Discharge Recommendations PT Discharge Recommendations Home with 05/09 Assist Available,Outpatient PT Transportation Needs at Discharge Private Vehicle
--- NOTE | 2024-04-08 15:55 | PT.IIE ---
Current Diagnoses Unilateral primary osteoarthritis, left hip (04/08/24) Surgery Performed Operation Date: 04/08/24 07:45 Actual Procedures p Total Hip Arthroplasty/Anterior Approach(Left) - Chon Jordan MD Surgical History (Last Updated 04/02/24 @ 12:16 by Lore Liao RN) H/O eye surgery H/O thumb surgery H/O: knee surgery History of back surgery History of carpal tunnel surgery of left wrist (11/2021) History of carpal tunnel surgery of right wrist (01/2022) History of fusion of cervical spine (2008) History of lumbar fusion (2009) History of total left knee replacement History of total replacement of right shoulder joint History of total right hip replacement History of total right knee replacement Hx of bilateral cataract extraction (2020) Hx of dilation and curettage Hx of tonsillectomy Medical History (Last Updated 04/02/24 @ 13:20 by Lore Liao RN) Degenerative joint disease of right hip Diabetes DVT (deep venous thrombosis) (2021) Easy bruisability GERD (gastroesophageal reflux disease) History of COVID-19 (~04/2022) HLD (hyperlipidemia) HNP (herniated nucleus pulposus), thoracic Neuropathy Sacral dysfunction SCC (squamous cell carcinoma) T12 compression fracture (04/2021) Thoracic myelopathy UTI (urinary tract infection) Physical Therapy Inpatient Evaluation/Re-Eval M1 PT/OT-IP Prior Functional Status Start: 04/08/24 14:38 Freq: NEEDED Status: Active Protocol: Document 04/08/24 14:59 CGR (Rec: 04/08/24 15:16 CGR [id number]) Medical Review Prior Functional Status Medical History Reviewed Yes Communication Pt is an effective verbal communicator. Mobility and Gait Pt was MOD I with use of FWW at baseline. Activities of Daily Living and IADL's Pt was IND with all ADLs and IADLS. Social History Household Members none Living Arrangements Apartment/Condo Number of Floors (Floors) One Floor Number of Stairs To Enter/Railing? 2 steps with B rails. Home Environment Standard Height Toilet,Walk in Shower Home Equipment Front Wheel Walker,Four Wheel Walker,Manual Wheelchair, Bedside Commode,Raised Toilet Seat Without Armrests,Shower Seat without Backrest,Hand Held Shower,Long Handled Shoe Horn,Contract Administrator Employment Status Retired Additional Social History Comment Pt has an adjustable bed with R sided railing. M2 PT-IP Current Condition Start: 04/08/24 13:22 Freq: NEEDED Status: Active Protocol: Document 04/08/24 13:23 MB (Rec: 04/08/24 15:55 MB [id number]) Physical Therapy Current Condition Current Condition Evaluation Date 04/08/24 Treatment Diagnosis Left anterior DAYNA M3 PT-IP Subjective Start: 04/08/24 13:22 Freq: NEEDED Status: Active Protocol: Document 04/08/24 13:23 MB (Rec: 04/08/24 15:55 MB [id number]) Subjective Physical Therapy Visit Type Type Initial Evaluation Visit Start Time 13:23 Visit Stop Time 14:06 Number of CRISIS MENTAL HEALTH THERAPIST Visits 0 M7 PT-IP Assessment and Plan Start: 04/08/24 13:22 Freq: NEEDED Status: Active Protocol: Document 04/08/24 13:23 MB (Rec: 04/08/24 15:55 MB [id number]) PT Summary Assessment and Plan Potential Rehabilitation Potential Good Status of Condition at Evaluation Evolving Summary Impairments Pain,ROM,Strength,Balance, Coordination,Sensation,Bed Mobility,Transfers,Gait, Activity Tolerance Progress Towards Goals Slow Progress due to Medical Issues,Slow Progress due to Activity Tolerance Assessment Summary Pt is a 73 y/o female who reports I living and home alone at baseline using 2WRW. Pt reports many reasons that she cannot move by herself post-op today: history of chronic pain, history of B SI pain, that she will have someone at the house to help her move OOB when she gets home, etc. There appears to be a disconnect between her reported goal of going home today and her self-effort with mobility. Son nearby during assessment and he is encourages as therapists for pt to help move herself as this is the best for recovery, safety, and gaining confidence. Pt con't with resistance to moving herself throughout the eval and takes about 10' to get to EOB with encouragement and cues from PT and use of gait belt around left foot. Pt is profoundly orthostatic once gettting up, despite slowness of movement and she loses color in her face and does not verbalize as much. 2 therapist assistance for safety and pt is not safe to increase gait or stair training with PT this afternoon. Con't PT efforts next date. Pt states she has OPPT set up at d/c. Goals Bed Mobility Goal Independent Transfer Goal Independent,Front Wheeled Walker Gait Goal Independent,Front Wheel Walker Gait Distance 100 Other Goals Pt will ascend and descend 2 steps with 2 rails to allow safe home entrance. Days to Meet Goals 3 Frequency of Treatment Other frequency x1-2, 1-2x/day Treatment Plan Physical Therapy Treatment Plan Bed Mobility Training,Transfer Training,Gait Training, Therapeutic Exercise,Balance Retraining,Post Op Education, Discharge Planning,Hot or Cold Pack,Neuromuscular Re-ed, Coordination Retraining,Manual Therapy Precautions Other Precautions No hyperextension Weight Bearing Status Weight Bearing Status Weight Bear as Tolerated Recommendations To Nursing Amount of Assist Needed 2 Person Assist Discharge Recommendations PT Discharge Recommendations Home with 05/09 Assist Available,Outpatient PT Transportation Needs at Discharge Private Vehicle
--- NOTE | 2024-04-08 16:37 | PC.NURSE ---
Pt arrived to room 222 this afternoon at 1210 pm. She is A&OX4, VSS, afebrile on RA. She is able to do ankle waves but some trouble lifting leg initially. Aquacel to L hip C/D/I. BG 206. She is able to sit at EOB with PT, and stand however SBP dropped from 120's to 80's and patient felt dizzy. She is able to void on BSC, and assisted to the chair. BP 90's /40's and she reports still feeling slightly dizzy. Ortho PA notified and patient is given a 500 cc LR IVF bolus, with good effect. She is able to void a large void and assisted back to bed this evening. She tolerated Ancef IV abx well x2 without any reaction and per request removed med from allergy list. Continuous monitoring.
[2024-04-08] MEDS: ASPIRIN EC 81 MG TABLET PO (21:08)
[2024-04-08] MEDS: GABAPENTIN 300 MG CAPSULE 600 MG PO (21:08)
[2024-04-08] MEDS: METFORMIN HCL 500 MG TABLET 750 MG PO (21:08)
[2024-04-08] MEDS: DOCUSATE 100 MG CAPSULE PO (21:08)
[2024-04-09] VITALS: BP 113/47; PULSE 92; RESP 17; TEMP 36.3; O2SAT 96
[2024-04-09] MEDS: CEFAZOLIN 2 GM/100 ML PREMIX 100 ML IV (00:11)
[2024-04-09] MEDS: ACETAMINOPHEN 325 MG TABLET 650 MG PO ×3 (00:11→12:38)
[2024-04-09] MEDS: OXYCODONE IR 5 MG TABLET PO ×4 (00:15→12:37)
[2024-04-09 04:00] VITALS: BP 120/52; PULSE 101; RESP 17; TEMP 36.2; O2SAT 98
[2024-04-09 05:30] LABS: Hematocrit 25.1 % (36-46); Hemoglobin 8.5 g/dL (12.0-16.0)
[2024-04-09] MEDS: INSULIN LISPRO 100 UNIT/ML 3ML VIAL SUBCUT ×2 (08:52→12:39)
[2024-04-09] MEDS: ASPIRIN EC 81 MG TABLET PO (08:53)
[2024-04-09] MEDS: ASCORBIC ACID 500 MG TABLET 1000 MG PO (08:53)
[2024-04-09] MEDS: ATORVASTATIN 20 MG TABLET 40 MG PO (08:53)
[2024-04-09] MEDS: METFORMIN HCL 500 MG TABLET 750 MG PO (08:54)
[2024-04-09] MEDS: DOCUSATE 100 MG CAPSULE PO (08:54)
[2024-04-09] MEDS: MELOXICAM 7.5 MG TABLET 15 MG PO (08:54)
[2024-04-09] MEDS: CHOLECALCIFEROL (VITAMIN D3) 5,000 UNIT TABLET 10000 UNIT PO (08:54)
[2024-04-09] MEDS: GABAPENTIN 300 MG CAPSULE PO (08:54)
[2024-04-09] MEDS: MULTIVITAMIN 1 TABLET 1 TAB PO (08:55)
--- NOTE | 2024-04-09 09:35 | PT.IPTN ---
Current Diagnoses Unilateral primary osteoarthritis, left hip (04/08/24) Surgery Performed Operation Date: 04/08/24 07:45 Actual Procedures p Total Hip Arthroplasty/Anterior Approach(Left) - Chon Jordan MD Physical Therapy Treatment Note M2 PT-IP Current Condition Start: 04/08/24 13:22 Freq: NEEDED Status: Active Protocol: Document 04/08/24 13:23 MB (Rec: 04/08/24 15:55 MB [id number]) Physical Therapy Current Condition Current Condition Evaluation Date 04/08/24 Treatment Diagnosis Left anterior DAYNA M3 PT-IP Subjective Start: 04/08/24 13:22 Freq: NEEDED Status: Active Protocol: Document 04/09/24 09:35 AB (Rec: 04/09/24 12:51 AB [id number]) Subjective Physical Therapy Visit Type Type Treatment Note Visit Start Time 09:35 Visit Stop Time 10:00 Number of TERRITORY SUPERVISOR Visits 0 Physical Therapy Visit Comments Patient Comments requesting to use the toilet Therapy Pain Assessment Pain When Pain Assessed During Mobility Pain Present Pain Present Pain Reported Location left hip Intensity 8 Scale Used Numeric (0 - 10) Pain Management Techniques Apply Cold,Distraction, Modification of Treatment,Re- positioning,Timing of Activity with Medications M4 PT-IP Mobility and Gait Start: 04/08/24 13:22 Freq: NEEDED Status: Active Protocol: Document 04/09/24 09:35 AB (Rec: 04/09/24 12:51 AB [id number]) PT-Bed Mobility Assessment Sit to Supine Sit to Supine Maximum Assistance,2 Person Assistance,Head of Bed Elevated,Bedrails PT-Transfer Assessment Sit to and From Stand Sit to and from Stand Maximum Assistance,1 Person Assistance,2 Person Assistance ,Use of Upper Extremities Equipment Transfer Assistive Device Gait Belt,Front Wheeled Walker Orthotic/Prosthetic Devices or Brace: No Transfers Transfer Destination Bed Transfer Technique ambulated Transfer Ability Level of Assist Moderate Assistance,Maximum Assistance,1 Person Assistance ,Use of Upper Extremities Comments Mobility Comments pt sitting on chair and requesting to use the toilet. pt refused to walk to the toilet and just wants to use the bedside commode. pt tends to direct her own care. sit to stand from the chair max A x 1-2 and max cues requiring 2 attempts to be able to stand. step transfer to bedside commode using FWW mod A to max A and max cues. sit to stand from the bedside commode max A and cues and needed assist with hygiene care and brief management. pt wants to go back to bed. ambulated only ~ 5 ft using FWW mod to max A and stated that she cannot walk farther. pt sat on EOB. refused further activities and wants to go back in bed. sit to supine max A x 2 and max cues. positioned pt in bed. call light and table placed within reach. pt stated that she wants to go home today. informed pt regarding concerns with mobility and stairs. pt stated that her son will assist her at home. informed pt to call her son to come in at ~ 130 pm for caregiver training. pt understood. Gait Assessment Gait Gait Assistance Required: Moderate Assistance,Maximum Assistance Distance (Feet) 5 Able to Maintain Weight Bearing Status Yes During Gait Assistive Devices Assistive Device Gait Belt,Front Wheeled Walker Orthotic/Prosthetic Devices or Brace: No Gait Deviations General Gait Pattern Decreased Stride Length, Decreased Feet Clearance,Step- to Gait Factors Limiting Gait Function Factors Limiting Gait Function Decreased Activity Tolerance, Decreased Strength,Difficulty Following Directions,Limited Range of Motion,Pain,Poor Balance,Poor Safety Awareness M6 PT-IP Treatment Start: 04/08/24 13:22 Freq: NEEDED Status: Active Protocol: Document 04/09/24 09:35 AB (Rec: 04/09/24 12:51 AB [id number]) Physical Therapy Treatment Education Education Provided Safety M7 PT-IP Assessment and Plan Start: 04/08/24 13:22 Freq: NEEDED Status: Active Protocol: Document 04/09/24 09:35 AB (Rec: 04/09/24 12:51 AB [id number]) PT Summary Assessment and Plan Potential Rehabilitation Potential Fair Summary Impairments Pain,ROM,Strength,Balance, Coordination,Sensation,Tone, Cognition,Bed Mobility, Transfers,Gait,Activity Tolerance Progress Towards Goals Slow Progress due to Pain,Slow Progress due to Activity Tolerance,Slow Progress - Other Assessment Summary pt requiring max A x 1-2 and max cues with all tasks. pt c/ o L hip pain affecting level of assistance. pt tends to direct her own care needing cues and motivation during PT session. Caregiver training set up this afternoon at 130 pm. will continue to assess progress. Goals Bed Mobility Goal Independent Transfer Goal Independent,Front Wheeled Walker Gait Goal Independent,Front Wheel Walker Gait Distance 100 Other Goals Pt will ascend and descend 2 steps with 2 rails to allow safe home entrance. Days to Meet Goals 3 Frequency of Treatment Frequency Of Treatment Twice a Day Treatment Plan Physical Therapy Treatment Plan Bed Mobility Training,Transfer Training,Gait Training, Therapeutic Exercise,Balance Retraining,Post Op Education, Discharge Planning,Hot or Cold Pack,Neuromuscular Re-ed, Coordination Retraining,Manual Therapy Precautions Anterior Hip Precautions No Hip Extension,No Hip External Rotation Weight Bearing Status Weight Bearing Status Weight Bear as Tolerated Recommendations To Nursing Amount of Assist Needed 2 Person Assist Discharge Recommendations PT Discharge Recommendations Home with 05/09 Assist Available,Home Health,SNF Rehab,Outpatient PT Transportation Needs at Discharge Private Vehicle
[2024-04-09 09:41] VITALS: BP 123/64; PULSE 101; RESP 16; TEMP 36.6; O2SAT 95
--- NOTE | 2024-04-09 10:18 | OT.IP.TRT ---
Current Diagnoses Unilateral primary osteoarthritis, left hip (04/08/24) Surgery Performed Operation Date: 04/08/24 07:45 Actual Procedures p Total Hip Arthroplasty/Anterior Approach(Left) - Chon Jordan MD Occupational Therapy Treatment Note M2 OT-IP Current Condition Start: 04/08/24 14:38 Freq: Status: Active Protocol: Document 04/08/24 14:59 CGR (Rec: 04/08/24 15:16 CGR [id number]) Occupational Therapy Current Condition Current Condition Evaluation Date 04/08/24 Treatment Diagnosis L DAYNA anterior approach Diagnosis Onset Date 04/08/24 Post Operative Precautions Anterior Hip Precautions No Hip Extension M3 OT- IP Subjective and Pain Start: 04/08/24 14:38 Freq: Status: Active Protocol: Document 04/09/24 10:25 CCC (Rec: 04/09/24 10:28 CCC [id number]) OT- Subjective Occupational Therapy Visit Type Type Treatment Note Visit Start Time 10:05 Visit Stop Time 10:18 Occupational Therapy Visit Comments Patient Comments Pt states just completed PT and not wanting to get up , but agreed to go over ADL needs and brush her teeth. Patient/Caregiver Goals TO go home. OT Pain Assessment Pain When Pain Assessed During Mobility Pain Present Pain Present Pain Reported Location left hip Intensity 8 Scale Used Numeric (0 - 10) M4 OT- IP ADL's Start: 04/08/24 14:38 Freq: Status: Active Protocol: Document 04/09/24 10:25 CCC (Rec: 04/09/24 10:28 [facility] [id number]) OT ADL-Grooming General Evaluation Grooming Ability Independent OT ADL-Oral Care General Eval Oral Care Ability Independent OT ADL-Dressing Comments OT Dressing Comments Pt states has slip on shoes and all LB dressing equipment needs. OT ADL-Toileting Comments OT Toileting Comments Pt states has a toilet paper aid at home to use and also will have someone present to assist. OT ADL-Bathing Comments OT Bathing Comments Pt states to later at home when able to move better. M5 OT- IP IADL's Start: 04/08/24 14:38 Freq: Status: Active Protocol: Document 04/08/24 14:59 CGR (Rec: 04/08/24 15:16 CGR [id number]) OT-Instrumental Activities of Daily Living Deficits IADL Deficits Identified No Deficits Home Safety Awareness Awareness of Need for Assistance at Home Good Awareness Ability to Problem Solve Emergency Able to Problem Solve Situations Medication Management Medication Management No Deficits Identified Money Management Money Management No Deficits Identified Meal Preparation Meal Preparation No Deficits Identified Sportspersons Sportspersons No Deficits Identified Driving Driving Comments 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 M6 OT- IP Functional Cognition Start: 04/08/24 14:38 Freq: Status: Active Protocol: Document 04/08/24 14:59 CGR (Rec: 04/08/24 15:16 CGR [id number]) Cognitive Factors Limiting Selfcare Function Cognitive Ability Level of Alertness Alert Patient Orientation Name,Age,Birthday,Month,Date, Year,Day of Week,Place, Situation Attention Span Ability Capable of Focused Attention, Capable of Sustained Attention Ability to Follow Commands Able to Follow One Step Commands with Increased Time, Able to Follow One Step Commands with Repetition Cognitive Comments Cognitive Assessment Comments Pt appears to be at her baseline but slow to respond at times. OT- Vision and Hearing OT- Hearing Assessment OT- Hearing Assessment WFL OT- Vision Assessment Visual Acuity Glasses For Reading Visual Attentiveness WFL Occular Pursuits WFL M8 OT- IP Objective Assessments Start: 04/08/24 14:38 Freq: Status: Active Protocol: Document 04/08/24 14:59 CGR (Rec: 04/08/24 15:16 CGR [id number]) OT Gross Range of Motion Upper Extremity Range of Motion Assessment Within Functional Limits OT Strength Upper Extremity Strength Assessment Within Functional Limits Comments Strength Comments as seen with trasnfers ~4/5 OT-Muscle Tone Assessment Muscle Tone WNL Yes OT Sensation Assessment Edema Edema Absent M9 OT- IP Assessment and Plan Start: 04/08/24 14:38 Freq: Status: Active Protocol: Document 04/09/24 10:25 [facility] (Rec: 04/09/24 10:28 [facility] [id number]) OT Summary Assessment and Plan Potential Rehabilitation Potential Good Analytic Complexity at Evaluation Moderate Summary OT Impairments Pain,Functional Mobility, Grooming,Dressing,Toileting, Bathing,Toilet Transfers, Shower Transfers,Activity Tolerance Progress Towards Goals Slow Progress due to Pain Assessment Summary Pt not wanting to get up at this time as just completing PT. Pt states looking to go home after able to do steps with her son later. Pt to go home with 05/09 assist and home health. Goals Days to Meet Goals 1 Frequency of Treatment Frequency Of Treatment Once a Day Treatment Plan OT Treatment Plan ADL Training,Functional Mobility,Patient/Family Education,Discharge Planning Discharge Recommendations OT Discharge Recommendations Home with 24/ Assist Available,Outpatient PT Transportation Needs at Discharge Private Vehicle
--- NOTE | 2024-04-09 13:30 | PT.IPTN ---
Current Diagnoses Unilateral primary osteoarthritis, left hip (04/08/24) Surgery Performed Operation Date: 04/08/24 07:45 Actual Procedures p Total Hip Arthroplasty/Anterior Approach(Left) - Chon Jordan MD Physical Therapy Treatment Note M2 PT-IP Current Condition Start: 04/08/24 13:22 Freq: NEEDED Status: Discharge Protocol: Document 04/08/24 13:23 MB (Rec: 04/08/24 15:55 MB [id number]) Physical Therapy Current Condition Current Condition Evaluation Date 04/08/24 Treatment Diagnosis Left anterior DAYNA M3 PT-IP Subjective Start: 04/08/24 13:22 Freq: NEEDED Status: Discharge Protocol: Document 04/09/24 13:30 AB (Rec: 04/09/24 15:40 AB [id number]) Subjective Physical Therapy Visit Type Type Treatment Note Visit Start Time 13:30 Visit Stop Time 14:10 Number of ENTERPRISE DATA ARCHITECT Visits 0 Therapy Pain Assessment Pain Present Pain Present Pain Reported Location left hip Scale Used pain scale not stated Pain Management Techniques Distraction,Modification of Treatment,Re-positioning, Timing of Activity with Medications M4 PT-IP Mobility and Gait Start: 04/08/24 13:22 Freq: NEEDED Status: Discharge Protocol: Document 04/09/24 13:30 AB (Rec: 04/09/24 15:40 AB [id number]) PT-Bed Mobility Assessment Supine to Sit Supine to Sit Maximum Assistance PT-Transfer Assessment Sit to and From Stand Sit to and from Stand Maximum Assistance,1 Person Assistance,Use of Upper Extremities Equipment Transfer Assistive Device Gait Belt,Front Wheeled Walker Orthotic/Prosthetic Devices or Brace: No Transfers Transfer Destination Bedside Commode Transfer Technique Stand Step Pivot Transfer Ability Level of Assist Maximum Assistance,1 Person Assistance,Use of Upper Extremities Comments Mobility Comments pt in bed and son in room. pt requesting to use the toilet. refused to walk to the toilet and wants to just use the bedside commode. pt's son assisted pt with bed mobility providing max A to pt. educated son on how to use safety belt and how to assist pt. son was able to put safety belt on pt and assisted pt with sit to stand max A. pt step transfer to bedside commode max A and max cues. Son assisted pt with brief management. pt requested PT to assist with hygiene care. stated that her friend who will assist her at home can assist her with hygiene care. pt completed sit to stand from the bedside commode and step transfer to EOB using fWW with son assisting. son assisted pt with sit to stand from EOB and ambulated pt in the hallway using FWW ~ 20 ft max A and cues. assisted pt to the stairs. educated pt and son on how to do stairs. Son assisted pt with stair climbing using B rails max A and max cues. pt needing son to move LLE down the steps. pt with slight R knee buckling but able to control and completed steps with son assisting. assisted pt back to her room. sit to stand from w/c max A and ambulated to EOB using FWW max A. nurse in room. left pt with son and nurse. pt and son without further concerns. informed pt and son regarding HHPT but pt declined. Gait Assessment Gait Gait Assistance Required: Maximum Assistance Distance (Feet) 20 Able to Maintain Weight Bearing Status Yes During Gait Assistive Devices Assistive Device Gait Belt,Front Wheeled Walker Orthotic/Prosthetic Devices or Brace: No Gait Deviations General Gait Pattern Decreased Stride Length, Decreased Feet Clearance Factors Limiting Gait Function Factors Limiting Gait Function Decreased Activity Tolerance, Decreased Strength,Pain,Poor Balance,Poor Safety Awareness Stair Climbing Assessment Evaluation Level of Assist On Stairs Maximal Assistance,1 Person Assistance Devices Stair Climbing Assistive Devices Left Railing,Right Railing Technique/Endurance Stair Climbing Direction Ascend and Descend Stair Climbing Technique Step to Step Number of Steps Climbed 3 Stair Climbing Set # Repetitions (reps) 1 M6 PT-IP Treatment Start: 04/08/24 13:22 Freq: NEEDED Status: Discharge Protocol: Document 04/09/24 13:30 AB (Rec: 04/09/24 15:40 [id number]) Physical Therapy Treatment Education Education Provided Safety M7 PT-IP Assessment and Plan Start: 04/08/24 13:22 Freq: NEEDED Status: Discharge Protocol: Document 04/09/24 13:30 AB (Rec: 04/09/24 15:40 [id number]) PT Summary Assessment and Plan Potential Rehabilitation Potential Fair Summary Impairments Pain,ROM,Strength,Balance, Coordination,Sensation,Tone, Cognition,Bed Mobility, Transfers,Gait,Activity Tolerance Progress Towards Goals Slow Progress due to Pain,Slow Progress - Other Assessment Summary caregiver training conducted. son was able to assist pt with mobility. pt declined HHPT. pt plans to go home this afternoon. Goals Bed Mobility Goal Independent Transfer Goal Independent,Front Wheeled Walker Gait Goal Independent,Front Wheel Walker Gait Distance 100 Other Goals Pt will ascend and descend 2 steps with 2 rails to allow safe home entrance. Days to Meet Goals 3 Frequency of Treatment Frequency Of Treatment Twice a Day Treatment Plan Physical Therapy Treatment Plan Bed Mobility Training,Transfer Training,Gait Training, Therapeutic Exercise,Balance Retraining,Post Op Education, Discharge Planning,Hot or Cold Pack,Neuromuscular Re-ed, Coordination Retraining,Manual Therapy Precautions Anterior Hip Precautions No Hip Extension,No Hip External Rotation Weight Bearing Status Weight Bearing Status Weight Bear as Tolerated Recommendations To Nursing Amount of Assist Needed 1 Person Assist Discharge Recommendations PT Discharge Recommendations Home with 05/09 Assist Available,Home Health Transportation Needs at Discharge Private Vehicle
--- NOTE | 2024-04-09 14:01 | P.DS_ITS ---
History of Present Illness History of Present Illness Chief complaint: L DAYNA *OPB* Narrative: Annabella is a pleasant 73 year old female who is POD#1 s/p L DAYNA by Dr. Jordan. This morning she reports she is doing well overall and she is hopeful to d/c to home later today but she is still having a lot of pain with WB still. She reports her pain is very mild at rest but every time she tries to ambulate she is in severe pain. She tried to work w/ PT earlier this morning but was not able to make good progress d/t poor pain control. They will return later this afternoon for re-evaluation. She complains of spasms in her leg, she takes Flexeril at baseline for her chronic muscle spasms. She denies any significant low back pain. Her friend will be staying with her during the immediate postop period to aid in her recovery. She has postop physical therapy appointments scheduled at [facility], she has a walker and cane at home. We discussed post-op pain management, she has a prescription for hydrocodone at home already that she was given at her preoperative appointment however she feels that her pain would not be well controlled with this as she has required regular oral oxycodone during her hospital stay. She is requesting oxycodone prescription be sent in for her. 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 She has a hx of a blood clot after a spinal surgery several years ago while she was severely immobilized. She reports she has since had a hip surgery and took ASA BID for DVT prophylaxis after with good results. She is not chronically anticoagulated. Denies fever, chills, chest pain, SOB, nausea, vomiting. Denies any new numbness or tingling, she does have decreased sensation in bilateral feet due to baseline neuropathy present prior to surgery. Operative Date/Time/Diagnoses Date of procedure: 04/08/24 Pre-op diagnosis: Left hip osteoarthritis Post-op diagnosis: same Procedure & Clinicians Procedure: Left total hip arthroplasty Same procedure as scheduled: Yes Surgeon: Chon Jordan Airplane Technician: Jacqueline Keenan Anesthesia Type: General and Local Operative Notes Estimated Blood Loss (mL): 450 Procedure in detail: Left Hybrid Direct Anterior Depuy Total Hip Arthroplasty with Uncemented Acetabular Component and Cemented Femoral Component: Implants: * [place] Gription size 50 cup?with 3 screws (40 mm, 40 mm, 15 mm) with MDM liner * C Stem femoral stem size 2 High Offset * 22 mm +4 ceramic femoral head? * Bimentum Altrx liner Discharge Providers Provider Discharge Date: 04/09/24 Primary care physician: Alvaro Daniels MD Consults: 04/03/24 06:00 Consult to Anesthesiology Routine Comment: Consulting Provider: Anesthesiologist Reason for consultation: Regional block for post operative pain control Has provider been notified: No 04/08/24 12:23 Consult to Discharge Planning Routine Comment: Consult to Occupational Therapy Evaluate & Treat Comment: Physician Instructions: Evaluate and treat Consult to Physical Therapy Evaluate & Treat Comment: Physician Instructions: post op DAYNA protocol Discharge provider: Anna Mortensen PA-C Summary Hospital Course Discharge Diagnosis: Stable status post left total hip arthroplasty Hospital Course: Hospital course complicated by post-op orthostatic hypotension and poor pain control in the immediate post-op period. Exam Vital Signs (past 8 hours): - 04/09/24 09:41 Temperature 97.8 F Pulse Rate 101 H Respiratory Rate 16 Blood Pressure 123/64 Pulse Oximetry 95 Oxygen Delivery Method Room Air Oxygen Flow Rate 0 Narrative Exam Narrative: Patient lying comfortably in bed during our interview today. No acute distress. AOx3. Grossly normal alignment of the LLE. 5/5 strength with DF, PF, EHL bilaterally. Gross sensation intact throughout bilateral lower extremities with the exception of her feet d/t her baseline peripheral neuropathy. Calves soft and non-tender bilaterally. SCDs are on and functioning. Brisk capillary refill, pulses intact. Post-surgical Aquacel dressing clean, dry and intact over the left hip without drainage. Objective Labs 04/09/24 04:50 Labs: Laboratory Results - last 24 hr 04/09/24 04:50 Hgb 8.5 L Hct 25.1 L [facility] Medical History (Updated 04/02/24 @ 13:20 by Lore Liao RN) History of COVID-19 (~04/2022) Degenerative joint disease of right hip Easy bruisability SCC (squamous cell carcinoma) Diabetes GERD (gastroesophageal reflux disease) HLD (hyperlipidemia) DVT (deep venous thrombosis) (2021) Neuropathy Sacral dysfunction HNP (herniated nucleus pulposus), thoracic Thoracic myelopathy T12 compression fracture (04/2021) UTI (urinary tract infection) Surgical History (Updated 04/02/24 @ 12:16 by Lore Liao RN) History of total right hip replacement Hx of bilateral cataract extraction (2020) Hx of dilation and curettage Hx of tonsillectomy History of total left knee replacement History of total right knee replacement History of total replacement of right shoulder joint History of carpal tunnel surgery of right wrist (01/2022) History of carpal tunnel surgery of left wrist (11/2021) History of fusion of cervical spine (2008) History of lumbar fusion (2009) H/O: knee surgery History of back surgery H/O thumb surgery H/O eye surgery Family History Father Congestive heart failure Osteoarthritis Mother Osteoarthritis Pneumonia Sister Heart disease Grandmother Cancer Congestive heart failure Social History household members: none Smoking Status: Never smoker alcohol intake: never Discharge Assessment & Plan Assessment and Plan Assessment: Stable status post left total hip arthroplasty Plan of Treatment: 1) Plan to discharge to home today with friend pending PT evaluation/ambulation progress as well as improved pain control. 2) Continue multimodal pain management with ice to the hip for additional pain control. She has some postop pain medication at home already and I will send an additional oxycodone prescription today. 3) ASA b.i.d. for DVT prophylaxis. 4) Start outpatient physical therapy to work on range of motion and mobility. Weightbearing as tolerated, maintain anterior hip precautions. 5) Keep dressing intact, clean, dry until 2 week postop appointment. No soaking the incision site in pools or tubs. No topical ointments or creams to the incision site. 6) Follow up at [facility] in 2 weeks for a postop appointment and wound check. All patient's questions were answered, they demonstrates understanding and are in agreement with the plan. Call our office if any questions or concerns arise. Discharge Plan Discharge Plan Patient Disposition: Home Discharge orders & Medications Discharge Orders: Discharge (Order); Ordered 04/09/24 Ordered By: Anna Mortensen Prescriptions: New oxycodone 5 mg Tablet 5 mg PO Q4-6H PRN (Reason: Pain, Severe (7-10)) Qty: 25 0RF Continued gabapentin 300 mg capsule 300 mg PO .COMPLEX Qty: 90 2RF Patient Comments: 300 in am and 600 at night Rx Instructions: 1-2 PO Tid to begin at HS and titrate to pain relief meloxicam 15 mg tablet 15 mg PO DAILY Qty: 30 3RF tramadol 50 mg Tablet See Rx Instructions .ROUTE .COMPLEX MDD Max 8 tablets per day PRN (Reason: Pain, Moderate (4-6)) Qty: 42 0RF Rx Instructions: Take 1-2 tablets by mouth every 4 hours as needed for moderate to severe postoperative pain rosuvastatin 20 mg Tablet 20 mg PO DAILY cyclobenzaprine 10 mg Tablet 10 mg PO BEDTIME PRN (Reason: Pain) metformin 850 mg Tablet 850 mg PO BID multivitamin Tablet 1 tab PO DAILY ascorbic acid (vitamin C) 1,000 mg tablet 1 g PO DAILY cholecalciferol (vitamin D3) 250 mcg (10,000 unit) capsule 250 mcg PO DAILY H2Q CoQ10 200 mg/gram powder 200 mg PO DAILY Discontinued ibuprofen 200 mg Tablet 800 mg PO TID Follow up/Referrals: Alvaro Daniels MD [Primary Care Provider] - Chon Jordan MD [Physician] - 04/19/24 1:00 pm (Follow up w/ Anna Mortensen PA-C, at [facility] office in [place].) Diet/Activity/Treatments Diet: Diet as Tolerated Activity: Weightbearing as tolerated. Anterior hip precautions. Cold/Heat Therapy: Ice to hip as needed for pain. Other treatments: Take meloxicam OR ibuprofen. Do not take both. Skin/Wound/Dressing Care Report to your healthcare provider any signs of infection, such as:: chills, fever, night sweats, unusual drainage and unusual redness Dressing: May shower. Leave dressing in place until follow up in office. No bathing or otherwise soaking incision. Call the office if the dressing becomes saturated inside. Visit Report/Discharge Packet Instructions: DI for Hip Replacement, DI for Prescription Opioid Use Stand Alone Forms: Patient Portal/API, Surgery Discharge Discharge Data Primary Care Provider: Alvaro Daniels Attending Provider: Chon Jordan
--- NOTE | 2024-04-09 15:19 | PC.NURSE ---
Discharge Note Patient A&O, VSS, RA, no complaints of pain/discomfort. Patient agreeable to discharge plan. PIV discontinued. Patient able to dress self and pack all belongings with assistance. Discharge packet reviewed with patient, all questions/concerns addressed. Patient taken down via wheelchair to POV.
--- NOTE | 2024-04-09 15:50 | CM.DANOTE ---
B DCP assessment note pt is a 73yo F POD1 left total hip. 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 Per RN, pt has all necessary DME for home. Per PT note, talked to pt about HHPT but pt declined. Pt left with son prior to meeting with this CAN TECHNICIAN. P: home today with son support and OP f/u. CM team will continue to follow as needed BERNICE Young Discharge Planning/Care Management CM Discharge Assessment Start: 04/09/24 15:48 Freq: Status: Active Protocol: Document 04/09/24 15:48 SL (Rec: 04/09/24 15:50 SL [id number]) Discharge Planning Assessment Assigned Sales Representatives BERNICE Beaulieu DPOA/Assigned Designee Name jacinta Wade Contact Information [phone] Advance Directives? Yes Advance Directives on File No History Provided By Patient,Medical Record Prior Living Arrangements Apartment/Condo Household Members none Independent with ADL's Yes Is patient alert and oriented? Yes DME Already Rented / Owned Elevated Toilet Seat,FWW / Walker,Other Patient/Family Preference OP PT Therapy Discharge Plan Home Transportation Arrangement Son likely to transport home Referrals Initiated None needed If patient plan is home with home health No : Has signed face to face form been completed? If patient plan is SNF: Has PASSR been Yes completed? Whiteboard Updated in Patient Room with No name and ext. # of Sales Representatives Review Status In Process Next Review Type Continued Stay Review Pre-Anesthesia Assessment Start: 04/02/24 12:03 Freq: Status: Discharge Protocol: Document 04/02/24 12:03 CAB (Rec: 04/02/24 12:16 CAB [id number]) Pre-Anesthesia Assessment PAC Comment Phone assess 04/02/24. Pt is requesting ice packs to SI joint due to extreme pain after right hip replacement. Preferred Name Ba Patient Information Reviewed Via Phone Assessment Assessment Completed With Patient Diagnostic Results BMP/CMP,CBC,EKG Comment Outside labs/EKG completed Primary Care Provider Alvaro Daniels Seen Specialist in Last 12 Months Yes Specialist Seen Orthopedist Primary Language Martiniquais Preferred Language Martiniquais Mold Stamper Required No Height 162.56 cm Weight 83.007 kg Body Mass Index (BMI) 31.4 Hearing Ability Normal Visual Assist Glasses Dentition Type Teeth, Natural Present Barriers to Learning None Other Aids No Hx Anesthesia Reactions No Hx Family Anesthesia Reaction Yes: Son has trouble getting put to sleep w/anesthesia Hx Malignant Hyperthermia No Hx Blood Transfusions No Hx Blood Transfusion Reaction No Anesthesia Review Requested No Cocoa Press Operator No alcohol intake never Smoking Status Never smoker Substance Use Type [#R] does not use Pain Present Pain Reported Musculoskeletal Symptoms Abnormal Gait,Back Pain, Difficulty Walking,Joint Pain History of Falling (Recent or History of Yes ) Patient is completely paralyzed or No completely immobile Prosthesis or Orthotic Device Front Wheel Walker Mental Status Oriented to own ability Is patient on oxygen? No Does patient have RENDON/SOB No Hx Sleep Apnea No CPAP/BIPAP use not prescribed Currently Taking a Beta Maggy No Can You Climb a Flight of Stairs Without Pt unsure due to mobility/pain SOB Hx Chest Pain No Hx SOB No Hx Syncope or Dizziness No Anti-Coagulant Therapy No Has a Logistical Engineer No Cardiac Testing No Hx Pacemaker/ICD No Pacemaker Rep Required? No Cardiac Clearance Received No Diet Type At Home Regular Dysphagia No Chronic UTI No Bladder Pattern Incontinent, Stress Urinary Catheter Present No Hx Urinary Self Catheterization No Diabetes Yes HgbA1C 7.0 Date 02/20/24 Comment 7.0% 02/20/24 Patient No Lactating No Hx Drug Resistant Organism No Presence of External or Internal Medical Yes: Dami eye IOLs, spinal Devices hardware, right TSA, bilat TKA , right hip Received a COVID vaccine? Yes: plus booster Comment No covid symptoms in last 8 weeks Marital Status Lives With none Current Living Arrangements Apartment/Condo Number of Floors (Floors) One Floor Number of Stairs To Enter/Railing? 1 step Support System Friend(s) Does the Patient Have Assistance After Yes: Friend will stay w/pt to Surgery assist with care at [place] Patient Discharge Plan Description Group Home Facility/Rehab Comment Pt advised same day surgery per surgeon Feels Safe in Current Environment Yes Been Physically Hurt or Threatened By a No Person in Current Environment Do you have thoughts of harming yourself None or others? Are you currently considering suicide? No Do you have a plan to hurt yourself or No Plan others? Do You Have Any Spiritual Beliefs That No May Affect Your HC Choices? Do You Have Any Cultural Practices That No May Affect Your HC Choices? Who Can We Speak to About Patient's Care Family, friends Identifying Code for Release of Patient Declines to issue Information Health Care Proxy/Next of Kin Mely angel) Health Care Proxy Emergency Contact Name Mely angel) Emergency Contact Advance Directives? Yes Advance Directives on File No Power of Lawn Care Professional Yes Power of Lawn Care Professional Name Mely angel) Power of Lawn Care Professional PAC Instructions Assistance for 24 hours post- op,Do not shave/clip surgical site,Durable medical equipment ,Medications to take/avoid,No ETOH/petroleum product on skin DOS,NPO,Post-op transportation,Pre-surgical wash,Sturdy shoes/comfortable clothes,Do not bring valuables and remove jewelry
== END 2024-04-09 14:27 | disposition home or self-care (01) ==
LOC: OR 06:04 → AC 06:05
PROVIDERS: PCP Internal Medicine; Referring Provider Orthopaedic Surgery Adult Reconstructive Orthopaedic Surgery; Visit Provider Orthopaedic Surgery Adult Reconstructive Orthopaedic Surgery
PROC: (CPT 27130; principal; 2024-04-08 07:45)
DX: M16.12 Unilateral primary osteoarthritis, left hip (principal); Z86.718 Personal history of other venous thrombosis and embolism; E11.9 Type 2 diabetes mellitus without complications; Z79.84 Long term (current) use of oral hypoglycemic drugs; M81.0 Age-related osteoporosis without current pathological fracture; M25.752 Osteophyte, left hip; I95.81 Postprocedural hypotension
CPT/HCPCS: 27130; 36415; 73502; 76000; 82962; 85014; 85018; 97166; 97530; 97535; C1776; A9270; C1713; J0171; J0330; J0690; J1171; J1815; J2405; J2704; J3010